=== PATIENT | female | born 1945 | race Caucasian/White ===

== ENCOUNTER → 2016-06-19 | Outpatient (CLI) | payer MEDICARE, OTHER | LOC: WI 10:57 | PROVIDERS: ATTEND Specialist | DX: Z12.31 Encounter for screening mammogram for malignant neoplasm of breast (principal); R92.2 Inconclusive mammogram | CPT/HCPCS: 77067; G0202 ==

== ENCOUNTER → 2016-07-10 | Outpatient (CLI) | payer MEDICARE, OTHER ==
--- NOTE | 2016-07-10 15:57 | WOMENS IMAGING REPORT ---
EXAM DESCRIPTION: RIGHT DIAGNOSTIC MAMMO W/CAD; U/S BREAST UNILAT LIMITED COMPLETED DATE/TIME: 07/10/2016 10:50 am; 07/10/2016 11:29 am REASON FOR STUDY: N63, BREAST LUMP; RT BREAST DENSITY N63 UNSPECIFIED LUMP IN BREAST COMPARISON: 06/19/2016, 06/16/2015 TECHNIQUE: Cone compression craniocaudal and mediolateral oblique images of the breast recorded with digital acquisition. Right breast 90 mediolateral view. Right breast ultrasound was also performed. LIMITATIONS: None. FINDINGS: BREAST: right MASSES: Patient has a history of benign right breast biopsy upper outer quadrant with subsequent infe ction and wet-to-dry dressings. There is a biopsy clip in the far upper outer quadrant with adjacent low-density ill-defined density. There are also oil cysts adjacent to the clip.Cone compression whitley ges are very similar compared to 06/16/2015 suggesting against malignancy. CALCIFICATIONS: No new or suspicious calcifications. ARCHITECTURAL DISTORTION: None. DEVELOPING DENSITY: None. ASYMMETRY: None noted. OTHER: No other significant findings. Read with the assistance of CAD. .[facility] - R2 Cenova Version 1.3 .[facility] - R2 Cenova Version 1.3 .[facility] - R2 Cenova Version 2.4 .[facility] - R2 Cenova Version 2.4 .[facility] - R2 Peripheral Equipment Operator Version 9.2 Right breast ultrasound: Ultrasound of the far upper outer quadrant right breast was performed. A blue dye 5 to 6 mm oil cyst is present. Adjacent to the oil cysts, a hypoechoic 1.1 x 0.6 cm density is present with some acous tic absorption, likely breast parenchymal scar tissue. IMPRESSION: Oil cyst and scar tissue adjacent to a biopsy clip, similar compared to prior mammograms . BREAST DENSITY: b. There are scattered areas of fibroglandular density. BIRAD: 2 Benign findings. RECOMMENDATION: RECOMMENDED FOLLOW UP: Please continue yearly bilateral screening mammography SPECIFIC INTERVENTION/IMAGING/CONSULTATION RECOMMENDED:No additional intervention/ imaging/consultati on needed at this time. COMMUNICATION:Patient notified by letter COMMENT: The patient has been notified of the results by letter per MQSA requirements. Additional no tification policies are in place for contacting patient with suspicious or incomplete findings. Quality ID #[id number]: The [employer] recommends an annual screening mammogram for women aged 40 years or over. This facility utilizes a reminder system to ensure that all patients receive reminder letters, and/or direct phone calls for appointments. This includes reminders for routine scr eening mammograms, diagnostic mammograms, or other Breast Imaging Interventions when appropriate. Th is patient will be placed in the appropriate reminder system. The [employer] (ACR) has developed recommendations for screening MRI of the breast s in certain patient populations, to be used in conjunction with mammography. Breast MRI surveillanc e may be appropriate for women with more than 20% lifetime risk of developing breast cancer as deter mined by genetic testing, significant family history of the disease, or history of mantle radiation f or Hodgkins Disease. ACR Practice Guidelines 2008. TECHNICAL DOCUMENTATION: FINDING NUMBER: (1) ASSESSMENT: (1) JOB ID: [id number] [employer]- All Rights Reserved
--- NOTE | 2016-07-10 15:57 | WOMENS IMAGING REPORT ---
EXAM DESCRIPTION: RIGHT DIAGNOSTIC MAMMO W/CAD; U/S BREAST UNILAT LIMITED COMPLETED DATE/TIME: 07/10/2016 10:50 am; 07/10/2016 11:29 am REASON FOR STUDY: N63, BREAST LUMP; RT BREAST DENSITY N63 UNSPECIFIED LUMP IN BREAST COMPARISON: 06/19/2016, 06/16/2015 TECHNIQUE: Cone compression craniocaudal and mediolateral oblique images of the breast recorded with digital acquisition. Right breast 90 mediolateral view. Right breast ultrasound was also performed. LIMITATIONS: None. FINDINGS: BREAST: right MASSES: Patient has a history of benign right breast biopsy upper outer quadrant with subsequent infe ction and wet-to-dry dressings. There is a biopsy clip in the far upper outer quadrant with adjacent low-density ill-defined density. There are also oil cysts adjacent to the clip.Cone compression whitley ges are very similar compared to 06/16/2015 suggesting against malignancy. CALCIFICATIONS: No new or suspicious calcifications. ARCHITECTURAL DISTORTION: None. DEVELOPING DENSITY: None. ASYMMETRY: None noted. OTHER: No other significant findings. Read with the assistance of CAD. .[facility] - R2 Cenova Version 1.3 .[facility] - R2 Cenova Version 1.3 .[facility] - R2 Cenova Version 2.4 .[facility] [place] - R2 Cenova Version 2.4 .[facility] - R2 Rotary Helper Version 9.2 Right breast ultrasound: Ultrasound of the far upper outer quadrant right breast was performed. A blue dye 5 to 6 mm oil cyst is present. Adjacent to the oil cysts, a hypoechoic 1.1 x 0.6 cm density is present with some acous tic absorption, likely breast parenchymal scar tissue. IMPRESSION: Oil cyst and scar tissue adjacent to a biopsy clip, similar compared to prior mammograms . BREAST DENSITY: b. There are scattered areas of fibroglandular density. BIRAD: 2 Benign findings. RECOMMENDATION: RECOMMENDED FOLLOW UP: Please continue yearly bilateral screening mammography SPECIFIC INTERVENTION/IMAGING/CONSULTATION RECOMMENDED:No additional intervention/ imaging/consultati on needed at this time. COMMUNICATION:Patient notified by letter COMMENT: The patient has been notified of the results by letter per MQSA requirements. Additional no tification policies are in place for contacting patient with suspicious or incomplete findings. Quality ID #225: The [employer] recommends an annual screening mammogram for women aged 40 years or over. This facility utilizes a reminder system to ensure that all patients receive reminder letters, and/or direct phone calls for appointments. This includes reminders for routine scr eening mammograms, diagnostic mammograms, or other Breast Imaging Interventions when appropriate. Th is patient will be placed in the appropriate reminder system. The [employer] (ACR) has developed recommendations for screening MRI of the breast s in certain patient populations, to be used in conjunction with mammography. Breast MRI surveillanc e may be appropriate for women with more than 20% lifetime risk of developing breast cancer as deter mined by genetic testing, significant family history of the disease, or history of mantle radiation f or Hodgkins Disease. ACR Practice Guidelines 2008. TECHNICAL DOCUMENTATION: FINDING NUMBER: (1) ASSESSMENT: (1) JOB ID: [id number] [employer]- All Rights Reserved
== END ==
LOC: WI 10:16
PROVIDERS: ATTEND Specialist
DX: N63 Unspecified lump in breast (principal)
CPT/HCPCS: 76642; G0206

== ENCOUNTER → 2016-07-17 | Outpatient (CLI) | payer MEDICARE, OTHER ==
--- NOTE | 2016-07-17 14:39 | RADIOLOGY REPORT (SQ) ---
EXAM DESCRIPTION: CT LUNG CANCER SCREENING COMPLETED DATE/TIME: 07/17/2016 9:53 am REASON FOR STUDY: PERSONAL HX OF NICOTINE DEPENDENCE Z87.891 PERSONAL HISTORY OF NICOTINE DEPENDENC E Has the patient had a Chest CT scan within the past year? No. Was the patient offered tobacco cessation counseling? No. Was the patient engaged in shared decision making for this test? Yes. Does the patient have signs or symptoms of Lung Cancer? No. Is the patient a current smoker? No. How many packs per year? 182. How many years since quitting smoking? 10 years. Patients age: 71. COMPARISON: None. TECHNIQUE: Low Dose CT scan performed of the chest without intravenous contrast for purposes of scre ening for lung cancer. Images reviewed with lung, soft tissue and bone windows. Reconstructed coron al and sagittal MPR images reviewed. All images stored on PACS. All CT scanners at this facility use dose modulation, iterative reconstruction, and/or weight based d osing when appropriate to reduce radiation dose to as low as reasonably achievable (ALARA). [facility]: Dose Right [facility]: CareDose [facility]: Dose Right [facility]: Teradose 4D [facility]: [employer] RADIATION DOSE: mGy. . LIMITATIONS: No technical limitations. FINDINGS: LUNG NODULES: Description: Solid nodule in the right upper lobe (image 202) measuring 4. 1 mm. Solid nodule in the right middle lobe (image 279) measuring 3.6 mm. A few smaller punctate ca lcified granulomas. REMAINING LUNGS AND PLEURA: No pleural effusions or calcifications. No pneumothorax. Mild scarr ing in the lung bases. HILAR AND MEDIASTINAL STRUCTURES: No identified masses. No abnormal nodes. HEART AND VASCULAR STRUCTURES: No aortic aneurysm. No pericardial effusion. No cardiac devices. CORONARY ARTERY CALCIFICATIONS: No significant calcifications. UPPER ABDOMEN: No significant findings. THYROID AND OTHER SOFT TISSUES: No masses. No adenopathy. BONES: No significant finding. OTHER: No other significant findings. IMPRESSION: BENIGN FINDINGS IN THE LUNGS. NO OTHER CLINICALLY SIGNIFICANT/POTENTIALLY CLINICALLY SIGNIFICANT FINDINGS LUNGRADS: LUNGRADS: 2 BENIGN APPEARANCE OR BEHAVIOR. NODULES WITH A VERY LOW LIKELIHOOD OF BECOMIN G A CLINICALLY ACTIVE CANCER DUE TO SIZE OR LACK OF GROWTH. MODIFIER: NONE. RECOMMENDATION: Continue annual screening with LDCT in 12 months. COMMENT: CRITERIA: Solid nodule(s): < 6 mm; new < 4 mm. Part solid nodule(s): < 6 mm total diameter on baseline screening. Non solid nodule(s) (GGN): < 20 mm OR ? 20 and unchanged or slowly growing. Category 3 or 4 modules unchanged for ? 3 months. TECHNICAL DOCUMENTATION: JOB ID: [id number] Quality ID # [id number]: Final reports with documentation of one or more dose reduction techniques (e.g., Au tomated exposure control, adjustment of the mA and/or kV according to patient size, use of iterative reconstruction technique) 2010 [facility]
== END ==
LOC: RAD 09:36
PROVIDERS: ATTEND Specialist
DX: Z12.2 Encounter for screening for malignant neoplasm of respiratory organs (principal); Z87.891 Personal history of nicotine dependence
CPT/HCPCS: G0297

== ENCOUNTER → 2016-10-17 | Outpatient (CLI) | payer MEDICARE, OTHER ==
--- NOTE | 2016-10-17 11:48 | WOMENS IMAGING REPORT ---
EXAM DESCRIPTION: BONE DENSITY HIP/SPINE COMPLETED DATE/TIME: 10/17/2016 9:52 am REASON FOR STUDY: OSTEOPOROSIS M81.0 AGE-RELATED OSTEOPOROSIS W/O CURRENT PATHOLOGICAL FRAC COMPARISON: 2014 TECHNIQUE: Dual-Energy X-ray Absorptiometry (DEXA) of the AP Spine and Hip. LIMITATIONS: None. FINDINGS: LUMBAR SPINE: The bone mineral density (BMD) measured from L1-L4 in the AP projection correlates with a T-score of +1.6, which is normal as defined by the World Health Organization. This is similar compared to 2015 HIP: The bone mineral density (BMD) measured in the left femoral neck at the hip correlates with a T-score of -0.7, which is normal as defined by the World Health Organization. This is similar compared to 2 015 IMPRESSION: 1. LUMBAR SPINE: Normal 2. HIP: Normal COMMENT: The World Health Organization defines low BMD as follows: T-score: Normal: Greater than -1.0 Osteopenia: Between -1.0 and -2.5 Osteoporosis: Less than -2.5 without fractures Established osteoporosis: Less than -2.5 with fractures In general, you may wish to consider: Diagnosis Treatment Follow-up DEXA Normal BMD Prevention 2-3 years Osteopenia Prevention/Therapy 1-2 years Osteoporosis Therapy Yearly TECHNICAL DOCUMENTATION: JOB ID: [id number] [employer]- All Rights Reserved
== END ==
LOC: WI 09:24
PROVIDERS: ATTEND Physician Assistant
DX: M81.0 Age-related osteoporosis without current pathological fracture (principal)
CPT/HCPCS: 77080

== ENCOUNTER → 2017-04-16 | Outpatient (CLI) | payer MEDICARE, OTHER ==
--- NOTE | 2017-04-16 19:55 | XCELERA REPORT ---
[address] [address] Transthoracic Echocardiogram Report Name: SHANTHI BRIGGS Age: 71 yrs Gender: Female : 1945 Patient Status: Outpatient Patient Location: Study Date: 04/16/2017 10:29 AM Height: 63 in Weight: 268 lb BSA: 2.2 m2 Reason For Study: AMYLOIDOSIS Ordering Physician: CHRISTOS HILL Performed By: Haley Mario Interpretation Summary Difficult study pt 268# and 63" only. Poor A4 chamber, and no Ap 2 chamber view.Limited findings Minimal post peric effusion, Calcified aortic root not enlarged. AV not visualized, peak velocity not increased to suggest .. Mild mitral annular calcification, no MS no MVP, no MR, LA is not enlarged. LVEF is very normal and no LV diastolic dysfunction, average E/E' is 12. IVS and PW and Lateral wall normal and hyperdynamic , other rueda not evaluated. no LV enlargement. Right heart novisualized and no TR jet seen or measured to derive RVSP. IVC is slightly dilated and collapse is <50%. Echo is not the imaging modality to diagnose Amyloidosis, and cardiac amyloidosis is rare. MMode/2D Measurements & Calculations RVDd: 3.7 cm LVIDd: 4.4 cm FS: 37.1 % Ao root diam: 3.1 cm IVSd: 1.3 cm LVIDs: 2.8 cm EDV(Teich): 89.6 ml LVPWd: 1.3 cm ESV(Teich): 29.4 ml Ao root area: 7.4 cm2 EF(Teich): 67.2 % LA dimension: 3.6 cm Doppler Measurements & Calculations MV E max chris: MV P1/2t max chris: Ao V2 max: LV V1 max P.7 cm/sec 98.7 cm/sec 145.1 cm/sec 5.1 mmHg MV A max chris: MV P1/2t: 60.7 msec Ao max PG: LV V1 max: 97.7 cm/sec 8.4 mmHg 112.5 cm/sec MV E/A: 1.0 MVA(P1/2t): 3.6 cm2 MV dec slope: 476.1 cm/sec2 PA V2 max: 112.5 cm/sec PA max P.1 mmHg Left Ventricle The left ventricle is grossly normal size. There is mild concentric left ventricular hypertrophy. The left ventricular ejection fraction is normal. Doppler measurements suggest normal left ventricular diastolic function. Regional wall motion abnormalities cannot be excluded due to limited visualization. The left ventricular apex is not well visualized. Right Ventricle The right ventricle is not well visualized secondary to technical limitations. Atria Right atrium not well visualized secondary to technical limitations. The left atrial size is normal. There is no Doppler evidence for an interatrial shunt. Mitral Valve The mitral valve is normal in structure and function. There is no evidence of mitral valve prolapse. There is no mitral valve stenosis. There is no mitral regurgitation noted. Aortic Valve The aortic valve is not well visualized secondary to technical limitations. Cannot exclude aortic valvular vegetation. There is no aortic valve stenosis. No aortic regurgitation is present. Tricuspid Valve The tricuspid valve is not well visualized secondary to technical limitations. Pulmonic Valve The pulmonic valve is not well visualized. Great Vessels The aortic root is normal size. The inferior vena cava appeared dilated and decreased < 50% with respiration (RAP 15-20 mmHg). Effusions Minimal pericardial effusion. I WMSI = 1.00 % Normal = 100 Segments Size X - Cannot 1 - Normal 2 - 3 - Akinetic4 - 1-2 small Interpret Hypokinetic Dyskinetic 3-5 moderate 5 - 6-14 large Aneurysmal 15-16 diffuse : CHRISTOS HILL > Pérez Brown
== END ==
LOC: SP 09:56
PROVIDERS: ATTEND Internal Medicine Hematology & Oncology
DX: E85.9 Amyloidosis, unspecified (principal)
CPT/HCPCS: 93306

== ENCOUNTER 2017-05-04 08:44 | Inpatient (IN) | payer MEDICARE, OTHER ==
[2017-05-04] MEDS ORDERED: NORMAL SALINE 1000 ML 1,000 ML IV ONE ×2 (10:00→12:43)
--- NOTE | 2017-05-04 10:01 | ER Document Report ---
ED Fall - General Chief Complaint: Fall Stated Complaint: FALL,,CONFUSION Time Seen by Provider: 05/04/17 09:20 Mode of Arrival: Ambulatory Information source: Patient Notes: Patient is a 72-year-old female who presents to the ER today for diarrhea 4 weeks, confusion off and on per her and fall this morning. Patient states that she only fell because she tripped over her CPAP machine in the dark. She denies hitting her head or loss of consciousness. Denies any pain anywhere. Patient states that she has been evaluated for the diarrhea by mobile health vehicle operator about 10 days ago and it was "negative for anything." She does have a colonoscopy scheduled coming up soon but has been states that he did not think she could tolerate the pre-colonoscopy cleanout. Patient is on lithium for bipolar disorder, takes 300 mg 3 times a day. is very concerned about her lithium level because she has had so much diarrhea and it has been difficult to keep fluids in her. TRAVEL OUTSIDE OF THE [place] IN LAST 30 DAYS: No - Related data Allergies/Adverse Reactions: cyclobenzaprine HCl [From Flexeril] Allergy (Unknown, Verified 05/04/17 09:16) diphenhydramine HCl [From Benadryl] Allergy (Unknown, Verified 05/04/17 09:16) Past Medical History - General Information source: Patient, Relative - Social History Smoking Status: Never Smoker Chew tobacco use (# tins/day): No Frequency of alcohol use: None Drug Abuse: None Family History: None Patient has suicidal ideation: No Patient has homicidal ideation: No - Past Medical History Cardiac Medical History: Reports: Hx Hypercholesterolemia, Hx Hypertension Denies: Hx Coronary Artery Disease, Hx Heart Attack Pulmonary Medical History: Reports: Hx Asthma, Hx COPD Denies: Hx Bronchitis, Hx Pneumonia Neurological Medical History: Denies: Hx Cerebrovascular Accident, Hx Seizures Endocrine Medical History: Reports: Hx Hypothyroidism Renal/ Medical History: Denies: Hx Peritoneal Dialysis Malignancy Medical History: Reports: Hx Breast Cancer GI Medical History: Reports: Hx Gastroesophageal Reflux Disease Musculoskeltal Medical History: Reports Hx Arthritis Psychiatric Medical History: Reports: Hx Bipolar Disorder Past Surgical History: Reports: Hx Breast Surgery, Hx Cholecystectomy, Hx Hysterectomy, Hx Tonsillectomy - Immunizations Hx Diphtheria, Pertussis, Tetanus Vaccination: Yes Review of Systems - Review of Systems Constitutional: No symptoms reported EENT: No symptoms reported Cardiovascular: No symptoms reported Respiratory: No symptoms reported Gastrointestinal: See HPI Genitourinary: No symptoms reported Female Genitourinary: No symptoms reported Musculoskeletal: No symptoms reported Skin: No symptoms reported Hematologic/Lymphatic: No symptoms reported Neurological/Psychological: See HPI Physical Exam - Vital signs Vitals: Temp Pulse Resp BP Pulse Ox 98.0 F 76 24 H 152/62 H 90 L 05/04/17 08:50 05/04/17 08:50 05/04/17 08:50 05/04/17 08:50 05/04/17 08:50 - Notes Notes: PHYSICAL EXAMINATION: GENERAL: Chronically ill-appearing, obese, but in no acute distress. HEAD: Atraumatic, normocephalic. EYES: Pupils equal round and reactive to light, extraocular movements intact, sclera anicteric, conjunctiva are normal. ENT: Airway patent, tongue appears dry NECK: Normal range of motion, supple without lymphadenopathy LUNGS: CTAB and equal. No wheezes rales or rhonchi. HEART: Regular rate and rhythm without murmurs ABDOMEN: Soft, mild periumbilical tenderness. No guarding, no rebound BACK: no vertebral tenderness, normal ROM GI/: no CVA tenderness EXTREMITIES: Normal range of motion, no pitting edema. No cyanosis. NEUROLOGICAL: Answers questions appropriately, alert and oriented 3, cranial nerves grossly intact. Normal sensory/motor exams. PSYCH: Normal mood, normal affect. SKIN: Warm, Dry, normal turgor, no rashes or lesions noted Course - Re-evaluation Re-evalutation: 05/04/17 12:52 White count is 16.9, urinalysis reveals infection with positive nitrites, greater than 182 white blood cells and leukocytes, acute abdominal series negative for any acute pathology, normal bowel gas pattern, lithium level was high at 2.7. Poison control was called and advises fluid resuscitation with IV fluids and trending her lithium until it peaks and then starts to go back down again. They want her urine output at 2 cc/kg/h. I have initiated call with hospitalist to admit her at this time, awaiting callback. 05/04/17 13:19 Ghazal Alvarado NP hospitalist agrees to admit at this time to trend lithium and fluid resuscitate, antibiotics for UTI. - Vital Signs Vital signs: Temp Pulse Resp BP Pulse Ox 98.0 F 76 18 184/67 H 93 05/04/17 08:50 05/04/17 08:50 05/04/17 14:14 05/04/17 14:13 05/04/17 14:14 - Laboratory Result Diagrams: 05/04/17 11:40 05/04/17 11:40 Laboratory results interpreted by me: 05/04/17 05/04/17 05/04/17 11:10 11:40 11:40 WBC 16.9 H Seg Neutrophils % 86.4 H Lymphocytes % 5.6 L Absolute Neutrophils 14.5 H Sodium 134.6 L Potassium 3.5 L BUN 28 H Est GFR (Non-Af Amer) 53 L Glucose 112 H Calcium 10.8 H Alkaline Phosphatase 127 H Urine Protein 100 H Urine Blood SMALL H Urine Nitrite POSITIVE H Ur Leukocyte Esterase LARGE H [place] 2.7 H* Critical Care Note - Critical Care Note Total time excluding time spent on procedures (mins): 35 - 35___ minutes spent in critical care time with patient, consulted with attending, speaking with family, placing orders and evaluating tests and labs. Discharge - Discharge Clinical Impression: Elevated lithium level UTI (urinary tract infection) Qualifiers: Urinary tract infection type: site unspecified Hematuria presence: with hematuria Qualified Code(s): N39.0 - Urinary tract infection, site not specified Condition: Stable Disposition: ADMITTED INPATIENT Admitting Provider: Hospitalist - [facility] Unit Admitted: Telemetry
--- NOTE | 2017-05-04 11:27 | RADIOLOGY REPORT (SQ) ---
EXAM DESCRIPTION: ACUTE ABDOMEN SERIES COMPLETED DATE/TIME: 05/04/2017 10:57 am REASON FOR STUDY: abd pain, diarrhea 4 weeks COMPARISON: CT lung cancer screening 07/17/2016 Skeletal survey 09/03/2014 NUMBER OF VIEWS: Three views. TECHNIQUE: Frontal chest, supine abdomen and upright abdomen radiographic images acquired. LIMITATIONS: None. FINDINGS: CHEST: Moderate to marked cardiomegaly, progressive since 2014. No acute infiltrates. No pleural effusion. No pneumothorax. Old healed right humeral head fracture . FREE AIR: None. No abnormal gas collections. BOWEL GAS PATTERN: Nonobstructive pattern. No dilated loops or air fluid levels. CALCIFICATIONS: No suspicious calcifications. HARDWARE: None in the abdomen. SOFT TISSUES: No gross mass or suggestion of organomegaly. BONES: No acute fracture. No worrisome bone lesions. OTHER: No other significant finding. IMPRESSION: Moderate to marked cardiomegaly. Nonspecific nonobstructive bowel gas pattern TECHNICAL DOCUMENTATION: JOB ID: [id number] [employer]- All Rights Reserved Reading location - IP/workstation name: [email or web address]
[2017-05-04 11:51] LABS: ABSOLUTE LYMPHOCYTES (AUTO) 0.9 10^3/uL (0.5-4.7); ABSOLUTE MONOCYTES (AUTO) 1.3 10^3/uL (0.1-1.4); ABSOLUTE NEUT (AUTO) 14.5 10^3/uL (1.7-8.2); BASOPHILS % (AUTO) 0.1 % (0-2); HEMOGLOBIN 13.4 g/dL (12.0-15.5); LYMPHOCYTES % (AUTO) 5.6 % (13-45); MEAN CORPUSCULAR HEMOGLOBIN 30.4 pg (27.0-33.4); MEAN CORPUSCULAR HGB CONC 33.4 g/dL (32.0-36.0); MEAN CORPUSCULAR VOLUME 91 fl (80-97); MONOCYTES % (AUTO) 7.9 % (3-13); PLATELET COUNT 315 10^3/uL (150-450); RED CELL DISTRIBUTION WIDTH 12.8 % (11.5-14.0); SEGMENTED NEUTROPHILS % (AUTO) 86.4 % (42-78); TOTAL CELLS COUNTED % (AUTO) 100 %; WHITE BLOOD COUNT 16.9 10^3/uL (4.0-10.5)
[2017-05-04 11:55] LABS: APPEARANCE,URINE CLOUDY; BILIRUBIN,URINE NEGATIVE (NEGATIVE); COLOR,URINE STRAW; GLUCOSE, URINE NEGATIVE (NEGATIVE); KETONES,URINE NEGATIVE (NEGATIVE); URINE SPECIFIC GRAVITY 1.005
[2017-05-04 11:56] LABS: LEUKOCYTE ESTERASE,URINE LARGE (NEGATIVE); NITRITE,URINE POSITIVE (NEGATIVE); PROTEIN,URINE 100 mg/dL (NEGATIVE); UROBILINOGEN,URINE NEGATIVE mg/dL (<2.0)
[2017-05-04 12:10] LABS: ALANINE AMINOTRANSFERASE 26 U/L (9-52); ALBUMIN 3.7 g/dL (3.5-5.0); ALKALINE PHOSPHATASE 127 U/L (38-126); ANION GAP 8 (5-19); ASPARTATE AMINO TRANSFERASE 25 U/L (14-36); BILIRUBIN,DIRECT 0.1 mg/dL (0.0-0.4); BILIRUBIN,TOTAL 0.4 mg/dL (0.2-1.3); BLOOD UREA NITROGEN 28 mg/dL (7-20); CALCIUM 10.8 mg/dL (8.4-10.2); CARBON DIOXIDE 24 mmol/L (22-30); CHLORIDE 103 mmol/L (98-107); GLUCOSE 112 mg/dL (75-110); POTASSIUM 3.5 mmol/L (3.6-5.0); SODIUM 134.6 mmol/L (137-145); TOTAL PROTEIN 6.3 g/dL (6.3-8.2)
[2017-05-04 12:13] LABS: LITHIUM 2.7 mEq/L (0.6-1.2)
[2017-05-04] MEDS ORDERED: CEFTRIAXONE INJ 1000 MG VIAL IV ONE (12:43)
--- NOTE | 2017-05-04 13:48 | EKG REPORT ---
SEVERITY:- BORDERLINE ECG - SINUS RHYTHM BORDERLINE T WAVE ABNORMALITIES : Confirmed by: Pérez Brown MD 04-May-2017 13:48:17
[2017-05-04] MEDS ORDERED: ACETAMINOPHEN 325 MG TABLET PO PRN (14:30)
[2017-05-04] MEDS ORDERED: MAGNESIUM HYDROXIDE SUSP 30 ML UDCUP PO PRN (14:40)
[2017-05-04] MEDS ORDERED: MAG HYDROX/AL HYDROX/SIMETH SUSP 30 ML UDCUP PO PRN (14:40)
[2017-05-04] MEDS ORDERED: ONDANSETRON HCL INJ/PF 4 MG/2 ML SDV IV PRN (14:40)
[2017-05-04] MEDS ORDERED: HYDRALAZINE HCL INJ/PF 20 MG/1 ML SDV IV PRN (15:09)
--- NOTE | 2017-05-04 15:16 | PDOC H&P ---
History of Present Illness Admission Date/PCP: 05/04/17 13:30 JOEL PINEDA MD Patient complains of: Increased confusion, urinary incontinence and retention History of Present Illness: SHANTHI BRIGGS is a 72 year old female with a past medical history of hypertension, hyperlipidemia, COPD, hypothyroidism, breast cancer status post mastectomy, arthritis, and bipolar on lithium who presented to the emergency department with a complaint of increased confusion and fall when she became holding her CPAP machine overnight. Evaluation in the emergency department reveals urinalysis positive for infection , WBCs of 16.9, lithium level of 2.7, and acute abdominal series was negative for acute pathology. [place] poison control was called by the emergency department provider; they advised fluid resuscitation with IV fluids and trending lithium until it begins trending downwards. They recommend a urinary output of 2 ml/kg/hr (for this patient, 235 mL's per hour). The patient had a Fishman catheter placed by emergency department with immediate urine output of 1250 mL's. She is noted to be afebrile, heart rate 76, respiratory rate 24, blood pressure 152/62 (patient admits that she has not taken her home medications yet today), and pulse oximetry of 90% on room air. She is referred to the hospitalist service for admission. Past Medical History Cardiac Medical History: Reports: Hyperlipidema, Hypertension Denies: Coronary Artery Disease, Myocardial Infarction Pulmonary Medical History: Reports: Asthma, Chronic Obstructive Pulmonary Disease (COPD) Denies: Bronchitis, Pneumonia Neurological Medical History: Denies: Seizures Endocrine Medical History: Reports: Hypothyroidism Malignancy Medical History: Reports: Breast Cancer GI Medical History: Reports: Gastroesophageal Reflux Disease Musculoskeltal Medical History: Reports: Arthritis Psychiatric Medical History: Reports: Bipolar Disorder Hematology: Denies: Anemia Past Surgical History Past Surgical History: Reports: Cholecystectomy, Hysterectomy, Tonsillectomy Social History Information Source: Patient, Emergency Med Personnel, [facility] Records Lives with: Spouse/Significant other Smoking Status: Never Smoker Frequency of Alcohol Use: None Hx Recreational Drug Use: No Hx Prescription Drug Abuse: No - Advance Directive Resuscitation Status: Do Not Resuscitate Family History Family History: Reviewed & Not Pertinent Parental Family History Reviewed: Yes Children Family History Reviewed: Yes Sibling(s) Family History Reviewed.: Yes Medication/Allergy Home Medications: Amlodipine Besylate [Norvasc 10 mg Tablet] 10 mg PO DAILY 05/04/17 Aspirin [Aspirin EC] 81 mg PO DAILY 05/04/17 Fluticasone/Salmeterol [Advair 500-50 Diskus 28 Dose] 1 puff IH Q12 05/04/17 Hydralazine HCl [Apresoline 10 mg Tablet] 10 mg PO Q8 05/04/17 Hydrochlorothiazide [Hydrodiuril 12.5 mg Capsule] 12.5 mg PO DAILY 05/04/17 Levothyroxine Sodium [Synthroid] 125 mcg PO Q6AM 05/04/17 Rayle Carbonate [Rayle Carbonate ER] 300 mg PO Q8 05/04/17 Metoprolol Tartrate [Lopressor 100 mg Tablet] 100 mg PO Q12 05/04/17 Montelukast Sodium [Singulair 10 mg Tablet] 10 mg PO QHS 05/04/17 Multivitamin [Multiple Vitamins] 1 tab PO DAILY 05/04/17 Solifenacin Succinate [Vesicare] 10 mg PO DAILY 05/04/17 Tiotropium [place] [Spiriva Respimat] 2 puff IH DAILY 05/04/17 Vitamin E 100 unit PO DAILY 05/04/17 Allergies/Adverse Reactions: cyclobenzaprine HCl [From Flexeril] Allergy (Unknown, Verified 05/04/17 09:16) diphenhydramine HCl [From Benadryl] Allergy (Unknown, Verified 05/04/17 09:16) Review of Systems Constitutional: PRESENT: fatigue. ABSENT: chills, fever(s), headache(s), weight gain, weight loss Eyes: ABSENT: visual disturbances Ears: ABSENT: hearing changes Cardiovascular: ABSENT: chest pain, dyspnea on exertion, edema, orthropnea, palpitations Respiratory: PRESENT: cough, dyspnea, other - Rhinorrhea. ABSENT: hemoptysis Gastrointestinal: PRESENT: as per HPI. ABSENT: abdominal pain, constipation, diarrhea, hematemesis, hematochezia, nausea, vomiting Genitourinary: PRESENT: as per HPI. ABSENT: dysuria, hematuria Musculoskeletal: ABSENT: joint swelling Integumentary: ABSENT: rash, wounds Neurological: ABSENT: abnormal gait, abnormal speech, confusion, dizziness, focal weakness, syncope Psychiatric: ABSENT: anxiety, depression, homidical ideation, suicidal ideation Endocrine: ABSENT: cold intolerance, heat intolerance, polydipsia, polyuria Hematologic/Lymphatic: ABSENT: easy bleeding, easy bruising Physical Exam Vital Signs: Temp Pulse Resp BP Pulse Ox 98.0 F 76 24 H 152/62 H 90 L 05/04/17 08:50 05/04/17 08:50 05/04/17 08:50 05/04/17 08:50 05/04/17 08:50 General appearance: PRESENT: no acute distress, disheveled, morbidly obese, well -developed, well-nourished, other - Poor hygiene with foul odor Head exam: PRESENT: atraumatic, normocephalic Eye exam: PRESENT: conjunctiva pink, EOMI, PERRLA. ABSENT: scleral icterus Ear exam: PRESENT: normal external ear exam Mouth exam: PRESENT: dry mucosa, tongue midline, other - Dry, cracked lips Neck exam: ABSENT: carotid bruit, JVD, lymphadenopathy, thyromegaly Respiratory exam: PRESENT: prolonged expiratory phas, rhonchi, symmetrical, unlabored. ABSENT: rales, wheezes Cardiovascular exam: PRESENT: RRR, +S1, +S2. ABSENT: diastolic murmur, rubs, systolic murmur, tachycardia Pulses: PRESENT: normal dorsalis pedis pul Vascular exam: PRESENT: normal capillary refill GI/Abdominal exam: PRESENT: normal bowel sounds, soft. ABSENT: distended, guarding, mass, organolmegaly, rebound, tenderness Rectal exam: PRESENT: deferred Extremities exam: PRESENT: full ROM. ABSENT: calf tenderness, clubbing, pedal edema Neurological exam: PRESENT: alert, awake, oriented to person, oriented to place , CN II-XII grossly intact, other - Patient has difficulty reporting HPI/ medical history. She is forgetful and repetitive of statements during our conversation.. ABSENT: oriented to time, oriented to situation, motor sensory deficit Psychiatric exam: PRESENT: appropriate affect, normal mood. ABSENT: homicidal ideation, suicidal ideation Skin exam: PRESENT: dry, erythema - Irritation to skinfolds, warm. ABSENT: cyanosis, intact, rash Results Impressions: Acute Abdomen Series 05/04/17 10:00 IMPRESSION: Moderate to marked cardiomegaly. Nonspecific nonobstructive bowel gas pattern Assessment & Plan - Diagnosis (1) [place] toxicity Qualifiers: Encounter type: initial encounter Injury intent: accidental or unintentional Qualified Code(s): T56.891A - Toxic effect of other metals, accidental (unintentional), initial encounter Is this a current diagnosis for this admission?: Yes Plan: Patient presented to the emergency department with a report of increased confusion. The patient's lithium level was evaluated to be 2.7. Was trying to poison control contacted by emergency department physician; recommendations for IV fluid resuscitation and trending lithium level. Advised urine output of 235 mL/h for this patient. The patient will be admitted to the medical floor on continuous cardiac telemetry. She is provided maintenance IV fluids at 150 mL/h. She is already received approximately 2 L normal saline bolus by personnel. A Fishman has been placed. Strict I's and O's. We will trend lithium. Seizure, fall, aspiration precautions. (2) UTI (urinary tract infection) Qualifiers: Urinary tract infection type: site unspecified Hematuria presence: with hematuria Qualified Code(s): N39.0 - Urinary tract infection, site not specified; R31.9 - Hematuria, unspecified; R31.9 - Hematuria, unspecified Is this a current diagnosis for this admission?: Yes Plan: The patient was admitted with a complaint of increased confusion and abdominal fullness. Evaluation revealed urinalysis positive for urinary tract infection and leukocytosis with a white count of 16. She is afebrile, normal heart rate, elevated blood pressures. We will obtain blood and urine cultures. We will evaluate urinary tract infection and urinary retention with a CT of the abdomen and pelvis. Continue IV Rocephin. (3) Acute encephalopathy Is this a current diagnosis for this admission?: Yes Plan: Multifactorial secondary to lithium toxicity and acute infection. (4) Leukocytosis Qualifiers: Leukocytosis type: bandemia Qualified Code(s): D72.825 - Bandemia Is this a current diagnosis for this admission?: Yes Plan: Secondary to UTI. Blood and urine cultures are pending. We will obtain CT of the abdomen and pelvis. We will monitor with daily CBC. Remaining plan as above (5) Dehydration Is this a current diagnosis for this admission?: Yes Plan: IV maintenance fluids. Encourage p.o. fluid intake. (6) Urinary retention Is this a current diagnosis for this admission?: Yes Plan: Possibly related to urinary tract infection. We will obtain CT of the abdomen and pelvis to evaluate for renal stones/ hydronephrosis. Fishman catheter with strict I's and O's. We will start daily Flomax. (7) Hypertension Qualifiers: Hypertension type: essential hypertension Qualified Code(s): I10 - Essential (primary) hypertension Is this a current diagnosis for this admission?: Yes Plan: Blood pressure 184/67 in the emergency department; patient reports that she has not taken her home medications. We have resumed amlodipine, hydralazine, metoprolol at home dosing. IV hydralazine available as needed for blood pressure control. - Time Time Spent: 50 to 70 Minutes Medications reviewed and adjusted accordingly: Yes - Inpatient Certification Based on my medical assessment, after consideration of the patient's comorbidities, presenting symptoms, or acuity I expect that the services needed warrant INPATIENT care.: Yes I certify that my determination is in accordance with my understanding of Medicare's requirements for reasonable and necessary INPATIENT services [42 CFR 412.3e].: Yes Medical Necessity: Need Close Monitoring Due to Risk of Patient Decompensation, Need For IV Fluids, Need For Continuous Telemetry Monitoring, Need for IV Antibiotics
[2017-05-04 15:48] LABS: URINE AMPHETAMINES SCREEN NEGATIVE; URINE BARBITURATES SCREEN NEGATIVE; URINE BENZODIAZEPINES SCREEN NEGATIVE; URINE COCAINE SCREEN NEGATIVE; URINE MARIJUANA (THC) SCREEN NEGATIVE; URINE METHADONE SCREEN NEGATIVE; URINE PHENCYCLIDINE SCREEN NEGATIVE
[2017-05-04] MEDS: NORMAL SALINE 1000 ML 1,000 ML IV PRN (17:07)
[2017-05-04] MEDS: TAMSULOSIN HCL 0.4 MG CAP.SR.24H PO SCH (17:10)
--- NOTE | 2017-05-04 17:27 | RADIOLOGY REPORT (SQ) ---
EXAM DESCRIPTION: CT ABD/PELVIS NO ORAL OR IV COMPLETED DATE/TIME: 05/04/2017 5:02 pm REASON FOR STUDY: AMS, UTI/leukocytosis, urinary retention COMPARISON: None. TECHNIQUE: CT scan of the abdomen and pelvis performed without intravenous or oral contrast. Images reviewed with lung, soft tissue, and bone windows. Reconstructed coronal and sagittal MPR images revi ewed. All images stored on PACS. All CT scanners at this facility use dose modulation, iterative reconstruction, and/or weight based d osing when appropriate to reduce radiation dose to as low as reasonably achievable (ALARA). [facility]: Dose Right [facility]: CareDose [facility]: Dose Right [facility]: Teradose 4D [facility]: Smart CipherApps RADIATION DOSE: CT Rad equipment meets quality standard of care and radiation dose reduction techniq ues were employed. CTDIvol: 20.3 mGy. DLP: 1101 mGy-cm.mGy. LIMITATIONS: None. FINDINGS: LOWER CHEST: Cardiomegaly. NON-CONTRASTED LIVER, SPLEEN, ADRENALS: Liver and spleen are unremarkable. There is a 16 mm low-dens ity left adrenal nodule. PANCREAS: No masses. No peripancreatic inflammatory changes. GALLBLADDER: No identified stones by CT criteria. No inflammatory changes to suggest cholecystitis. RIGHT KIDNEY AND URETER: No solid masses. There are cysts. There are 2 lower pole cysts that measur e about 6 cm. There is what appears to be a small hyperdense cortical cyst on image 30 series 3. N o significant calcifications. No hydronephrosis or hydroureter. LEFT KIDNEY AND URETER: No solid masses. There is a 3 cm upper pole cyst. A couple small 6 hyperden se cysts are suggested on image 26. No significant calcifications. No hydronephrosis or hydrouret er. AORTA AND RETROPERITONEUM: No aneurysm. No retroperitoneal masses or adenopathy. BOWEL AND PERITONEAL CAVITY: No obvious masses or inflammatory changes. No free fluid. APPENDIX: Not identified. PELVIS, BLADDER, AND ABDOMINAL WALL:A Fishman catheter is present in the urinary bladder. The uterus i s absent. BONES: Thoracolumbar spondylosis. No acute abnormality is appreciated. OTHER: No other significant finding. IMPRESSION: 1. 16 mm left adrenal adenoma. 2. Renal cysts including some small apparently hyperdense cysts. 3. Thoracolumbar spondylosis. COMMENT: Quality ID # [id number]: Final reports with documentation of one or more dose reduction techniques (e.g., Automated exposure control, adjustment of the mA and/or kV according to patient size, use of iterative reconstruction technique) TECHNICAL DOCUMENTATION: JOB ID: [id number] [employer]- All Rights Reserved Reading location - IP/workstation name: [email or web address]
[2017-05-04] MEDS: HYDRALAZINE HCL 10 MG TABLET PO SCH (22:11)
[2017-05-04] MEDS: FLUTICASONE/SALMETEROL DISKUS 500-50 MCG/DOSE IH SCH (22:11)
[2017-05-04] MEDS: FAMOTIDINE 20 MG TABLET PO SCH (22:11)
[2017-05-04] MEDS: MONTELUKAST SODIUM 10 MG TABLET PO SCH (22:12)
[2017-05-04] MEDS: METOPROLOL TARTRATE 100 MG TABLET PO SCH (22:12)
[2017-05-04] MEDS: HEPARIN SOD (PORCINE) 5,000 UNIT/ML 1 ML SYRINGE SUBCUT SCH (22:12)
[2017-05-05] MEDS: NORMAL SALINE 1000 ML 1,000 ML IV PRN (03:51)
[2017-05-05] MEDS ORDERED: NORMAL SALINE 1000 ML 1,000 ML IV ONE (04:00)
[2017-05-05 05:18] LABS: ABSOLUTE LYMPHOCYTES (AUTO) 0.6 10^3/uL (0.5-4.7); ABSOLUTE MONOCYTES (AUTO) 0.9 10^3/uL (0.1-1.4); ABSOLUTE NEUT (AUTO) 9.9 10^3/uL (1.7-8.2); BASOPHILS % (AUTO) 0.2 % (0-2); EOSINOPHILS % (AUTO) 0.1 % (0-6); HEMATOCRIT 37.3 % (36.0-47.0); HEMOGLOBIN 12.3 g/dL (12.0-15.5); LYMPHOCYTES % (AUTO) 5.3 % (13-45); MEAN CORPUSCULAR HEMOGLOBIN 30.5 pg (27.0-33.4); MEAN CORPUSCULAR VOLUME 92 fl (80-97); MONOCYTES % (AUTO) 8.1 % (3-13); PLATELET COUNT 268 10^3/uL (150-450); RED BLOOD COUNT 4.03 10^6/uL (3.72-5.28); SEGMENTED NEUTROPHILS % (AUTO) 86.3 % (42-78); TOTAL CELLS COUNTED % (AUTO) 100 %; WHITE BLOOD COUNT 11.5 10^3/uL (4.0-10.5)
[2017-05-05] MEDS: LEVOTHYROXINE SODIUM 0.025 MG TABLET PO SCH (05:28)
[2017-05-05] MEDS: LEVOTHYROXINE SODIUM 0.1 MG TABLET PO SCH (05:28)
[2017-05-05] MEDS: HEPARIN SOD (PORCINE) 5,000 UNIT/ML 1 ML SYRINGE SUBCUT SCH ×3 (05:29→21:15)
[2017-05-05] MEDS: HYDRALAZINE HCL 10 MG TABLET PO SCH ×3 (05:29→21:18)
[2017-05-05] MEDS ORDERED: (PENDING PHARMACY ID) (Levothyroxine Sodium [Synthroid] 125 MCG) PO SCH (06:00)
[2017-05-05 06:01] LABS: ANION GAP 7 (5-19); BLOOD UREA NITROGEN 18 mg/dL (7-20); CALCIUM 9.8 mg/dL (8.4-10.2); CARBON DIOXIDE 22 mmol/L (22-30); CHLORIDE 114 mmol/L (98-107); GLUCOSE 113 mg/dL (75-110); POTASSIUM 3.2 mmol/L (3.6-5.0); SODIUM 142.7 mmol/L (137-145)
[2017-05-05 06:18] LABS: LITHIUM 2.1 mEq/L (0.6-1.2)
[2017-05-05] MEDS ORDERED: (PENDING PHARMACY ID) (Tiotropium Bromide [Spiriva Respimat] 2 PUFF) IH SCH (10:00)
[2017-05-05] MEDS ORDERED: CEFTRIAXONE 1 GM/D5W RTU 1 GM/50 ML RTUPB IV SCH (10:00)
[2017-05-05] MEDS: AMLODIPINE BESYLATE 10 MG TABLET PO SCH (10:10)
[2017-05-05] MEDS: DOCUSATE SODIUM 100 MG CAPSULE PO SCH (10:10)
[2017-05-05] MEDS: ASPIRIN 81 MG TABLET, ENT COATED PO SCH (10:10)
[2017-05-05] MEDS: METOPROLOL TARTRATE 100 MG TABLET PO SCH ×2 (10:11→21:18)
[2017-05-05] MEDS: FLUTICASONE/SALMETEROL DISKUS 500-50 MCG/DOSE IH SCH ×2 (10:11→21:16)
[2017-05-05] MEDS: MULTIVITAMIN TABLET PO SCH (10:11)
[2017-05-05] MEDS: TIOTROPIUM BROMIDE DPI 5 CAP/KIT (18 MCG/CAP) IH SCH (10:11)
[2017-05-05] MEDS: FAMOTIDINE 20 MG TABLET PO SCH ×2 (10:11→21:17)
[2017-05-05] MEDS: POTASSIUM CHLORIDE 10 MEQ TABLET.SA PO SCH ×2 (14:51→21:18)
--- NOTE | 2017-05-05 16:10 | PDOC PROGRESS REPORT ---
Subjective Progress Note for:: 05/05/17 Reason For Visit: URINARY TRACT INFECTION, LITHIUM TOXICITY Physical Exam Vital Signs: Temp Pulse Resp BP Pulse Ox 98.7 F 60 16 153/53 H 93 05/05/17 12:00 05/05/17 14:00 05/05/17 12:01 05/05/17 12:00 05/05/17 12:01 Intake & Output 05/04/17 05/05/17 05/06/17 06:59 06:59 06:59 Intake Total 1900 Output Total 1275 Balance 625 Weight 112.9 kg General appearance: PRESENT: no acute distress, disheveled, morbidly obese, well -developed, well-nourished Head exam: PRESENT: atraumatic, normocephalic Eye exam: PRESENT: conjunctiva pink, EOMI, PERRLA. ABSENT: scleral icterus Ear exam: PRESENT: normal external ear exam Mouth exam: PRESENT: moist, tongue midline Neck exam: ABSENT: carotid bruit, JVD, lymphadenopathy, thyromegaly Respiratory exam: PRESENT: prolonged expiratory phas, rhonchi, symmetrical, unlabored, other - 2 L via nasal cannula. ABSENT: rales, wheezes Cardiovascular exam: PRESENT: bradycardia, RRR, +S1, +S2. ABSENT: diastolic murmur, rubs, systolic murmur Pulses: PRESENT: normal dorsalis pedis pul Vascular exam: PRESENT: normal capillary refill GI/Abdominal exam: PRESENT: normal bowel sounds, soft. ABSENT: distended, guarding, mass, organolmegaly, rebound, tenderness Rectal exam: PRESENT: deferred Extremities exam: PRESENT: full ROM. ABSENT: calf tenderness, clubbing, pedal edema Neurological exam: PRESENT: alert, awake, oriented to person, oriented to place , CN II-XII grossly intact, other - Intermittent confusion and incomprehensible speech. She is more oriented than yesterday.. ABSENT: oriented to time, oriented to situation, motor sensory deficit Psychiatric exam: PRESENT: flat affect, normal mood. ABSENT: homicidal ideation , suicidal ideation Skin exam: PRESENT: dry, erythema - skin folds, intact, warm. ABSENT: cyanosis , rash Results Laboratory Results: 05/05/17 04:15 05/05/17 04:15 05/05/17 05/05/17 05/05/17 04:15 04:15 04:15 WBC 11.5 H RBC 4.03 Hgb 12.3 Hct 37.3 MCV 92 MCH 30.5 MCHC 33.0 RDW 13.0 Plt Count 268 Seg Neutrophils % 86.3 H Lymphocytes % 5.3 L Monocytes % 8.1 Eosinophils % 0.1 Basophils % 0.2 Absolute Neutrophils 9.9 H Absolute Lymphocytes 0.6 Absolute Monocytes 0.9 Absolute Eosinophils 0.0 Absolute Basophils 0.0 Sodium 142.7 Potassium 3.2 L Chloride 114 H Carbon Dioxide 22 Anion Gap 7 BUN 18 Creatinine 0.79 Est GFR ( Amer) > 60 Est GFR (Non-Af Amer) > 60 Glucose 113 H Calcium 9.8 TSH 1.83 Impressions: Abdomen/Pelvis CT 05/04/17 00:00 IMPRESSION: 1. 16 mm left adrenal adenoma. 2. Renal cysts including some small apparently hyperdense cysts. 3. Thoracolumbar spondylosis. Acute Abdomen Series 05/04/17 10:00 IMPRESSION: Moderate to marked cardiomegaly. Nonspecific nonobstructive bowel gas pattern Assessment & Plan - Diagnosis (1) [place] toxicity Qualifiers: Encounter type: initial encounter Injury intent: accidental or unintentional Qualified Code(s): T56.891A - Toxic effect of other metals, accidental (unintentional), initial encounter Is this a current diagnosis for this admission?: Yes Plan: Patient presented to the emergency department with a report of increased confusion. The patient's lithium level was evaluated to be 2.7; now trending down. Was trying to poison control contacted by emergency department physician; recommendations for IV fluid resuscitation and trending lithium level. The patient will be admitted to the medical floor on continuous cardiac telemetry. She is provided maintenance IV fluids at 100 mL/h. A Fishman has been placed. Strict I's and O's. We will trend lithium. Seizure, fall, aspiration precautions. (2) UTI (urinary tract infection) Qualifiers: Urinary tract infection type: site unspecified Hematuria presence: with hematuria Qualified Code(s): N39.0 - Urinary tract infection, site not specified; R31.9 - Hematuria, unspecified; R31.9 - Hematuria, unspecified Is this a current diagnosis for this admission?: Yes Plan: The patient was admitted with a complaint of increased confusion and abdominal fullness. Evaluation revealed urinalysis positive for urinary tract infection and leukocytosis with a white count of 16. CT of the abdomen and pelvis showed a 16 mm left adrenal adenoma, renal cysts including some small apparently hyper dense cyst, but no acute findings. Blood cultures have no growth to date. Urine culture showing gram-negative rods Continue IV Rocephin, day #2 (3) Acute encephalopathy Is this a current diagnosis for this admission?: Yes Plan: Slight improvement today; Multifactorial secondary to lithium toxicity and acute infection. (4) Leukocytosis Qualifiers: Leukocytosis type: bandemia Qualified Code(s): D72.825 - Bandemia Is this a current diagnosis for this admission?: Yes Plan: Trending down. Secondary to UTI. Plan as above (5) Dehydration Is this a current diagnosis for this admission?: Yes Plan: Improved; creatinine and BUN are normal. IV maintenance fluids. Encourage p.o. fluid intake. (6) Urinary retention Is this a current diagnosis for this admission?: Yes Plan: Possibly related to urinary tract infection. CT of the abdomen and pelvis revealed an adrenal adenoma and renal cysts but otherwise benign. Fishman catheter with strict I's and O's. Continue daily Flomax. (7) Hypertension Qualifiers: Hypertension type: essential hypertension Qualified Code(s): I10 - Essential (primary) hypertension Is this a current diagnosis for this admission?: Yes Plan: Improved blood pressures today. We have resumed amlodipine, hydralazine, metoprolol at home dosing. IV hydralazine available as needed for blood pressure control. (8) Loose stools Is this a current diagnosis for this admission?: Yes Plan: Likely secondary to lithium toxicity. C. difficile negative. (9) Rhonchi Is this a current diagnosis for this admission?: Yes Plan: Without respiratory difficulty; patient is maintaining oxygen saturations on 2 L /min. I am uncertain if the patient is home O2 dependent. She does use CPAP at night. No wheezing. Encourage turn cough deep breathe. Encourage mobility. Mucinex twice daily. - Time Time Spent with patient: 25-34 minutes Medications reviewed and adjusted accordingly: Yes Anticipated discharge: Home - Inpatient Certification Based on my medical assessment, after consideration of the patient's comorbidities, presenting symptoms, or acuity I expect that the services needed warrant INPATIENT care.: Yes I certify that my determination is in accordance with my understanding of Medicare's requirements for reasonable and necessary INPATIENT services [42 CFR 412.3e].: Yes Medical Necessity: Need For IV Fluids, Need For Continuous Telemetry Monitoring
[2017-05-05] MEDS: TAMSULOSIN HCL 0.4 MG CAP.SR.24H PO SCH (17:24)
[2017-05-05] MEDS: CEFTRIAXONE SODIUM 1,000 MG in NORMAL SALINE 100 ML IV SCH (17:24)
[2017-05-05] MEDS: GUAIFENESIN 600 MG TABLET.SA PO SCH (21:17)
[2017-05-05] MEDS: MONTELUKAST SODIUM 10 MG TABLET PO SCH (21:18)
[2017-05-06 05:18] LABS: ABSOLUTE BASOPHILS # (AUTO) 0.1 10^3/uL (0.0-0.2); ABSOLUTE LYMPHOCYTES (AUTO) 0.8 10^3/uL (0.5-4.7); ABSOLUTE MONOCYTES (AUTO) 0.5 10^3/uL (0.1-1.4); ABSOLUTE NEUT (AUTO) 8.9 10^3/uL (1.7-8.2); BASOPHILS % (AUTO) 1.1 % (0-2); EOSINOPHILS % (AUTO) 0.1 % (0-6); HEMOGLOBIN 12.1 g/dL (12.0-15.5); LYMPHOCYTES % (AUTO) 7.8 % (13-45); MEAN CORPUSCULAR HEMOGLOBIN 30.9 pg (27.0-33.4); MEAN CORPUSCULAR HGB CONC 33.6 g/dL (32.0-36.0); MEAN CORPUSCULAR VOLUME 92 fl (80-97); MONOCYTES % (AUTO) 5.2 % (3-13); PLATELET COUNT 267 10^3/uL (150-450); RED BLOOD COUNT 3.92 10^6/uL (3.72-5.28); SEGMENTED NEUTROPHILS % (AUTO) 85.8 % (42-78); TOTAL CELLS COUNTED % (AUTO) 100 %; WHITE BLOOD COUNT 10.4 10^3/uL (4.0-10.5)
[2017-05-06 05:34] LABS: ANION GAP 6 (5-19); BLOOD UREA NITROGEN 14 mg/dL (7-20); CALCIUM 9.9 mg/dL (8.4-10.2); CARBON DIOXIDE 21 mmol/L (22-30); CHLORIDE 116 mmol/L (98-107); GLUCOSE 127 mg/dL (75-110); POTASSIUM 3.6 mmol/L (3.6-5.0); SODIUM 142.8 mmol/L (137-145)
[2017-05-06 05:42] LABS: LITHIUM 1.7 mEq/L (0.6-1.2)
[2017-05-06] MEDS: LEVOTHYROXINE SODIUM 0.025 MG TABLET PO SCH (06:28)
[2017-05-06] MEDS: HEPARIN SOD (PORCINE) 5,000 UNIT/ML 1 ML SYRINGE SUBCUT SCH ×3 (06:28→21:53)
[2017-05-06] MEDS: HYDRALAZINE HCL 10 MG TABLET PO SCH ×3 (06:28→21:53)
[2017-05-06] MEDS: LEVOTHYROXINE SODIUM 0.1 MG TABLET PO SCH (06:28)
[2017-05-06] MEDS: POTASSIUM CHLORIDE 10 MEQ TABLET.SA PO SCH (06:28)
[2017-05-06] MEDS: GUAIFENESIN 600 MG TABLET.SA PO SCH ×2 (09:53→21:53)
[2017-05-06] MEDS: AMLODIPINE BESYLATE 10 MG TABLET PO SCH (09:53)
[2017-05-06] MEDS: FLUTICASONE/SALMETEROL DISKUS 500-50 MCG/DOSE IH SCH ×2 (09:53→21:53)
[2017-05-06] MEDS: ASPIRIN 81 MG TABLET, ENT COATED PO SCH (09:53)
[2017-05-06] MEDS: MULTIVITAMIN TABLET PO SCH (09:53)
[2017-05-06] MEDS: DOCUSATE SODIUM 100 MG CAPSULE PO SCH (09:53)
[2017-05-06] MEDS: METOPROLOL TARTRATE 100 MG TABLET PO SCH ×2 (09:53→21:53)
[2017-05-06] MEDS: FAMOTIDINE 20 MG TABLET PO SCH ×2 (09:53→21:53)
[2017-05-06] MEDS: TIOTROPIUM BROMIDE DPI 5 CAP/KIT (18 MCG/CAP) IH SCH (09:53)
[2017-05-06] MEDS: IPRATROPIUM/ALBUTEROL 0.5-2.5 MG/3 ML AMPUL NEB PRN (14:37)
[2017-05-06] MEDS ORDERED: LOPERAMIDE HCL 2 MG CAPSULE PO PRN (14:46)
--- NOTE | 2017-05-06 15:22 | PDOC PROGRESS REPORT ---
Subjective Progress Note for:: 05/06/17 Subjective:: Patient is a 72-year-old female with a past medical history of hypertension, hyperlipidemia, COPD, hypothyroidism, breast cancer, arthritis, and bipolar on lithium who was admitted on 05/04/17 for UTI and lithium toxicity. The patient is seen on morning rounds. She is found resting in the recliner on room air. The patient initially thinks that I am her sister and then self corrects to "Oh, you're someone else." She does not seem to remember me from yesterday. She states that she is feeling good today and is hopeful to go home. She does complain of loose stools. However, she states that she ate all of her breakfast this morning and denies abdominal pain, nausea and vomiting. Per nursing, the patient is very weak and uncoordinated; two person assist to recliner this morning. She remains very confused and occasionally speaks in incoherent sentences. Reason For Visit: URINARY TRACT INFECTION, LITHIUM TOXICITY Physical Exam Vital Signs: Temp Pulse Resp BP Pulse Ox 98.5 F 77 16 160/53 H 98 05/06/17 12:00 05/06/17 14:37 05/06/17 14:37 05/06/17 12:00 05/06/17 14:37 Intake & Output 05/05/17 05/06/17 05/07/17 06:59 06:59 06:59 Intake Total 1900 6208 Output Total 1275 1475 Balance 625 4733 Weight 112.9 kg 116.8 kg General appearance: PRESENT: no acute distress, disheveled, obese, well- developed, well-nourished Head exam: PRESENT: atraumatic, normocephalic Eye exam: PRESENT: conjunctiva pink, EOMI, PERRLA. ABSENT: scleral icterus Ear exam: PRESENT: normal external ear exam Mouth exam: PRESENT: moist, tongue midline Neck exam: ABSENT: carotid bruit, JVD, lymphadenopathy, thyromegaly Respiratory exam: PRESENT: clear to auscultation carmen, decreased breath sounds - bibasilar, symmetrical, unlabored. ABSENT: rales, rhonchi, tachypnea, wheezes Cardiovascular exam: PRESENT: RRR, +S1, +S2. ABSENT: diastolic murmur, rubs, systolic murmur Pulses: PRESENT: normal dorsalis pedis pul Vascular exam: PRESENT: normal capillary refill GI/Abdominal exam: PRESENT: normal bowel sounds, soft. ABSENT: distended, guarding, mass, organolmegaly, rebound, tenderness Rectal exam: PRESENT: deferred Extremities exam: PRESENT: full ROM. ABSENT: calf tenderness, clubbing, pedal edema Neurological exam: PRESENT: alert, awake, oriented to person, CN II-XII grossly intact. ABSENT: oriented to place, oriented to time, oriented to situation, motor sensory deficit Psychiatric exam: PRESENT: appropriate affect, normal mood. ABSENT: homicidal ideation, suicidal ideation Skin exam: PRESENT: dry, intact, warm. ABSENT: cyanosis, rash Results Laboratory Results: 05/06/17 04:17 05/06/17 04:17 05/06/17 05/06/17 04:17 04:17 WBC 10.4 RBC 3.92 Hgb 12.1 Hct 36.0 MCV 92 MCH 30.9 MCHC 33.6 RDW 13.0 Plt Count 267 Seg Neutrophils % 85.8 H Lymphocytes % 7.8 L Monocytes % 5.2 Eosinophils % 0.1 Basophils % 1.1 Absolute Neutrophils 8.9 H Absolute Lymphocytes 0.8 Absolute Monocytes 0.5 Absolute Eosinophils 0.0 Absolute Basophils 0.1 Sodium 142.8 Potassium 3.6 Chloride 116 H Carbon Dioxide 21 L Anion Gap 6 BUN 14 Creatinine 0.80 Est GFR ( Amer) > 60 Est GFR (Non-Af Amer) > 60 Glucose 127 H Calcium 9.9 Impressions: Abdomen/Pelvis CT 05/04/17 00:00 IMPRESSION: 1. 16 mm left adrenal adenoma. 2. Renal cysts including some small apparently hyperdense cysts. 3. Thoracolumbar spondylosis. Acute Abdomen Series 05/04/17 10:00 IMPRESSION: Moderate to marked cardiomegaly. Nonspecific nonobstructive bowel gas pattern Assessment & Plan - Diagnosis (1) [place] toxicity Qualifiers: Encounter type: initial encounter Injury intent: accidental or unintentional Qualified Code(s): T56.891A - Toxic effect of other metals, accidental (unintentional), initial encounter Is this a current diagnosis for this admission?: Yes Plan: Patient presented to the emergency department with a report of increased confusion. The patient's lithium level was initially 2.7; now trending down. Poison control contacted by emergency department physician; recommendations for IV fluid resuscitation and trending lithium level. The patient will be admitted to the medical floor on continuous cardiac telemetry. She is provided maintenance IV fluids at 100 mL/h. Monitoring closely for evidence of fluid overload as patient has elevated proBNP and unknown hx of CHF. A Fishman has been placed. Strict I's and O's. We will trend lithium. Seizure, fall, aspiration precautions. (2) UTI (urinary tract infection) Qualifiers: Urinary tract infection type: site unspecified Hematuria presence: with hematuria Qualified Code(s): N39.0 - Urinary tract infection, site not specified; R31.9 - Hematuria, unspecified; R31.9 - Hematuria, unspecified Is this a current diagnosis for this admission?: Yes Plan: The patient was admitted with a complaint of increased confusion and abdominal fullness. Evaluation revealed urinalysis positive for urinary tract infection and leukocytosis with a white count of 16. CT of the abdomen and pelvis showed a 16 mm left adrenal adenoma, renal cysts including some small apparently hyper dense cyst, but no acute findings. Blood cultures have no growth to date. Urine culture: E. coli sensitive to Rocephin Continue IV Rocephin, day #3 (3) Acute encephalopathy Is this a current diagnosis for this admission?: Yes Plan: Continued improvement today; Multifactorial secondary to lithium toxicity and acute infection. (4) Leukocytosis Qualifiers: Leukocytosis type: bandemia Qualified Code(s): D72.825 - Bandemia Is this a current diagnosis for this admission?: Yes Plan: Resolved. Secondary to UTI. Plan as above (5) Dehydration Is this a current diagnosis for this admission?: Yes Plan: Resolved; creatinine and BUN are normal. IVF as above. Encourage p.o. fluid intake. (6) Urinary retention Is this a current diagnosis for this admission?: Yes Plan: Possibly related to urinary tract infection. CT of the abdomen and pelvis revealed an adrenal adenoma and renal cysts but otherwise benign. Fishman catheter with strict I's and O's. Continue daily Flomax. (7) Hypertension Qualifiers: Hypertension type: essential hypertension Qualified Code(s): I10 - Essential (primary) hypertension Is this a current diagnosis for this admission?: Yes Plan: Improved blood pressures today. We have resumed amlodipine, hydralazine, metoprolol, and HCTZ at home dosing. IV hydralazine available as needed for blood pressure control. (8) Loose stools Is this a current diagnosis for this admission?: Yes Plan: Likely secondary to lithium toxicity. C. difficile negative. Will obtain stool for culture. (9) Rhonchi Is this a current diagnosis for this admission?: Yes Plan: Without respiratory difficulty; patient is maintaining oxygen saturations on 2 L /min. I am uncertain if the patient is home O2 dependent. She does use CPAP at night. No wheezing. Encourage turn cough deep breathe. Encourage mobility. Mucinex twice daily. - Time Time Spent with patient: 15-24 minutes Medications reviewed and adjusted accordingly: Yes - Inpatient Certification Medical Necessity: Need For IV Fluids, Need For Continuous Telemetry Monitoring , Need for IV Antibiotics
[2017-05-06] MEDS: TAMSULOSIN HCL 0.4 MG CAP.SR.24H PO SCH (17:16)
[2017-05-06] MEDS: CEFTRIAXONE SODIUM 1,000 MG in NORMAL SALINE 100 ML IV SCH (17:16)
[2017-05-06] MEDS: NORMAL SALINE 1000 ML 1,000 ML IV PRN (17:17)
[2017-05-06] MEDS: MONTELUKAST SODIUM 10 MG TABLET PO SCH (21:53)
[2017-05-07 05:26] LABS: ABSOLUTE BASOPHILS # (AUTO) 0.1 10^3/uL (0.0-0.2); ABSOLUTE LYMPHOCYTES (AUTO) 1.1 10^3/uL (0.5-4.7); ABSOLUTE NEUT (AUTO) 11.2 10^3/uL (1.7-8.2); BASOPHILS % (AUTO) 0.4 % (0-2); EOSINOPHILS % (AUTO) 0.1 % (0-6); HEMATOCRIT 37.3 % (36.0-47.0); HEMOGLOBIN 12.4 g/dL (12.0-15.5); LYMPHOCYTES % (AUTO) 8.3 % (13-45); MEAN CORPUSCULAR HEMOGLOBIN 30.6 pg (27.0-33.4); MEAN CORPUSCULAR HGB CONC 33.3 g/dL (32.0-36.0); MEAN CORPUSCULAR VOLUME 92 fl (80-97); MONOCYTES % (AUTO) 7.2 % (3-13); PLATELET COUNT 277 10^3/uL (150-450); RED BLOOD COUNT 4.06 10^6/uL (3.72-5.28); RED CELL DISTRIBUTION WIDTH 13.4 % (11.5-14.0); TOTAL CELLS COUNTED % (AUTO) 100 %; WHITE BLOOD COUNT 13.3 10^3/uL (4.0-10.5)
[2017-05-07] MEDS: HEPARIN SOD (PORCINE) 5,000 UNIT/ML 1 ML SYRINGE SUBCUT SCH ×3 (05:40→21:51)
[2017-05-07] MEDS: LEVOTHYROXINE SODIUM 0.025 MG TABLET PO SCH (05:50)
[2017-05-07] MEDS: HYDRALAZINE HCL 10 MG TABLET PO SCH ×3 (05:50→22:03)
[2017-05-07] MEDS: LEVOTHYROXINE SODIUM 0.1 MG TABLET PO SCH (05:50)
[2017-05-07] MEDS: NORMAL SALINE 1000 ML 1,000 ML IV PRN (05:50)
[2017-05-07 06:00] LABS: ANION GAP 8 (5-19); BLOOD UREA NITROGEN 10 mg/dL (7-20); CALCIUM 10.4 mg/dL (8.4-10.2); CARBON DIOXIDE 19 mmol/L (22-30); CHLORIDE 117 mmol/L (98-107); GLUCOSE 122 mg/dL (75-110); LITHIUM 1.2 mEq/L (0.6-1.2); POTASSIUM 3.7 mmol/L (3.6-5.0); SODIUM 144.3 mmol/L (137-145)
[2017-05-07] MEDS: AMLODIPINE BESYLATE 10 MG TABLET PO SCH (09:56)
[2017-05-07] MEDS: DOCUSATE SODIUM 100 MG CAPSULE PO SCH (09:58)
[2017-05-07] MEDS: ASPIRIN 81 MG TABLET, ENT COATED PO SCH (09:58)
[2017-05-07] MEDS: GUAIFENESIN 600 MG TABLET.SA PO SCH ×2 (09:59→22:03)
[2017-05-07] MEDS: HYDROCHLOROTHIAZIDE 12.5 MG CAPSULE PO SCH (09:59)
[2017-05-07] MEDS: FAMOTIDINE 20 MG TABLET PO SCH ×2 (09:59→22:03)
[2017-05-07] MEDS: MULTIVITAMIN TABLET PO SCH (10:00)
[2017-05-07] MEDS: TIOTROPIUM BROMIDE DPI 5 CAP/KIT (18 MCG/CAP) IH SCH (10:00)
[2017-05-07] MEDS: FLUTICASONE/SALMETEROL DISKUS 500-50 MCG/DOSE IH SCH ×2 (10:00→22:03)
[2017-05-07] MEDS: METOPROLOL TARTRATE 100 MG TABLET PO SCH ×2 (10:00→22:03)
[2017-05-07] MEDS ORDERED: NORMAL SALINE 1000 ML 1,000 ML IV PRN (12:21)
--- NOTE | 2017-05-07 12:33 | PDOC PROGRESS REPORT ---
Subjective Progress Note for:: 05/07/17 Subjective:: Patient is a 72-year-old female with a past medical history of hypertension, hyperlipidemia, COPD, hypothyroidism, breast cancer, arthritis, and bipolar on lithium who was admitted on 05/04/17 for UTI and lithium toxicity. The patient is seen on morning rounds. She is found resting in the recliner on room air. The patient is more orientated this morning. She is conversational and remains on topic, however, is very slow to form sentences, difficult to understand, and repetitive. She did work with PT-OT yesterday; two person assist to recliner this morning. She denies fever, chills, body aches, chest pain, palpitations, dyspnea, orthopnea, abdominal pain, nausea vomiting diarrhea. She states that she ate her breakfast this morning without difficulty. She has no new questions or concerns at this time. Reason For Visit: URINARY TRACT INFECTION, LITHIUM TOXICITY Physical Exam Vital Signs: Temp Pulse Resp BP Pulse Ox 98.5 F 77 18 176/66 H 96 05/07/17 08:00 05/07/17 08:00 05/07/17 08:00 05/07/17 08:00 05/07/17 08:00 Intake & Output 05/06/17 05/07/17 05/08/17 06:59 06:59 06:59 Intake Total 6208 3334 Output Total 1475 1850 Balance 4733 1484 Weight 116.8 kg 118.2 kg General appearance: PRESENT: no acute distress, disheveled, obese, well- developed, well-nourished Head exam: PRESENT: atraumatic, normocephalic Eye exam: PRESENT: conjunctiva pink, EOMI, PERRLA. ABSENT: scleral icterus Ear exam: PRESENT: normal external ear exam Mouth exam: PRESENT: moist, tongue midline Neck exam: ABSENT: carotid bruit, JVD, lymphadenopathy, thyromegaly Respiratory exam: PRESENT: decreased breath sounds - Bibasilar, rhonchi, symmetrical, unlabored, wheezes. ABSENT: rales Cardiovascular exam: PRESENT: RRR, +S1, +S2. ABSENT: diastolic murmur, rubs, systolic murmur Pulses: PRESENT: normal dorsalis pedis pul Vascular exam: PRESENT: normal capillary refill GI/Abdominal exam: PRESENT: normal bowel sounds, soft. ABSENT: distended, guarding, mass, organolmegaly, rebound, tenderness Rectal exam: PRESENT: deferred Extremities exam: PRESENT: full ROM. ABSENT: calf tenderness, clubbing, pedal edema Neurological exam: PRESENT: alert, awake, oriented to person, oriented to place , oriented to situation, CN II-XII grossly intact, other - Slow, difficult to understand speech. Repetitive. Improved from yesterday.. ABSENT: oriented to time - year 2019, motor sensory deficit Psychiatric exam: PRESENT: appropriate affect, normal mood. ABSENT: homicidal ideation, suicidal ideation Skin exam: PRESENT: dry, intact, warm. ABSENT: cyanosis, rash Results Laboratory Results: 05/07/17 04:31 05/07/17 04:31 05/07/17 05/07/17 04:31 04:31 WBC 13.3 H RBC 4.06 Hgb 12.4 Hct 37.3 MCV 92 MCH 30.6 MCHC 33.3 RDW 13.4 Plt Count 277 Seg Neutrophils % 84.0 H Lymphocytes % 8.3 L Monocytes % 7.2 Eosinophils % 0.1 Basophils % 0.4 Absolute Neutrophils 11.2 H Absolute Lymphocytes 1.1 Absolute Monocytes 1.0 Absolute Eosinophils 0.0 Absolute Basophils 0.1 Sodium 144.3 Potassium 3.7 Chloride 117 H Carbon Dioxide 19 L Anion Gap 8 BUN 10 Creatinine 0.73 Est GFR ( Amer) > 60 Est GFR (Non-Af Amer) > 60 Glucose 122 H Calcium 10.4 H 05/04/17 16:33 Stool - Stool - Final 05/04/17 16:33 Stool - Stool Stool Culture - Final NO SALMONELLA, SHIGELLA, CAMPYLOBACTER, OR E.COLI 0157 RECOVERED. NEGATIVE FOR SHIGA TOXINS 1&2. Impressions: Abdomen/Pelvis CT 05/04/17 00:00 IMPRESSION: 1. 16 mm left adrenal adenoma. 2. Renal cysts including some small apparently hyperdense cysts. 3. Thoracolumbar spondylosis. Acute Abdomen Series 05/04/17 10:00 IMPRESSION: Moderate to marked cardiomegaly. Nonspecific nonobstructive bowel gas pattern Assessment & Plan - Diagnosis (1) [place] toxicity Qualifiers: Encounter type: initial encounter Injury intent: accidental or unintentional Qualified Code(s): T56.891A - Toxic effect of other metals, accidental (unintentional), initial encounter Is this a current diagnosis for this admission?: Yes Plan: Patient presented to the emergency department with a report of increased confusion. The patient's lithium level was initially 2.7; now 1.2. Poison control contacted by emergency department physician; recommendations for IV fluid resuscitation and trending lithium level. The patient will be admitted to the medical floor on continuous cardiac telemetry. Will discontinue IVF as I am concerned pt may be slightly fluid overloaded. A Fishman has been placed. Strict I's and O's. Continue to hold lithium until mentation improves. Seizure, fall, aspiration precautions. (2) UTI (urinary tract infection) Qualifiers: Urinary tract infection type: site unspecified Hematuria presence: with hematuria Qualified Code(s): N39.0 - Urinary tract infection, site not specified; R31.9 - Hematuria, unspecified; R31.9 - Hematuria, unspecified Is this a current diagnosis for this admission?: Yes Plan: The patient was admitted with a complaint of increased confusion and abdominal fullness. Evaluation revealed urinalysis positive for urinary tract infection and leukocytosis with a white count of 16. CT of the abdomen and pelvis showed a 16 mm left adrenal adenoma, renal cysts including some small apparently hyper dense cyst, but no acute findings. Blood cultures have no growth to date. Urine culture: E. coli sensitive to Rocephin Continue IV Rocephin, day #4 (3) Acute encephalopathy Is this a current diagnosis for this admission?: Yes Plan: Continued improvement today. Multifactorial secondary to lithium toxicity and acute infection. I did speak with the patient's today. He reports that at baseline, the patient is very sharp; he states "just as clear as you or I." The patient has not yet returned to baseline. Will continue to monitor and provide for patient safety. (4) Leukocytosis Qualifiers: Leukocytosis type: bandemia Qualified Code(s): D72.825 - Bandemia Is this a current diagnosis for this admission?: Yes Plan: Secondary to UTI. Cultures and antibiotics as above. Will trend with daily CBC. Plan as above (5) Dehydration Is this a current diagnosis for this admission?: Yes Plan: Resolved; creatinine and BUN are normal. IVF as above. Encourage p.o. fluid intake. (6) Urinary retention Is this a current diagnosis for this admission?: Yes Plan: Possibly related to urinary tract infection. CT of the abdomen and pelvis revealed an adrenal adenoma and renal cysts but otherwise benign. Fishman catheter with strict I's and O's. Adequate urine output at present. Continue daily Flomax. (7) Hypertension Qualifiers: Hypertension type: essential hypertension Qualified Code(s): I10 - Essential (primary) hypertension Is this a current diagnosis for this admission?: Yes Plan: Improved blood pressures today. We have resumed amlodipine, hydralazine, metoprolol, and HCTZ at home dosing. IV hydralazine available as needed for blood pressure control. (8) Loose stools Is this a current diagnosis for this admission?: Yes Plan: Likely secondary to lithium toxicity. C. difficile negative. Stool for culture are negative. (9) COPD (chronic obstructive pulmonary disease) Is this a current diagnosis for this admission?: Yes Plan: Without respiratory difficulty; patient is maintaining oxygen saturations on room air. She does use CPAP at night. Increased rhonchi and wheezing noted today. As needed duo nebs are available. Continue the patient's Spiriva and Advair. We will monitor closely for need for steroids. Encourage turn cough deep breathe. Encourage mobility. Mucinex twice daily. (10) CHF (congestive heart failure) Is this a current diagnosis for this admission?: Yes Plan: ProBNP is elevated to 2400 following aggressive IV fluids. Will obtain echocardiogram. Her weight is up approximately 5 kg; she did present with dehydration so some of this may be appropriate increase in fluids. However, the patient has wet lung sounds today and an elevated proBNP. Therefore will provide Lasix 10 mg IV 1. Cardiac diet. Fishman catheter with strict I's and O's. Daily weights. (11) Generalized weakness Is this a current diagnosis for this admission?: Yes Plan: Secondary to morbid obesity, immobility, lithium toxicity, and acute illness. I did speak with the patient's ; he would like to arrange for the patient to go to short term-rehab at discharge. - Time Time Spent with patient: 25-34 minutes - Inpatient Certification Based on my medical assessment, after consideration of the patient's comorbidities, presenting symptoms, or acuity I expect that the services needed warrant INPATIENT care.: Yes I certify that my determination is in accordance with my understanding of Medicare's requirements for reasonable and necessary INPATIENT services [42 CFR 412.3e].: Yes Medical Necessity: Need Close Monitoring Due to Risk of Patient Decompensation, Need For Continuous Telemetry Monitoring
[2017-05-07] MEDS ORDERED: IPRATROPIUM/ALBUTEROL 0.5-2.5 MG/3 ML AMPUL NEB ONE (13:15)
[2017-05-07] MEDS ORDERED: FUROSEMIDE INJ/PF 20 MG/2 ML SDV IV ONE (13:15)
--- NOTE | 2017-05-07 17:38 | PDOC CONSULTATION ---
Consultation Consult Date: 05/07/17 Attending physician:: FANY CASTELLANOS Consult reason:: diarrhea and change in bowel habits History of Present Illness Admission Date/PCP: 05/04/17 13:30 JOEL PINEDA MD History of Present Illness: patient was on the schedule today for an outpatient colonoscopy she was admitted last Sunday she was noted to have lithium toxicity patient now with SOB, and has CHF spoke with her , she is very out of breath patient denies any bleeding diarrhea could be due to an elevated [place] however she wants to reschedule her colonoscopy as an outpatient patient clinical condition appears to be improving Past Medical History Cardiac Medical History: Reports: Hyperlipidema, Hypertension Denies: Coronary Artery Disease, Myocardial Infarction Pulmonary Medical History: Reports: Asthma, Chronic Obstructive Pulmonary Disease (COPD) Denies: Bronchitis, Pneumonia Neurological Medical History: Denies: Seizures Endocrine Medical History: Reports: Hypothyroidism Malignancy Medical History: Reports: Breast Cancer GI Medical History: Reports: Gastroesophageal Reflux Disease Musculoskeltal Medical History: Reports: Arthritis Psychiatric Medical History: Reports: Bipolar Disorder Hematology: Denies: Anemia Past Surgical History Past Surgical History: Reports: Cholecystectomy, Hysterectomy, Tonsillectomy Social History Lives with: Spouse/Significant other Smoking Status: Never Smoker Frequency of Alcohol Use: None Hx Recreational Drug Use: No Drugs: None Hx Prescription Drug Abuse: No - Advance Directive Resuscitation Status: Do Not Resuscitate Family History Family History: Reviewed & Not Pertinent Parental Family History Reviewed: Yes Children Family History Reviewed: Unknown Sibling(s) Family History Reviewed.: Unknown Medication/Allergy Home Medications: Amlodipine Besylate [Norvasc 10 mg Tablet] 10 mg PO DAILY 05/04/17 Aspirin [Aspirin EC] 81 mg PO DAILY 05/04/17 Fluticasone/Salmeterol [Advair 500-50 Diskus 28 Dose] 1 puff IH Q12 05/04/17 Hydralazine HCl [Apresoline 10 mg Tablet] 10 mg PO Q8 05/04/17 Hydrochlorothiazide [Hydrodiuril 12.5 mg Capsule] 12.5 mg PO DAILY 05/04/17 Levothyroxine Sodium [Synthroid] 125 mcg PO Q6AM 05/04/17 [place] Carbonate [[place] Carbonate ER] 300 mg PO Q8 05/04/17 Metoprolol Tartrate [Lopressor 100 mg Tablet] 100 mg PO Q12 05/04/17 Montelukast Sodium [Singulair 10 mg Tablet] 10 mg PO QHS 05/04/17 Multivitamin [Multiple Vitamins] 1 tab PO DAILY 05/04/17 Solifenacin Succinate [Vesicare] 10 mg PO DAILY 05/04/17 Tiotropium [place] [Spiriva Respimat] 2 puff IH DAILY 05/04/17 Vitamin E 100 unit PO DAILY 05/04/17 Allergies/Adverse Reactions: cyclobenzaprine HCl [From Flexeril] Allergy (Unknown, Verified 05/04/17 09:16) diphenhydramine HCl [From Benadryl] Allergy (Unknown, Verified 05/04/17 09:16) Review of Systems Constitutional: ABSENT: fever(s), headache(s), night sweats, weakness Eyes: ABSENT: visual disturbances Ears: ABSENT: hearing changes Nose, Mouth, and Throat: ABSENT: sore throat Cardiovascular: PRESENT: orthropnea. ABSENT: chest pain, edema Respiratory: PRESENT: dyspnea. ABSENT: hemoptysis Gastrointestinal: PRESENT: diarrhea. ABSENT: dysphagia, hematochezia, melena Genitourinary: ABSENT: dysuria, hematuria Musculoskeletal: ABSENT: deformity, joint swelling Integumentary: ABSENT: lesions, pruritus Neurological: ABSENT: syncope, tingling, tremor(s), vertigo Endocrine: ABSENT: polydipsia, polyphagia, polyuria Physical Exam Vital Signs: Temp Pulse Resp BP Pulse Ox 98.5 F 78 20 175/64 H 95 05/07/17 16:00 05/07/17 16:00 05/07/17 16:00 05/07/17 16:00 05/07/17 16:00 Intake & Output 05/06/17 05/07/17 05/08/17 06:59 06:59 06:59 Intake Total 6208 3334 900 Output Total 5765 1400 Balance 4733 1484 900 Weight 116.8 kg 118.2 kg General appearance: PRESENT: mild distress, well-developed, well-nourished Head exam: PRESENT: atraumatic, normocephalic Eye exam: PRESENT: EOMI, PERRLA. ABSENT: nystagmus, periorbital swelling, scleral icterus Mouth exam: PRESENT: moist Throat exam: ABSENT: tonsillar exudate, tonsillogmegaly Neck exam: ABSENT: meningismus, tenderness, thyromegaly Respiratory exam: PRESENT: symmetrical, tachypnea. ABSENT: unlabored, wheezes Cardiovascular exam: PRESENT: RRR, +S1, +S2 GI/Abdominal exam: PRESENT: soft. ABSENT: rebound, rigid, tenderness Neurological exam: PRESENT: awake, oriented to time, oriented to situation, CN II-XII grossly intact Psychiatric exam: PRESENT: appropriate affect Focused psych exam: ABSENT: restlessness Skin exam: PRESENT: normal color. ABSENT: mottled, pallor, petechiae, urticaria Results Laboratory Results: 05/07/17 04:31 05/07/17 04:31 05/07/17 05/07/17 04:31 04:31 WBC 13.3 H RBC 4.06 Hgb 12.4 Hct 37.3 MCV 92 MCH 30.6 MCHC 33.3 RDW 13.4 Plt Count 277 Seg Neutrophils % 84.0 H Lymphocytes % 8.3 L Monocytes % 7.2 Eosinophils % 0.1 Basophils % 0.4 Absolute Neutrophils 11.2 H Absolute Lymphocytes 1.1 Absolute Monocytes 1.0 Absolute Eosinophils 0.0 Absolute Basophils 0.1 Sodium 144.3 Potassium 3.7 Chloride 117 H Carbon Dioxide 19 L Anion Gap 8 BUN 10 Creatinine 0.73 Est GFR ( Amer) > 60 Est GFR (Non-Af Amer) > 60 Glucose 122 H Calcium 10.4 H 05/04/17 16:33 Stool - Stool - Final 05/04/17 16:33 Stool - Stool Stool Culture - Final NO SALMONELLA, SHIGELLA, CAMPYLOBACTER, OR E.COLI 0157 RECOVERED. NEGATIVE FOR SHIGA TOXINS 1&2. Impressions: Abdomen/Pelvis CT 05/04/17 00:00 IMPRESSION: 1. 16 mm left adrenal adenoma. 2. Renal cysts including some small apparently hyperdense cysts. 3. Thoracolumbar spondylosis. Acute Abdomen Series 05/04/17 10:00 IMPRESSION: Moderate to marked cardiomegaly. Nonspecific nonobstructive bowel gas pattern Assessment & Plan - Diagnosis (1) CHF (congestive heart failure) Is this a current diagnosis for this admission?: Yes Plan: elevated BNP, will need diuresis not able to have any colonoscopy done now since sedation will be risky as the plans of the Hospitalist (2) [place] toxicity Qualifiers: Encounter type: initial encounter Injury intent: accidental or unintentional Qualified Code(s): T56.891A - Toxic effect of other metals, accidental (unintentional), initial encounter Is this a current diagnosis for this admission?: Yes Plan: elevated lithium level that by itself could make her diarrhea worse, but that complaint was noted from her prior to her outpatient increase of her [place] (3) Loose stools Is this a current diagnosis for this admission?: Yes Plan: was scheduled for colonoscopy today, but with present admission not able to get done she can be rescheduled as an outpatient I will not be available starting tomorrow at noon until May 14 I have instructions at my office to contact her to reschedule once she has been discharged and is stable she will need to be closely monitored and will need to be done in the OR with close anesthetic back up. - Time Time Spent: 50 to 70 Minutes
[2017-05-07] MEDS: TAMSULOSIN HCL 0.4 MG CAP.SR.24H PO SCH (18:02)
[2017-05-07] MEDS: CEFTRIAXONE SODIUM 1,000 MG in NORMAL SALINE 100 ML IV SCH (18:02)
[2017-05-07] MEDS: MONTELUKAST SODIUM 10 MG TABLET PO SCH (22:03)
[2017-05-08] MEDS: HEPARIN SOD (PORCINE) 5,000 UNIT/ML 1 ML SYRINGE SUBCUT SCH ×3 (05:11→21:54)
[2017-05-08] MEDS: HYDRALAZINE HCL 10 MG TABLET PO SCH ×2 (05:16→12:32)
[2017-05-08] MEDS: LEVOTHYROXINE SODIUM 0.1 MG TABLET PO SCH (05:16)
[2017-05-08] MEDS: LEVOTHYROXINE SODIUM 0.025 MG TABLET PO SCH (05:16)
[2017-05-08 06:36] LABS: ABSOLUTE MONOCYTES (AUTO) 0.8 10^3/uL (0.1-1.4); ABSOLUTE NEUT (AUTO) 8.4 10^3/uL (1.7-8.2); BASOPHILS % (AUTO) 0.2 % (0-2); HEMATOCRIT 36.2 % (36.0-47.0); HEMOGLOBIN 12.3 g/dL (12.0-15.5); LYMPHOCYTES % (AUTO) 9.7 % (13-45); MEAN CORPUSCULAR HEMOGLOBIN 30.9 pg (27.0-33.4); MEAN CORPUSCULAR HGB CONC 34.1 g/dL (32.0-36.0); MEAN CORPUSCULAR VOLUME 91 fl (80-97); MONOCYTES % (AUTO) 7.7 % (3-13); PLATELET COUNT 263 10^3/uL (150-450); RED CELL DISTRIBUTION WIDTH 13.2 % (11.5-14.0); SEGMENTED NEUTROPHILS % (AUTO) 82.4 % (42-78); TOTAL CELLS COUNTED % (AUTO) 100 %; WHITE BLOOD COUNT 10.2 10^3/uL (4.0-10.5)
[2017-05-08 07:00] LABS: ALANINE AMINOTRANSFERASE 25 U/L (9-52); ALBUMIN 3.2 g/dL (3.5-5.0); ALKALINE PHOSPHATASE 116 U/L (38-126); ANION GAP 6 (5-19); ASPARTATE AMINO TRANSFERASE 21 U/L (14-36); BILIRUBIN,DIRECT 0.4 mg/dL (0.0-0.4); BILIRUBIN,TOTAL 0.4 mg/dL (0.2-1.3); BLOOD UREA NITROGEN 9 mg/dL (7-20); CALCIUM 10.2 mg/dL (8.4-10.2); CARBON DIOXIDE 21 mmol/L (22-30); CHLORIDE 115 mmol/L (98-107); GLUCOSE 120 mg/dL (75-110); LITHIUM 0.9 mEq/L (0.6-1.2); SODIUM 142.2 mmol/L (137-145); TOTAL PROTEIN 5.8 g/dL (6.3-8.2)
[2017-05-08] MEDS: AMLODIPINE BESYLATE 10 MG TABLET PO SCH (08:56)
[2017-05-08] MEDS: METOPROLOL TARTRATE 100 MG TABLET PO SCH ×2 (08:57→21:54)
[2017-05-08] MEDS: ASPIRIN 81 MG TABLET, ENT COATED PO SCH (08:57)
[2017-05-08] MEDS: DOCUSATE SODIUM 100 MG CAPSULE PO SCH (08:58)
[2017-05-08] MEDS: GUAIFENESIN 600 MG TABLET.SA PO SCH ×2 (08:58→21:54)
[2017-05-08] MEDS: FAMOTIDINE 20 MG TABLET PO SCH ×2 (08:58→21:54)
[2017-05-08] MEDS: FLUTICASONE/SALMETEROL DISKUS 500-50 MCG/DOSE IH SCH ×2 (08:58→21:54)
[2017-05-08] MEDS ORDERED: POTASSIUM CHLORIDE 10 MEQ TABLET.SA PO ONE (10:00)
[2017-05-08] MEDS ORDERED: POTASSI CL 20 MEQ/50 ML RIDER 20 MEQ/50 ML RTUPB IV ONE (10:00)
[2017-05-08] MEDS: MULTIVITAMIN TABLET PO SCH (10:43)
[2017-05-08] MEDS: TIOTROPIUM BROMIDE DPI 5 CAP/KIT (18 MCG/CAP) IH SCH (10:43)
[2017-05-08] MEDS: HYDROCHLOROTHIAZIDE 12.5 MG CAPSULE PO SCH (10:43)
[2017-05-08] MEDS ORDERED: FUROSEMIDE INJ/PF 20 MG/2 ML SDV IV ONE (11:30)
[2017-05-08] MEDS: TAMSULOSIN HCL 0.4 MG CAP.SR.24H PO SCH (18:41)
[2017-05-08] MEDS: CEFTRIAXONE SODIUM 1,000 MG in NORMAL SALINE 100 ML IV SCH (18:41)
--- NOTE | 2017-05-08 19:05 | PDOC PROGRESS REPORT ---
Subjective Progress Note for:: 05/08/17 Subjective:: SHANTHI BRIGGS is a 72 year old female with a PMH of HTN, HLD, COPD, hypothyroidism, breast cancer, arthritis, bipolar on lithium who was admitted on 05/04/2017 for UTI, dehydration, and lithium toxicity. The patient is seen on morning rounds. She is found resting in bed on room air. The patient is awake but slow to answer questions. She is conversational and remains on topic. The patient is concerned because her blood pressure was elevated this morning, however she has no complaints. She denies chest pain, shortness of breath, abdominal pain, dysuria, nausea or vomiting. Reason For Visit: URINARY TRACT INFECTION, LITHIUM TOXICITY Physical Exam Vital Signs: Temp Pulse Resp BP Pulse Ox 98.7 F 72 18 148/65 H 100 05/08/17 16:00 05/08/17 16:00 05/08/17 16:00 05/08/17 16:00 05/08/17 16:00 Intake & Output 05/07/17 05/08/17 05/09/17 06:59 06:59 06:59 Intake Total 3334 1620 655 Output Total 1850 1150 2800 Balance 1484 470 -2145 Weight 118.2 kg 118.2 kg General appearance: PRESENT: no acute distress Eye exam: PRESENT: conjunctiva pink, PERRLA Mouth exam: PRESENT: moist Neck exam: PRESENT: full ROM Respiratory exam: PRESENT: rhonchi - R>L, symmetrical, unlabored Cardiovascular exam: PRESENT: +S1, +S2 Pulses: PRESENT: normal radial pulses, normal dorsalis pedis pul Vascular exam: PRESENT: normal capillary refill GI/Abdominal exam: PRESENT: normal bowel sounds, soft. ABSENT: tenderness Rectal exam: PRESENT: deferred Extremities exam: PRESENT: full ROM. ABSENT: joint swelling Musculoskeletal exam: PRESENT: full ROM Neurological exam: PRESENT: alert, awake, oriented to person, oriented to place , oriented to time, oriented to situation Psychiatric exam: PRESENT: flat affect Skin exam: PRESENT: normal color Results Laboratory Results: 05/08/17 05:48 05/08/17 05:48 05/08/17 05/08/17 05:48 05:48 WBC 10.2 RBC 4.00 Hgb 12.3 Hct 36.2 MCV 91 MCH 30.9 MCHC 34.1 RDW 13.2 Plt Count 263 Seg Neutrophils % 82.4 H Lymphocytes % 9.7 L Monocytes % 7.7 Eosinophils % 0.0 Basophils % 0.2 Absolute Neutrophils 8.4 H Absolute Lymphocytes 1.0 Absolute Monocytes 0.8 Absolute Eosinophils 0.0 Absolute Basophils 0.0 Sodium 142.2 Potassium 3.0 L* Chloride 115 H Carbon Dioxide 21 L Anion Gap 6 BUN 9 Creatinine 0.82 Est GFR ( Amer) > 60 Est GFR (Non-Af Amer) > 60 Glucose 120 H Calcium 10.2 Total Bilirubin 0.4 AST 21 ALT 25 Alkaline Phosphatase 116 Total Protein 5.8 L Albumin 3.2 L Impressions: Abdomen/Pelvis CT 05/04/17 00:00 IMPRESSION: 1. 16 mm left adrenal adenoma. 2. Renal cysts including some small apparently hyperdense cysts. 3. Thoracolumbar spondylosis. Acute Abdomen Series 05/04/17 10:00 IMPRESSION: Moderate to marked cardiomegaly. Nonspecific nonobstructive bowel gas pattern Status: Imported from PACS Assessment & Plan - Diagnosis (1) [place] toxicity Qualifiers: Encounter type: initial encounter Injury intent: accidental or unintentional Qualified Code(s): T56.891A - Toxic effect of other metals, accidental (unintentional), initial encounter Is this a current diagnosis for this admission?: Yes Plan: Patient presented to the emergency department was reported AMS. [place] level was initially 2.7 now 0.9 Please a controlled contacted by emergency department physician, recommended IV fluid resuscitation and trending lithium level. Admit to medical floor with continuous cardiac telemetry Discontinue IVF as patient appears slightly fluid overloaded (pitting edema, bilateral rales) Continue Fishman. Strict I's and O's. Discontinue lithium. Consult psych for alternative medication regimen -poison control reports that the patient will experience recurrence of lithium toxicity given her current medication profile and her antihypertensive rx interaction with lithium. Seizure, fall, aspiration precautions. (2) UTI (urinary tract infection) Qualifiers: Urinary tract infection type: site unspecified Hematuria presence: with hematuria Qualified Code(s): N39.0 - Urinary tract infection, site not specified; R31.9 - Hematuria, unspecified; R31.9 - Hematuria, unspecified Is this a current diagnosis for this admission?: Yes Plan: Chief complaint of confusion and abdominal fullness. UA positive for UTI Leukocytosis with white count of 16 CT abdomen and pelvis shows a 16 mm left adrenal adenoma, renal cysts including some small apparently hyperdense cyst, but no acute findings. Blood cultures no growth to date Urine culture: E. Coli sensitive to Rocephin Continue IV Rocephin day #5 (3) Acute encephalopathy Is this a current diagnosis for this admission?: Yes Plan: Improving. Multifactorial secondary to lithium toxicity and acute infection Baseline mental status is WNL, A&Ox3, GCS 15 Patient has not yet returned to baseline Continue monitor and provide for patient safety (4) CHF (congestive heart failure) Is this a current diagnosis for this admission?: Yes Plan: ProBNP elevated to 2400 following aggressive IV fluids Her weight is up approximately 6 EKGs, the patient did present with dehydration though some of this may be appropriate increasing fluids. Patient has bilateral wet lung sounds today Plan to diurese again today. Lasix 20 mg IV 1 Cardiac diet Fishman catheter with strict I's and O's Daily weights (5) COPD (chronic obstructive pulmonary disease) Is this a current diagnosis for this admission?: Yes Plan: Without respiratory difficulty. Patient is maintaining an SPO2 greater than 93 % on room air. CPAP at night Bilateral rhonchi noted today, believe that this is related to volume overload and not infectious pulmonary pathology. Plan to diurese. As needed duo nebs Spiriva and Advair Monitor closely for need for steroids Encourage turn cough and deep breathe Encourage mobility Mucinex twice daily (6) Dehydration Is this a current diagnosis for this admission?: Yes Plan: Resolved. Creatinine and BUN are WNL. IVF has been discontinued. Encourage p.o. fluid intake (7) Generalized weakness Is this a current diagnosis for this admission?: Yes Plan: Secondary to morbid obesity, immobility, lithium toxicity, and acute illness. Plan for patient to transfer to acute rehab with the ultimate goal of her returning home (8) Hypertension Qualifiers: Hypertension type: essential hypertension Qualified Code(s): I10 - Essential (primary) hypertension Is this a current diagnosis for this admission?: Yes Plan: Continue amlodipine, hydralazine, metoprolol, HCTZ at home dosing IV hydralazine available as needed (9) Leukocytosis Qualifiers: Leukocytosis type: bandemia Qualified Code(s): D72.825 - Bandemia Is this a current diagnosis for this admission?: Yes Plan: Secondary to UTI Cultures and antibiotics as above We will trend daily CBC Plan as above (10) Loose stools Is this a current diagnosis for this admission?: Yes Plan: Improving. Likely secondary to lithium toxicity. C. difficile negative Stool culture negative (11) Urinary retention Is this a current diagnosis for this admission?: Yes Plan: Unclear etiology. Possibly related to UTI CT abdomen pelvis revealed adrenal adenoma and renal cysts but otherwise benign Continue Fishman catheter with strict I's and O's Adequate urine output at present time Continue daily Flomax - Time Time Spent with patient: 15-24 minutes Medications reviewed and adjusted accordingly: Yes Anticipated discharge: Home - Inpatient Certification Based on my medical assessment, after consideration of the patient's comorbidities, presenting symptoms, or acuity I expect that the services needed warrant INPATIENT care.: Yes I certify that my determination is in accordance with my understanding of Medicare's requirements for reasonable and necessary INPATIENT services [42 CFR 412.3e].: Yes Medical Necessity: Risk of Complication if Not Cared For in Hospital - Plan Summary Plan Summary: Ultimately, the plan is to discharge the patient home
[2017-05-08] MEDS: MONTELUKAST SODIUM 10 MG TABLET PO SCH (21:54)
[2017-05-08] MEDS: HYDRALAZINE HCL 25 MG TABLET PO SCH (23:25)
[2017-05-09] MEDS: HEPARIN SOD (PORCINE) 5,000 UNIT/ML 1 ML SYRINGE SUBCUT SCH ×3 (04:59→21:30)
[2017-05-09] MEDS: LEVOTHYROXINE SODIUM 0.1 MG TABLET PO SCH (05:43)
[2017-05-09] MEDS: HYDRALAZINE HCL 25 MG TABLET PO SCH ×3 (05:44→18:11)
[2017-05-09] MEDS: LEVOTHYROXINE SODIUM 0.025 MG TABLET PO SCH (05:44)
[2017-05-09] MEDS: IPRATROPIUM/ALBUTEROL 0.5-2.5 MG/3 ML AMPUL NEB PRN (07:57)
[2017-05-09] MEDS: METOPROLOL TARTRATE 100 MG TABLET PO SCH ×2 (08:27→21:29)
[2017-05-09] MEDS: AMLODIPINE BESYLATE 10 MG TABLET PO SCH (08:27)
[2017-05-09 09:02] LABS: LITHIUM 0.7 mEq/L (0.6-1.2)
[2017-05-09 09:04] LABS: ANION GAP 6 (5-19); BLOOD UREA NITROGEN 11 mg/dL (7-20); CALCIUM 10.1 mg/dL (8.4-10.2); CARBON DIOXIDE 28 mmol/L (22-30); CHLORIDE 111 mmol/L (98-107); GLUCOSE 105 mg/dL (75-110); PHOSPHORUS 3.3 mg/dL (2.5-4.5); POTASSIUM 3.8 mmol/L (3.6-5.0); SODIUM 145.2 mmol/L (137-145)
[2017-05-09] MEDS: TIOTROPIUM BROMIDE DPI 5 CAP/KIT (18 MCG/CAP) IH SCH (10:27)
[2017-05-09] MEDS: FAMOTIDINE 20 MG TABLET PO SCH ×2 (10:27→21:30)
[2017-05-09] MEDS: ASPIRIN 81 MG TABLET, ENT COATED PO SCH (10:27)
[2017-05-09] MEDS: MULTIVITAMIN TABLET PO SCH (10:28)
[2017-05-09] MEDS: DOCUSATE SODIUM 100 MG CAPSULE PO SCH (10:28)
[2017-05-09] MEDS: FLUTICASONE/SALMETEROL DISKUS 500-50 MCG/DOSE IH SCH ×2 (10:28→21:30)
[2017-05-09] MEDS: HYDROCHLOROTHIAZIDE 12.5 MG CAPSULE PO SCH (10:28)
[2017-05-09] MEDS: GUAIFENESIN 600 MG TABLET.SA PO SCH ×2 (10:28→21:30)
[2017-05-09 11:29] LABS: HEMATOCRIT 36.9 % (36.0-47.0); HEMOGLOBIN 12.2 g/dL (12.0-15.5); MEAN CORPUSCULAR HEMOGLOBIN 30.3 pg (27.0-33.4); MEAN CORPUSCULAR HGB CONC 33.2 g/dL (32.0-36.0); MEAN CORPUSCULAR VOLUME 91 fl (80-97); PLATELET COUNT 254 10^3/uL (150-450); RED BLOOD COUNT 4.04 10^6/uL (3.72-5.28); RED CELL DISTRIBUTION WIDTH 13.7 % (11.5-14.0); WHITE BLOOD COUNT 8.8 10^3/uL (4.0-10.5)
--- NOTE | 2017-05-09 13:09 | PSYCHOLOGICAL NOTE ---
Psych Note - Psych Note Psych Note: Reason for consult: Medication recommendations Patient is a 72-year-old female. Patient reports she is feeling better. Patient reports her is her support system and has been visiting her regularly. Patient reports she has been for 38 years. Patient reports 15 years ago she was diagnosed with bipolar disorder. Patient reports she did not think she was bipolar because she had never seen any symptoms prior to that. Patient reports sometimes she felt depressed but now she feels that it was related to not being as independent as she was. Patient reports she was an independent person and now has to be dependent on people for things that she could do years ago. Patient stated I lost my "finesse". Patient reports she can sleep through the night and she has support with her children who visit her and live nearby in [facility]. Patient reports she thinks the lithium was "keeping her calm she guesses". Patient reports that if she had to scale her life on a 1 through 10 with 10 being things are better she is a 10 because she "got her life back". Patient reports she looks forward to leaving the hospital soon so she can continue to "as this is her hobby. Patient reports she also likes to read people magazines and sit in her garage talking with her . Medication recommendations made by [facility] contracted psychiatric provider Dr. Jennifer MD. includes: 1. Begin Tegretol 200 mg twice a day 2. Begin Seroquel 25 mg at night 3. Discontinue lithium Diagnosis: Per Hx 296.41 ( F31.11) Bipolar Disorder I mild. Impression/Plan: Patient is psychiatrically cleared. A consult was put in for medication recommendations in place of lithium due to lithium toxicity. Medication recommendations were made. Consulted with Dr. Mark regarding the management and care of patient.
[2017-05-09] MEDS ORDERED: CARBAMAZEPINE 200 MG TABLET PO ONE (14:30)
[2017-05-09] MEDS: TAMSULOSIN HCL 0.4 MG CAP.SR.24H PO SCH (18:11)
[2017-05-09] MEDS: CEFUROXIME 250 MG TABLET PO SCH (18:12)
[2017-05-09] MEDS ORDERED: HYDRALAZINE HCL 25 MG TABLET PO SCH (21:10)
[2017-05-09] MEDS: CARBAMAZEPINE 200 MG TABLET PO SCH (21:30)
[2017-05-09] MEDS: HYDRALAZINE HCL 50 MG TABLET PO SCH (21:30)
[2017-05-09] MEDS: QUETIAPINE FUMARATE 25 MG TABLET PO SCH (21:30)
[2017-05-09] MEDS: MONTELUKAST SODIUM 10 MG TABLET PO SCH (21:30)
--- NOTE | 2017-05-09 21:33 | PDOC PROGRESS REPORT ---
Subjective Progress Note for:: 05/09/17 Subjective:: SHANTHI BRIGGS is a 72 year old female with a PMH of HTN, HLD, COPD, hypothyroidism, breast cancer, arthritis, bipolar on lithium who was admitted on 05/04/2017 for UTI, dehydration, and lithium toxicity. The patient is seen on morning rounds. She is found sitting up in the bedside recliner on room air. The patient is awake, oriented, and able to clearly answer all questions. She is conversational and remains on topic. The patient states that she feels much more "awake" today than she did previous days. Of note, psych made recommendations regarding lithium replacements. See comments below. Reason For Visit: URINARY TRACT INFECTION, LITHIUM TOXICITY Physical Exam Vital Signs: Temp Pulse Resp BP Pulse Ox 97.3 F 86 18 171/80 H 96 05/09/17 16:00 05/09/17 16:00 05/09/17 16:00 05/09/17 16:00 05/09/17 16:00 Intake & Output 05/08/17 05/09/17 05/10/17 06:59 06:59 06:59 Intake Total 1620 1605 570 Output Total 1150 3650 Balance 470 -7877 570 Weight 118.2 kg 148 kg General appearance: PRESENT: no acute distress Eye exam: PRESENT: conjunctiva pink, PERRLA Mouth exam: PRESENT: moist Neck exam: PRESENT: full ROM Respiratory exam: PRESENT: symmetrical, wheezes - LLL. ABSENT: rhonchi Cardiovascular exam: PRESENT: +S1, +S2 Pulses: PRESENT: normal radial pulses, +1 pedal pulses bilateral GI/Abdominal exam: PRESENT: normal bowel sounds, soft. ABSENT: tenderness Rectal exam: PRESENT: deferred Extremities exam: PRESENT: full ROM Musculoskeletal exam: PRESENT: ambulatory - with assistance. uses walker, has not ambulated in hallway, full ROM Neurological exam: PRESENT: alert, awake, oriented to person, oriented to place , oriented to time, oriented to situation Skin exam: PRESENT: normal color Results Laboratory Results: 05/09/17 10:39 05/09/17 08:19 05/09/17 05/09/17 05/09/17 08:19 08:19 10:39 WBC Cancelled 8.8 RBC Cancelled 4.04 Hgb Cancelled 12.2 Hct Cancelled 36.9 MCV Cancelled 91 MCH Cancelled 30.3 MCHC Cancelled 33.2 RDW Cancelled 13.7 Plt Count Cancelled 254 Sodium 145.2 H Potassium 3.8 Chloride 111 H Carbon Dioxide 28 Anion Gap 6 BUN 11 Creatinine 0.90 Est GFR ( Amer) > 60 Est GFR (Non-Af Amer) > 60 Glucose 105 Calcium 10.1 Phosphorus 3.3 Magnesium 2.0 05/04/17 16:08 Blood Blood Culture - Final NO GROWTH IN 5 DAYS Impressions: Abdomen/Pelvis CT 05/04/17 00:00 IMPRESSION: 1. 16 mm left adrenal adenoma. 2. Renal cysts including some small apparently hyperdense cysts. 3. Thoracolumbar spondylosis. Acute Abdomen Series 05/04/17 10:00 IMPRESSION: Moderate to marked cardiomegaly. Nonspecific nonobstructive bowel gas pattern Status: Imported from PACS Assessment & Plan - Diagnosis (1) Hypernatremia Is this a current diagnosis for this admission?: Yes Plan: Na trending up to 145 today. Likely related to diuresis over the last 48 hrs. Free water deficit 2L. No plans to diurese at this time. The patient has very slight extracellular edema in her lower extemities, but I believe she is intravascularly depleted. Elevated Serum osm 307. Will Check urine Osm. (2) [place] toxicity Qualifiers: Encounter type: initial encounter Injury intent: accidental or unintentional Qualified Code(s): T56.891A - Toxic effect of other metals, accidental (unintentional), initial encounter Is this a current diagnosis for this admission?: Yes Plan: Patient presented to the emergency department was reported AMS. [place] level was initially 2.7 now 0.7 Please a controlled contacted by emergency department physician, recommended IV fluid resuscitation and trending lithium level. Admit to medical floor with continuous cardiac telemetry No need for IVF at this time, encourage PO intake Continue Fishman. Strict I's and O's. Discontinue lithium. Consult psych for alternative medication regimen -they recommend tegretol 200mg PO BID and seroquel 25 mg QHS Seizure, fall, aspiration precautions. (3) UTI (urinary tract infection) Qualifiers: Urinary tract infection type: site unspecified Hematuria presence: with hematuria Qualified Code(s): N39.0 - Urinary tract infection, site not specified; R31.9 - Hematuria, unspecified; R31.9 - Hematuria, unspecified Is this a current diagnosis for this admission?: Yes Plan: Chief complaint of confusion and abdominal fullness. UA positive for UTI Leukocytosis with white count of 16 CT abdomen and pelvis shows a 16 mm left adrenal adenoma, renal cysts including some small apparently hyperdense cyst, but no acute findings. Blood cultures no growth to date Urine culture: E. Coli sensitive to Rocephin Sensitivities show susceptibility to mutiple cephalosporins. Downgrade Rocephin to Ceftin. (4) Acute encephalopathy Is this a current diagnosis for this admission?: Yes Plan: Improving. Multifactorial secondary to lithium toxicity and acute infection Baseline mental status is WNL, A&Ox3, GCS 15 Patient's mental clarity has greatly improved today. She is very interactive, and able to hold coherent conversations with staff members. Unfortunatley, family is not at the bedside to provide insight regarding her current mental state and how close she is to baseline Continue monitor and provide for patient safety (5) CHF (congestive heart failure) Is this a current diagnosis for this admission?: Yes Plan: ProBNP elevated to 2400 following aggressive IV fluids Her weight is up approximately 6 KGs, the patient did present with dehydration though some of this may be appropriate increasing fluids. Cardiac diet Fishman catheter with strict I's and O's Daily weights (6) COPD (chronic obstructive pulmonary disease) Is this a current diagnosis for this admission?: Yes Plan: Without respiratory difficulty. Patient is maintaining an SPO2 greater than 93 % on room air. CPAP at night Very mild wheezing heard in LLL, otherwise no adventitious breath sounds. As needed duo nebs Spiriva and Advair Monitor closely for need for steroids Encourage turn cough and deep breathe Encourage mobility Mucinex twice daily (7) Generalized weakness Is this a current diagnosis for this admission?: Yes Plan: Secondary to morbid obesity, immobility, lithium toxicity, and acute illness. Patient able to transfer from bed to chair, but has not ambulated outside of her room Plan for patient to transfer to acute rehab with the ultimate goal of her returning home (8) Hypertension Qualifiers: Hypertension type: essential hypertension Qualified Code(s): I10 - Essential (primary) hypertension Is this a current diagnosis for this admission?: Yes Plan: Poorly controlled. Increased hydralazine from 25 mg to 50 mg q 6 hrs. Initiated lisinopril 10 mg daily Continue amlodipine, metoprolol, HCTZ at home dosing IV hydralazine available as needed (9) Leukocytosis Qualifiers: Leukocytosis type: bandemia Qualified Code(s): D72.825 - Bandemia Is this a current diagnosis for this admission?: Yes Plan: Improved. Down to 8 today Secondary to UTI Cultures and antibiotics as above We will trend daily CBC Plan as above (10) Loose stools Is this a current diagnosis for this admission?: Yes Plan: Improving. Likely secondary to lithium toxicity. C. difficile negative Stool culture negative (11) Urinary retention Is this a current diagnosis for this admission?: Yes Plan: Unclear etiology. Possibly related to UTI CT abdomen pelvis revealed adrenal adenoma and renal cysts but otherwise benign Continue Fishman catheter with strict I's and O's Adequate urine output at present time Continue daily Flomax - Time Time Spent with patient: 15-24 minutes Medications reviewed and adjusted accordingly: Yes Anticipated discharge: Acute Rehab - Inpatient Certification Based on my medical assessment, after consideration of the patient's comorbidities, presenting symptoms, or acuity I expect that the services needed warrant INPATIENT care.: Yes I certify that my determination is in accordance with my understanding of Medicare's requirements for reasonable and necessary INPATIENT services [42 CFR 412.3e].: Yes Medical Necessity: Need For Continuous Telemetry Monitoring, Risk of Complication if Not Cared For in Hospital - Plan Summary Plan Summary: Discharge from [facility] to acute rehab
[2017-05-09] MEDS ORDERED: LISINOPRIL 10 MG TABLET PO ONE ×2 (22:00)
[2017-05-10] MEDS: HYDRALAZINE HCL 50 MG TABLET PO SCH ×4 (04:09→21:09)
[2017-05-10] MEDS: HEPARIN SOD (PORCINE) 5,000 UNIT/ML 1 ML SYRINGE SUBCUT SCH ×3 (04:55→21:06)
[2017-05-10] MEDS: LEVOTHYROXINE SODIUM 0.1 MG TABLET PO SCH (05:43)
[2017-05-10] MEDS: LEVOTHYROXINE SODIUM 0.025 MG TABLET PO SCH (05:43)
[2017-05-10 07:13] LABS: HEMATOCRIT 36.6 % (36.0-47.0); HEMOGLOBIN 12.4 g/dL (12.0-15.5); MEAN CORPUSCULAR HEMOGLOBIN 30.8 pg (27.0-33.4); MEAN CORPUSCULAR HGB CONC 33.9 g/dL (32.0-36.0); MEAN CORPUSCULAR VOLUME 91 fl (80-97); PLATELET COUNT 254 10^3/uL (150-450); RED BLOOD COUNT 4.03 10^6/uL (3.72-5.28); RED CELL DISTRIBUTION WIDTH 13.7 % (11.5-14.0); WHITE BLOOD COUNT 7.6 10^3/uL (4.0-10.5)
[2017-05-10 07:46] LABS: ANION GAP 6 (5-19); BLOOD UREA NITROGEN 12 mg/dL (7-20); CALCIUM 10.3 mg/dL (8.4-10.2); CARBON DIOXIDE 27 mmol/L (22-30); CHLORIDE 108 mmol/L (98-107); GLUCOSE 93 mg/dL (75-110); PHOSPHORUS 3.6 mg/dL (2.5-4.5); SODIUM 140.6 mmol/L (137-145)
[2017-05-10] MEDS ORDERED: POTASSI CL 20 MEQ/50 ML RIDER 20 MEQ/50 ML RTUPB IV ONE (08:30)
[2017-05-10] MEDS ORDERED: POTASSIUM CHLORIDE 10 MEQ TABLET.SA PO ONE ×2 (08:30→12:00)
[2017-05-10] MEDS: CARBAMAZEPINE 200 MG TABLET PO SCH ×2 (09:21→21:11)
[2017-05-10] MEDS: DOCUSATE SODIUM 100 MG CAPSULE PO SCH (09:22)
[2017-05-10] MEDS: AMLODIPINE BESYLATE 10 MG TABLET PO SCH (09:22)
[2017-05-10] MEDS: ASPIRIN 81 MG TABLET, ENT COATED PO SCH (09:22)
[2017-05-10] MEDS: CEFUROXIME 250 MG TABLET PO SCH ×2 (09:22→16:50)
[2017-05-10] MEDS: METOPROLOL TARTRATE 100 MG TABLET PO SCH ×2 (09:23→21:09)
[2017-05-10] MEDS: HYDROCHLOROTHIAZIDE 12.5 MG CAPSULE PO SCH (09:23)
[2017-05-10] MEDS: FLUTICASONE/SALMETEROL DISKUS 500-50 MCG/DOSE IH SCH ×2 (09:23→21:11)
[2017-05-10] MEDS: GUAIFENESIN 600 MG TABLET.SA PO SCH ×2 (09:23→21:10)
[2017-05-10] MEDS: MULTIVITAMIN TABLET PO SCH (09:23)
[2017-05-10] MEDS: FAMOTIDINE 20 MG TABLET PO SCH ×2 (09:23→21:10)
[2017-05-10] MEDS ORDERED: LISINOPRIL 10 MG TABLET PO SCH (10:00)
[2017-05-10] MEDS: TIOTROPIUM BROMIDE DPI 5 CAP/KIT (18 MCG/CAP) IH SCH (12:30)
[2017-05-10] MEDS ORDERED: ONDANSETRON HCL INJ/PF 4 MG/2 ML SDV IV PRN (13:00)
[2017-05-10] MEDS ORDERED: LISINOPRIL 10 MG TABLET PO ONE (14:15)
[2017-05-10] MEDS: TAMSULOSIN HCL 0.4 MG CAP.SR.24H PO SCH (16:50)
--- NOTE | 2017-05-10 18:11 | PDOC PROGRESS REPORT ---
Subjective Progress Note for:: 05/10/17 Subjective:: SHANTHI BRIGGS is a 72 year old female with a PMH of HTN, HLD, COPD, hypothyroidism, breast cancer, arthritis, bipolar on lithium who was admitted on 05/04/2017 for UTI, dehydration, and lithium toxicity. The patient is seen on morning rounds. She is found resting comfortably in bed on room air. The patient is awake, oriented, and able to clearly answer all questions. She is conversational and remains on topic. Reason For Visit: URINARY TRACT INFECTION, LITHIUM TOXICITY Physical Exam Vital Signs: Temp Pulse Resp BP Pulse Ox 98.1 F 82 18 157/50 H 95 05/10/17 16:12 05/10/17 16:12 05/10/17 16:12 05/10/17 16:12 05/10/17 16:12 Intake & Output 05/09/17 05/10/17 05/11/17 06:59 06:59 06:59 Intake Total 1605 1120 Output Total 3650 1875 Balance -2044 Weight 148 kg 115.5 kg Results Laboratory Results: 05/10/17 06:42 05/10/17 07:16 05/09/17 05/10/17 05/10/17 22:05 06:42 07:16 WBC 7.6 RBC 4.03 Hgb 12.4 Hct 36.6 MCV 91 MCH 30.8 MCHC 33.9 RDW 13.7 Plt Count 254 Sodium 140.6 Potassium 3.0 L* Chloride 108 H Carbon Dioxide 27 Anion Gap 6 BUN 12 Creatinine 0.87 Est GFR ( Amer) > 60 Est GFR (Non-Af Amer) > 60 Glucose 93 Calcium 10.3 H Phosphorus 3.6 Magnesium 1.9 Urine Osmolality 206 L 05/04/17 16:08 Blood Blood Culture - Final NO GROWTH IN 5 DAYS Impressions: Abdomen/Pelvis CT 05/04/17 00:00 IMPRESSION: 1. 16 mm left adrenal adenoma. 2. Renal cysts including some small apparently hyperdense cysts. 3. Thoracolumbar spondylosis. Acute Abdomen Series 05/04/17 10:00 IMPRESSION: Moderate to marked cardiomegaly. Nonspecific nonobstructive bowel gas pattern Assessment & Plan - Diagnosis (1) Hypernatremia Is this a current diagnosis for this admission?: Yes Plan: Resolved. Na 140 today. Likely related to diuresis over the last 48 hrs. Free water deficit 2L. No plans to diurese at this time. The patient has very slight extracellular edema in her lower extemities, but I believe she is intravascularly depleted. Given her history of CHF, her volume status is always a balancing act No plans to restart IVF to avoid volume overload and respiratory complications, encourage PO intake. (2) [place] toxicity Qualifiers: Encounter type: initial encounter Injury intent: accidental or unintentional Qualified Code(s): T56.891A - Toxic effect of other metals, accidental (unintentional), initial encounter Is this a current diagnosis for this admission?: Yes Plan: Patient presented to the emergency department was reported AMS. [place] level was initially 2.7 now 0.7. No longer trending Please a controlled contacted by emergency department physician, recommended IV fluid resuscitation and trending lithium level. Admit to medical floor with continuous cardiac telemetry No need for IVF at this time, encourage PO intake Discontinue lithium Consult psych for alternative medication regimen -they recommend tegretol 200mg PO BID and seroquel 25 mg QHS. Initiated yesterday, patient seems to be tolerating well Seizure, fall, aspiration precautions. (3) UTI (urinary tract infection) Qualifiers: Urinary tract infection type: site unspecified Hematuria presence: with hematuria Qualified Code(s): N39.0 - Urinary tract infection, site not specified; R31.9 - Hematuria, unspecified; R31.9 - Hematuria, unspecified Is this a current diagnosis for this admission?: Yes Plan: Chief complaint of confusion and abdominal fullness. UA positive for UTI Leukocytosis with white count of 16 CT abdomen and pelvis shows a 16 mm left adrenal adenoma, renal cysts including some small apparently hyperdense cyst, but no acute findings. Blood cultures no growth to date Urine culture: E. Coli sensitive to Rocephin Sensitivities show susceptibility to multiple cephalosporins. Downgrade Rocephin to Ceftin. (4) Acute encephalopathy Is this a current diagnosis for this admission?: Yes Plan: Improving. Multifactorial secondary to lithium toxicity and acute infection Baseline mental status is WNL, A&Ox3, GCS 15 Patient's mental clarity has greatly improved today. She is very interactive, and able to hold coherent conversations with staff members. Unfortunately, family is not at the bedside to provide insight regarding her current mental state and how close she is to baseline Continue monitor and provide for patient safety (5) CHF (congestive heart failure) Is this a current diagnosis for this admission?: Yes Plan: ProBNP elevated to 2400 following aggressive IV fluids Her weight is up approximately 3 KGs, the patient did present with dehydration though some of this may be appropriate increasing fluids. Cardiac diet Daily weights (6) COPD (chronic obstructive pulmonary disease) Is this a current diagnosis for this admission?: Yes Plan: Without respiratory difficulty. Patient is maintaining an SPO2 greater than 93 % on room air. CPAP at night No adventitious breath sounds, clear to auscultation As needed duo nebs Spiriva and Advair Monitor closely for need for steroids Encourage turn cough and deep breathe Encourage mobility Mucinex twice daily (7) Generalized weakness Is this a current diagnosis for this admission?: Yes Plan: Secondary to morbid obesity, immobility, lithium toxicity, and acute illness. Patient able to transfer from bed to chair, but has not ambulated outside of her room Plan for patient to transfer to acute rehab with the ultimate goal of her returning home (8) Hypertension Qualifiers: Hypertension type: essential hypertension Qualified Code(s): I10 - Essential (primary) hypertension Is this a current diagnosis for this admission?: Yes Plan: Poorly controlled. Continue hydralazine 50 mg q 6 hrs. Continue lisinopril 10 mg daily Increased Norvasc to 10 mg daily Continue metoprolol, HCTZ at home dosing IV hydralazine available as needed (9) Leukocytosis Qualifiers: Leukocytosis type: bandemia Qualified Code(s): D72.825 - Bandemia Is this a current diagnosis for this admission?: Yes Plan: Resolved. WBC is WNL Secondary to UTI Cultures and antibiotics as above We will trend daily CBC Plan as above (10) Loose stools Is this a current diagnosis for this admission?: Yes Plan: Improved. No longer experiencing loose stools Likely secondary to lithium toxicity. C. difficile negative Stool culture negative (11) Urinary retention Is this a current diagnosis for this admission?: Yes Plan: Unclear etiology. Possibly related to UTI CT abdomen pelvis revealed adrenal adenoma and renal cysts but otherwise benign Continue daily Flomax Discharge [place] today - Time Time Spent with patient: 15-24 minutes Anticipated discharge: Acute Rehab - Inpatient Certification Based on my medical assessment, after consideration of the patient's comorbidities, presenting symptoms, or acuity I expect that the services needed warrant INPATIENT care.: Yes I certify that my determination is in accordance with my understanding of Medicare's requirements for reasonable and necessary INPATIENT services [42 CFR 412.3e].: Yes Medical Necessity: Risk of Complication if Not Cared For in Hospital - Plan Summary Plan Summary: Given the patient's degree of weakness, she will require acute rehab following discharge from [facility], [facility]
[2017-05-10] MEDS: MONTELUKAST SODIUM 10 MG TABLET PO SCH (21:09)
[2017-05-10] MEDS: QUETIAPINE FUMARATE 25 MG TABLET PO SCH (21:10)
[2017-05-11] MEDS: HYDRALAZINE HCL 50 MG TABLET PO SCH ×4 (03:54→21:53)
[2017-05-11] MEDS: HEPARIN SOD (PORCINE) 5,000 UNIT/ML 1 ML SYRINGE SUBCUT SCH ×3 (04:01→21:53)
[2017-05-11] MEDS: LEVOTHYROXINE SODIUM 0.1 MG TABLET PO SCH (05:48)
[2017-05-11] MEDS: LEVOTHYROXINE SODIUM 0.025 MG TABLET PO SCH (05:48)
[2017-05-11 09:02] LABS: ANION GAP 9 (5-19); BLOOD UREA NITROGEN 12 mg/dL (7-20); CARBON DIOXIDE 22 mmol/L (22-30); CHLORIDE 110 mmol/L (98-107); GLUCOSE 97 mg/dL (75-110); POTASSIUM 3.6 mmol/L (3.6-5.0); SODIUM 141.1 mmol/L (137-145)
[2017-05-11] MEDS: LISINOPRIL 10 MG TABLET PO SCH (10:26)
[2017-05-11] MEDS: GUAIFENESIN 600 MG TABLET.SA PO SCH ×2 (10:27→21:53)
[2017-05-11] MEDS: FAMOTIDINE 20 MG TABLET PO SCH ×2 (10:27→21:53)
[2017-05-11] MEDS: MULTIVITAMIN TABLET PO SCH (10:28)
[2017-05-11] MEDS: ASPIRIN 81 MG TABLET, ENT COATED PO SCH (10:28)
[2017-05-11] MEDS: AMLODIPINE BESYLATE 10 MG TABLET PO SCH (10:28)
[2017-05-11] MEDS: HYDROCHLOROTHIAZIDE 12.5 MG CAPSULE PO SCH (10:28)
[2017-05-11] MEDS: METOPROLOL TARTRATE 100 MG TABLET PO SCH ×2 (10:28→21:53)
[2017-05-11] MEDS: TIOTROPIUM BROMIDE DPI 5 CAP/KIT (18 MCG/CAP) IH SCH (10:29)
[2017-05-11] MEDS: FLUTICASONE/SALMETEROL DISKUS 500-50 MCG/DOSE IH SCH ×2 (10:30→21:53)
[2017-05-11] MEDS: CARBAMAZEPINE 200 MG TABLET PO SCH ×2 (10:30→21:53)
[2017-05-11] MEDS: DOCUSATE SODIUM 100 MG CAPSULE PO SCH (10:30)
[2017-05-11] MEDS: TAMSULOSIN HCL 0.4 MG CAP.SR.24H PO SCH (17:24)
--- NOTE | 2017-05-11 18:07 | PDOC PROGRESS REPORT ---
Subjective Progress Note for:: 05/11/17 Subjective:: SHANTHI BRIGGS is a 72 year old female with a PMH of HTN, HLD, COPD, hypothyroidism, breast cancer, arthritis, bipolar on lithium who was admitted on 05/04/2017 for UTI, dehydration, and lithium toxicity. The patient is seen on morning rounds. She is found resting comfortably in bedside recliner on room air. The patient is awake, oriented, and able to clearly answer all questions. She is conversational and remains on topic. Reason For Visit: URINARY TRACT INFECTION, LITHIUM TOXICITY Physical Exam Vital Signs: Temp Pulse Resp BP Pulse Ox 98.2 F 79 18 135/92 H 94 05/11/17 12:20 05/11/17 14:30 05/11/17 14:30 05/11/17 12:20 05/11/17 14:30 Intake & Output 05/10/17 05/11/17 05/12/17 06:59 06:59 06:59 Intake Total 1120 1241 Output Total 1875 4000 Balance -140 -0596 Weight 115.5 kg 112.2 kg General appearance: PRESENT: no acute distress Eye exam: PRESENT: conjunctiva pink, EOMI, PERRLA Mouth exam: PRESENT: moist Teeth exam: PRESENT: poor dentation Neck exam: PRESENT: full ROM Respiratory exam: PRESENT: clear to auscultation carmen, symmetrical, unlabored Cardiovascular exam: PRESENT: irregular rhythm, +S1, +S2 Pulses: PRESENT: normal radial pulses, normal dorsalis pedis pul GI/Abdominal exam: PRESENT: normal bowel sounds, soft. ABSENT: tenderness Rectal exam: PRESENT: deferred Extremities exam: PRESENT: full ROM, pedal edema - trace pedal edema Musculoskeletal exam: PRESENT: ambulatory - independent with walker Neurological exam: PRESENT: alert, awake, oriented to person, oriented to place , oriented to time, oriented to situation Psychiatric exam: PRESENT: appropriate affect Results Laboratory Results: 05/10/17 06:42 05/11/17 07:59 05/11/17 07:59 Sodium 141.1 Potassium 3.6 Chloride 110 H Carbon Dioxide 22 Anion Gap 9 BUN 12 Creatinine 0.78 Est GFR ( Amer) > 60 Est GFR (Non-Af Amer) > 60 Glucose 97 Calcium 10.0 Impressions: Abdomen/Pelvis CT 05/04/17 00:00 IMPRESSION: 1. 16 mm left adrenal adenoma. 2. Renal cysts including some small apparently hyperdense cysts. 3. Thoracolumbar spondylosis. Acute Abdomen Series 05/04/17 10:00 IMPRESSION: Moderate to marked cardiomegaly. Nonspecific nonobstructive bowel gas pattern Status: Imported from PACS Assessment & Plan - Diagnosis (1) [place] toxicity Qualifiers: Encounter type: initial encounter Injury intent: accidental or unintentional Qualified Code(s): T56.891A - Toxic effect of other metals, accidental (unintentional), initial encounter Is this a current diagnosis for this admission?: Yes Plan: Patient presented to the emergency department was reported AMS. [place] level was initially 2.7, last checked it was 0.7. No longer trending Poison control contacted by emergency department physician. Initially treated with IV fluid resuscitation. Admit to medical floor with continuous cardiac telemetry No need for IVF at this time, encourage PO intake Discontinue lithium Consulted psych for alternative medication regimen to lithium-they recommend tegretol 200mg PO BID and seroquel 25 mg QHS. Initiated yesterday, patient seems to be tolerating well Seizure, fall, aspiration precautions. (2) UTI (urinary tract infection) Qualifiers: Urinary tract infection type: site unspecified Hematuria presence: with hematuria Qualified Code(s): N39.0 - Urinary tract infection, site not specified; R31.9 - Hematuria, unspecified; R31.9 - Hematuria, unspecified Is this a current diagnosis for this admission?: Yes Plan: Chief complaint of confusion and abdominal fullness. UA positive for UTI Leukocytosis with white count of 16 CT abdomen and pelvis shows a 16 mm left adrenal adenoma, renal cysts including some small apparently hyperdense cyst, but no acute findings. Blood cultures no growth to date Urine culture: E. Coli sensitive to Rocephin Completed course of antibiotics. Initially treated with Rocephin, downgraded to Ceftin. Antibiotic regimen complete. (3) Acute encephalopathy Is this a current diagnosis for this admission?: Yes Plan: Improving. Multifactorial secondary to lithium toxicity and acute infection Baseline mental status is WNL, A&Ox3, GCS 15 Patient's mental clarity has greatly improved today. She is very interactive, and able to hold coherent conversations with staff members. Unfortunately, family is not at the bedside to provide insight regarding her current mental state and how close she is to baseline Continue monitor and provide for patient safety (4) CHF (congestive heart failure) Is this a current diagnosis for this admission?: Yes Plan: ProBNP elevated to 2400 following aggressive IV fluids Her weight has returned to baseline Cardiac diet Daily weights (5) COPD (chronic obstructive pulmonary disease) Is this a current diagnosis for this admission?: Yes Plan: Without respiratory difficulty. Patient is maintaining an SPO2 greater than 93 % on room air. CPAP at night No adventitious breath sounds, clear to auscultation As needed duo nebs Spiriva and Advair Monitor closely for need for steroids Encourage turn cough and deep breathe Encourage mobility Mucinex twice daily (6) Generalized weakness Is this a current diagnosis for this admission?: Yes Plan: Secondary to morbid obesity, immobility, lithium toxicity, and acute illness. Patient able to transfer from bed to chair, and is able to ambulate to the hallway with the assistance of a walker Plan for patient to transfer to acute rehab with the ultimate goal of her returning home (7) Hypertension Qualifiers: Hypertension type: essential hypertension Qualified Code(s): I10 - Essential (primary) hypertension Is this a current diagnosis for this admission?: Yes Plan: Improving. Continue hydralazine 50 mg q 6 hrs. Continue lisinopril 10 mg daily Maximized Norvasc to 10 mg daily Continue metoprolol, HCTZ at home dosing IV hydralazine available as needed (8) Leukocytosis Qualifiers: Leukocytosis type: bandemia Qualified Code(s): D72.825 - Bandemia Is this a current diagnosis for this admission?: Yes Plan: Resolved. WBC is WNL Secondary to UTI Cultures and antibiotics as above Plan as above (9) Loose stools Is this a current diagnosis for this admission?: Yes Plan: Improved. Patient endorsed experiencing 1 loose stool today -denies watery diarrhea Likely secondary to lithium toxicity. C. difficile negative Stool culture negative (10) Urinary retention Is this a current diagnosis for this admission?: Yes Plan: Resolved. Unclear etiology. Possibly related to UTI CT abdomen pelvis revealed adrenal adenoma and renal cysts but otherwise benign Continue daily Flomax - Time Time Spent with patient: 15-24 minutes Anticipated discharge: Acute Rehab Within: within 48 hours - Inpatient Certification Based on my medical assessment, after consideration of the patient's comorbidities, presenting symptoms, or acuity I expect that the services needed warrant INPATIENT care.: Yes I certify that my determination is in accordance with my understanding of Medicare's requirements for reasonable and necessary INPATIENT services [42 CFR 412.3e].: Yes Medical Necessity: Risk of Complication if Not Cared For in Hospital - Plan Summary Plan Summary: discharge to acute rehab
[2017-05-11] MEDS: MONTELUKAST SODIUM 10 MG TABLET PO SCH (21:53)
[2017-05-11] MEDS: QUETIAPINE FUMARATE 25 MG TABLET PO SCH (21:53)
[2017-05-12] MEDS: HYDRALAZINE HCL 50 MG TABLET PO SCH ×4 (05:55→22:39)
[2017-05-12] MEDS: LEVOTHYROXINE SODIUM 0.025 MG TABLET PO SCH (05:55)
[2017-05-12] MEDS: LEVOTHYROXINE SODIUM 0.1 MG TABLET PO SCH (05:55)
[2017-05-12] MEDS: HEPARIN SOD (PORCINE) 5,000 UNIT/ML 1 ML SYRINGE SUBCUT SCH ×3 (05:55→22:39)
[2017-05-12] MEDS: LISINOPRIL 10 MG TABLET PO SCH (09:20)
[2017-05-12] MEDS: HYDROCHLOROTHIAZIDE 12.5 MG CAPSULE PO SCH (09:21)
[2017-05-12] MEDS: GUAIFENESIN 600 MG TABLET.SA PO SCH ×2 (09:21→22:39)
[2017-05-12] MEDS: METOPROLOL TARTRATE 100 MG TABLET PO SCH ×2 (09:21→22:39)
[2017-05-12] MEDS: MULTIVITAMIN TABLET PO SCH (09:21)
[2017-05-12] MEDS: DOCUSATE SODIUM 100 MG CAPSULE PO SCH (09:22)
[2017-05-12] MEDS: CARBAMAZEPINE 200 MG TABLET PO SCH ×2 (09:22→22:40)
[2017-05-12] MEDS: TIOTROPIUM BROMIDE DPI 5 CAP/KIT (18 MCG/CAP) IH SCH (09:22)
[2017-05-12] MEDS: FAMOTIDINE 20 MG TABLET PO SCH ×2 (09:22→22:39)
[2017-05-12] MEDS: AMLODIPINE BESYLATE 10 MG TABLET PO SCH (09:22)
[2017-05-12] MEDS: ASPIRIN 81 MG TABLET, ENT COATED PO SCH (09:22)
[2017-05-12] MEDS: FLUTICASONE/SALMETEROL DISKUS 500-50 MCG/DOSE IH SCH ×2 (09:23→22:40)
[2017-05-12] MEDS: TAMSULOSIN HCL 0.4 MG CAP.SR.24H PO SCH (17:47)
[2017-05-12] MEDS: MONTELUKAST SODIUM 10 MG TABLET PO SCH (22:39)
[2017-05-12] MEDS: QUETIAPINE FUMARATE 25 MG TABLET PO SCH (22:40)
[2017-05-12] MEDS ORDERED: OXYCODONE-ACETAMINOPHEN 5-325 MG TABLET PO PRN (23:15)
[2017-05-13] MEDS: HEPARIN SOD (PORCINE) 5,000 UNIT/ML 1 ML SYRINGE SUBCUT SCH ×2 (05:43→16:50)
[2017-05-13] MEDS: LEVOTHYROXINE SODIUM 0.025 MG TABLET PO SCH (05:43)
[2017-05-13] MEDS: HYDRALAZINE HCL 50 MG TABLET PO SCH ×3 (05:43→16:52)
[2017-05-13] MEDS: LEVOTHYROXINE SODIUM 0.1 MG TABLET PO SCH (05:43)
[2017-05-13] MEDS: DOCUSATE SODIUM 100 MG CAPSULE PO SCH (10:15)
[2017-05-13] MEDS: FAMOTIDINE 20 MG TABLET PO SCH (10:15)
[2017-05-13] MEDS: LISINOPRIL 10 MG TABLET PO SCH (10:15)
[2017-05-13] MEDS: METOPROLOL TARTRATE 100 MG TABLET PO SCH (10:16)
[2017-05-13] MEDS: GUAIFENESIN 600 MG TABLET.SA PO SCH (10:17)
[2017-05-13] MEDS: MULTIVITAMIN TABLET PO SCH (10:17)
[2017-05-13] MEDS: AMLODIPINE BESYLATE 10 MG TABLET PO SCH (10:17)
[2017-05-13] MEDS: ASPIRIN 81 MG TABLET, ENT COATED PO SCH (10:17)
[2017-05-13] MEDS: HYDROCHLOROTHIAZIDE 12.5 MG CAPSULE PO SCH (10:18)
[2017-05-13] MEDS: CARBAMAZEPINE 200 MG TABLET PO SCH (10:22)
[2017-05-13] MEDS: TIOTROPIUM BROMIDE DPI 5 CAP/KIT (18 MCG/CAP) IH SCH (10:24)
[2017-05-13] MEDS: FLUTICASONE/SALMETEROL DISKUS 500-50 MCG/DOSE IH SCH (11:35)
[2017-05-13 18:49] VITALS: BP 160/47
[2017-05-13] MEDS: TAMSULOSIN HCL 0.4 MG CAP.SR.24H PO SCH (19:27)
--- NOTE | 2017-06-04 20:10 | PDOC DISCHARGE SUMMARY ---
General - Admit/Disc Date/PCP Admission Date/Primary Care Provider: 05/04/17 13:30 JOEL PINEDA MD Discharge Date: 05/12/17 - Discharge Diagnosis (1) [place] toxicity Is this a current diagnosis for this admission?: Yes Summary: Patient presented to the emergency department was reported AMS. [place] level was initially 2.7, last checked it was 0.7. No longer trending Poison control contacted by emergency department physician. Initially treated with IV fluid resuscitation. Admited to medical floor with continuous cardiac telemetry Discontinue lithium Consulted psych for alternative medication regimen to lithium-they recommend tegretol 200mg PO BID and seroquel 25 mg QHS. Patient tolerated well, will continue post-discharge (2) UTI (urinary tract infection) Is this a current diagnosis for this admission?: Yes Summary: Chief complaint of confusion and abdominal fullness. UA positive for UTI Leukocytosis with initial WBC of 16 CT abdomen and pelvis shows a 16 mm left adrenal adenoma, renal cysts including some small apparently hyperdense cyst, but no acute findings. Blood cultures no growth to date Urine culture: E. Coli sensitive to Rocephin Completed course of antibiotics. Initially treated with Rocephin, downgraded to Ceftin. Antibiotic regimen complete. (3) Acute encephalopathy Is this a current diagnosis for this admission?: Yes Summary: Improved. Multifactorial secondary to lithium toxicity and acute infection Baseline mental status is WNL, A&Ox3, GCS 15 Patient's mental clarity has greatly improved. She is very interactive, and able to hold coherent conversations with staff members. Family is at the bedside and able to provide insight regarding her current mental state state that she is close to baseline (4) CHF (congestive heart failure) Is this a current diagnosis for this admission?: Yes Summary: ProBNP elevated to 2400 following aggressive IV fluids Her weight has returned to baseline Patient encouraged to weigh herself daily (5) COPD (chronic obstructive pulmonary disease) Is this a current diagnosis for this admission?: Yes Summary: Without respiratory difficulty. Patient is maintaining an SPO2 greater than 93 % on room air. CPAP at night, will need to continue post-discharge No adventitious breath sounds, clear to auscultation As needed duo nebs Spiriva and Advair, will continue post-discharge Encourage turn cough and deep breathe Encourage mobility Mucinex twice daily, no need to continue post discharge (6) Generalized weakness Is this a current diagnosis for this admission?: Yes Summary: Secondary to morbid obesity, immobility, lithium toxicity, and acute illness. Patient able to transfer from bed to chair, and is able to ambulate to the hallway with the assistance of a walker Plan discharge the patient home with home health and PT (7) Hypertension Is this a current diagnosis for this admission?: Yes Summary: Improving. Continue hydralazine 50 mg q 6 hrs, will need to continue post discharge Continue lisinopril 10 mg daily, will need to continue post discharge Maximized Norvasc to 10 mg daily, will need to continue post discharge Continue metoprolol, HCTZ at home dosing (8) Leukocytosis Is this a current diagnosis for this admission?: Yes Summary: Resolved. WBC is WNL Secondary to UTI Cultures and antibiotics as above (9) Loose stools Is this a current diagnosis for this admission?: Yes Summary: Improved. Patient endorsed experiencing 1 loose stool today -denies watery diarrhea Likely secondary to lithium toxicity. C. difficile negative Stool culture negative (10) Urinary retention Is this a current diagnosis for this admission?: Yes Summary: Resolved. Unclear etiology. Possibly related to UTI CT abdomen pelvis revealed adrenal adenoma and renal cysts but otherwise benign Continue daily Flomax - Additional Information Resuscitation Status: Do Not Resuscitate Discharge Diet: As Tolerated Discharge Activity: Activity As Tolerated Prescriptions: Carbamazepine [Tegretol 200 mg Tablet] 200 mg PO Q12 #60 tablet Hydralazine HCl [Apresoline 50 mg Tablet] 50 mg PO Q6A #30 tablet Lisinopril [Prinivil 10 mg Tablet] 20 mg PO DAILY #30 tablet Quetiapine Fumarate [Seroquel 25 mg Tablet] 25 mg PO QHS #30 tablet Home Medications: Amlodipine Besylate [Norvasc 10 mg Tablet] 10 mg PO DAILY 05/04/17 Aspirin [Aspirin EC] 81 mg PO DAILY 05/04/17 Fluticasone/Salmeterol [Advair 500-50 Diskus 28 Dose] 1 puff IH Q12 05/04/17 Hydralazine HCl [Apresoline 10 mg Tablet] 10 mg PO Q8 05/04/17 Hydrochlorothiazide [Hydrodiuril 12.5 mg Capsule] 12.5 mg PO DAILY 05/04/17 Levothyroxine Sodium [Synthroid] 125 mcg PO Q6AM 05/04/17 Metoprolol Tartrate [Lopressor 100 mg Tablet] 100 mg PO Q12 05/04/17 Montelukast Sodium [Singulair 10 mg Tablet] 10 mg PO QHS 05/04/17 Multivitamin [Multiple Vitamins] 1 tab PO DAILY 05/04/17 Solifenacin Succinate [Vesicare] 10 mg PO DAILY 05/04/17 Tiotropium [place] [Spiriva Respimat] 2 puff IH DAILY 05/04/17 Vitamin E 100 unit PO DAILY 05/04/17 Carbamazepine [Tegretol 200 mg Tablet] 200 mg PO Q12 #60 tablet 05/13/17 Hydralazine HCl [Apresoline 50 mg Tablet] 50 mg PO Q6A #30 tablet 05/13/17 Lisinopril [Prinivil 10 mg Tablet] 20 mg PO DAILY #30 tablet 05/13/17 Quetiapine Fumarate [Seroquel 25 mg Tablet] 25 mg PO QHS #30 tablet 05/13/17 History of Present Illness History of Present Illness: SHANTHI BRIGGS is a 72 year old female with a past medical history of hypertension, hyperlipidemia, COPD, hypothyroidism, breast cancer status post mastectomy, arthritis, and bipolar on lithium who presented to the emergency department with a complaint of increased confusion and fall when she became holding her CPAP machine overnight. Evaluation in the emergency department reveals urinalysis positive for infection , WBCs of 16.9, lithium level of 2.7, and acute abdominal series was negative for acute pathology. [place] poison control was called by the emergency department provider; they advised fluid resuscitation with IV fluids and trending lithium until it begins trending downwards. They recommend a urinary output of 2 ml/kg/hr (for this patient, 235 mL's per hour). The patient had a [place] catheter placed by emergency department with immediate urine output of 1250 mL's. She is noted to be afebrile, heart rate 76, respiratory rate 24, blood pressure 152/62 (patient admits that she has not taken her home medications yet today), and pulse oximetry of 90% on room air. She is referred to the hospitalist service for admission. Hospital Course Hospital Course: as above Physical Exam Vital Signs: Temp Pulse Resp BP Pulse Ox 97.4 F 66 20 160/47 H 98 05/13/17 18:48 05/13/17 18:48 05/13/17 18:48 05/13/17 18:48 05/13/17 18:48 Results Laboratory Results: 05/10/17 06:42 05/11/17 07:59 Impressions: Abdomen/Pelvis CT 05/04/17 00:00 IMPRESSION: 1. 16 mm left adrenal adenoma. 2. Renal cysts including some small apparently hyperdense cysts. 3. Thoracolumbar spondylosis. Acute Abdomen Series 05/04/17 10:00 IMPRESSION: Moderate to marked cardiomegaly. Nonspecific nonobstructive bowel gas pattern Qualifiers - * PATIENT BEING DISCHARGED WITH ANY OF THE FOLLOWING DIAGNOSIS: No Plan Discharge Plan: Discharge home with home health and PT. The patient was HYPERtensive while inpatient, she was sent home with new antihypertensives. Her lithium toxicity resolved with IVF resuscitation. Replaced [place] with tegretol and seroquel. Time Spent: Less than 30 Minutes
== END 2017-05-13 19:10 | disposition home health service (06) | DRG 917 ==
LOC: ER 08:44 → EH 13:30 → 5 20:30
PROVIDERS: ADMIT Internal Medicine; ATTEND Internal Medicine
PROC: 5A09557 Assistance with Respiratory Ventilation, Greater than 96 Consecutive Hours, Continuous Positive Airway Pressure (ICD-10-PCS; principal; 2017-05-04)
PROC: 3E0F73Z Introduction of Anti-inflammatory into Respiratory Tract, Via Natural or Artificial Opening (ICD-10-PCS; 2017-05-04)
DX: T56.891A Toxic effect of other metals, accidental (unintentional), initial encounter (principal); G92 Toxic encephalopathy; Q61.02 Congenital multiple renal cysts; N39.0 Urinary tract infection, site not specified; E87.0 Hyperosmolality and hypernatremia; Z68.41 Body mass index [BMI] 40.0-44.9, adult; F31.11 Bipolar disorder, current episode manic without psychotic features, mild; Z66 Do not resuscitate; I11.0 Hypertensive heart disease with heart failure; I50.9 Heart failure, unspecified; E78.00 Pure hypercholesterolemia, unspecified; J44.9 Chronic obstructive pulmonary disease, unspecified; E03.9 Hypothyroidism, unspecified; K21.9 Gastro-esophageal reflux disease without esophagitis; M19.90 Unspecified osteoarthritis, unspecified site; D35.02 Benign neoplasm of left adrenal gland; M47.815 Spondylosis without myelopathy or radiculopathy, thoracolumbar region; R19.7 Diarrhea, unspecified; R32 Unspecified urinary incontinence; R33.9 Retention of urine, unspecified; R31.9 Hematuria, unspecified; E86.0 Dehydration; R00.1 Bradycardia, unspecified; E66.01 Morbid (severe) obesity due to excess calories; B96.20 Unspecified Escherichia coli [E. coli] as the cause of diseases classified elsewhere; W01.0XXA Fall on same level from slipping, tripping and stumbling without subsequent striking against object, initial encounter; Z85.3 Personal history of malignant neoplasm of breast; Z90.49 Acquired absence of other specified parts of digestive tract; Z90.710 Acquired absence of both cervix and uterus; Z79.899 Other long term (current) drug therapy; Z88.8 Allergy status to other drugs, medicaments and biological substances; Z88.4 Allergy status to anesthetic agent; Z90.10 Acquired absence of unspecified breast and nipple
CPT/HCPCS: 36415; 74022; 74176; 80048; 80053; 80178; 80307; 81001; 83735; 83880; 83935; 84100; 84443; 85025; 85027; 87040; 87045; 87086; 87088; 87186; 87205; 87493; 93005; 93010; 94640; 94660; 96360; 99291; G8978-GP; G8979-GP; G8987-GO; G8988-GO; J0696; J1644; J1940; J3480; J3490; J7030; J7620

== ENCOUNTER 2017-11-05 22:16 | Emergency (ER) | payer MEDICARE, OTHER ==
[2017-11-05] MEDS ORDERED: DEXTROSE 50%-WATER 25 GM/50 ML DISP.SYRIN IV ONE ×4 (22:47→23:08)
[2017-11-05 22:50] LABS: ABSOLUTE MONOCYTES (AUTO) 1.7 10^3/uL (0.1-1.4); ABSOLUTE NEUT (AUTO) 14.1 10^3/uL (1.7-8.2); BASOPHILS % (AUTO) 0.2 % (0-2); HEMATOCRIT 37.1 % (36.0-47.0); HEMOGLOBIN 12.4 g/dL (12.0-15.5); LYMPHOCYTES % (AUTO) 5.7 % (13-45); MEAN CORPUSCULAR HEMOGLOBIN 31.4 pg (27.0-33.4); MEAN CORPUSCULAR HGB CONC 33.4 g/dL (32.0-36.0); MEAN CORPUSCULAR VOLUME 94 fl (80-97); PLATELET COUNT 376 10^3/uL (150-450); RED BLOOD COUNT 3.96 10^6/uL (3.72-5.28); SEGMENTED NEUTROPHILS % (AUTO) 84.1 % (42-78); TOTAL CELLS COUNTED % (AUTO) 100 %; WHITE BLOOD COUNT 16.7 10^3/uL (4.0-10.5)
--- NOTE | 2017-11-05 23:01 | EKG REPORT ---
SEVERITY:- ABNORMAL ECG - ATRIAL FIBRILLATION PROLONGED QT INTERVAL LVH WITH SEC ST-T CHANGES : Confirmed by: Dwayne Anderson 05-Nov-2017 23:00:29
[2017-11-05] MEDS ORDERED: DEXTROSE 5%-1/2 NORMAL SALINE 1,000 ML IV PRN (23:03)
[2017-11-05 23:05] LABS: ALANINE AMINOTRANSFERASE 13 U/L (9-52); ALBUMIN 3.9 g/dL (3.5-5.0); ALKALINE PHOSPHATASE 82 U/L (38-126); ANION GAP 9 (5-19); ASPARTATE AMINO TRANSFERASE 25 U/L (14-36); BILIRUBIN,DIRECT 0.3 mg/dL (0.0-0.4); BILIRUBIN,TOTAL 0.4 mg/dL (0.2-1.3); BLOOD UREA NITROGEN 17 mg/dL (7-20); CALCIUM 11.2 mg/dL (8.4-10.2); CARBON DIOXIDE 27 mmol/L (22-30); CHLORIDE 108 mmol/L (98-107); SODIUM 143.9 mmol/L (137-145)
--- NOTE | 2017-11-05 23:05 | ER Document Report ---
ED General - General Chief Complaint: Possible Overdose Stated Complaint: POSSIBLE OVERDOSE Time Seen by Provider: 11/05/17 22:25 Notes: Patient is a 72-year-old female presents with complaint of suicide attempt by injecting herself with what was reported to be 25 units of Lantus. The paramedics said that the is pretty sure it was 25 units as there is only 1 vial used and based on the amount left on a vial that there was approximate 25 units that she took. Patient's sugars were 12 when the paramedics arrived. They gave her dextrose. She is now awake. She is alert answering questions. Patient does admit she is trying hurt herself. She was recently released [facility] after being seen there for lithium toxicity. She is taken off the lithium and placed on Latuda. She was also started on Eliquis because of a history of atrial fibrillation. TRAVEL OUTSIDE OF THE [place] IN LAST 30 DAYS: No - Related Data Allergies/Adverse Reactions: cyclobenzaprine HCl [From Flexeril] Allergy (Unknown, Verified 05/04/17 09:16) diphenhydramine HCl [From Benadryl] Allergy (Unknown, Verified 05/04/17 09:16) Past Medical History - Social History Smoking Status: Unknown if Ever Smoked Frequency of alcohol use: None Drug Abuse: None Family History: Reviewed & Not Pertinent - Past Medical History Cardiac Medical History: Reports: Hx Hypercholesterolemia, Hx Hypertension Denies: Hx Coronary Artery Disease, Hx Heart Attack Pulmonary Medical History: Reports: Hx Asthma, Hx COPD Denies: Hx Bronchitis, Hx Pneumonia Neurological Medical History: Denies: Hx Cerebrovascular Accident, Hx Seizures Endocrine Medical History: Reports: Hx Hypothyroidism Renal/ Medical History: Denies: Hx Peritoneal Dialysis Malignancy Medical History: Reports: Hx Breast Cancer GI Medical History: Reports: Hx Gastroesophageal Reflux Disease Musculoskeletal Medical History: Reports Hx Arthritis Psychiatric Medical History: Reports: Hx Bipolar Disorder Past Surgical History: Reports: Hx Breast Surgery, Hx Cholecystectomy, Hx Hysterectomy, Hx Tonsillectomy - Immunizations Hx Diphtheria, Pertussis, Tetanus Vaccination: Yes Review of Systems - Review of Systems Notes: My Normal Review Basic REVIEW OF SYSTEMS: CONSTITUTIONAL : Denies fever, chills, or sweats. Denies recent illness. RESPIRATORY: Denies cough, cold, or chest congestion. Denies shortness of breath, difficulty breathing, or wheezing. GASTROINTESTINAL: Denies abdominal pain. Denies nausea, vomiting, or diarrhea. MUSCULOSKELETAL: Denies neck or back pain or joint pain or swelling. SKIN: Denies rash or skin lesions. NEUROLOGICAL: Became poorly responsive after blood sugar dropped. PSYCHIATRIC: Suicidal ideation ALL OTHER SYSTEMS REVIEWED AND NEGATIVE. Physical Exam - Vital signs Vitals: Resp BP Pulse Ox 18 127/77 H 96 11/05/17 22:24 11/05/17 22:24 11/05/17 22:24 - Notes Notes: General Appearance: Well nourished, alert, cooperative, no acute distress, no obvious discomfort. Well-appearing. Vitals: reviewed, See vital signs table. Head: no swelling or tenderness to the head Eyes: PERRL, EOMI, Conjuctiva clear Mouth: No decreasd moisture Lungs: No wheezing, No rales, No rhonci, No accessory muscle use, good air exchange bilaterally. Heart: Normal rate, Regular rythm, No murmur, no rub Abdomen: Normal BS, soft, No rigidity, No abdominal tenderness, No guarding, no rebound, no abdominal masses, no organomegaly Extremities: strength 5/5 in all extremities, good pulses in all extremities, no swelling or tenderness in the extremities, no edema. Skin: warm, dry, appropriate color, no rash Neuro: speech clear, oriented x 3, normal affect, responds appropriately to questions. Cranial nerves II through XII are intact. Distal sensation intact. Patient moves all extremities without difficulty. Course - Re-evaluation Re-evalutation: 11/05/17 23:05 Patient's initial history from the paramedics was that she took 25 units of Lantus. This did not make a lot of sense to me as her sugar dropped so low and usually 25 units of Lantus will not make it dropped so quickly. Patient's sugars dropped again down to 12 here. We have given her D50. This drop in sugar was after she already had orange juice as well as wilberto crackers. Sugar is restored to normal and she is awake alert now. I have ordered D5 half- normal saline to run at 150 mL's an hour. We have ordered a burger for her from the cafeteria. We continue to feed her wilberto crackers until the burger comes. Patient will continue be closely monitored. has since arrived and said that the patient actually took 25 units of NovoLog. This makes much more sense being that her sugar is recurrently dropped. also mentions that the patient's has been highly anxious and more depressed since being taken off the lithium and switched to Latuda. 11/07/17 00:26 Patient's blood sugar stabilized. Her potassium improved with the supplement potassium given to her. I feel that she is medically stable for psychiatric evaluation and treatment. Dictation of this chart was performed using voice recognition software; therefore, there may be some unintended grammatical errors. 11/07/17 00:26 - Vital Signs Vital signs: Temp Pulse Resp BP Pulse Ox 98.4 F 80 16 151/77 H 99 11/06/17 20:44 11/06/17 20:44 11/06/17 20:44 11/06/17 20:44 11/06/17 20:44 - Laboratory Result Diagrams: 11/05/17 22:40 11/06/17 06:00 Laboratory results interpreted by me: 11/05/17 11/05/17 11/05/17 22:40 22:40 22:46 WBC 16.7 H Seg Neutrophils % 84.1 H Lymphocytes % 5.7 L Absolute Neutrophils 14.1 H Absolute Monocytes 1.7 H Potassium 2.8 L* Chloride 108 H Glucose < 20 L* POC Glucose < 30 L* Calcium 11.2 H Urine Protein Urine Glucose (UA) Urine Ketones Urine Ascorbic Acid Salicylates < 1.0 L Acetaminophen < 10 L 11/05/17 11/06/17 11/06/17 23:34 00:30 01:08 WBC Seg Neutrophils % Lymphocytes % Absolute Neutrophils Absolute Monocytes Potassium Chloride Glucose POC Glucose 221 H 228 H 231 H Calcium Urine Protein Urine Glucose (UA) Urine Ketones Urine Ascorbic Acid Salicylates Acetaminophen 11/06/17 11/06/17 11/06/17 02:08 03:30 04:28 WBC Seg Neutrophils % Lymphocytes % Absolute Neutrophils Absolute Monocytes Potassium Chloride Glucose POC Glucose 206 H 137 H 137 H Calcium Urine Protein Urine Glucose (UA) Urine Ketones Urine Ascorbic Acid Salicylates Acetaminophen 11/06/17 11/06/17 11/06/17 05:26 06:00 06:25 WBC Seg Neutrophils % Lymphocytes % Absolute Neutrophils Absolute Monocytes Potassium Chloride Glucose 199 H POC Glucose 254 H 214 H Calcium Urine Protein Urine Glucose (UA) Urine Ketones Urine Ascorbic Acid Salicylates Acetaminophen 11/06/17 11/06/1711/06/18 07:34 08:45 10:16 WBC Seg Neutrophils % Lymphocytes % Absolute Neutrophils Absolute Monocytes Potassium Chloride Glucose POC Glucose 218 H 229 H Calcium Urine Protein 100 H Urine Glucose (UA) 50 H Urine Ketones TRACE H Urine Ascorbic Acid 20 H Salicylates Acetaminophen - EKG Interpretation by Me Additional EKG results interpreted by me: 11/05/17 23:05 EKG is reviewed and interpreted by me. EKG shows A. fib with a rate of [address] segment elevation or depression. QRS duration is borderline. QT interval is prolonged. Old EKG for comparison is from May 04, 2017. Atrial fibrillation is chronic per the 's report. Discharge - Discharge Referrals: CHRISTOS HILL MD [ACTIVE STAFF] - Follow up as needed
[2017-11-05] MEDS ORDERED: DEXTROSE 5%-1/2 NORMAL SALINE 500 ML IV ONE (23:08)
[2017-11-05] MEDS ORDERED: GLUCAGON,HUMAN RECOMB 1 MG INJ SUBCUT ONE (23:09)
[2017-11-05] MEDS ORDERED: OCTREOTIDE ACETATE INJ/PF 100 MCG/1 ML SDV SUBCUT ONE (23:09)
[2017-11-05 23:14] LABS: ACETAMINOPHEN < 10 ug/mL (10-30); ALCOHOL < 10 mg/dL (NONE DETECTED); SALICYLATE < 1.0 mg/dL (2.0-20.0)
[2017-11-05 23:23] LABS: GLUCOSE < 20 mg/dL (75-110); POTASSIUM 2.8 mmol/L (3.6-5.0)
[2017-11-06] MEDS ORDERED: POTASSIUM CHLORIDE 10 MEQ CAPSULE.ER PO ONE (03:28)
[2017-11-06] MEDS ORDERED: POTASSI CL 20 MEQ/50 ML RIDER 20 MEQ/50 ML RTUPB IV ONE (03:28)
[2017-11-06 06:29] LABS: ANION GAP 6 (5-19); BLOOD UREA NITROGEN 18 mg/dL (7-20); CALCIUM 10.2 mg/dL (8.4-10.2); CARBON DIOXIDE 28 mmol/L (22-30); CHLORIDE 105 mmol/L (98-107); GLUCOSE 199 mg/dL (75-110)
[2017-11-06 06:41] LABS: POTASSIUM 4.2 mmol/L (3.6-5.0)
--- NOTE | 2017-11-06 10:08 | ER Document Report ---
Doctor's Note Notes: 11/06/17 10:06 Rounds: Patient's chart reviewed and patient interviewed. She says all she wants is to go home. Patient being evaluated for suicidal ideation and a likely overdose injection of Lantus insulin. Vital signs are all normal. Lab studies have been normal except for WBC 16,700 and no urine obtained. Accu- Cheks have been done multiple times and all of them are coming back with readings in the 200s. Patient appears to be medically stable for transfer or discharge. Ila Tomlinson MD
--- NOTE | 2017-11-06 10:46 | PSYCHOLOGICAL NOTE ---
Psych Note - Psych Note Psych Note: Chart review at 0720. Evaluation from 2026-0109. Reason for Consult: OD 25 units Lantus or Novolog Contact Permissions: Maximiliano Woo JR Patient is a 72 year old female who presented to the ED late last evening via EMS after called due to patient injecting self with 25 units of at first thought Lantus but later discovered it was likely Novolog. EMS noted glucose was 12 when they arrived (per initial ED Physician consult Novolog versus the Lantus would make sugar drop). She admitted "I tried to commit suicide." When asked what pushed her to that she said "I felt like a burden to my , he's done everything for me." She denied previous SI attempts. She asked "What will we do, what can we do?" She denied current SI. She acknowledged "I want to feel better, I don't know what to do, I want to get better, if I don't have a good support system at home I'll end up at [facility]." She identified she had been to [facility] "once a long time ago." She stated the [facility] she had been to was [facility] for both medical and mental health hospitalization due to [place] toxicity. She denied having current outpatient therapy and admitted to doing it "a long time ago." She stated she does keep up with her thyroid issues. She stated in May 2017 when admitted to [facility] for medical the Tegretol and Seroquel did not work and said she had been on it maybe a month. She stated [place] and Depakote had negative side effects for her and nothing seems to work. She acknowledged she uses a CPAP nightly and at home utilized a walker or cane. Patient was alert and oriented to person, place, time and situation. Mood was depressed with congruent affect. She denied current SI/HI, admitted to this being a suicide attempt, endorsed feelings/thoughts of worthlessness/ hopelessness/helplessness, asked what to do and said she wants to feel better and denied previous SI attempts. She did not appear to be responding to internal stimuli as evidenced by fair eye contact, staying on topic, answering questions appropriately when addressed, asking questions and being engaged in evaluation. Thought processes were linear and organized. Conversational speech was within normal limits for rate, tone and prosody. Intellectual abilities are estimated to be average. Insight, judgment and impulse control were poor as evidenced by depressed state with thoughts/feelings of worthlessness/ hopelessness/helplessness. Patient's physical chart had a copy of discharge paperwork from recent [facility] hospitalization. Dates of admission were 10/20/17 to 11/01/17. She had PT, OT and Speech therapy while there. [place] was discontinued due to [place] Toxicity. She was started on Eliquis, Vitamin D2, Ditropan and Latuda. Follow up appointments were scheduled with Dr. Danielito Hastings at [facility] on 11/15/17, with Dr. Daniel Oliver at [facility] on 11/08/17 at 1300 and [facility] would call her with appointment date and time. Chart review revealed patient was seen by the [facility] Behavioral Health team on 05/23 during a medical admission for medication recommendations. At that time she had lithium toxicity. [place] was discontinued. Added Tegretol 200MG BID and Seroquel 25MG QHS. Per discharge documentation patient had been started on these medications, tolerated them well and was discharged with scripts to continue. During that visit she informed clinician she had been diagnosed with Bipolar 15 years ago and sometimes felt depressed which she related to not being as independent and having to rely on others. The only other time she had been seen for psychiatric reasons was 07/10/12 for manic symptoms, delusions and lack of sleep. At that visit home psychiatric medications were listed as Risperdal 6MG QHS, Cogentin 2MG QHS and Klonopin 0.25MG QHS PRN. had noted diagnoses of Bipolar and OCD. He had stated that [place] seemed to manage her prabhakar however she became toxic on it. Her outpatient provider at that [address] Caba at [facility]. Head CT dated 03/08/15 completed secondary to unspecified head injury had impression of Normal Brain CT without Contrast. Diagnosis: 296.53 (F31.4) Bipolar I Disorder, Current or most recent episode depressed, Severe Impression/Plan: Recommendation to IVC patient given OD attempt via 25 units of Novolog in an attempt to kill self. She has a documented history of Bipolar Disorder where [place] has been utilized numerous times throughout her care and each time ends up with [place] toxicity. She was recently hospitalized at [facility] for this ([place] discontinued and Latuda added). Consulted with Dr. Gilbert regarding the management and care of patient. ED Physician in agreement with recommendations.
[2017-11-06 10:49] LABS: APPEARANCE,URINE SLIGHTLY-CLOUDY; BILIRUBIN,URINE NEGATIVE (NEGATIVE); COLOR,URINE YELLOW; GLUCOSE, URINE 50 mg/dL (NEGATIVE); KETONES,URINE TRACE mg/dL (NEGATIVE); LEUKOCYTE ESTERASE,URINE NEGATIVE (NEGATIVE); NITRITE,URINE NEGATIVE (NEGATIVE); PROTEIN,URINE 100 mg/dL (NEGATIVE); URINE SPECIFIC GRAVITY 1.013; UROBILINOGEN,URINE NEGATIVE mg/dL (<2.0)
[2017-11-06 11:02] LABS: URINE AMPHETAMINES SCREEN NEGATIVE; URINE BARBITURATES SCREEN NEGATIVE; URINE BENZODIAZEPINES SCREEN NEGATIVE; URINE COCAINE SCREEN NEGATIVE; URINE MARIJUANA (THC) SCREEN NEGATIVE; URINE METHADONE SCREEN NEGATIVE; URINE PHENCYCLIDINE SCREEN NEGATIVE
[2017-11-06] MEDS: OXYBUTYNIN CHLORIDE 5 MG TABLET PO SCH (17:07)
[2017-11-06] MEDS: APIXABAN 5 MG TABLET PO SCH (20:02)
[2017-11-06] MEDS: MONTELUKAST SODIUM 10 MG TABLET PO SCH (21:43)
[2017-11-06] MEDS: FLUTICASONE/SALMETEROL DISKUS 250-50 MCG/DOSE IH SCH (21:43)
[2017-11-06] MEDS: METOPROLOL TARTRATE 100 MG TABLET PO SCH (21:43)
[2017-11-07] MEDS ORDERED: (PENDING PHARMACY ID) (Levothyroxine Sodium [Synthroid] 125 MCG) PO SCH (06:00)
[2017-11-07] MEDS: LEVOTHYROXINE SODIUM 0.1 MG TABLET PO SCH (06:21)
[2017-11-07] MEDS: LEVOTHYROXINE SODIUM 0.025 MG TABLET PO SCH (06:21)
--- NOTE | 2017-11-07 09:14 | ER Document Report ---
Doctor's Note Notes: 11/07/17 09:14 As the rounding physician for our psychiatric patients, I have reviewed the chart, vitals, lab work. Patient has been examined and noted to be. I am awaiting facility placement. 11/07/17 09:15
[2017-11-07] MEDS: OXYBUTYNIN CHLORIDE 5 MG TABLET PO SCH ×3 (09:16→17:45)
[2017-11-07] MEDS: APIXABAN 5 MG TABLET PO SCH (09:16)
[2017-11-07] MEDS: METOPROLOL TARTRATE 100 MG TABLET PO SCH ×2 (09:19→21:03)
[2017-11-07] MEDS: FLUTICASONE/SALMETEROL DISKUS 250-50 MCG/DOSE IH SCH ×2 (09:23→21:02)
[2017-11-07] MEDS ORDERED: BENZTROPINE MESYLATE 1 MG TABLET PO SCH (10:00)
[2017-11-07] MEDS ORDERED: VITAMIN E (DL, ACETATE) 400 UNIT CAPSULE PO SCH (10:00)
[2017-11-07] MEDS ORDERED: AMLODIPINE BESYLATE 10 MG TABLET PO SCH (10:00)
[2017-11-07] MEDS ORDERED: ASPIRIN 81 MG TABLET, ENT COATED PO SCH (10:00)
[2017-11-07] MEDS ORDERED: (PENDING PHARMACY ID) (Vitamin E [Vitamin E] 400 UNIT) PO SCH (10:00)
[2017-11-07] MEDS ORDERED: (PENDING PHARMACY ID) (Solifenacin Succinate [Vesicare] 10 MG) PO SCH (10:00)
[2017-11-07] MEDS ORDERED: MULTIVITAMIN TABLET PO SCH (10:00)
[2017-11-07] MEDS ORDERED: LOSARTAN POTASSIUM 50 MG TABLET PO SCH (10:00)
[2017-11-07] MEDS ORDERED: (PENDING PHARMACY ID) (Lurasidone Hcl [Latuda] 20 MG) PO SCH (12:00)
[2017-11-07] MEDS ORDERED: LURASIDONE HCL 40 MG TABLET PO SCH (12:00)
--- NOTE | 2017-11-07 16:56 | PSYCHOLOGICAL NOTE ---
Psych Note - Psych Note Psych Note: Reason for Consult: suicidal ideation; intentional overdose Patient is a 72 year old female who presented to the ED late last evening via EMS after called due to patient injecting self with 25 units of at first thought Lantus but later discovered it was likely Novolog. Check-in conducted with patient Patient was anxiously awaiting clinician. Upon entering the room she stated that she would like to go home. When asked if she remembered what brought her to [facility] she stated "I want to at that time I do not feel like way anymore."Patient was unable to verbalize what was different from today versus yesterday however stated; "I am scared of where you are sending me and never being home again." Clinician assured patient that permanent placement was not look being sought for the patient. Clinician explained that currently acute psychiatric inpatient treatment was being sought. Once patient understood she was not being put into a retirement she calmed. Diagnosis: 296.53 (F31.4) Bipolar I Disorder, Current or most recent episode depressed, Severe Impression/Plan: Recommendation to continue under IVC. Patient attempt overdose via 25 units of Novolog in an attempt to kill self. She has a documented history of Bipolar Disorder where [place] has been utilized numerous times throughout her care and each time ends up with [place] toxicity. She was recently hospitalized at [facility] for this ([place] discontinued and Latuda added). The behavioral health team is currently looking for placement for inpatient psychiatric treatment for this patient. Dr. Mark was consulted on the care and management of this patient. ED Physician in agreement with recommendations.
[2017-11-07] MEDS: MONTELUKAST SODIUM 10 MG TABLET PO SCH (21:04)
[2017-11-08] MEDS: LEVOTHYROXINE SODIUM 0.025 MG TABLET PO SCH (06:19)
[2017-11-08] MEDS: LEVOTHYROXINE SODIUM 0.1 MG TABLET PO SCH (06:20)
--- NOTE | 2017-11-08 07:12 | PSYCHOLOGICAL NOTE ---
Psych Note - Psych Note Psych Note: Reason for Consult: suicidal ideation; intentional overdose Patient is a 72 year old female who presented to the ED late last evening via EMS after called due to patient injecting self with 25 units of at first thought Lantus but later discovered it was likely Novolog. Attempted contact with patient's spouse, Maximiliano; left message Diagnosis: 296.53 (F31.4) Bipolar I Disorder, Current or most recent episode depressed, Severe Impression/Plan: Recommendation to continue under IVC. Patient attempt overdose via 25 units of Novolog in an attempt to kill self. She has a documented history of Bipolar Disorder where [place] has been utilized numerous times throughout her care and each time ends up with [place] toxicity. She was recently hospitalized at [facility] for this ([place] discontinued and Latuda added). Patient was accepted to [facility] in [place]; transportation has been requested. Dr. Mark was consulted on the care and management of this patient. ED Physician in agreement with recommendations.
[2017-11-08 08:09] VITALS: BP 144/60
[2017-11-08] MEDS: OXYBUTYNIN CHLORIDE 5 MG TABLET PO SCH (08:11)
[2017-11-09] MEDS ORDERED: ERGOCALCIFEROL (VITAMIN D2) 50000 UNIT (1.25 MG) CAPSULE PO SCH (10:00)
== END 2017-11-08 09:03 ==
LOC: ER 22:16
DX: T38.3X2A Poisoning by insulin and oral hypoglycemic [antidiabetic] drugs, intentional self-harm, initial encounter (principal); F31.9 Bipolar disorder, unspecified; Z79.899 Other long term (current) drug therapy; I48.2 Chronic atrial fibrillation; I10 Essential (primary) hypertension; J44.9 Chronic obstructive pulmonary disease, unspecified; Z85.3 Personal history of malignant neoplasm of breast; Z88.8 Allergy status to other drugs, medicaments and biological substances
CPT/HCPCS: 93005; 99285; 96360; 51701; 36415; 82962; 80307 ×4; 83735; 85025; 80048; 80053; 81001; 93010; A9270 ×20; J3490 ×3; J1610; J2354; J3480

== ENCOUNTER 2017-12-07 10:26 | Emergency (ER) | payer MEDICARE ==
[2017-12-07] MEDS ORDERED: METOPROLOL TARTRATE PF/INJ 5 MG/5 ML SDV IV ONE (11:07)
[2017-12-07] MEDS: NORMAL SALINE 1000 ML 1,000 ML IV PRN ×2 (11:15→11:46)
[2017-12-07 11:20] LABS: HEMATOCRIT 37.2 % (36.0-47.0); HEMOGLOBIN 12.3 g/dL (12.0-15.5); MEAN CORPUSCULAR HEMOGLOBIN 30.6 pg (27.0-33.4); MEAN CORPUSCULAR VOLUME 93 fl (80-97); PLATELET COUNT 373 10^3/uL (150-450); RED BLOOD COUNT 4.01 10^6/uL (3.72-5.28); RED CELL DISTRIBUTION WIDTH 13.9 % (11.5-14.0); WHITE BLOOD COUNT 17.3 10^3/uL (4.0-10.5)
[2017-12-07 11:26] LABS: ALANINE AMINOTRANSFERASE 9 U/L (9-52); ALBUMIN 3.7 g/dL (3.5-5.0); ALKALINE PHOSPHATASE 67 U/L (38-126); ANION GAP 16 (5-19); ASPARTATE AMINO TRANSFERASE 23 U/L (14-36); BILIRUBIN,DIRECT 0.3 mg/dL (0.0-0.4); BILIRUBIN,TOTAL 0.3 mg/dL (0.2-1.3); CALCIUM 10.8 mg/dL (8.4-10.2); CARBON DIOXIDE 19 mmol/L (22-30); CHLORIDE 102 mmol/L (98-107); GLUCOSE 138 mg/dL (75-110); LIPASE 173.8 U/L (23-300); POTASSIUM 5.1 mmol/L (3.6-5.0); SODIUM 137.4 mmol/L (137-145); TOTAL PROTEIN 6.8 g/dL (6.3-8.2)
[2017-12-07] MEDS ORDERED: MIDAZOLAM 2 MG/2 ML INJ ONE (11:26)
--- NOTE | 2017-12-07 11:26 | RADIOLOGY REPORT (SQ) ---
EXAM DESCRIPTION: CHEST SINGLE VIEW COMPLETED DATE/TIME: 12/07/2017 11:17 am REASON FOR STUDY: a fib rvr COMPARISON: 05/04/2017. EXAM PARAMETERS: NUMBER OF VIEWS: One view. TECHNIQUE: Single frontal radiographic view of the chest acquired. RADIATION DOSE: NA LIMITATIONS: None. FINDINGS: LUNGS AND PLEURA: No opacities, masses or pneumothorax. No pleural effusion. MEDIASTINUM AND HILAR STRUCTURES: No masses. Contour normal. HEART AND VASCULAR STRUCTURES: Heart upper limits of normal in size. Normal vasculature. BONES: No acute findings. Chronic changes in the right shoulder. HARDWARE: None in the chest. OTHER: No other significant finding. IMPRESSION: NO ACUTE RADIOGRAPHIC FINDING IN THE CHEST. TECHNICAL DOCUMENTATION: JOB ID: [id number] [employer]- All Rights Reserved Reading location - IP/workstation name: [email or web address]
[2017-12-07 11:34] LABS: ABSOLUTE LYMPHOCYTES# (MANUAL) 0.3 10^3/uL (0.5-4.7); ABSOLUTE NEUTROPHILS# (MANUAL) 15.9 10^3/uL (1.7-8.2); BASOPHILS % (MANUAL) 0 % (0-2); EOSINOPHILS % (MANUAL) 0 % (0-6); LYMPHOCYTES % (MANUAL) 2 % (13-45); MONOCYTES % (MANUAL) 6 % (3-13); PLATELET COMMENT ADEQUATE; RBC MORPHOLOGY COMMENT NORMO-CYTIC/CHROMIC; SEGMENTED NEUTROPHILS % (MAN) 92 % (42-78); TOTAL CELLS COUNTED 100
[2017-12-07 11:35] LABS: BLOOD UREA NITROGEN 157 mg/dL (7-20)
[2017-12-07 11:42] LABS: FREE T4 (FREE THYROXINE) 2.06 ng/dL (0.78-2.19)
[2017-12-07 11:47] LABS: TROPONIN I 0.059 ng/mL
[2017-12-07 11:56] LABS: THYROID STIMULATING HORMONE 3.35 uIU/mL (0.47-4.68)
--- NOTE | 2017-12-07 12:26 | ER Document Report ---
ED Cardiac - General Chief Complaint: Palpitations Stated Complaint: PALPITATIONS Time Seen by Provider: 12/07/17 11:05 TRAVEL OUTSIDE OF THE [place] IN LAST 30 DAYS: No - HPI Patient complains to provider of: Other - This 72-year-old female presents for evaluation of palpitations after having gone to an outpatient exam today for her mental health. She has had episodes of atrial fibrillation in the past paroxysmally and was on Eliquis previously as well as on metoprolol for rate control that presents for evaluation of a rapid heart rate. She notes that she is been feeling unwell for a few days with nausea as well as some dysuria. Her notes that she had been taken off of her Eliquis previously but has now restarted it for the last 4 days with the suggestion of her because he thought that it had helped her feel better before. - Related Data Allergies/Adverse Reactions: cyclobenzaprine HCl [From Flexeril] Allergy (Unknown, Verified 12/07/17 10:30) diphenhydramine HCl [From Benadryl] Allergy (Unknown, Verified 12/07/17 10:30) Past Medical History - General Information source: Patient, Relative - Social History Smoking Status: Former Smoker Family History: Reviewed & Not Pertinent - Past Medical History Cardiac Medical History: Reports: Hx Hypercholesterolemia, Hx Hypertension Denies: Hx Coronary Artery Disease, Hx Heart Attack Pulmonary Medical History: Reports: Hx Asthma, Hx COPD Denies: Hx Bronchitis, Hx Pneumonia Neurological Medical History: Denies: Hx Cerebrovascular Accident, Hx Seizures Endocrine Medical History: Reports: Hx Hypothyroidism Renal/ Medical History: Denies: Hx Peritoneal Dialysis Malignancy Medical History: Reports: Hx Breast Cancer GI Medical History: Reports: Hx Gastroesophageal Reflux Disease Musculoskeletal Medical History: Reports Hx Arthritis Psychiatric Medical History: Reports: Hx Bipolar Disorder Past Surgical History: Reports: Hx Breast Surgery, Hx Cholecystectomy, Hx Hysterectomy, Hx Tonsillectomy - Immunizations Hx Diphtheria, Pertussis, Tetanus Vaccination: Yes Review of Systems - Review of Systems -: Yes All other systems reviewed and negative Physical Exam - Vital signs Vitals: Resp 13 12/07/17 10:43 - General General appearance: Alert, Anxious In distress: Mild - HEENT Head: Normocephalic Eyes: Normal Conjunctiva: Normal Cornea: Normal Extraocular movements intact: No Eyelashes: Normal Pupils: PERRL - Respiratory Respiratory status: Tachypnea Chest status: Nontender Breath sounds: Rhonchi Chest palpation: Normal - Cardiovascular Rhythm: Tachycardia Heart sounds: Normal auscultation Murmur: No - Abdominal Inspection: Striae Distension: No distension Tenderness: Nontender - Back Back: Normal - Extremities General upper extremity: Normal inspection, Nontender, Normal ROM, Normal strength General lower extremity: Normal inspection, Nontender, Normal ROM, Normal strength - Neurological Neuro grossly intact: Yes Cognition: Normal Orientation: AAOx4 [place] Coma Scale Eye Opening: Spontaneous [place] Coma Scale Verbal: Oriented Carlos Enrique Coma Scale Motor: Obeys Commands Carlos Enrique Coma Scale Total: 15 Speech: Normal Cranial nerves: Normal Motor strength normal: LUE, RUE, LLE, RLE - Psychological Associated symptoms: Normal affect Course - Re-evaluation Re-evalutation: This 76-year-old female presented in moderate distress with a heart rate in the 140 range and his systolic blood pressure in the 80 range. During that time she was entered to person place and time though she does have slightly diminished insight at baseline with her . Because of the concern for atrial flutter in this patient's evidence of hemo- dynamic instability placed pads on patient and began administration of IV fluids. Obtained access in the AC. And obtain broad screening labs including CMP EKG troponin etc., EKG did suggest possible atrial flutter however given her diminished blood pressure defer at this time the administration of a rate agent. Following administration of 1 L of normal saline the patient's mental status remained intact her lowest blood pressure was measured in the 65 systolic range with a map in the 30s, though because she was able to speak in full sentences she asked specifically to defer electricity, made determination to administer a second liter of normal saline IV. Administered rapidly through a pressure bag second liter of normal saline IV. Patient's blood pressure steadily improved, obtained a chest x-ray as well as broad labs, she did have obvious leukocytosis, her chemistry demonstrates a profound uremia and new kidney injury as compared to 1 month prior. This may recommend what her issue is in the under lying cause for her atrial fibrillation with rapid ventricular response. Her heart rate as well as her blood pressure did improve after administration of fluid. Administrative 1 L of lactated Ringer's after 2 L of normal saline patient's heart rate can continue to improve. During this time state at the patient's bedside for approximately 15 minutes assessing fluid responsiveness to administer boluses as well as monitoring mental status. Her venous blood gas is modestly acidotic without any profound lactic elevation likely as a result of her market uremia. Her urinalysis is frankly contaminated. She is likely suffering from pyelonephritis and sepsis with a resultant tachycardia as a result. We will defer radiation at this time as this is likely compensatory mechanism for her infection. We will continue administer fluids judiciously. Have spoken to the on-call hospitalist here about renal coverage and potential admission to our intensive care unit, he defers because of the level of these labs to admit the patient here due to lack of nephrology coverage. Has spoken to the on-call hospitalist at [facility] Dr. Box who states that this patient with blood pressures oscillating below the level of 90 and her heart rate is a candidate for higher level of care such as intensive care unit. Spoke to the on-call shift manager Dr. Virginia MAYO who is in agreement at this time to admit this patient to the intensive care unit for further monitoring and maintenance. She suggests a repeated urinalysis with Fishman catheter in place. We will obtain repeat catheter specimen. We will also plan for this patient to be placed on a basal rate lactated Ringer' s IV 150 mL/h. Clinically she is dehydrated at this time this may be the cause of her kidney injury in this setting. She also may have elevated kidney function markers as a result of high output heart failure secondary to her possible sepsis. We will plan to continue monitoring in emergency department reassess as necessary while awaiting transport. Patient will be sent to the intensive care unit at [facility]. They note that there was a previous and they should be able to transport this patient in a proximal fashion. - Vital Signs Vital signs: Temp Pulse Resp BP Pulse Ox 97.7 F 22 H 92/54 L 96 12/07/17 13:05 12/07/17 16:30 12/07/17 16:30 12/07/17 16:09 - Laboratory Result Diagrams: 12/07/17 10:48 12/07/17 10:48 Laboratory results interpreted by me: 12/07/17 12/07/17 12/07/17 10:48 10:48 10:48 WBC 17.3 H Seg Neuts % (Manual) 92 H Lymphocytes % (Manual) 2 L Abs Neuts (Manual) 15.9 H Abs Lymphs (Manual) 0.3 L VBG pH VBG HCO3 Potassium 5.1 H Carbon Dioxide 19 L BUN 157 H Creatinine 3.63 H Est GFR ( Amer) 15 L Est GFR (Non-Af Amer) 12 L Glucose 138 H Calcium 10.8 H NT-Pro-B Natriuret Pep 8860 H Urine Protein Ur Leukocyte Esterase 12/07/17 12/07/17 12:00 12:19 WBC Seg Neuts % (Manual) Lymphocytes % (Manual) Abs Neuts (Manual) Abs Lymphs (Manual) VBG pH 7.27 L VBG HCO3 18.1 L Potassium Carbon Dioxide BUN Creatinine Est GFR ( Amer) Est GFR (Non-Af Amer) Glucose Calcium NT-Pro-B Natriuret Pep Urine Protein 30 H Ur Leukocyte Esterase LARGE H Critical Care Note - Critical Care Note Total time excluding time spent on procedures (mins): 65 Discharge - Discharge Clinical Impression: Pyelonephritis, Tachycardia, Hypoxia, CHF (congestive heart failure), Generalized weakness Hypotension Qualifiers: Hypotension type: unspecified hypotension type Qualified Code(s): I95.9 - Hypotension, unspecified Atrial flutter Qualifiers: Atrial flutter type: typical Qualified Code(s): I48.3 - Typical atrial flutter Condition: Serious Disposition: [facility] Referrals: JOEL PINEDA MD [Primary Care Provider] - Follow up as needed
[2017-12-07 12:32] LABS: APPEARANCE,URINE TURBID; BILIRUBIN,URINE NEGATIVE (NEGATIVE); GLUCOSE, URINE NEGATIVE (NEGATIVE); KETONES,URINE NEGATIVE (NEGATIVE); LEUKOCYTE ESTERASE,URINE LARGE (NEGATIVE); NITRITE,URINE NEGATIVE (NEGATIVE); PROTEIN,URINE 30 mg/dL (NEGATIVE); URINE SPECIFIC GRAVITY 1.013; UROBILINOGEN,URINE NEGATIVE mg/dL (<2.0)
[2017-12-07 12:37] LABS: COLOR,URINE YELLOW
--- NOTE | 2017-12-07 12:40 | EKG REPORT ---
SEVERITY:- ABNORMAL ECG - SINUS OR ECTOPIC ATRIAL TACHYCARDIA NONSPECIFIC INTRAVENTRICULAR CONDUCTION DELAY PROBABLE LVH WITH SECONDARY REPOL ABNRM ST DEPRESSION, CONSIDER ISCHEMIA, ANT-LAT LDS : Confirmed by: Jess Grover MD 07-Dec-2017 12:40:10
[2017-12-07] MEDS ORDERED: RINGERS SOLUTION,LACTATED 1,000 ML IV ONE ×2 (13:11→16:29)
[2017-12-07] MEDS ORDERED: PIPERACILLIN/TAZOBACTAM 3.375 GM VIAL IV ONE (13:11)
[2017-12-07 13:17] LABS: VENOUS BLOOD BASE EXCESS -8.3 mmol/L; VENOUS BLOOD HCO3 18.1 mmol/L (20-32); VENOUS BLOOD PCO2 40.4 mmHg (35-63); VENOUS BLOOD PH 7.27 (7.30-7.42)
[2017-12-07 19:20] VITALS: BP 111/75
--- NOTE | 2017-12-07 19:29 | ER Document Report ---
Doctor's Note Notes: 12/07/17 19:29 Patient evaluated upon transfer team arrival. She is alert awake and without complaints. She is stable for transfer.
== END 2017-12-07 19:27 | disposition short-term general hospital (02) ==
LOC: ER 10:26
DX: N12 Tubulo-interstitial nephritis, not specified as acute or chronic (principal); I48.3 Typical atrial flutter; R00.0 Tachycardia, unspecified; R09.02 Hypoxemia; I50.9 Heart failure, unspecified; I95.9 Hypotension, unspecified; R53.1 Weakness; I48.91 Unspecified atrial fibrillation; R11.0 Nausea; R30.0 Dysuria; Z79.01 Long term (current) use of anticoagulants; Z87.891 Personal history of nicotine dependence; I10 Essential (primary) hypertension; J44.9 Chronic obstructive pulmonary disease, unspecified
CPT/HCPCS: 93005; 99291; 96361; 96365; 36415; 87040; 84439; 83690; 84443; 85025; 87077; 80053; 81001; 84484; 87186; 82803; 83605; 83880; 71045; 93010; J7030; J7120; J2543

== ENCOUNTER 2018-02-28 12:27 | Inpatient (IN) | payer MEDICARE, OTHER ==
[2018-02-28] MEDS ORDERED: NORMAL SALINE 1000 ML 1,000 ML IV ONE ×2 (14:16→17:58)
[2018-02-28 14:24] LABS: VENOUS BLOOD BASE EXCESS -2.6 mmol/L; VENOUS BLOOD HCO3 22.5 mmol/L (20-32); VENOUS BLOOD PCO2 39.9 mmHg (35-63); VENOUS BLOOD PH 7.37 (7.30-7.42)
[2018-02-28] MEDS: DIGOXIN INJ 0.5 MG/2 ML AMPULE IV ONE ×2 (14:24→14:44)
[2018-02-28 14:32] LABS: ABSOLUTE LYMPHOCYTES (AUTO) 1.2 10^3/uL (0.5-4.7); ABSOLUTE MONOCYTES (AUTO) 0.9 10^3/uL (0.1-1.4); ABSOLUTE NEUT (AUTO) 9.8 10^3/uL (1.7-8.2); BASOPHILS % (AUTO) 0.4 % (0-2); HEMATOCRIT 33.3 % (36.0-47.0); HEMOGLOBIN 10.9 g/dL (12.0-15.5); MEAN CORPUSCULAR HEMOGLOBIN 28.8 pg (27.0-33.4); MEAN CORPUSCULAR HGB CONC 32.8 g/dL (32.0-36.0); MEAN CORPUSCULAR VOLUME 88 fl (80-97); MONOCYTES % (AUTO) 7.4 % (3-13); PLATELET COUNT 311 10^3/uL (150-450); RED BLOOD COUNT 3.78 10^6/uL (3.72-5.28); RED CELL DISTRIBUTION WIDTH 14.5 % (11.5-14.0); SEGMENTED NEUTROPHILS % (AUTO) 82.2 % (42-78); TOTAL CELLS COUNTED % (AUTO) 100 %; WHITE BLOOD COUNT 11.9 10^3/uL (4.0-10.5)
--- NOTE | 2018-02-28 14:40 | RADIOLOGY REPORT (SQ) ---
EXAM DESCRIPTION: CHEST SINGLE VIEW COMPLETED DATE/TIME: 02/28/2018 2:31 pm REASON FOR STUDY: Rapid A. fib with S OB COMPARISON: 12/07/2017 EXAM PARAMETERS: NUMBER OF VIEWS: One view. TECHNIQUE: Single frontal radiographic view of the chest acquired. RADIATION DOSE: NA LIMITATIONS: None. FINDINGS: LUNGS AND PLEURA: No opacities, masses or pneumothorax. No pleural effusion. MEDIASTINUM AND HILAR STRUCTURES: No masses. Contour normal. HEART AND VASCULAR STRUCTURES: Normal heart size. Atherosclerotic aorta. BONES: Extensive degenerative changes at the right shoulder, stable. HARDWARE: None in the chest. OTHER: No other significant finding. IMPRESSION: No evidence of acute cardiopulmonary process. TECHNICAL DOCUMENTATION: JOB ID: [id number] [employer]- All Rights Reserved Reading location - IP/workstation name: [email or web address]
[2018-02-28 15:45] LABS: ALANINE AMINOTRANSFERASE 22 U/L (9-52); ALBUMIN 2.7 g/dL (3.5-5.0); ALKALINE PHOSPHATASE 62 U/L (38-126); ANION GAP 6 (5-19); ASPARTATE AMINO TRANSFERASE 16 U/L (14-36); BILIRUBIN,DIRECT 0.1 mg/dL (0.0-0.4); BILIRUBIN,TOTAL 0.1 mg/dL (0.2-1.3); BLOOD UREA NITROGEN 82 mg/dL (7-20); CALCIUM 8.8 mg/dL (8.4-10.2); CARBON DIOXIDE 22 mmol/L (22-30); CHLORIDE 106 mmol/L (98-107); GLUCOSE 88 mg/dL (75-110); LIPASE 41.5 U/L (23-300); POTASSIUM 4.4 mmol/L (3.6-5.0); SODIUM 134.1 mmol/L (137-145); TOTAL PROTEIN 4.8 g/dL (6.3-8.2)
[2018-02-28 15:58] LABS: CREATINE KINASE MB 0.87 ng/mL (<4.55)
[2018-02-28 16:00] LABS: TROPONIN I < 0.012 ng/mL
--- NOTE | 2018-02-28 16:33 | ER Document Report ---
ED General - General Chief Complaint: Blood Pressure Problem Stated Complaint: BLOOD PRESSURE ISSUES Time Seen by Provider: 02/28/18 14:02 Primary Care Provider: DANIEL PINEDA MD [Primary Care Provider] - Follow up as needed Notes: Patient had a routine scheduled nurse wellness appointment at her local doctor's (Daniel Pineda) office today. Patient went to that appointment without any complaints. When there, her heart rate was found to be fast and blood pressure was low and EMS was called to transport the patient here. Patient denies any nausea or vomiting. She does have chronic diarrhea, currently having diarrhea f or the past month. Has not passed blood in her stools. Is not having any abdominal pains. Does feel some shortness of breath. Has a history of COPD. Denies any UTI symptoms. No chills. Denies fever. Patient has a history of atrial fibrillation and is on Eliquis. TRAVEL OUTSIDE OF THE [place] IN LAST 30 DAYS: No - Related Data Allergies/Adverse Reactions: cyclobenzaprine HCl [From Flexeril] Allergy (Unknown, Verified 12/07/17 10:30) diphenhydramine HCl [From Benadryl] Allergy (Unknown, Verified 12/07/17 10:30) Past Medical History - Social History Smoking Status: Former Smoker - Stopped 10 years ago. Cigarette use (# per day): No Chew tobacco use (# tins/day): No Frequency of alcohol use: None Drug Abuse: None Family History: Reviewed & Not Pertinent Patient has suicidal ideation: No Patient has homicidal ideation: No - Past Medical History Cardiac Medical History: Reports: Hx Hypercholesterolemia, Hx Hypertension Pulmonary Medical History: Reports: Hx Asthma, Hx COPD Endocrine Medical History: Reports: Hx Hypothyroidism Malignancy Medical History: Reports: Hx Breast Cancer GI Medical History: Reports: Hx Gastroesophageal Reflux Disease Musculoskeletal Medical History: Reports Hx Arthritis Psychiatric Medical History: Reports: Hx Bipolar Disorder Past Surgical History: Reports: Hx Breast Surgery, Hx Cholecystectomy, Hx Hysterectomy, Hx Tonsillectomy - Immunizations Hx Diphtheria, Pertussis, Tetanus Vaccination: Yes Review of Systems - Review of Systems Notes: REVIEW OF SYSTEMS: CONSTITUTIONAL : Denies fever. EENT: Denies eye, ear, nose or mouth or throat pain or other symptoms. CARDIOVASCULAR: Denies chest pain. RESPIRATORY: Denies cough, chest congestion, or shortness of breath. GASTROINTESTINAL: Denies abdominal pain or nausea, vomiting, but has a recurrent problem with chronic diarrhea. Genitourinary: Denies difficulty or painful urinating, urinary frequency, blood in urine. MUSCULOSKELETAL: Denies back or neck pain. Denies joint pain or swelling. SKIN: Denies rash or skin lesions. NEUROLOGICAL: Denies LOC or altered mental status. Denies headache. Denies sensory loss or motor deficits. ALL OTHER SYSTEMS REVIEWED AND NEGATIVE. Physical Exam - Vital signs Vitals: Resp Pulse Ox 30 H 97 02/28/18 12:32 02/28/18 12:32 Interpretation: Hypotensive, Tachycardic. No: Hypoxic Notes: PHYSICAL EXAMINATION: GENERAL: Well-appearing, in no acute distress. Blood pressure low and heart rate fast at 137 when her first EKG was done. HEAD: Atraumatic, normocephalic. EYES: Pupils equal round and reactive to light, extraocular movements intact. ENT: oropharynx clear without exudates. Moist mucous membranes. NECK: Normal range of motion, supple. No carotid bruits heard. LUNGS: Breath sounds clear and equal bilaterally. HEART: Regular rate and rhythm without murmurs at 130. ABDOMEN: Soft, nontender. No guarding or rebound. No masses. BACK: No tenderness throughout entire back. EXTREMITIES: Normal range of motion without pain. NEUROLOGICAL: Normal speech. Normal sensory, motor, and reflex exams. Awake, alert, and oriented x3. PSYCH: Normal mood, normal affect. SKIN: Warm, dry, no rashes. Course - Re-evaluation Re-evalutation: 02/28/18 16:55 Patient is on her third liter of saline, but maintaining a blood pressure in the upper 90s systolic. I think her hypotension is probably volume depleted. Her BUN is 82 with a creatinine of 2.62. She has had prior renal insufficiency, in her chart in December this past year, her BUN was 157 with a creatinine 3.62. Patient is on 5 different medications treating her high blood pressure: Amlodipine 10 mg daily, hydralazine 50 mg 3 times daily, HCTZ 25 mg daily, lisinopril 40 mg daily, and metoprolol 50 mg extended release twice a day. Patient's heart rate gradually trended downward from the admission 130-140 rate. As I was about to give her some digoxin, her heart slowed down to 60-70 systolic and then seemed to settle in around the 90s. Still, her blood pressure remains in the mid 90s systolic. I do not think she is septic because her lactic acid level is 0.9. - Vital Signs Vital signs: Temp Pulse Resp BP Pulse Ox 98.0 F 19 92/48 L 98 02/28/18 12:33 02/28/18 12:33 02/28/18 12:33 02/28/18 12:33 - Laboratory Result Diagrams: 02/28/18 13:00 02/28/18 15:09 Laboratory results interpreted by me: 02/28/18 02/28/18 02/28/18 13:00 15:09 16:30 WBC 11.9 H Hgb 10.9 L Hct 33.3 L RDW 14.5 H Seg Neutrophils % 82.2 H Lymphocytes % 10.0 L Absolute Neutrophils 9.8 H Sodium 134.1 L BUN 82 H Creatinine 2.62 H Est GFR ( Amer) 22 L Est GFR (Non-Af Amer) 18 L Total Bilirubin 0.1 L Total Protein 4.8 L Albumin 2.7 L Ur Leukocyte Esterase LARGE H Critical Care Note - Critical Care Note Total time excluding time spent on procedures (mins): 60 Discharge - Discharge Clinical Impression: Atrial fibrillation, Hypotension, Renal insufficiency, Dehydration, Hypotension due to hypovolemia, Loose stools UTI (urinary tract infection) Qualifiers: Urinary tract infection type: site unspecified Hematuria presence: with hematuria Qualified Code(s): N39.0 - Urinary tract infection, site not specified Condition: Stable Disposition: ADMITTED INPATIENT Admitting Provider: Hospitalist Unit Admitted: IMCU Referrals: DANIEL PINEDA MD [Primary Care Provider] - Follow up as needed
[2018-02-28 17:00] LABS: AMORPHOUS SEDIMENT,URINE 1+ /HPF; APPEARANCE,URINE CLOUDY; BILIRUBIN,URINE NEGATIVE (NEGATIVE); COLOR,URINE YELLOW; GLUCOSE, URINE NEGATIVE (NEGATIVE); KETONES,URINE NEGATIVE (NEGATIVE); LEUKOCYTE ESTERASE,URINE LARGE (NEGATIVE); NITRITE,URINE NEGATIVE (NEGATIVE); PROTEIN,URINE NEGATIVE (NEGATIVE); URINE SPECIFIC GRAVITY 1.011; UROBILINOGEN,URINE NEGATIVE mg/dL (<2.0)
[2018-02-28] MEDS ORDERED: CEFTRIAXONE INJ 1000 MG VIAL IV ONE (17:12)
[2018-02-28] MEDS ORDERED: RINGERS SOLUTION,LACTATED 1,000 ML IV PRN (17:58)
--- NOTE | 2018-02-28 18:15 | PDOC H&P ---
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 She says she has not been feeling good for several days. She has a history of this diarrhea that she says comes and goes, and is been going on for a few years. She is never seen a floating operator for it. She is not been on any antibiotics lately. She has not been running a fever. She takes Imodium as needed at home. The last several days she has had several bouts of diarrhea a day, and admits that her oral intake of fluids is not been very good. She is continued to take her blood pressure medication. In the ER she got a couple of bags of IV fluids and this helped bring her blood pressure up and bring her heart rate down. She was also noted to have a substantially elevated BUN and creatinine. She is being admitted for further management. Past Medical History Cardiac Medical History: Reports: Hyperlipidema, Hypertension Denies: Coronary Artery Disease, Myocardial Infarction Pulmonary Medical History: Reports: Asthma, Chronic Obstructive Pulmonary Dis ease (COPD) Denies: Bronchitis, Pneumonia Neurological Medical History: Denies: Seizures Endocrine Medical History: Reports: Hypothyroidism Malignancy Medical History: Reports: Breast Cancer GI Medical History: Reports: Gastroesophageal Reflux Disease Musculoskeltal Medical History: Reports: Arthritis Psychiatric Medical History: Reports: Bipolar Disorder Hematology: Denies: Anemia Past Surgical History Past Surgical History: Reports: Cholecystectomy, Hysterectomy, Tonsillectomy Social History Smoking Status: Former Smoker - Stopped 10 years ago. Frequency of Alcohol Use: None Hx Recreational Drug Use: No Drugs: None Hx Prescription Drug Abuse: No Family History Family History: Reviewed & Not Pertinent Parental Family History Reviewed: Yes - Noncontributory Children Family History Reviewed: Yes - noncontributory Sibling(s) Family History Reviewed.: Yes - Noncontributory Medication/Allergy Home Medications: Amlodipine Besylate [Norvasc 10 mg Tablet] 10 mg PO DAILY 05/04/17 Aspirin [Aspirin EC] 81 mg PO DAILY 05/04/17 Levothyroxine Sodium [Synthroid] 125 mcg PO Q6AM 05/04/17 Metoprolol Tartrate [Lopressor 100 mg Tablet] 100 mg PO Q12 05/04/17 Montelukast Sodium [Singulair 10 mg Tablet] 10 mg PO QHS 05/04/17 Solifenacin Succinate [Vesicare] 10 mg PO DAILY 05/04/17 Vitamin E 400 unit PO DAILY 05/04/17 Apixaban [Eliquis 5 mg Tablet] 5 mg PO Q12@08,20 11/06/17 Benztropine Mesylate 1 mg PO DAILY 11/06/17 Ergocalciferol (Vitamin D2) [Drisdol 50,000 Unit (1.25MG) Capsule] 50,000 unit PO FR@1000 11/06/17 Fluticasone/Salmeterol [Advair 250-50 Diskus 28 dose] 1 inh IH Q12 11/06/17 Losartan Potassium [Cozaar 100 mg Tablet] 100 mg PO DAILY 11/06/17 Lurasidone HCl [Latuda] 20 mg PO WLUNCH 11/06/17 Multivitamin [Tab-A-Jesse (Multiple Vitamin) Tablet] 1 tab PO DAILY 11/06/17 Oxybutynin Chloride [Ditropan 5 mg Tablet] 2.5 mg PO MEALS 11/06/17 Allergies/Adverse Reactions: cyclobenzaprine HCl [From Flexeril] Allergy (Unknown, Verified 12/07/17 10:30) diphenhydramine HCl [From Benadryl] Allergy (Unknown, Verified 12/07/17 10:30) Review of Systems All systems: reviewed and no additional remarkable complaints except as stated - 10 point review of systems was conducted with the patient was negative except as noted above Physical Exam Vital Signs: Temp Pulse Resp BP Pulse Ox 98.0 F 19 92/48 L 98 02/28/18 12:33 02/28/18 12:33 02/28/18 12:33 02/28/18 12:33 Intake & Output 02/27/18 02/28/18 03/01/18 06:59 06:59 06:59 Weight 86.9 kg General appearance: PRESENT: no acute distress, cooperative, disheveled, obese Head exam: PRESENT: atraumatic, normocephalic Eye exam: PRESENT: EOMI, PERRLA. ABSENT: conjunctival injection, nystagmus, scleral icterus Ear exam: PRESENT: normal external ear exam Mouth exam: PRESENT: dry mucosa, neck supple Teeth exam: PRESENT: poor dentation - Has dentures Throat exam: ABSENT: post pharyngeal erythema Neck exam: PRESENT: full ROM. ABSENT: carotid bruit, JVD, lymphadenopathy, meningismus, tenderness, thyromegaly Respiratory exam: PRESENT: clear to auscultation carmen, symmetrical, unlabored. ABSENT: accessory muscle use, crackles, prolonged expiratory phas, rhonchi, tachypnea, wheezes Cardiovascular exam: PRESENT: irregular rhythm Pulses: PRESENT: normal carotid pulses Vascular exam: PRESENT: normal capillary refill GI/Abdominal exam: PRESENT: normal bowel sounds, soft. ABSENT: distended, guarding, rebound, tenderness Extremities exam: ABSENT: clubbing, pedal edema Musculoskeletal exam: PRESENT: normal inspection. ABSENT: deformity Neurological exam: PRESENT: alert, awake, oriented to person, oriented to place, oriented to time, oriented to situation, CN II-XII grossly intact. ABSENT: motor sensory deficit Psychiatric exam: PRESENT: appropriate affect, normal mood Skin exam: PRESENT: dry, warm Results Laboratory Results: 02/28/18 13:00 02/28/18 15:09 02/28/18 02/28/18 02/28/18 13:00 13:00 13:00 WBC 11.9 H RBC 3.78 Hgb 10.9 L Hct 33.3 L MCV 88 MCH 28.8 MCHC 32.8 RDW 14.5 H Plt Count 311 Seg Neutrophils % 82.2 H Lymphocytes % 10.0 L Monocytes % 7.4 Eosinophils % 0.0 Basophils % 0.4 Absolute Neutrophils 9.8 H Absolute Lymphocytes 1.2 Absolute Monocytes 0.9 Absolute Eosinophils 0.0 Absolute Basophils 0.0 VBG pH VBG pCO2 VBG HCO3 VBG Base Excess Sodium Cancelled Potassium Cancelled Chloride Cancelled Carbon Dioxide Cancelled Anion Gap Cancelled BUN Cancelled Creatinine Cancelled Est GFR ( Amer) Cancelled Est GFR (Non-Af Amer) Cancelled Glucose Cancelled Lactic Acid 0.9 Calcium Cancelled Total Bilirubin Cancelled AST Cancelled ALT Cancelled Alkaline Phosphatase Cancelled Total Protein Cancelled Albumin Cancelled Lipase Cancelled Urine Color Urine Appearance Urine pH Ur Specific [place] Urine Protein Urine Glucose (UA) Urine Ketones Urine Blood Urine Nitrite Ur Leukocyte Esterase Urine WBC (Auto) Urine RBC (Auto) 02/28/18 02/28/18 02/28/18 13:00 15:09 16:30 WBC RBC Hgb Hct MCV MCH MCHC RDW Plt Count Seg Neutrophils % Lymphocytes % Monocytes % Eosinophils % Basophils % Absolute Neutrophils Absolute Lymphocytes Absolute Monocytes Absolute Eosinophils Absolute Basophils VBG pH 7.37 VBG pCO2 39.9 VBG HCO3 22.5 VBG Base Excess -2.6 Sodium 134.1 L Potassium 4.4 Chloride 106 Carbon Dioxide 22 Anion Gap 6 BUN 82 H Creatinine 2.62 H Est GFR ( Amer) 22 L Est GFR (Non-Af Amer) 18 L Glucose 88 Lactic Acid Calcium 8.8 Total Bilirubin 0.1 L AST 16 ALT 22 Alkaline Phosphatase 62 Total Protein 4.8 L Albumin 2.7 L Lipase 41.5 Urine Color YELLOW Urine Appearance CLOUDY Urine pH 5.0 Ur Specific [place] 1.011 Urine Protein NEGATIVE Urine Glucose (UA) NEGATIVE Urine Ketones NEGATIVE Urine Blood NEGATIVE Urine Nitrite NEGATIVE Ur Leukocyte Esterase LARGE H Urine WBC (Auto) 31 Urine RBC (Auto) 1 02/28/18 02/28/18 13:00 15:09 CK-MB (CK-2) Cancelled 0.87 Troponin I Cancelled < 0.012 Impressions: Chest X-Ray 02/28/18 14:03 IMPRESSION: No evidence of acute cardiopulmonary process. Assessment & Plan - Diagnosis (1) Atrial fibrillation with RVR Is this a current diagnosis for this admission?: Yes Plan: Going to continue her metoprolol but at a reduced dose. Continue her anticoagulation. Her heart rate slowed down with IV fluids so there is no need for any further efforts to control her rate at this time. (2) Dehydration Is this a current diagnosis for this admission?: Yes Plan: She is very volume depleted, BUN to creatinine ratio is well above 30-1. She got 2 bags of IV fluids and is just now started to put out a little bit a urine. We will give her another 1 L bolus and then start her on some maintenance fluids. (3) Hypotension due to hypovolemia Is this a current diagnosis for this admission?: Yes Plan: Blood pressure responded to IV fluids. Holding most of her blood pressure medications with the exception of the metoprolol at the reduced dose as noted above. (4) Acute kidney injury Is this a current diagnosis for this admission?: Yes Plan: Due to volume depletion. IV fluids as above. We will monitor her BMP. (5) Loose stools Is this a current diagnosis for this admission?: Yes Plan: We will order her some Lomotil. When she is discharged, we will have her follow-up with gastroenterology as an outpatient. - Time Time Spent: 50 to 70 Minutes - Inpatient Certification Medical Necessity: Need Close Monitoring Due to Risk of Patient Decompensation, Need For IV Fluids, Need For Continuous Telemetry Monitoring
--- NOTE | 2018-02-28 21:10 | EKG REPORT ---
SEVERITY:- ABNORMAL ECG - ATRIAL FLUTTER, A-RATE 263 NONSPECIFIC T ABNORMALITIES, DIFFUSE LEADS : Confirmed by: Jess Grover MD 28-Feb-2018 21:09:49
--- NOTE | 2018-02-28 21:11 | EKG REPORT ---
SEVERITY:- ABNORMAL ECG - PROLONGED QT INTERVAL ATRIAL FLUTTER WITH 2:1 AV BLOCK : Confirmed by: Jess Grover MD 28-Feb-2018 21:10:48
[2018-02-28] MEDS: FLUTICASONE/SALMETEROL DISKUS 250-50 MCG/DOSE IH SCH (22:28)
[2018-02-28] MEDS: MONTELUKAST SODIUM 10 MG TABLET PO SCH (22:29)
[2018-02-28] MEDS: APIXABAN 5 MG TABLET PO SCH (22:29)
[2018-02-28] MEDS: METOPROLOL TARTRATE 100 MG TABLET PO SCH (22:44)
[2018-03-01] MEDS: LEVOTHYROXINE SODIUM 0.1 MG TABLET PO SCH (05:55)
[2018-03-01] MEDS: LEVOTHYROXINE SODIUM 0.025 MG TABLET PO SCH (05:55)
[2018-03-01] MEDS ORDERED: (PENDING PHARMACY ID) (Levothyroxine Sodium [Synthroid] 125 MCG) PO SCH (06:00)
[2018-03-01 06:33] LABS: CALCIUM 8.7 mg/dL (8.4-10.2); GLUCOSE 87 mg/dL (75-110)
[2018-03-01 06:39] LABS: CARBON DIOXIDE 21 mmol/L (22-30); CHLORIDE 116 mmol/L (98-107); SODIUM 139.2 mmol/L (137-145)
[2018-03-01] MEDS: DIPHENOXYLATE HCL/ATROP SULF 2.5-0.025 MG TABLET PO PRN ×2 (06:51→10:40)
[2018-03-01 07:11] LABS: ANION GAP 2 (5-19)
[2018-03-01 07:12] LABS: BLOOD UREA NITROGEN 61 mg/dL (7-20)
[2018-03-01] MEDS ORDERED: OXYBUTYNIN CHLORIDE 5 MG TABLET PO SCH (08:00)
[2018-03-01] MEDS: APIXABAN 5 MG TABLET PO SCH ×2 (08:44→19:16)
[2018-03-01] MEDS ORDERED: ERGOCALCIFEROL (VITAMIN D2) 50000 UNIT (1.25 MG) CAPSULE PO SCH (10:00)
[2018-03-01] MEDS ORDERED: (PENDING PHARMACY ID) (Vitamin E [Vitamin E] 400 UNIT) PO SCH (10:00)
[2018-03-01] MEDS ORDERED: (PENDING PHARMACY ID) (Solifenacin Succinate [Vesicare] 10 MG) PO SCH (10:00)
[2018-03-01] MEDS: ASPIRIN 81 MG TABLET, ENT COATED PO SCH (10:40)
[2018-03-01] MEDS: BENZTROPINE MESYLATE 1 MG TABLET PO SCH (10:40)
[2018-03-01] MEDS: VITAMIN E (DL, ACETATE) 400 UNIT CAPSULE PO SCH (10:40)
[2018-03-01] MEDS: FLUTICASONE/SALMETEROL DISKUS 250-50 MCG/DOSE IH SCH (10:40)
[2018-03-01] MEDS: MULTIVITAMIN TABLET PO SCH (10:40)
[2018-03-01] MEDS: METOPROLOL TARTRATE 100 MG TABLET PO SCH (10:41)
[2018-03-01] MEDS ORDERED: NORMAL SALINE 1000 ML 1,000 ML IV PRN (10:53)
[2018-03-01] MEDS: CEFTRIAXONE 1 GM/D5W RTU 1 GM/50 ML RTUPB IV SCH (11:30)
[2018-03-01] MEDS ORDERED: (PENDING PHARMACY ID) (Lurasidone Hcl [Latuda] 20 MG) PO SCH (12:00)
--- NOTE | 2018-03-01 17:49 | PDOC PROGRESS REPORT ---
Subjective Progress Note for:: 03/01/18 Subjective:: No adverse events overnight. No new complaints. She is feeling a lot better today. Her heart rate is come down some, but it still can shoot up into the 130s and 140s when she starts moving around in the bed. Her blood pressures were low this morning we gave her another fluid bolus and this afternoon her pressures are normalizing. Urine output is been good. Reason For Visit: HYPOTENSION, DEHYDRATION, AFIB/RVR Physical Exam Vital Signs: Temp Pulse Resp BP Pulse Ox 98.2 F 15 102/53 L 99 02/28/18 22:00 03/01/18 17:30 03/01/18 17:30 03/01/18 17:30 Intake & Output 02/28/18 03/01/18 03/02/18 06:59 06:59 06:59 Intake Total 2000 Output Total 1600 Balance 1999 -1599 Weight 86.9 kg General appearance: PRESENT: no acute distress, cooperative, disheveled, obese Mouth exam: PRESENT: moist Teeth exam: PRESENT: other - Has dentures Respiratory exam: PRESENT: clear to auscultation carmen, symmetrical, unlabored. ABSENT: accessory muscle use, crackles, prolonged expiratory phas, rhonchi, tachypnea, wheezes Cardiovascular exam: PRESENT: irregular rhythm Pulses: PRESENT: normal carotid pulses Vascular exam: PRESENT: normal capillary refill GI/Abdominal exam: PRESENT: normal bowel sounds, soft. ABSENT: distended, guard ing, rebound, tenderness Extremities exam: ABSENT: clubbing, pedal edema Musculoskeletal exam: PRESENT: normal inspection. ABSENT: deformity Neurological exam: PRESENT: alert, awake, oriented to person, oriented to place, oriented to time, oriented to situation Psychiatric exam: PRESENT: appropriate affect, normal mood Skin exam: PRESENT: dry, warm Results Laboratory Results: 02/28/18 13:00 03/01/18 06:00 03/01/18 06:00 Sodium 139.2 Potassium 4.0 Chloride 116 H Carbon Dioxide 21 L Anion Gap 2 L BUN 61 H D Creatinine 1.69 H Est GFR ( Amer) 36 L Est GFR (Non-Af Amer) 30 L Glucose 87 Calcium 8.7 02/28/18 02/28/18 13:00 15:09 CK-MB (CK-2) Cancelled 0.87 Troponin I Cancelled < 0.012 Impressions: Chest X-Ray 02/28/18 14:03 IMPRESSION: No evidence of acute cardiopulmonary process. Assessment & Plan - Diagnosis (1) Atrial fibrillation with RVR Is this a current diagnosis for this admission?: Yes Plan: When we brought her in, we are regular heart rate under control by giving her some IV fluids. Because of her blood pressure I did not want her on full dose of metoprolol to wander on something to help keep her heart rate under control, so I cut her usual dose of metoprolol in half. Her heart rate has been trending up some this afternoon, so I am going to put her back on her usual dose of m etoprolol. She is also taking Eliquis. (2) Dehydration Is this a current diagnosis for this admission?: Yes Plan: Improving with IV fluids (3) Hypotension due to hypovolemia Is this a current diagnosis for this admission?: Yes Plan: Her blood pressures responded very well to IV fluids and she is no longer hypotensive (4) Acute kidney injury Is this a current diagnosis for this admission?: Yes Plan: Excellent urine output. Creatinine is trended down to 1.69 today. (5) Loose stools Is this a current diagnosis for this admission?: Yes Plan: We will order her some Lomotil. When she is discharged, we will have her foll ow-up with gastroenterology as an outpatient. - Time Time Spent with patient: 25-34 minutes
[2018-03-01] MEDS ORDERED: METOPROLOL TARTRATE 50 MG TABLET PO ONE (18:30)
[2018-03-01] MEDS ORDERED: DIGOXIN INJ 0.5 MG/2 ML AMPULE IV ONE (18:39)
[2018-03-01] MEDS ORDERED: METOPROLOL TARTRATE 100 MG TABLET PO SCH (22:00)
[2018-03-02] MEDS: MONTELUKAST SODIUM 10 MG TABLET PO SCH ×2 (00:01→21:32)
[2018-03-02] MEDS: METOPROLOL TARTRATE 100 MG TABLET PO SCH ×3 (00:01→21:31)
[2018-03-02] MEDS: FLUTICASONE/SALMETEROL DISKUS 250-50 MCG/DOSE IH SCH ×3 (00:01→21:28)
[2018-03-02] MEDS: NORMAL SALINE 1000 ML 1,000 ML IV PRN ×3 (00:06→20:32)
[2018-03-02 05:49] LABS: CALCIUM 9.3 mg/dL (8.4-10.2); GLUCOSE 96 mg/dL (75-110); POTASSIUM 3.8 mmol/L (3.6-5.0)
[2018-03-02 05:55] LABS: CARBON DIOXIDE 22 mmol/L (22-30); CHLORIDE 118 mmol/L (98-107)
[2018-03-02] MEDS: LEVOTHYROXINE SODIUM 0.025 MG TABLET PO SCH (06:11)
[2018-03-02] MEDS: LEVOTHYROXINE SODIUM 0.1 MG TABLET PO SCH (06:11)
[2018-03-02 06:13] LABS: SODIUM 144.2 mmol/L (137-145)
[2018-03-02 06:14] LABS: ANION GAP 4 (5-19); BLOOD UREA NITROGEN 41 mg/dL (7-20)
[2018-03-02] MEDS: MULTIVITAMIN TABLET PO SCH (09:05)
[2018-03-02] MEDS: APIXABAN 5 MG TABLET PO SCH ×2 (09:06→20:30)
[2018-03-02] MEDS: ASPIRIN 81 MG TABLET, ENT COATED PO SCH ×2 (09:07→21:27)
[2018-03-02] MEDS: CEFTRIAXONE 1 GM/D5W RTU 1 GM/50 ML RTUPB IV SCH (09:08)
[2018-03-02] MEDS: DIPHENOXYLATE HCL/ATROP SULF 2.5-0.025 MG TABLET PO PRN (09:08)
[2018-03-02] MEDS: BENZTROPINE MESYLATE 1 MG TABLET PO SCH (09:19)
[2018-03-02] MEDS ORDERED: DIGOXIN INJ 0.5 MG/2 ML AMPULE IV SCH (10:00)
--- NOTE | 2018-03-02 16:12 | PDOC PROGRESS REPORT ---
Subjective Progress Note for:: 03/02/18 Subjective:: No adverse events overnight. She has converted to a sinus rhythm. She says she feels a lot better. Urine output is excellent. No fevers. Reason For Visit: HYPOTENSION, DEHYDRATION, AFIB/RVR Physical Exam Vital Signs: Temp Pulse Resp BP Pulse Ox 98.1 F 97 16 119/43 L 98 03/02/18 12:00 03/02/18 14:00 03/02/18 12:00 03/02/18 12:00 03/02/18 12:00 Intake & Output 03/01/18 03/02/18 03/03/18 06:59 06:59 06:59 Intake Total 1999 2049 2057 Output Total 5 1220 Balance 1999 83 Weight 86.9 kg General appearance: PRESENT: no acute distress, cooperative, disheveled, obese Mouth exam: PRESENT: moist Teeth exam: PRESENT: other - Has dentures Respiratory exam: PRESENT: clear to auscultation carmen, symmetrical, unlabored. ABSENT: accessory muscle use, crackles, prolonged expiratory phas, rhonchi, tachypnea, wheezes Cardiovascular exam: PRESENT: Regular rate and rhythm, S1, S2, 2 out of 6 systolic murmur Pulses: PRESENT: normal carotid pulses Vascular exam: PRESENT: normal capillary refill GI/Abdominal exam: PRESENT: normal bowel sounds, soft. ABSENT: distended, guarding, rebound, tenderness Extremities exam: ABSENT: clubbing, pedal edema Musculoskeletal exam: PRESENT: normal inspection. ABSENT: deformity Neurological exam: PRESENT: alert, awake, oriented to person, oriented to place, oriented to time, oriented to situation Psychiatric exam: PRESENT: appropriate affect, normal mood Skin exam: PRESENT: dry, warm Results Laboratory Results: 02/28/18 13:00 03/02/18 04:44 03/02/18 04:44 Sodium 144.2 Potassium 3.8 Chloride 118 H Carbon Dioxide 22 Anion Gap 4 L BUN 41 H D Creatinine 1.21 Est GFR ( Amer) 53 L Est GFR (Non-Af Amer) 44 L Glucose 96 Calcium 9.3 02/28/18 16:30 Catheterized Urine Urine Culture - Final Escherichia Coli 02/28/18 02/28/18 13:00 15:09 CK-MB (CK-2) Cancelled 0.87 Troponin I Cancelled < 0.012 Impressions: Chest X-Ray 02/28/18 14:03 IMPRESSION: No evidence of acute cardiopulmonary process. Assessment & Plan - Diagnosis (1) Atrial fibrillation with RVR Is this a current diagnosis for this admission?: Yes Plan: She is currently in a sinus rhythm. We got her back on her home dose of metoprolol. She is also taking Eliquis. (2) Dehydration Is this a current diagnosis for this admission?: Yes Plan: Improving with IV fluids. I will probably keep her on fluids for another day because her BUN to creatinine ratio is still substantially elevated. (3) Hypotension due to hypovolemia Is this a current diagnosis for this admission?: Yes Plan: Her blood pressures responded very well to IV fluids and she is no longer hypotensive (4) Acute kidney injury Is this a current diagnosis for this admission?: Yes Plan: Resolved (5) Loose stools Is this a current diagnosis for this admission?: Yes Plan: As needed Lomotil. She is never had this worked up and is a chronic problem, so we will need to have her follow-up with gastroenterology as an outpatient. (6) UTI (urinary tract infection) Qualifiers: Urinary tract infection type: acute cystitis Hematuria presence: with hematuria Qualified Code(s): N30.01 - Acute cystitis with hematuria Is this a current diagnosis for this admission?: Yes Plan: She has an E. coli in the urine. She is currently on Rocephin. She also has a positive blood culture with gram-negative organism. That result is pending. (7) Gram-negative bacteremia Is this a current diagnosis for this admission?: Yes Plan: As above. - Time Time Spent with patient: 25-34 minutes
[2018-03-02] MEDS: VITAMIN E (DL, ACETATE) 400 UNIT CAPSULE PO SCH (18:53)
[2018-03-02] MEDS: LAMOTRIGINE 100 MG TABLET PO SCH (21:31)
[2018-03-03] MEDS: NORMAL SALINE 1000 ML 1,000 ML IV PRN (04:38)
[2018-03-03] MEDS: LEVOTHYROXINE SODIUM 0.025 MG TABLET PO SCH (05:05)
[2018-03-03] MEDS: LEVOTHYROXINE SODIUM 0.1 MG TABLET PO SCH (05:05)
[2018-03-03 06:16] LABS: BLOOD UREA NITROGEN 25 mg/dL (7-20); CALCIUM 8.9 mg/dL (8.4-10.2); GLUCOSE 88 mg/dL (75-110); POTASSIUM 3.9 mmol/L (3.6-5.0)
[2018-03-03 06:22] LABS: CARBON DIOXIDE 21 mmol/L (22-30); CHLORIDE 120 mmol/L (98-107); SODIUM 143.7 mmol/L (137-145)
[2018-03-03 06:36] LABS: ANION GAP 3 (5-19)
[2018-03-03] MEDS: METOPROLOL TARTRATE 100 MG TABLET PO SCH ×2 (08:59→22:08)
[2018-03-03] MEDS: MULTIVITAMIN TABLET PO SCH (09:00)
[2018-03-03] MEDS: DIPHENOXYLATE HCL/ATROP SULF 2.5-0.025 MG TABLET PO PRN ×2 (09:00→11:54)
[2018-03-03] MEDS: VITAMIN E (DL, ACETATE) 400 UNIT CAPSULE PO SCH (09:01)
[2018-03-03] MEDS: APIXABAN 5 MG TABLET PO SCH ×2 (09:01→20:03)
[2018-03-03] MEDS: BENZTROPINE MESYLATE 1 MG TABLET PO SCH (09:01)
[2018-03-03] MEDS: Vilazodone Hcl [Viibryd] 40 MG PO SCH (09:02)
[2018-03-03] MEDS: FLUTICASONE/SALMETEROL DISKUS 250-50 MCG/DOSE IH SCH ×2 (09:03→22:06)
[2018-03-03] MEDS: CEFTRIAXONE 1 GM/D5W RTU 1 GM/50 ML RTUPB IV SCH (09:04)
[2018-03-03] MEDS: DIGOXIN 0.125 MG TABLET PO SCH (09:08)
[2018-03-03] MEDS ORDERED: METOPROLOL TARTRATE 50 MG TABLET PO ONE (09:34)
[2018-03-03] MEDS ORDERED: (PENDING PHARMACY ID) (Vilazodone Hcl [Viibryd] 40 MG) PO SCH (10:00)
[2018-03-03] MEDS: ACETAMINOPHEN 325 MG TABLET PO PRN ×2 (10:20→20:03)
--- NOTE | 2018-03-03 14:49 | PDOC PROGRESS REPORT ---
Subjective Progress Note for:: 03/03/18 Subjective:: No adverse events overnight. She was ambulating in the hallway and while she did so she was asymptomatic but her heart rate shot up into the 150s. She was ambulating with use of a walker and with PT supervision. Her blood pressures have remained excellent overnight. Reason For Visit: HYPOTENSION, DEHYDRATION, AFIB/RVR Physical Exam Vital Signs: Temp Pulse Resp BP Pulse Ox 98.2 F 82 16 144/73 H 96 03/03/18 08:21 03/03/18 14:00 03/03/18 08:21 03/03/18 08:21 03/03/18 08:21 Intake & Output 03/02/18 03/03/18 03/04/18 06:59 06:59 06:59 Intake Total 2050 4058 1361 Output Total 2475 2220 300 Balance -425 1838 1061 Weight 94.1 kg General appearance: PRESENT: no acute distress, cooperative, disheveled, obese Mouth exam: PRESENT: moist Teeth exam: PRESENT: other - Has dentures Respiratory exam: PRESENT: clear to auscultation carmen, symmetrical, unlabored. ABSENT: accessory muscle use, crackles, prolonged expiratory phas, rhonchi, tachypnea, wheezes Cardiovascular exam: PRESENT: Irregularly irregular, 2 out of 6 systolic murmur Pulses: PRESENT: normal carotid pulses Vascular exam: PRESENT: normal capillary refill GI/Abdominal exam: PRESENT: normal bowel sounds, soft. ABSENT: distended, guarding, rebound, tenderness Extremities exam: ABSENT: clubbing, pedal edema Musculoskeletal exam: PRESENT: normal inspection. ABSENT: deformity Neurological exam: PRESENT: alert, awake, oriented to person, oriented to place, oriented to time, oriented to situation Psychiatric exam: PRESENT: appropriate affect, normal mood Skin exam: PRESENT: dry, warm Results Laboratory Results: 02/28/18 13:00 03/03/18 05:18 03/03/18 05:18 Sodium 143.7 Potassium 3.9 Chloride 120 H Carbon Dioxide 21 L Anion Gap 3 L BUN 25 H Creatinine 0.92 Est GFR ( Amer) > 60 Est GFR (Non-Af Amer) > 60 Glucose 88 Calcium 8.9 02/28/18 02/28/18 13:00 15:09 CK-MB (CK-2) Cancelled 0.87 Troponin I Cancelled < 0.012 Impressions: Chest X-Ray 02/28/18 14:03 IMPRESSION: No evidence of acute cardiopulmonary process. Assessment & Plan - Diagnosis (1) Atrial fibrillation with RVR Is this a current diagnosis for this admission?: Yes Plan: She was actually on half of her home dose yesterday, some and give her an extra 50 mg of metoprolol and increase her back to her home dose of 100 mg twice a day. Her blood pressure is better now, so if she needs further rate control, I will likely use diltiazem as long as the blood pressure holds. She is also taking Eliquis. (2) Dehydration Is this a current diagnosis for this admission?: Yes Plan: Resolved (3) Hypotension due to hypovolemia Is this a current diagnosis for this admission?: Yes Plan: Resolved (4) Acute kidney injury Is this a current diagnosis for this admission?: Yes Plan: Resolved (5) Loose stools Is this a current diagnosis for this admission?: Yes Plan: As needed Lomotil. She is never had this worked up and is a chronic problem, so we will need to have her follow-up with gastroenterology as an outpatient. (6) UTI (urinary tract infection) Qualifiers: Urinary tract infection type: acute cystitis Hematuria presence: with hematuria Qualified Code(s): N30.01 - Acute cystitis with hematuria Is this a current diagnosis for this admission?: Yes Plan: Is an E. coli. Will keep her on Rocephin until her blood culture finalizes. (7) Gram-negative bacteremia Is this a current diagnosis for this admission?: Yes Plan: We will continue Rocephin as it is likely that the gram-negative kesha in her blo od is the E. coli from her urine. We will adjust coverage to the sensitivities. - Time Time Spent with patient: 25-34 minutes
[2018-03-03] MEDS: LAMOTRIGINE 100 MG TABLET PO SCH (22:08)
[2018-03-03] MEDS: ASPIRIN 81 MG TABLET, ENT COATED PO SCH (22:08)
[2018-03-03] MEDS: MONTELUKAST SODIUM 10 MG TABLET PO SCH (22:08)
[2018-03-04] MEDS: ACETAMINOPHEN 325 MG TABLET PO PRN ×2 (00:52→11:15)
[2018-03-04] MEDS: DIPHENOXYLATE HCL/ATROP SULF 2.5-0.025 MG TABLET PO PRN (00:53)
[2018-03-04] MEDS: LEVOTHYROXINE SODIUM 0.1 MG TABLET PO SCH (05:49)
[2018-03-04] MEDS: LEVOTHYROXINE SODIUM 0.025 MG TABLET PO SCH (05:49)
--- NOTE | 2018-03-04 09:39 | PDOC PROGRESS REPORT ---
Subjective Progress Note for:: 03/04/18 Subjective:: No adverse events overnight. Heart rates have done well on her home dose of metoprolol. She had an episode around the time of shift change yesterday evening where her heart rate went up in the 150s, likely while she was being active. She denies any palpitations or chest pain or shortness of breath. All of her reported and recorded heart rates since the episode yesterday evening have all been well within the normal range. Reason For Visit: HYPOTENSION, DEHYDRATION, AFIB/RVR Physical Exam Vital Signs: Temp Pulse Resp BP Pulse Ox 98.6 F 69 16 147/52 H 97 03/04/18 08:03 03/04/18 08:03 03/04/18 08:03 03/04/18 08:03 03/04/18 08:03 Intake & Output 03/03/18 03/04/18 03/05/18 06:59 06:59 06:59 Intake Total 4058 2821 Output Total 2220 425 Balance 1838 2396 Weight 94.1 kg 92.9 kg General appearance: PRESENT: no acute distress, cooperative, disheveled, obese Mouth exam: PRESENT: moist Teeth exam: PRESENT: other - Has dentures Respiratory exam: PRESENT: clear to auscultation carmen, symmetrical, unlabored. ABSENT: accessory muscle use, crackles, prolonged expiratory phase, rhonchi, tachypnea, wheezes Cardiovascular exam: PRESENT: Irregularly irregular, 2 out of 6 systolic murmur Pulses: PRESENT: normal carotid pulses Vascular exam: PRESENT: normal capillary refill GI/Abdominal exam: PRESENT: normal bowel sounds, soft. ABSENT: distended, guarding, rebound, tenderness Extremities exam: ABSENT: clubbing, pedal edema Musculoskeletal exam: PRESENT: normal inspection. ABSENT: deformity Neurological exam: PRESENT: alert, awake, oriented to person, oriented to place, oriented to time, oriented to situation Psychiatric exam: PRESENT: appropriate affect, normal mood Skin exam: PRESENT: dry, warm Results Laboratory Results: 02/28/18 13:00 03/03/18 05:18 03/02/18 15:45 Hand - Not Specified Gram Stain - Final 02/28/18 02/28/18 13:00 15:09 CK-MB (CK-2) Cancelled 0.87 Troponin I Cancelled < 0.012 Impressions: Chest X-Ray 02/28/18 14:03 IMPRESSION: No evidence of acute cardiopulmonary process. Assessment & Plan - Diagnosis (1) Atrial fibrillation with RVR Is this a current diagnosis for this admission?: Yes Plan: She is responded well to being put back on her home dose of metoprolol. She is anticoagulated. We will see how she does today when she is active. (2) Dehydration Is this a current diagnosis for this admission?: Yes Plan: Resolved (3) Hypotension due to hypovolemia Is this a current diagnosis for this admission?: Yes Plan: Resolved (4) Acute kidney injury Is this a current diagnosis for this admission?: Yes Plan: Resolved (5) Loose stools Is this a current diagnosis for this admission?: Yes Plan: As needed Lomotil. She is never had this worked up and is a chronic problem, so we will need to have her follow-up with gastroenterology as an outpatient. (6) UTI (urinary tract infection) Qualifiers: Urinary tract infection type: acute cystitis Hematuria presence: with hematuria Qualified Code(s): N30.01 - Acute cystitis with hematuria Is this a current diagnosis for this admission?: Yes Plan: Is an E. coli. Will keep her on Rocephin until her blood culture finalizes. (7) Gram-negative bacteremia Is this a current diagnosis for this admission?: Yes Plan: We will continue Rocephin as it is likely that the gram-negative kesha in her blood is the E. coli from her urine. We will adjust coverage to the sensitivities. - Time Time Spent with patient: 25-34 minutes
[2018-03-04] MEDS: MULTIVITAMIN TABLET PO SCH (09:55)
[2018-03-04] MEDS: Vilazodone Hcl [Viibryd] 40 MG PO SCH (09:55)
[2018-03-04] MEDS: DIGOXIN 0.125 MG TABLET PO SCH (09:55)
[2018-03-04] MEDS: METOPROLOL TARTRATE 100 MG TABLET PO SCH ×2 (09:56→22:34)
[2018-03-04] MEDS: VITAMIN E (DL, ACETATE) 400 UNIT CAPSULE PO SCH (09:56)
[2018-03-04] MEDS: APIXABAN 5 MG TABLET PO SCH (09:56)
[2018-03-04] MEDS: FLUTICASONE/SALMETEROL DISKUS 250-50 MCG/DOSE IH SCH ×2 (09:57→22:35)
[2018-03-04] MEDS: BENZTROPINE MESYLATE 1 MG TABLET PO SCH (09:57)
[2018-03-04] MEDS: CEFTRIAXONE 1 GM/D5W RTU 1 GM/50 ML RTUPB IV SCH (09:59)
[2018-03-04] MEDS: ASPIRIN 81 MG TABLET, ENT COATED PO SCH (22:34)
[2018-03-04] MEDS: LAMOTRIGINE 100 MG TABLET PO SCH (22:34)
[2018-03-04] MEDS: MONTELUKAST SODIUM 10 MG TABLET PO SCH (22:34)
[2018-03-04] MEDS: APIXABAN 2.5 MG TABLET PO SCH (22:34)
[2018-03-05] MEDS: LEVOTHYROXINE SODIUM 0.1 MG TABLET PO SCH (05:25)
[2018-03-05] MEDS: LEVOTHYROXINE SODIUM 0.025 MG TABLET PO SCH (05:25)
[2018-03-05] MEDS: Vilazodone Hcl [Viibryd] 40 MG PO SCH (08:22)
[2018-03-05] MEDS: APIXABAN 2.5 MG TABLET PO SCH ×2 (08:22→21:05)
[2018-03-05] MEDS: METOPROLOL TARTRATE 100 MG TABLET PO SCH ×2 (10:20→21:04)
[2018-03-05] MEDS: CEFTRIAXONE 1 GM/D5W RTU 1 GM/50 ML RTUPB IV SCH (10:20)
[2018-03-05] MEDS: MULTIVITAMIN TABLET PO SCH (10:20)
[2018-03-05] MEDS: DIGOXIN 0.125 MG TABLET PO SCH (10:21)
[2018-03-05] MEDS: VITAMIN E (DL, ACETATE) 400 UNIT CAPSULE PO SCH (10:21)
[2018-03-05] MEDS: BENZTROPINE MESYLATE 1 MG TABLET PO SCH (10:21)
[2018-03-05] MEDS: BACITRACIN ZINC OINTMENT 15 GM TP SCH ×2 (10:22→17:18)
[2018-03-05] MEDS: DIPHENOXYLATE HCL/ATROP SULF 2.5-0.025 MG TABLET PO PRN (11:10)
--- NOTE | 2018-03-05 12:53 | PDOC PROGRESS REPORT ---
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 She was noted to be in Afib in the ER. She also had an GUADALUPE. She was started on IV fluids which improved her pressures. No acute event overnight. Her diarrhea has slightly improved and says she is still having loose stools. Heart rate is in the 80s when on bed. Per RN, patient sometimes go to the 130s when ambulates. Denies chest pain or SOB. Reason For Visit: HYPOTENSION, DEHYDRATION, AFIB/RVR Physical Exam Vital Signs: Temp Pulse Resp BP Pulse Ox 98.5 F 80 16 133/63 H 97 03/05/18 12:00 03/05/18 12:00 03/05/18 12:00 03/05/18 12:00 03/05/18 12:00 Intake & Output 03/04/18 03/05/18 03/06/18 06:59 06:59 06:59 Intake Total 2821 761 50 Output Total 425 Balance 2396 761 50 Weight 204 lb 12.951 oz 213 lb 2.992 oz General appearance: PRESENT: no acute distress, well-developed, well-nourished Head exam: PRESENT: atraumatic, normocephalic Eye exam: PRESENT: conjunctiva pink, EOMI, PERRLA. ABSENT: scleral icterus Ear exam: PRESENT: normal external ear exam Mouth exam: PRESENT: moist, tongue midline Neck exam: ABSENT: carotid bruit, JVD, lymphadenopathy, thyromegaly Respiratory exam: PRESENT: clear to auscultation carmen. ABSENT: rales, rhonchi, wheezes Cardiovascular exam: PRESENT: irregular rhythm. ABSENT: diastolic murmur, rubs, systolic murmur Pulses: PRESENT: normal dorsalis pedis pul GI/Abdominal exam: PRESENT: normal bowel sounds, soft. ABSENT: distended, guarding, mass, organolmegaly, rebound, tenderness Rectal exam: PRESENT: deferred Neurological exam: PRESENT: alert, awake, oriented to person, oriented to place, oriented to time, oriented to situation, CN II-XII grossly intact. ABSENT: motor sensory deficit Results Laboratory Results: 02/28/18 13:00 03/03/18 05:18 03/02/18 15:45 Hand - Not Specified Gram Stain - Final 03/02/18 15:45 Hand - Not Specified Wound Culture - Final Staphylococcus Aureus 02/28/18 13:00 Blood Blood Culture - Final Alcaligenes Species 02/28/18 02/28/18 13:00 15:09 CK-MB (CK-2) Cancelled 0.87 Troponin I Cancelled < 0.012 Impressions: Chest X-Ray 02/28/18 14:03 IMPRESSION: No evidence of acute cardiopulmonary process. Assessment & Plan - Diagnosis (1) Hypotension due to hypovolemia Is this a current diagnosis for this admission?: Yes Plan: Resolved with IV fluid resuscitation. (2) Atrial fibrillation with RVR Is this a current diagnosis for this admission?: Yes Plan: Rate controlled. Continue Eliquis and lopressor. (3) Acute kidney injury Is this a current diagnosis for this admission?: Yes Plan: Almost resolved. Crea from 3.6 to 0.9. - Time Time Spent with patient: 25-34 minutes
[2018-03-05] MEDS: FLUTICASONE/SALMETEROL DISKUS 250-50 MCG/DOSE IH SCH ×2 (16:46→21:05)
[2018-03-05] MEDS: MONTELUKAST SODIUM 10 MG TABLET PO SCH (21:04)
[2018-03-05] MEDS: LAMOTRIGINE 100 MG TABLET PO SCH (21:04)
[2018-03-05] MEDS: ASPIRIN 81 MG TABLET, ENT COATED PO SCH (21:04)
[2018-03-06] MEDS: LEVOTHYROXINE SODIUM 0.1 MG TABLET PO SCH (06:14)
[2018-03-06] MEDS: LEVOTHYROXINE SODIUM 0.025 MG TABLET PO SCH (06:14)
[2018-03-06] MEDS ORDERED: DILTIAZEM HCL 60 MG TABLET ONE (08:28)
[2018-03-06] MEDS: APIXABAN 2.5 MG TABLET PO SCH ×2 (08:36→20:14)
[2018-03-06] MEDS: Vilazodone Hcl [Viibryd] 40 MG PO SCH (08:36)
[2018-03-06] MEDS ORDERED: DILTIAZEM HCL 30 MG TABLET PO ONE (09:30)
[2018-03-06] MEDS: FLUTICASONE/SALMETEROL DISKUS 250-50 MCG/DOSE IH SCH ×2 (10:13→21:08)
[2018-03-06] MEDS: DIGOXIN 0.125 MG TABLET PO SCH (10:13)
[2018-03-06] MEDS: METOPROLOL TARTRATE 100 MG TABLET PO SCH ×2 (10:13→21:08)
[2018-03-06] MEDS: MULTIVITAMIN TABLET PO SCH (10:13)
[2018-03-06] MEDS: BACITRACIN ZINC OINTMENT 15 GM TP SCH ×2 (10:14→18:00)
[2018-03-06] MEDS: BENZTROPINE MESYLATE 1 MG TABLET PO SCH (10:15)
[2018-03-06] MEDS: VITAMIN E (DL, ACETATE) 400 UNIT CAPSULE PO SCH (10:15)
[2018-03-06] MEDS: CEFTRIAXONE 1 GM/D5W RTU 1 GM/50 ML RTUPB IV SCH (10:16)
[2018-03-06 12:24] LABS: ABSOLUTE LYMPHOCYTES (AUTO) 0.8 10^3/uL (0.5-4.7); ABSOLUTE MONOCYTES (AUTO) 0.8 10^3/uL (0.1-1.4); ABSOLUTE NEUT (AUTO) 8.9 10^3/uL (1.7-8.2); BASOPHILS % (AUTO) 0.4 % (0-2); HEMATOCRIT 29.5 % (36.0-47.0); HEMOGLOBIN 9.9 g/dL (12.0-15.5); LYMPHOCYTES % (AUTO) 7.6 % (13-45); MEAN CORPUSCULAR HEMOGLOBIN 29.6 pg (27.0-33.4); MEAN CORPUSCULAR HGB CONC 33.6 g/dL (32.0-36.0); MEAN CORPUSCULAR VOLUME 88 fl (80-97); MONOCYTES % (AUTO) 7.5 % (3-13); PLATELET COUNT 285 10^3/uL (150-450); RED BLOOD COUNT 3.34 10^6/uL (3.72-5.28); RED CELL DISTRIBUTION WIDTH 15.2 % (11.5-14.0); SEGMENTED NEUTROPHILS % (AUTO) 84.5 % (42-78); TOTAL CELLS COUNTED % (AUTO) 100 %; WHITE BLOOD COUNT 10.6 10^3/uL (4.0-10.5)
[2018-03-06 12:42] LABS: ANION GAP 7 (5-19); BLOOD UREA NITROGEN 17 mg/dL (7-20); CALCIUM 9.4 mg/dL (8.4-10.2); CARBON DIOXIDE 22 mmol/L (22-30); CHLORIDE 112 mmol/L (98-107); DIGOXIN 1.02 ng/mL (0.8-2.0); GLUCOSE 107 mg/dL (75-110); POTASSIUM 4.2 mmol/L (3.6-5.0); SODIUM 141.1 mmol/L (137-145)
--- NOTE | 2018-03-06 13:26 | PDOC PROGRESS REPORT ---
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 She was noted to be in Afib in the ER. She also had an GUADALUPE. She was started on IV fluids which improved her pressures. No acute event overnight. Heart rate is in the 80s when on bed but she does go to the 130-150s when ambulating. She says she is still having watery stools and that she had 3 watery, nonbloody BM overnight. She says this has been going for almost a year now and she was told she will need outpatient GI work-up for this. Denies chest pain or SOB. Reason For Visit: HYPOTENSION, DEHYDRATION, AFIB/RVR Physical Exam Vital Signs: Temp Pulse Resp BP Pulse Ox 98.1 F 105 H 16 158/83 H 99 03/06/18 07:49 03/06/18 07:49 03/06/18 07:49 03/06/18 07:49 03/06/18 07:49 Intake & Output 03/05/18 03/06/18 03/07/18 06:59 06:59 06:59 Intake Total 761 1042 50 Balance 761 1042 50 Weight 213 lb 2.992 oz 213 lb 13.574 oz General appearance: PRESENT: no acute distress, well-developed, well-nourished Head exam: PRESENT: atraumatic, normocephalic Eye exam: PRESENT: conjunctiva pink, EOMI, PERRLA. ABSENT: scleral icterus Ear exam: PRESENT: normal external ear exam Mouth exam: PRESENT: moist, tongue midline Neck exam: ABSENT: carotid bruit, JVD, lymphadenopathy, thyromegaly Respiratory exam: PRESENT: clear to auscultation carmen. ABSENT: rales, rhonchi, wheezes Cardiovascular exam: PRESENT: irregular rhythm. ABSENT: diastolic murmur, systolic murmur Pulses: PRESENT: normal dorsalis pedis pul GI/Abdominal exam: PRESENT: normal bowel sounds, soft. ABSENT: distended, guarding, mass, organolmegaly, rebound, tenderness Rectal exam: PRESENT: deferred Neurological exam: PRESENT: alert, awake, oriented to person, oriented to place, oriented to time, oriented to situation, CN II-XII grossly intact. ABSENT: m otor sensory deficit Results Laboratory Results: 03/06/18 11:34 03/06/18 11:34 03/06/18 03/06/18 03/06/18 11:34 11:34 11:34 WBC 10.6 H RBC 3.34 L Hgb 9.9 L Hct 29.5 L MCV 88 MCH 29.6 MCHC 33.6 RDW 15.2 H Plt Count 285 Seg Neutrophils % 84.5 H Lymphocytes % 7.6 L Monocytes % 7.5 Eosinophils % 0.0 Basophils % 0.4 Absolute Neutrophils 8.9 H Absolute Lymphocytes 0.8 Absolute Monocytes 0.8 Absolute Eosinophils 0.0 Absolute Basophils 0.0 Sodium 141.1 Potassium 4.2 Chloride 112 H Carbon Dioxide 22 Anion Gap 7 BUN 17 Creatinine 0.81 Est GFR ( Amer) > 60 Est GFR (Non-Af Amer) > 60 Glucose 107 Calcium 9.4 Magnesium 1.5 L TSH 0.99 02/28/18 12:55 Blood Blood Culture - Final NO GROWTH IN 5 DAYS 03/02/18 15:45 Hand - Not Specified Gram Stain - Final 03/02/18 15:45 Hand - Not Specified Wound Culture - Final Staphylococcus Aureus 02/28/18 13:00 Blood Blood Culture - Final Alcaligenes Species 02/28/18 02/28/18 13:00 15:09 CK-MB (CK-2) Cancelled 0.87 Troponin I Cancelled < 0.012 Impressions: Chest X-Ray 02/28/18 14:03 IMPRESSION: No evidence of acute cardiopulmonary process. Assessment & Plan - Diagnosis (1) Hypotension due to hypovolemia Is this a current diagnosis for this admission?: Yes Plan: Resolved with IV fluid resuscitation. (2) Atrial fibrillation with RVR Is this a current diagnosis for this admission?: Yes Plan: Rate controlled. She does go tachycardic into the 130-150s when she ambulates. This could be related to relative hypovolemia as she is still having diarrhea. Continue Eliquis, digoxin and lopressor. Will increase IV fluids to 125 cc/hr. (3) Acute kidney injury Is this a current diagnosis for this admission?: Yes Plan: Resolved. Crea from 3.6 to 0.8. Now at baseline. - Time Time Spent with patient: 25-34 minutes
[2018-03-06] MEDS: LOPERAMIDE HCL 2 MG CAPSULE PO PRN (18:00)
[2018-03-06] MEDS: MAGNESIUM SULFATE/D5W 1 GM/100 ML RTUPB IV SCH ×2 (20:25→21:22)
[2018-03-06] MEDS: MONTELUKAST SODIUM 10 MG TABLET PO SCH (21:08)
[2018-03-06] MEDS: ASPIRIN 81 MG TABLET, ENT COATED PO SCH (21:08)
[2018-03-06] MEDS: LAMOTRIGINE 100 MG TABLET PO SCH (21:08)
[2018-03-06] MEDS: DILTIAZEM HCL 30 MG TABLET PO SCH (21:10)
[2018-03-07] MEDS: DILTIAZEM HCL 30 MG TABLET PO SCH ×2 (05:10→13:57)
[2018-03-07] MEDS: LOPERAMIDE HCL 2 MG CAPSULE PO PRN (05:10)
[2018-03-07] MEDS: LEVOTHYROXINE SODIUM 0.025 MG TABLET PO SCH (05:10)
[2018-03-07] MEDS: LEVOTHYROXINE SODIUM 0.1 MG TABLET PO SCH (05:10)
[2018-03-07] MEDS: APIXABAN 2.5 MG TABLET PO SCH (08:30)
[2018-03-07] MEDS: Vilazodone Hcl [Viibryd] 40 MG PO SCH (08:30)
[2018-03-07] MEDS: FLUTICASONE/SALMETEROL DISKUS 250-50 MCG/DOSE IH SCH (10:40)
[2018-03-07] MEDS: MULTIVITAMIN TABLET PO SCH (10:41)
[2018-03-07] MEDS: DIGOXIN 0.125 MG TABLET PO SCH (10:41)
[2018-03-07] MEDS: METOPROLOL TARTRATE 100 MG TABLET PO SCH (10:41)
[2018-03-07] MEDS: BACITRACIN ZINC OINTMENT 15 GM TP SCH (10:41)
[2018-03-07] MEDS: VITAMIN E (DL, ACETATE) 400 UNIT CAPSULE PO SCH (10:42)
[2018-03-07] MEDS: CEFTRIAXONE 1 GM/D5W RTU 1 GM/50 ML RTUPB IV SCH (10:42)
[2018-03-07] MEDS: BENZTROPINE MESYLATE 1 MG TABLET PO SCH (10:43)
[2018-03-07 12:05] VITALS: BP 121/64
--- NOTE | 2018-03-07 15:57 | Progress Note ---
Provider Note Provider Note: ID Consult Note Asked to review chart of Ms Jade Woo by Dr Griffith and spoke with him briefly via telephone. Pt not seen or examined. Ms Woo is a 72 year old woman with PMH including obesity, AF, HTN, COPD and chronic intermittent diarrhea who presented on 02/28/18 to the [place] ED after being seen in her local doctor's office where she was found to have hypotension and tachycardia. She complained of diarrhea for at least the past month, if not longer, and admitted that her PO intake of fluids at home has not been very good. She denied chills or fever, blood in stool, or abdominal pain. She was afebrile but tachycardic. On exam she was found to be obese, disheveled appearing, to have 2/6 systolic murmur and irrregular rhythm, wearing dentures; otherwise without remarkable findings including clear lungs bilaterally, soft NT abdomen with NABS, no skin lesions. She was found to have GUADALUPE. CXR showed no evidence of an acute cardiopulmonary process. She was rehydrated. A urinalysis showed a large amount of leukocyte esterase and 31 WBC/hpf. Although she had no UTI symptoms, with a GNR reported from one blood culture bottle out of the four drawn on admission, she was assumed to have a bacteremic UTI and empirically given Rocephin on 03/01-03/07, while awaiting further results. The GNR that grew from one blood culture bottle was identified as Alcaligenes species. Pt improved with continued IV fluids and supportive care with resolution of her GUADALUPE and return to baseline renal function and was advised she will need outpatient GI workup for her chronic diarrhea. As she was doing well and did not appear to be septic and the organism in the urine was different from that from the blood culture, she was discharged. Impression/Recommendations I agree with Dr Griffith, the isolation of Alcaligenes species from a single blood culture bottle in this patient most likely represents pseudobacteremia or blood culture contamination rather than a true bacteremia. She did not appear septic. She was not clinically suspected of having an infection. She had been afebrile during her hospitalization. Alcaligenes species are GNR bacteria that are ubiquitous in the environment that can opportunistically act as pathogens in compromised hosts. Without an appropriate clinical context to suggest this as a true pathogen, I agree, this is most likely a contaminant and does not require dedicated antimicrobial therapy. Fidel De La Rosa MD [facility] Infectious Diseases pager [phone]
--- NOTE | 2018-03-07 18:24 | PDOC DISCHARGE SUMMARY ---
General - Admit/Disc Date/PCP Admission Date/Primary Care Provider: 02/28/18 19:14 JOEL PINEDA MD Discharge Date: 03/07/18 - Discharge Diagnosis (1) Hypotension due to hypovolemia Is this a current diagnosis for this admission?: Yes (2) Atrial fibrillation with RVR Is this a current diagnosis for this admission?: Yes (3) Acute kidney injury Is this a current diagnosis for this admission?: Yes - Additional Information Resuscitation Status: Full Code Discharge Diet: As Tolerated, Cardiac Discharge Activity: Activity As Tolerated, Balance Activity w/Rest Prescriptions: Amoxicillin/Potassium Clav [Augmentin 500-125 Tablet] 1 each PO BID #8 tablet Bacitracin Zinc [Bacitracin Oint 15 gm] 1 applic TP BID #1 tube Digoxin [Lanoxin 0.125 mg Tablet] 0.125 mg PO DAILY #30 tablet Diltiazem HCl [Cardizem 30 mg Tablet] 30 mg PO Q8 #90 tablet Levothyroxine Sodium [Synthroid 50 Mcg Tablet] 50 mcg PO DAILY #30 tablet Loperamide HCl [Imodium 2 mg Capsule] 2 mg PO Q6HP PRN #20 capsule PRN Reason: Metoprolol Tartrate [Lopressor 100 mg Tablet] 100 mg PO Q12 #60 tablet Home Medications: Aspirin [Aspirin EC] 81 mg PO DAILY 05/04/17 Solifenacin Succinate [Vesicare] 10 mg PO DAILY 05/04/17 Vitamin E 400 unit PO DAILY 05/04/17 Apixaban [Eliquis 5 mg Tablet] 5 mg PO Q12 11/06/17 Ergocalciferol (Vitamin D2) [Drisdol 50,000 unit (1.25MG) Capsule] 50,000 unit PO FR@1000 11/06/17 Multivitamin [Tab-A-Jesse (Multiple Vitamin) Tablet] 1 tab PO DAILY 11/06/17 Fluticasone/Salmeterol [Advair 500-50 Diskus 14 Dose/Diskus] 1 puff IN BID 02/28/18 Lamotrigine [Lamictal] 100 mg PO DAILY 02/28/18 Lisinopril [Zestril] 40 mg PO DAILY 02/28/18 Tiotropium Santaquin [Spiriva Handihaler 5 Cap/Kit (18 Mcg/Cap)] 1 cap IN BID 02/28/18 Vilazodone HCl [Viibryd] 40 mg PO DAILY 02/28/18 Acetaminophen [Tylenol 325 mg Tablet] 650 mg PO Q4HP PRN tablet 03/07/18 Amoxicillin/Potassium Clav [Augmentin 500-125 Tablet] 1 each PO BID #8 tablet 03/07/18 Bacitracin Zinc [Bacitracin Oint 15 gm] 1 applic TP BID #1 tube 03/07/18 Benztropine Mesylate [Cogentin 1 mg Tablet] 1 mg PO DAILY tablet 03/07/18 Digoxin [Lanoxin 0.125 mg Tablet] 0.125 mg PO DAILY #30 tablet 03/07/18 Diltiazem HCl [Cardizem 30 mg Tablet] 30 mg PO Q8 #90 tablet 03/07/18 Fluticasone/Salmeterol [Advair 250-50 Diskus 14 Dose/Diskus] 1 inh IH Q12 inhaler 03/07/18 Levothyroxine Sodium [Synthroid 50 Mcg Tablet] 50 mcg PO DAILY #30 tablet 03/07/18 Loperamide HCl [Imodium 2 mg Capsule] 2 mg PO Q6HP PRN #20 capsule 03/07/18 Metoprolol Tartrate [Lopressor 100 mg Tablet] 100 mg PO Q12 #60 tablet 03/07/18 Montelukast Sodium [Singulair 10 mg Tablet] 10 mg PO QHS tablet 03/07/18 History of Present Illness History of Present Illness: Admitting hospitalist's H&P: SHANTHI BRIGGS is a 72 year old female with a history of atrial fibrillation, hypertension on multiple medications, and chronic intermittent diarrhea who presents to the ER after 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 She says she has not been feeling good for several days. She has a history of this diarrhea that she says comes and goes, and is been going on for a few years. She is never seen a brass buffer for it. She is not been on any antibiotics lately. She has not been running a fever. She takes Imodium as needed at home. The last several days she has had several bouts of diarrhea a day, and admits that her oral intake of fluids is not been very good. She is continued to take her blood pressure medication. In the ER she got a couple of bags of IV fluids and this helped bring her blood pressure up and bring her heart rate down. She was also noted to have a substantially elevated BUN and creatinine. 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 She was noted to be in Afib in the ER. She also had an GUADALUPE. She was started on IV fluids which improved her pressures. She was on digoxin and lopressor. PO cardizem was also added. Her heart rate runs in the 80s at rest but she initially went up to the 150s when she ambulates down the hallways. This was eventually corrected with IV fluids and after adding cardizem. She later ambulated well with her heart only going up to the low 100s. She was also started on Rocephin for UTI. Urine culture grew E. coli. She will be sent home on 4 more days of Augmentin. She has chronic diarrhea which she says has been going on for years. She says she was supposed to be referred to a GI specialist for work-up but did not see one. Her C diff was negative. Her stools did became become more formed. She was given an appt with Dr. Meyer. She had superficial abrasions on the hands. She says she sustained this after a fall. When asked about frequency of falls at home as she is on a blood thinner, she says she accidentally tripped and does not have recurrent falls at home. Physical Exam Vital Signs: Temp Pulse Resp BP Pulse Ox 97.7 F 82 16 121/64 98 03/07/18 11:59 03/07/18 11:59 03/07/18 11:59 03/07/18 11:59 03/07/18 11:59 Intake & Output 03/06/18 03/07/18 03/08/18 06:59 06:59 06:59 Intake Total 1042 3138 50 Balance 1042 3138 50 Weight 213 lb 13.574 oz 215 lb 2.738 oz General appearance: PRESENT: no acute distress, well-developed, well-nourished Head exam: PRESENT: atraumatic, normocephalic Eye exam: PRESENT: conjunctiva pink, EOMI, PERRLA. ABSENT: scleral icterus Ear exam: PRESENT: normal external ear exam Mouth exam: PRESENT: moist, tongue midline Neck exam: ABSENT: carotid bruit, JVD, lymphadenopathy, thyromegaly Respiratory exam: PRESENT: clear to auscultation carmen. ABSENT: rales, rhonchi, wheezes Cardiovascular exam: PRESENT: irregular rhythm. ABSENT: systolic murmur Pulses: PRESENT: normal dorsalis pedis pul GI/Abdominal exam: PRESENT: normal bowel sounds, soft. ABSENT: distended, guarding, mass, organolmegaly, rebound, tenderness Rectal exam: PRESENT: deferred Neurological exam: PRESENT: alert, awake, oriented to person, oriented to place, oriented to time, oriented to situation, CN II-XII grossly intact. ABSENT: motor sensory deficit Skin exam: PRESENT: other - superficial skin abrasions Results Laboratory Results: 03/06/18 11:34 03/06/18 11:34 03/07/18 04:14 Magnesium 2.1 02/28/18 02/28/18 13:00 15:09 CK-MB (CK-2) Cancelled 0.87 Troponin I Cancelled < 0.012 Impressions: Chest X-Ray 02/28/18 14:03 IMPRESSION: No evidence of acute cardiopulmonary process. Qualifiers - * PATIENT BEING DISCHARGED WITH ANY OF THE FOLLOWING DIAGNOSIS: No
== END 2018-03-07 14:25 | disposition home health service (06) | DRG 309 ==
LOC: ER 12:27 → EH 19:14 → 3N 03-02 01:50
PROVIDERS: ADMIT Emergency Medicine; ATTEND Emergency Medicine
DX: I48.91 Unspecified atrial fibrillation (principal); N39.0 Urinary tract infection, site not specified; N17.9 Acute kidney failure, unspecified; I95.9 Hypotension, unspecified; K52.9 Noninfective gastroenteritis and colitis, unspecified; B96.20 Unspecified Escherichia coli [E. coli] as the cause of diseases classified elsewhere; E86.0 Dehydration; R00.0 Tachycardia, unspecified; E78.5 Hyperlipidemia, unspecified; I10 Essential (primary) hypertension; J44.9 Chronic obstructive pulmonary disease, unspecified; E03.9 Hypothyroidism, unspecified; K21.9 Gastro-esophageal reflux disease without esophagitis; F31.9 Bipolar disorder, unspecified; Z79.01 Long term (current) use of anticoagulants; Z79.82 Long term (current) use of aspirin; Z79.899 Other long term (current) drug therapy; Z87.891 Personal history of nicotine dependence
CPT/HCPCS: 36415; 71045; 80048; 80053; 80162; 81001; 82553; 82803; 83605; 83690; 83735; 84443; 84484; 85025; 87040; 87070; 87077; 87086; 87088; 87186; 87205; 87493; 93005; 93010; 96361; 96365; 99291; J0696; J1160; J3475; J3490; J7030; J7120

== ENCOUNTER 2018-04-22 12:30 | Inpatient (IN) | payer MEDICARE, OTHER ==
[2018-04-22] MEDS ORDERED: RINGERS SOLUTION,LACTATED 1,000 ML IV ONE (13:16)
--- NOTE | 2018-04-22 13:16 | ER Document Report ---
ED General - General Chief Complaint: Fever Stated Complaint: FEVER Time Seen by Provider: 04/22/18 13:07 Notes: Patient was sent from a local assisted because she had a fever. Reportedly, staff did an axillary temperature on the patient and it was 100.9 so they called EMS. EMS did an oral temp and it was 98.7. History is very limited because patient does not speak. There is no family here. There is no staff from the assisted here. Patient's mouth is very dry and looks like she is dehydrated. She also has a swollen right arm from unknown reasons. Reviewing the patient's chart shows she has a history of COPD, hypertension, chronic atrial fib, and bipolar disorder. 16:45 patient's is now here. Says patient had a stroke or seizures a month or so ago and was transferred to [facility] where she stayed for a couple of weeks was on a ventilator and in the ICU. He says that since that time she is not been able to raise her right arm. He says that she only talks in 1 or 2 word sentences. TRAVEL OUTSIDE OF THE [place] IN LAST 30 DAYS: No - Related Data Allergies/Adverse Reactions: cyclobenzaprine HCl [From Flexeril] Allergy (Unknown, Verified 12/07/17 10:30) Past Medical History - Social History Smoking Status: Unknown if Ever Smoked Family History: Reviewed & Not Pertinent - Past Medical History Cardiac Medical History: Reports: Hx Atrial Fibrillation, Hx Hypercholesterolemia, Hx Hypertension Pulmonary Medical History: Reports: Hx Asthma, Hx COPD Endocrine Medical History: Reports: Hx Hypothyroidism Malignancy Medical History: Reports: Hx Breast Cancer GI Medical History: Reports: Hx Gastroesophageal Reflux Disease Musculoskeletal Medical History: Reports Hx Arthritis Psychiatric Medical History: Reports: Hx Bipolar Disorder, Hx Depression Past Surgical History: Reports: Hx Breast Surgery, Hx Cholecystectomy, Hx Hysterectomy, Hx Tonsillectomy - Immunizations Hx Diphtheria, Pertussis, Tetanus Vaccination: Yes Review of Systems - Review of Systems -: Yes ROS unobtainable due to patient's medical condition - Patient is essentially nonverbal. Does not follow command. Physical Exam - Vital signs Vitals: Resp BP Pulse Ox 18 107/49 L 96 04/22/18 14:17 04/22/18 14:17 04/22/18 14:17 Interpretation: Normal Notes: PHYSICAL EXAMINATION: GENERAL: Aphasic, nonverbal. Vital signs by t EMS were all acceptable. HEAD: Atraumatic, normocephalic. EYES: Pupils equal round and reactive to light, extraocular movements intact. ENT: oropharynx clear without exudates. Oral mucous membranes very dry. NECK: Normal range of motion, supple. LUNGS: Breath sounds clear and equal bilaterally. HEART: Regular rate and rhythm without murmurs. ABDOMEN: Soft, nontender. No guarding or rebound. No masses. BACK: No tenderness throughout entire back. EXTREMITIES: Right arm is diffusely swollen from about mid upper arm all the way down to the hand. Superficial abrasions present on the dorsal forearm. No reported injury. Pads attached to both feet to prevent bedsores. NEUROLOGICAL: Does not speak. Does not stand or walk. Does not follow commands of movement of her extremities. PSYCH: Unable to assess. SKIN: Warm, dry, no rashes. Course - Re-evaluation Re-evalutation: 04/22/18 18:48 Patient's labs returned and shows that she has a UTI and appears to be dehydrated from the looks of her electrolytes. IV fluids were initiated. Patient was given a gram of Rocephin. Hospitalist contacted to admit the patient. 04/23/18 21:30 Late entry. Peripheral IV established in patient's right internal jugular vein, ultrasound guided by Dr. Almanzar. - Vital Signs Vital signs: Temp Pulse Resp BP Pulse Ox 98.4 F 104 H 14 146/52 H 98 04/23/18 21:01 04/23/18 21:01 04/23/18 21:01 04/23/18 21:01 04/23/18 21:01 - Laboratory Result Diagrams: 04/23/18 05:20 04/23/18 05:20 Laboratory results interpreted by me: 04/22/18 04/22/18 04/22/18 13:46 13:57 15:00 RBC 3.24 L Hgb 9.0 L Hct 28.2 L RDW 15.6 H Lymphocytes % 9.2 L Monocytes % 18.5 H PT 16.9 H Sodium Chloride BUN Est GFR (Non-Af Amer) AST Albumin Urine Nitrite POSITIVE H Ur Leukocyte Esterase LARGE H Urine Ascorbic Acid 40 H 04/22/18 15:00 RBC Hgb Hct RDW Lymphocytes % Monocytes % PT Sodium 149.7 H Chloride 116 H BUN 47 H Est GFR (Non-Af Amer) 57 L AST 71 H Albumin 2.9 L Urine Nitrite Ur Leukocyte Esterase Urine Ascorbic Acid - Diagnostic Test Radiology results interpreted by ok: 04/22/18 17:02 Chest x-ray. No acute processes.. X-rays of the patient's right humerus and right forearm read by radiology as showing no acute injurie. There is an appearance of possible fracture to me, but radiology did not see it. Patient's says that she fell 5 or more years ago and fractured that humeral head. - EKG Interpretation by In EKG shows normal: Sinus rhythm Rate: Tachycardia - Mild Additional EKG results interpreted by me: 04/22/18 19:02 EKG shows no acute changes. Nonspecific ST changes present. Discharge - Discharge Clinical Impression: Dehydration, UTI (urinary tract infection) Condition: Stable Disposition: ADMITTED INPATIENT Admitting Provider: Hospitalist Unit Admitted: [facility]
[2018-04-22 14:08] LABS: AMORPHOUS SEDIMENT,URINE TRACE /HPF; APPEARANCE,URINE CLOUDY; BILIRUBIN,URINE NEGATIVE (NEGATIVE); COLOR,URINE YELLOW; GLUCOSE, URINE NEGATIVE (NEGATIVE); KETONES,URINE NEGATIVE (NEGATIVE); LEUKOCYTE ESTERASE,URINE LARGE (NEGATIVE); NITRITE,URINE POSITIVE (NEGATIVE); PROTEIN,URINE NEGATIVE (NEGATIVE); URINE SPECIFIC GRAVITY 1.019; UROBILINOGEN,URINE NEGATIVE mg/dL (<2.0)
[2018-04-22 15:06] LABS: INTERNATIONAL RATION (INR) 1.31; PROTHROMBIN TIME 16.9 SEC (11.4-15.4)
[2018-04-22 15:16] LABS: ABSOLUTE BASOPHILS # (AUTO) 0.1 10^3/uL (0.0-0.2); ABSOLUTE LYMPHOCYTES (AUTO) 0.7 10^3/uL (0.5-4.7); ABSOLUTE MONOCYTES (AUTO) 1.3 10^3/uL (0.1-1.4); ABSOLUTE NEUT (AUTO) 5.1 10^3/uL (1.7-8.2); BASOPHILS % (AUTO) 0.8 % (0-2); HEMATOCRIT 28.2 % (36.0-47.0); LYMPHOCYTES % (AUTO) 9.2 % (13-45); MEAN CORPUSCULAR HEMOGLOBIN 27.9 pg (27.0-33.4); MEAN CORPUSCULAR HGB CONC 32.1 g/dL (32.0-36.0); MEAN CORPUSCULAR VOLUME 87 fl (80-97); MONOCYTES % (AUTO) 18.5 % (3-13); PLATELET COUNT 315 10^3/uL (150-450); RED BLOOD COUNT 3.24 10^6/uL (3.72-5.28); RED CELL DISTRIBUTION WIDTH 15.6 % (11.5-14.0); SEGMENTED NEUTROPHILS % (AUTO) 71.5 % (42-78); TOTAL CELLS COUNTED % (AUTO) 100 %; VENOUS BLOOD BASE EXCESS 1.9 mmol/L; VENOUS BLOOD HCO3 27.5 mmol/L (20-32); VENOUS BLOOD PCO2 48.4 mmHg (35-63); VENOUS BLOOD PH 7.37 (7.30-7.42); WHITE BLOOD COUNT 7.1 10^3/uL (4.0-10.5)
[2018-04-22 15:39] LABS: ALANINE AMINOTRANSFERASE 31 U/L (9-52); ALBUMIN 2.9 g/dL (3.5-5.0); ALKALINE PHOSPHATASE 76 U/L (38-126); ASPARTATE AMINO TRANSFERASE 71 U/L (14-36); BILIRUBIN,DIRECT 0.2 mg/dL (0.0-0.4); BILIRUBIN,TOTAL 0.3 mg/dL (0.2-1.3); BLOOD UREA NITROGEN 47 mg/dL (7-20); CALCIUM 10.2 mg/dL (8.4-10.2); GLUCOSE 109 mg/dL (75-110); POTASSIUM 4.5 mmol/L (3.6-5.0); TOTAL PROTEIN 6.4 g/dL (6.3-8.2)
[2018-04-22 15:46] LABS: ANION GAP 5 (5-19); CARBON DIOXIDE 29 mmol/L (22-30); CHLORIDE 116 mmol/L (98-107); SODIUM 149.7 mmol/L (137-145)
--- NOTE | 2018-04-22 15:49 | RADIOLOGY REPORT (SQ) ---
EXAM DESCRIPTION: FOREARM RIGHT COMPLETED DATE/TIME: 04/22/2018 3:41 pm REASON FOR STUDY: Diffusely swollen right arm, nonverbal patient COMPARISON: None. NUMBER OF VIEWS: Two views. TECHNIQUE: Two radiographic images acquired of the right forearm, including elbow and wrist in at le ast one projection. LIMITATIONS: None. FINDINGS: MINERALIZATION: Normal. BONES: No acute fracture. No worrisome bone lesions. SOFT TISSUES: Diffuse soft tissue swelling. No radiopaque foreign body. OTHER: No other significant finding. IMPRESSION: No fracture or dislocation of the right forearm. Diffuse soft tissue swelling about the right forearm. No radiopaque foreign body. TECHNICAL DOCUMENTATION: JOB ID: [id number] [employer]- All Rights Reserved Reading location - IP/workstation name: [email or web address]
--- NOTE | 2018-04-22 15:49 | RADIOLOGY REPORT (SQ) ---
EXAM DESCRIPTION: CHEST SINGLE VIEW COMPLETED DATE/TIME: 04/22/2018 3:41 pm REASON FOR STUDY: bed 15 sepsis protocol COMPARISON: 02/28/2018 EXAM PARAMETERS: NUMBER OF VIEWS: One view. TECHNIQUE: Single frontal radiographic view of the chest acquired. RADIATION DOSE: NA LIMITATIONS: None. FINDINGS: LUNGS AND PLEURA: No opacities, masses or pneumothorax. No pleural effusion. MEDIASTINUM AND HILAR STRUCTURES: No masses. Contour normal. HEART AND VASCULAR STRUCTURES: Heart normal in size. Normal vasculature. BONES: No acute findings. Dysmorphic appearance of the right humeral head, not significantly changed when compared to prior exam. HARDWARE: None in the chest. OTHER: No other significant finding. IMPRESSION: NO ACUTE RADIOGRAPHIC FINDING IN THE CHEST. TECHNICAL DOCUMENTATION: JOB ID: [id number] [employer]- All Rights Reserved Reading location - IP/workstation name: [email or web address]
--- NOTE | 2018-04-22 15:50 | RADIOLOGY REPORT (SQ) ---
EXAM DESCRIPTION: HUMERUS RIGHT COMPLETED DATE/TIME: 04/22/2018 3:41 pm REASON FOR STUDY: Diffusely swollen right arm. COMPARISON: None. NUMBER OF VIEWS: Two views. TECHNIQUE: Two radiographic images were acquired of the right humerus to include elbow and shoulder in at least one projection. LIMITATIONS: Limited lateral projection secondary to body habitus. FINDINGS: MINERALIZATION: Normal. BONES: No definite acute fracture or dislocation. Extensive degenerative changes the irregular appea dionne of the proximal humerus, similar to prior chest radiograph. SOFT TISSUES: Obesity. OTHER: No other significant finding. IMPRESSION: No definite acute bony abnormality. Extensive degenerative changes about the glenohumeral and acromioclavicular joint, similar to priors. TECHNICAL DOCUMENTATION: JOB ID: [id number] [employer]- All Rights Reserved Reading location - IP/workstation name: [email or web address]
[2018-04-22] MEDS ORDERED: CEFTRIAXONE 1 GM/D5W RTU 1 GM/50 ML RTUPB IV ONE (16:44)
[2018-04-22] MEDS ORDERED: ACETAMINOPHEN 325 MG TABLET PO PRN (17:57)
[2018-04-22] MEDS ORDERED: ONDANSETRON HCL INJ/PF 4 MG/2 ML SDV IV PRN (17:57)
--- NOTE | 2018-04-22 17:57 | PDOC H&P ---
History of Present Illness Admission Date/PCP: JOEL ESPINOZA MD History of Present Illness: SHANTHI BRIGGS is a 72 year old female patient, long-term resident at [facility], with past medical history of atrial fibrillation, hypertension, hyperlipidemia, COPD, history of breast cancer and bipolar disorder brought with chief complaint of fever. Reportedly staff did an axillary temperature the patient and it was 100.9 so they called EMS and EMS did an oral temp was 98.7. Since patient is nonverbal I got brief history from the ER attending note and her who is in the room during my encounter. Per her patient was admitted on March 24 at [facility] and he was told "she has damage to her posterior brain". Since then patient not able to move her rig ht arm and she is aphasic. Her blood work is unremarkable except for mild hyponatremia with sodium of 149 and her urinalysis is compatible with urinary tract infection. Her left arm is a swollen and on the posterior extensor surface there are multiple blisters most probably several pustules. Further detailed history and review of systems unobtainable. Past Medical History Cardiac Medical History: Reports: Atrial Fibrillation, Hyperlipidema, Hypertension Pulmonary Medical History: Reports: Asthma, Chronic Obstructive Pulmonary Disease (COPD) Endocrine Medical History: Reports: Hypothyroidism Malignancy Medical History: Reports: Breast Cancer GI Medical History: Reports: Gastroesophageal Reflux Disease Musculoskeltal Medical History: Reports: Arthritis Psychiatric Medical History: Reports: Bipolar Disorder, Depression Hematology: Denies: Anemia Past Surgical History Past Surgical History: Reports: Cholecystectomy, Hysterectomy, Tonsillectomy Social History Smoking Status: Unknown if Ever Smoked Frequency of Alcohol Use: None Hx Recreational Drug Use: No Drugs: None Hx Prescription Drug Abuse: No - Advance Directive Resuscitation Status: Do Not Resuscitate Family History Family History: Reviewed & Not Pertinent Parental Family History Reviewed: Yes Children Family History Reviewed: Yes Sibling(s) Family History Reviewed.: Yes Medication/Allergy Home Medications: Aspirin [Aspirin EC] 81 mg PO DAILY 05/04/17 Solifenacin Succinate [Vesicare] 10 mg PO DAILY 05/04/17 Vitamin E 400 unit PO DAILY 05/04/17 Apixaban [Eliquis 5 mg Tablet] 5 mg PO Q12 11/06/17 Ergocalciferol (Vitamin D2) [Drisdol 50,000 unit (1.25MG) Capsule] 50,000 unit PO FR@1000 11/06/17 Multivitamin [Tab-A-Jesse (Multiple Vitamin) Tablet] 1 tab PO DAILY 11/06/17 Fluticasone/Salmeterol [Advair 500-50 Diskus 14 Dose/Diskus] 1 puff IN BID 02/28/18 Lamotrigine [Lamictal] 100 mg PO DAILY 02/28/18 Lisinopril [Zestril] 40 mg PO DAILY 02/28/18 Tiotropium [place] [Spiriva Handihaler 5 Cap/Kit (18 Mcg/Cap)] 1 cap IN BID 02/28/18 Vilazodone HCl [Viibryd] 40 mg PO DAILY 02/28/18 Acetaminophen [Tylenol 325 mg Tablet] 650 mg PO Q4HP PRN tablet 03/07/18 Amoxicillin/Potassium Clav [Augmentin 500-125 Tablet] 1 each PO BID #8 tablet 03/07/18 Bacitracin Zinc [Bacitracin Oint 15 gm] 1 applic TP BID #1 tube 03/07/18 Benztropine Mesylate [Cogentin 1 mg Tablet] 1 mg PO DAILY tablet 03/07/18 Digoxin [Lanoxin 0.125 mg Tablet] 0.125 mg PO DAILY #30 tablet 03/07/18 Diltiazem HCl [Cardizem 30 mg Tablet] 30 mg PO Q8 #90 tablet 03/07/18 Fluticasone/Salmeterol [Advair 250-50 Diskus 14 Dose/Diskus] 1 inh IH Q12 inhaler 03/07/18 Levothyroxine Sodium [Synthroid 50 Mcg Tablet] 50 mcg PO DAILY #30 tablet 03/07/18 Loperamide HCl [Imodium 2 mg Capsule] 2 mg PO Q6HP PRN #20 capsule 03/07/18 Metoprolol Tartrate [Lopressor 100 mg Tablet] 100 mg PO Q12 #60 tablet 03/07/18 Montelukast Sodium [Singulair 10 mg Tablet] 10 mg PO QHS tablet 03/07/18 Allergies/Adverse Reactions: cyclobenzaprine HCl [From Flexeril] Allergy (Unknown, Verified 12/07/17 10:30) diphenhydramine HCl [From Benadryl] Allergy (Unknown, Verified 12/07/17 10:30) Review of Systems ROS unobtainable: Other - Aphasic Physical Exam Vital Signs: Temp Pulse Resp BP Pulse Ox 21 H 103/32 L 96 04/22/18 15:42 04/22/18 15:42 04/22/18 15:42 General appearance: PRESENT: no acute distress Eye exam: PRESENT: conjunctiva pink Mouth exam: PRESENT: dry mucosa Neck exam: ABSENT: carotid bruit, JVD, lymphadenopathy, thyromegaly Respiratory exam: PRESENT: clear to auscultation carmen. ABSENT: rales, rhonchi, wheezes Cardiovascular exam: PRESENT: irregular rhythm GI/Abdominal exam: PRESENT: normal bowel sounds, soft. ABSENT: distended, guarding, mass, organolmegaly, rebound, tenderness Neurological exam: PRESENT: alert, awake Results Laboratory Results: 04/22/18 15:00 04/22/18 15:00 04/22/18 04/22/18 04/22/18 13:46 15:00 15:00 WBC 7.1 RBC 3.24 L Hgb 9.0 L Hct 28.2 L MCV 87 MCH 27.9 MCHC 32.1 RDW 15.6 H Plt Count 315 Seg Neutrophils % 71.5 Lymphocytes % 9.2 L Monocytes % 18.5 H Eosinophils % 0.0 Basophils % 0.8 Absolute Neutrophils 5.1 Absolute Lymphocytes 0.7 Absolute Monocytes 1.3 Absolute Eosinophils 0.0 Absolute Basophils 0.1 VBG pH VBG pCO2 VBG HCO3 VBG Base Excess Sodium 149.7 H Potassium 4.5 Chloride 116 H Carbon Dioxide 29 Anion Gap 5 BUN 47 H Creatinine 0.96 Est GFR ( Amer) > 60 Est GFR (Non-Af Amer) 57 L Glucose 109 Lactic Acid Calcium 10.2 Total Bilirubin 0.3 AST 71 H ALT 31 Alkaline Phosphatase 76 Total Protein 6.4 Albumin 2.9 L Urine Color YELLOW Urine Appearance CLOUDY Urine pH 5.0 Ur Specific [place] 1.019 Urine Protein NEGATIVE Urine Glucose (UA) NEGATIVE Urine Ketones NEGATIVE Urine Blood NEGATIVE Urine Nitrite POSITIVE H Ur Leukocyte Esterase LARGE H Urine WBC (Auto) 173 Urine RBC (Auto) 9 04/22/18 04/22/18 15:00 15:00 WBC RBC Hgb Hct MCV MCH MCHC RDW Plt Count Seg Neutrophils % Lymphocytes % Monocytes % Eosinophils % Basophils % Absolute Neutrophils Absolute Lymphocytes Absolute Monocytes Absolute Eosinophils Absolute Basophils VBG pH 7.37 VBG pCO2 48.4 VBG HCO3 27.5 VBG Base Excess 1.9 Sodium Potassium Chloride Carbon Dioxide Anion Gap BUN Creatinine Est GFR ( Amer) Est GFR (Non-Af Amer) Glucose Lactic Acid 0.8 Calcium Total Bilirubin AST ALT Alkaline Phosphatase Total Protein Albumin Urine Color Urine Appearance Urine pH Ur Specific [place] Urine Protein Urine Glucose (UA) Urine Ketones Urine Blood Urine Nitrite Ur Leukocyte Esterase Urine WBC (Auto) Urine RBC (Auto) Impressions: Chest X-Ray 04/22/18 12:46 IMPRESSION: NO ACUTE RADIOGRAPHIC FINDING IN THE CHEST. Forearm X-Ray 04/22/18 13:18 IMPRESSION: No fracture or dislocation of the right forearm. Diffuse soft tissue swelling about the right forearm. No radiopaque foreign body. Humerus X-Ray 04/22/18 13:18 IMPRESSION: No definite acute bony abnormality. Extensive degenerative changes about the glenohumeral and acromioclavicular joint, similar to priors. Assessment & Plan - Diagnosis (1) Complicated UTI (urinary tract infection) Is this a current diagnosis for this admission?: Yes Plan: On testosterone ceftriaxone. (2) Right arm cellulitis Is this a current diagnosis for this admission?: Yes Plan: The ceftriaxone will cover both her UTI and her cellulitis. (3) Atrial fibrillation Is this a current diagnosis for this admission?: Yes Plan: Rate is controlled (4) COPD (chronic obstructive pulmonary disease) Qualifiers: Emphysema type: unspecified Is this a current diagnosis for this admission?: Yes Plan: As needed bronchodilator. (5) Hypertension Qualifiers: Hypertension type: essential hypertension Qualified Code(s): I10 - Essential (primary) hypertension Is this a current diagnosis for this admission?: Yes Plan: Continue home medication (6) Hyperlipidemia Is this a current diagnosis for this admission?: Yes Plan: Continue home medication - Inpatient Certification Medical Necessity: Need Close Monitoring Due to Risk of Patient Decompensation, Need for IV Antibiotics
[2018-04-22] MEDS ORDERED: ENOXAPARIN SODIUM INJ 40 MG/0.4 ML DISP.SYRIN SUBCUT SCH (18:00)
[2018-04-22] MEDS ORDERED: DEXTROSE 10%-WATER 1,000 ML IV PRN (18:03)
[2018-04-22] MEDS: CEFTRIAXONE 2 GM/D5W RTU 2 GM/50 ML RTUPB IV SCH (19:15)
[2018-04-22] MEDS: IPRATROPIUM/ALBUTEROL 0.5-2.5 MG/3 ML AMPUL NEB SCH (20:05)
--- NOTE | 2018-04-23 00:13 | EKG REPORT ---
SEVERITY:- OTHERWISE NORMAL ECG - SINUS TACHYCARDIA : Confirmed by: Dwayne Anderson 23-Apr-2018 00:12:51
[2018-04-23] MEDS: IPRATROPIUM/ALBUTEROL 0.5-2.5 MG/3 ML AMPUL NEB SCH ×4 (01:49→20:02)
[2018-04-23 05:53] LABS: ABSOLUTE LYMPHOCYTES (AUTO) 0.8 10^3/uL (0.5-4.7); ABSOLUTE MONOCYTES (AUTO) 1.3 10^3/uL (0.1-1.4); ABSOLUTE NEUT (AUTO) 4.9 10^3/uL (1.7-8.2); BASOPHILS % (AUTO) 0.4 % (0-2); EOSINOPHILS % (AUTO) 0.1 % (0-6); HEMATOCRIT 27.4 % (36.0-47.0); LYMPHOCYTES % (AUTO) 11.2 % (13-45); MEAN CORPUSCULAR HEMOGLOBIN 28.4 pg (27.0-33.4); MEAN CORPUSCULAR HGB CONC 32.7 g/dL (32.0-36.0); MEAN CORPUSCULAR VOLUME 87 fl (80-97); MONOCYTES % (AUTO) 18.8 % (3-13); PLATELET COUNT 277 10^3/uL (150-450); RED BLOOD COUNT 3.15 10^6/uL (3.72-5.28); RED CELL DISTRIBUTION WIDTH 15.7 % (11.5-14.0); SEGMENTED NEUTROPHILS % (AUTO) 69.5 % (42-78); TOTAL CELLS COUNTED % (AUTO) 100 %
[2018-04-23 06:28] LABS: ANION GAP 6 (5-19); BLOOD UREA NITROGEN 43 mg/dL (7-20); CALCIUM 10.5 mg/dL (8.4-10.2); CARBON DIOXIDE 26 mmol/L (22-30); CHLORIDE 117 mmol/L (98-107); GLUCOSE 145 mg/dL (75-110); POTASSIUM 4.1 mmol/L (3.6-5.0)
[2018-04-23] MEDS ORDERED: MORPHINE SULFATE 10 MG/ML INJ IV PRN (09:08)
[2018-04-23] MEDS ORDERED: [UNRECOGNIZED DRUG - OTHER] TP SCH (10:00)
[2018-04-23] MEDS ORDERED: LEVETIRACETAM 500 MG TABLET PO SCH (10:00)
[2018-04-23] MEDS ORDERED: (PENDING PHARMACY ID) (Fluticasone/Salmeterol 1 PUFF) IH SCH (10:00)
--- NOTE | 2018-04-23 12:13 | PDOC PROGRESS REPORT ---
Subjective Progress Note for:: 04/23/18 Subjective:: 72 year old female patient, [facility] resident at [facility], with past medical history of atrial fibrillation, hypertension, hyperlipidemia, COPD, history of breast cancer and bipolar disorder brought with chief complaint of fever. Reportedly staff did an axillary temperature the patient and it was 100.9 so they called EMS and EMS did an oral temp was 98.7. Since patient is nonverbal I got brief history from the ER attending note and her who is in the room during my encounter. Per her patient was admitted on March 24 at [facility] and he was told "she has damage to her posterior brain". Since then patient not able to move her right arm and she is aphasic. Her blood work is unremarkable except for mild hyponatremia with sodium of 149 and her urinalysis is compatible with urinary tract infection. Her left arm is a swo llen and on the posterior extensor surface there are multiple blisters most probably several pustules. Further detailed history and review of systems unobtainable. 04/23/2018-patient is in bed she is in excruciating pain and found to have a right arm was swollen with pustules looks like happens to me so wound culture was sent, started on acyclovir, started on prednisone and patient was started on IV morphine 1 mg every 2 hours as needed for pain. Patient vital signs today T- max is 98.6. Overall condition is critical prognosis is poor. Patient is DNR/DNI. Reason For Visit: COMPLICATED UTI, RIGHT ARM CELLULITIS Physical Exam Vital Signs: Temp Pulse Resp BP Pulse Ox 98.0 F 99 16 159/54 H 94 04/23/18 03:57 04/23/18 08:13 04/23/18 08:13 04/23/18 03:57 04/23/18 08:13 Intake & Output 04/22/18 04/23/18 04/24/18 06:59 06:59 06:59 Intake Total 1050 Output Total 600 Balance 450 Weight 81 kg General appearance: PRESENT: obese, severe distress Head exam: PRESENT: atraumatic Eye exam: PRESENT: PERRLA Mouth exam: PRESENT: moist, tongue midline Neck exam: ABSENT: carotid bruit, JVD, lymphadenopathy, thyromegaly Respiratory exam: PRESENT: clear to auscultation carmen. ABSENT: rales, rhonchi, wheezes Cardiovascular exam: PRESENT: irregular rhythm, systolic murmur, tachycardia GI/Abdominal exam: PRESENT: normal bowel sounds, soft. ABSENT: distended, guarding, mass, organolmegaly, rebound, tenderness Extremities exam: PRESENT: other - Right arm was swollen with the dermatomal d istribution of the pustules. On touch she is complaining of excruciating pain. The right hand was also swollen. Neurological exam: PRESENT: alert, awake, CN II-XII grossly intact Psychiatric exam: PRESENT: anxious Results Laboratory Results: 04/23/18 05:20 04/23/18 05:20 04/22/18 04/22/18 04/22/18 13:46 15:00 15:00 WBC 7.1 RBC 3.24 L Hgb 9.0 L Hct 28.2 L MCV 87 MCH 27.9 MCHC 32.1 RDW 15.6 H Plt Count 315 Seg Neutrophils % 71.5 Lymphocytes % 9.2 L Monocytes % 18.5 H Eosinophils % 0.0 Basophils % 0.8 Absolute Neutrophils 5.1 Absolute Lymphocytes 0.7 Absolute Monocytes 1.3 Absolute Eosinophils 0.0 Absolute Basophils 0.1 VBG pH VBG pCO2 VBG HCO3 VBG Base Excess Sodium 149.7 H Potassium 4.5 Chloride 116 H Carbon Dioxide 29 Anion Gap 5 BUN 47 H Creatinine 0.96 Est GFR ( Amer) > 60 Est GFR (Non-Af Amer) 57 L Glucose 109 Lactic Acid Calcium 10.2 Total Bilirubin 0.3 AST 71 H ALT 31 Alkaline Phosphatase 76 Total Protein 6.4 Albumin 2.9 L Urine Color YELLOW Urine Appearance CLOUDY Urine pH 5.0 Ur Specific [place] 1.019 Urine Protein NEGATIVE Urine Glucose (UA) NEGATIVE Urine Ketones NEGATIVE Urine Blood NEGATIVE Urine Nitrite POSITIVE H Ur Leukocyte Esterase LARGE H Urine WBC (Auto) 173 Urine RBC (Auto) 9 04/22/18 04/22/18 04/23/18 15:00 15:00 05:20 WBC 7.0 RBC 3.15 L Hgb 9.0 L Hct 27.4 L MCV 87 MCH 28.4 MCHC 32.7 RDW 15.7 H Plt Count 277 Seg Neutrophils % 69.5 Lymphocytes % 11.2 L Monocytes % 18.8 H Eosinophils % 0.1 Basophils % 0.4 Absolute Neutrophils 4.9 Absolute Lymphocytes 0.8 Absolute Monocytes 1.3 Absolute Eosinophils 0.0 Absolute Basophils 0.0 VBG pH 7.37 VBG pCO2 48.4 VBG HCO3 27.5 VBG Base Excess 1.9 Sodium Potassium Chloride Carbon Dioxide Anion Gap BUN Creatinine Est GFR ( Amer) Est GFR (Non-Af Amer) Glucose Lactic Acid 0.8 Calcium Total Bilirubin AST ALT Alkaline Phosphatase Total Protein Albumin Urine Color Urine Appearance Urine pH Ur Specific [place] Urine Protein Urine Glucose (UA) Urine Ketones Urine Blood Urine Nitrite Ur Leukocyte Esterase Urine WBC (Auto) Urine RBC (Auto) 04/23/18 05:20 WBC RBC Hgb Hct MCV MCH MCHC RDW Plt Count Seg Neutrophils % Lymphocytes % Monocytes % Eosinophils % Basophils % Absolute Neutrophils Absolute Lymphocytes Absolute Monocytes Absolute Eosinophils Absolute Basophils VBG pH VBG pCO2 VBG HCO3 VBG Base Excess Sodium 149.0 H Potassium 4.1 Chloride 117 H Carbon Dioxide 26 Anion Gap 6 BUN 43 H Creatinine 0.89 Est GFR ( Amer) > 60 Est GFR (Non-Af Amer) > 60 Glucose 145 H Lactic Acid Calcium 10.5 H Total Bilirubin AST ALT Alkaline Phosphatase Total Protein Albumin Urine Color Urine Appearance Urine pH Ur Specific [place] Urine Protein Urine Glucose (UA) Urine Ketones Urine Blood Urine Nitrite Ur Leukocyte Esterase Urine WBC (Auto) Urine RBC (Auto) Impressions: Chest X-Ray 04/22/18 12:46 IMPRESSION: NO ACUTE RADIOGRAPHIC FINDING IN THE CHEST. Forearm X-Ray 04/22/18 13:18 IMPRESSION: No fracture or dislocation of the right forearm. Diffuse soft tissue swelling about the right forearm. No radiopaque foreign body. Humerus X-Ray 04/22/18 13:18 IMPRESSION: No definite acute bony abnormality. Extensive degenerative changes about the glenohumeral and acromioclavicular joint, similar to priors. Assessment and Plan - Diagnosis (1) Complicated UTI (urinary tract infection) Is this a current diagnosis for this admission?: Yes Plan: 04/23/18 12:08 Patient came in with complicated UTI cultures from the Fishman's catheter shows gram-negative rods on Rocephin and IV levofloxacin 750 mg daily. Blood cultures are pending. Plan is to continue other management. (2) Right arm cellulitis Is this a current diagnosis for this admission?: Yes Plan: 04/23/2018-patient came in with right arm cellulitis she has pustules in a dermatomal distribution suggestive of her previous started on acyclovir and consultation with ID was requested. Also started on prednisone 10 mg p.o. twice daily for swelling. (3) Atrial fibrillation Is this a current diagnosis for this admission?: No Plan: 04/23/18 12:10 04/23/2018 patient has chronic atrial fibrillation on Eliquis at [facility] which was resumed here in the hospital. (4) COPD (chronic obstructive pulmonary disease) Qualifiers: Emphysema type: unspecified Is this a current diagnosis for this admission?: No Plan: 04/23/18 12:11 04/23/2018 patient has history of COPD pulse ox here 94% on room air. Plan is to restart the bronchodilators patient is taking at [facility]. (5) Severe pain Is this a current diagnosis for this admission?: Yes Plan: 04/23/18 12:12 04/23/2018 patient has a severe right arm pain secondary to skin infection/cellulitis started on IV morphine 1 mg every 2 hours as needed. - Time Time Spent with patient: 25-34 minutes Medications reviewed and adjusted accordingly: Yes Anticipated discharge: SNF
[2018-04-23] MEDS: MORPHINE SULFATE 10 MG/ML INJ IV PRN ×4 (12:30→18:55)
[2018-04-23] MEDS ORDERED: MORPHINE SULFATE 10 MG/ML INJ ONE (12:33)
[2018-04-23] MEDS: CEFTRIAXONE 2 GM/D5W RTU 2 GM/50 ML RTUPB IV SCH (12:56)
[2018-04-23] MEDS ORDERED: ACYCLOVIR 800 MG TABLET PO SCH (14:00)
[2018-04-23] MEDS: DIPHENHYDRAMINE HCL 50 MG/ML VIAL IV PRN ×2 (14:56→18:54)
--- NOTE | 2018-04-23 15:51 | Progress Note ---
Provider Note Provider Note: ID Consult Note Asked to review patient's chart by Dr. Berrios. Pt is not seen or examined. Ms. Woo is a 72 year old woman with PMH including COPD, history of breast cancer, SKYLA noncompliant with CPAP, bipolar disorder, AF, urinary frequency, hypothyroidism, HTN, chronic avascular necrosis R shoulder, and recent admission for AMS and seizures and had MRI imaging c/w PRES. Since discharge she has been at [facility], which is where she was reported to have a fever. The [facility] sent her to [place] [facility] and she was admitted on 04/22. Pt was thought to have a UTI based on fever and abnormal U/A with pyuria and leukocyte esterase in the urine. The UCx has gram negative rods preliminarily reported to be growing. Rocephin was empirically started. On admission, she was noted to have RUE swelling from mid upper arm to the hand with multiple blisters on the posterior extensor surface. The patient was noted to have associated pain. Acyclovir was started for suspicion of zoster. Impression/Recommendations Herpes zoster involving the R arm - Lesions are described as involving the extensor surface of the RUE from mid upper arm to around the level of the hand, which may correspond to either a C6 or T1 dermatome (depending on whether this is more radial or ulnar). - Diagnosis * Can be made clinically * But if there is any concern about whether she has vesicular lesions due to another etiology, to confirm the diagnosis, I would try to get DFA (direct fluroescent antibiodies, immunofluoresence - [facility] test [id number]) or PCR from a scraping the base of an unroofed vesicle. * VZV viral culture is slow and insensitive. - Adjunctive steroids * Controversial. Some studies showing reduction in pain and facilitating return to normal activities but others not, and a meta-analysis of placebo controlled trials found no reduction in PHN risk with steroids. * She has HTN and hx of PRES, so steroids would need to be kept low dose if used. She is currently only getting 20 mg prednisone a day. - Antiviral * Can treat with acyclovir 800 mg five times daily, but Valtrex 1 g q8h PO x 7 days would be less demanding on nursing staff and easier for compliance. * Suggest switch to Valtrex - Isolation * Contact isolation is appropriate until all lesions are crusted over. * Unless immunocompromised / disseminated zoster, there should be no need for airborne precautions. Suspected asymptomatic bacteriuria / urinary colonization - U/A is very sensitive but not specific for UTI and cannot be used to make diagnosis of UTI. UTI diagnosis depends on compatible symptoms. - The patient's presenting problem of fever has a clear alternative etiology if she has herpes zoster or shingles. Fever in this setting does not necessarily mean she has UTI. - Pt has urinary frequency at baseline, so it might not be a very good way of assessing whether she has a UTI. - If she has suprapubic pain or tenderness on exam and dysuria, treating the patient for a UTI is reasonable. - If she does not have compatible irritative urinary symptoms, I would stop Rocephin. Asymptomatic bacteriuria does not benefit from antibiotics. Fidel De La Rosa MD [facility] pager [phone]
[2018-04-23] MEDS: APIXABAN 5 MG TABLET PO SCH ×2 (16:02→21:34)
[2018-04-23] MEDS: CARVEDILOL 12.5 MG TABLET PO SCH ×2 (16:02→21:34)
[2018-04-23] MEDS: DIGOXIN 0.125 MG TABLET PO SCH (16:02)
[2018-04-23] MEDS: CLOTRIMAZOLE 1% CREAM 15 GM TP SCH ×2 (16:03→19:19)
[2018-04-23] MEDS: MULTIVITAMIN ORAL LIQUID 60 ML PO SCH (16:04)
--- NOTE | 2018-04-23 17:56 | RADIOLOGY REPORT (SQ) ---
EXAM DESCRIPTION: CT RT UPPER EXTREMITY WITHOUT COMPLETED DATE/TIME: 04/23/2018 5:39 pm REASON FOR STUDY: rt arm swelling COMPARISON: Plain radiographs TECHNIQUE: Axial imaging performed through the right arm with reformatted coronal and sagittal imagi ng windowed for bone and soft tissues. Images saved to PACS. 3D IMAGING: Were 3D images as MIP, SSD, or volume rendering performed at the work station? No All CT scanners at this facility use dose modulation, iterative reconstruction, and/or weight based d osing when appropriate to reduce radiation dose to as low as reasonably achievable (ALARA). [facility]: Dose Right [facility]: CareDose [facility]: Dose Right [facility]: Teradose 4D [facility]: [employer] LIMITATIONS: Limited value of CT for soft tissues. Anatomic positioning resulting in beam hardening artifact. RADIATION DOSE: CT Rad equipment meets quality standard of care and radiation dose reduction techniq ues were employed. CTDIvol: 2.6 mGy. DLP: 171 mGy-cm. mGy. FINDINGS: SOFT TISSUES: Cannot assess. Positioning across the body limiting. No obvious foreign gianni dy. BONES: No acute fracture. No dislocation. MINERALIZATION: Normal. OTHER: No other significant finding. IMPRESSION: Extremely limited study. No occult fracture. TECHNICAL DOCUMENTATION: JOB ID: [id number] Quality ID # [id number]: Final reports with documentation of one or more dose reduction techniques (e.g., Au tomated exposure control, adjustment of the mA and/or kV according to patient size, use of iterative reconstruction technique) 2010 [employer]- All Rights Reserved Reading location - IP/workstation name: [email or web address]
[2018-04-23] MEDS: PREDNISONE 10 MG TABLET PO SCH (18:55)
[2018-04-23] MEDS: FLUTICASONE/VILANTEROL 200-25 MCG/DOSE IH SCH (19:01)
[2018-04-23] MEDS: HYDRALAZINE HCL 25 MG TABLET PO SCH ×2 (19:02→21:33)
[2018-04-23] MEDS: GABAPENTIN 100 MG CAPSULE PO SCH (21:33)
[2018-04-23] MEDS: ATORVASTATIN CALCIUM 40 MG TABLET PO SCH (21:34)
[2018-04-23] MEDS: VALACYCLOVIR HCL 500 MG TABLET PO SCH (21:35)
[2018-04-24] MEDS: IPRATROPIUM/ALBUTEROL 0.5-2.5 MG/3 ML AMPUL NEB SCH ×4 (02:08→19:17)
--- NOTE | 2018-04-24 04:06 | PDOC CONSULTATION ---
Consultation Consult Date: 04/24/18 Consult reason:: swollen right arm History of Present Illness Admission Date/PCP: 04/22/18 17:38 JOEL ESPINOZA MD Patient complains of: pains right arm History of Present Illness: SHANTHI BRIGGS is a 72 year old female noted painful swelling of right arm 2 days ago in the NH. Brought to ED and subsequently admitted for cellulitis right arm with areas of blister formation and erythema. Surgery is being consulted to help with the etiology. Patient denies trauma. Past Medical History Cardiac Medical History: Reports: Atrial Fibrillation, Hyperlipidema, Hypertension Pulmonary Medical History: Reports: Asthma, Chronic Obstructive Pulmonary Disease (COPD) Endocrine Medical History: Reports: Hypothyroidism Malignancy Medical History: Reports: Breast Cancer GI Medical History: Reports: Gastroesophageal Reflux Disease Musculoskeltal Medical History: Reports: Arthritis Psychiatric Medical History: Reports: Bipolar Disorder, Depression Hematology: Denies: Anemia Past Surgical History Past Surgical History: Reports: Cholecystectomy, Hysterectomy, Tonsillectomy Social History Smoking Status: Unknown if Ever Smoked Frequency of Alcohol Use: None Hx Recreational Drug Use: No Drugs: None Hx Prescription Drug Abuse: No - Advance Directive Resuscitation Status: Do Not Resuscitate Family History Family History: Reviewed & Not Pertinent Parental Family History Reviewed: No Children Family History Reviewed: No Sibling(s) Family History Reviewed.: No Medication/Allergy Home Medications: Acetaminophen [Tylenol Susp 160 mg/5 ml Oral Syring] 650 mg PO Q4HP PRN 04/22/18 Apixaban [Eliquis 5 mg Tablet] 5 mg PO Q12 04/22/18 Aspirin [Adult Low Dose Aspirin EC] 81 mg PO QAM 04/22/18 Atorvastatin Calcium [Lipitor 40 mg Tablet] 40 mg PO QHS 04/22/18 Carvedilol [Coreg 12.5 mg Tablet] 12.5 mg PO Q12 04/22/18 Cholecalciferol (Vitamin D3) [Vitamin D3 400 Unit/ml Drops] 400 unit PO QAM 04/22/18 Clonidine HCl [Catapres 0.1 mg Tablet] 0.1 mg PO Q8 04/22/18 Clotrimazole [Lotrimin AF] 1 applic TP BID 04/22/18 Digoxin [Lanoxin] 125 mcg PO DAILY 04/22/18 Famotidine [Pepcid 20 mg Tablet] 20 mg PO BID 04/22/18 Fluticasone/Salmeterol [Advair 500-50 Diskus 14 Dose/Diskus] 1 puff IH Q12 04/22/18 Folic Acid [Folvite 1 mg Tablet] 1 mg PO QAM 04/22/18 Gabapentin [Neurontin 100 mg Capsule] 100 mg PO QHS 04/22/18 Hydralazine HCl [Apresoline 25 mg Tablet] 75 mg PO Q8 04/22/18 Hydrocortisone/Oatmeal/Aloe/E [Hydrocortisone 1% Cream] 1 applic TP BID 04/22/18 Lamotrigine [Lamictal] 100 mg PO QAM 04/22/18 Levetiracetam [Keppra 500 mg Tablet] 500 mg PO Q12 04/22/18 Levothyroxine Sodium [Synthroid 50 Mcg Tablet] 50 mcg PO Q6AM 04/22/18 Montelukast Sodium [Singulair 10 mg Tablet] 10 mg PO QAM 04/22/18 Multivitamin [Multiple Vitamin Liquid 60 ml] 15 mg PO DAILY 04/22/18 Allergies/Adverse Reactions: cyclobenzaprine HCl [From Flexeril] Allergy (Unknown, Verified 12/07/17 10:30) Review of Systems Constitutional: PRESENT: other - no fever Eyes: PRESENT: other - no visual/hearing changes Gastrointestinal: PRESENT: other - no pains Genitourinary: PRESENT: other - no dysuria Integumentary: PRESENT: erythema, rash, other - multiple small blisters with light yellow discoloration and surrounding erythema Physical Exam Vital Signs: Temp Pulse Resp BP Pulse Ox 98.4 F 98 14 127/44 H 92 04/24/18 00:23 04/24/18 02:10 04/24/18 02:10 04/24/18 00:23 04/24/18 02:10 Intake & Output 04/22/18 04/23/18 04/24/18 06:59 06:59 06:59 Intake Total 1050 237 Output Total 600 1275 Balance 450 -1038 Weight 81 kg 81 kg General appearance: PRESENT: mild distress Head exam: PRESENT: atraumatic Eye exam: PRESENT: conjunctiva pink Mouth exam: PRESENT: moist Neck exam: PRESENT: full ROM Respiratory exam: PRESENT: clear to auscultation carmen Cardiovascular exam: PRESENT: irregular rhythm Pulses: PRESENT: normal radial pulses Vascular exam: PRESENT: normal capillary refill, other - good palpable right arm pulses GI/Abdominal exam: PRESENT: soft Rectal exam: PRESENT: deferred Extremities exam: PRESENT: tenderness, other - right arm and fajardo swelling with multiple small blisters and some erythematous rashes tender. Swelling is relatively soft Results Laboratory Results: 04/23/18 05:20 04/23/18 05:20 04/23/18 04/23/18 05:20 05:20 WBC 7.0 RBC 3.15 L Hgb 9.0 L Hct 27.4 L MCV 87 MCH 28.4 MCHC 32.7 RDW 15.7 H Plt Count 277 Seg Neutrophils % 69.5 Lymphocytes % 11.2 L Monocytes % 18.8 H Eosinophils % 0.1 Basophils % 0.4 Absolute Neutrophils 4.9 Absolute Lymphocytes 0.8 Absolute Monocytes 1.3 Absolute Eosinophils 0.0 Absolute Basophils 0.0 Sodium 149.0 H Potassium 4.1 Chloride 117 H Carbon Dioxide 26 Anion Gap 6 BUN 43 H Creatinine 0.89 Est GFR ( Amer) > 60 Est GFR (Non-Af Amer) > 60 Glucose 145 H Calcium 10.5 H Impressions: Chest X-Ray 04/22/18 12:46 IMPRESSION: NO ACUTE RADIOGRAPHIC FINDING IN THE CHEST. Forearm X-Ray 04/22/18 13:18 IMPRESSION: No fracture or dislocation of the right forearm. Diffuse soft tissue swelling about the right forearm. No radiopaque foreign body. Humerus X-Ray 04/22/18 13:18 IMPRESSION: No definite acute bony abnormality. Extensive degenerative changes about the glenohumeral and acromioclavicular joint, similar to priors. Upper Extremity CT 04/23/18 00:00 IMPRESSION: Extremely limited study. No occult fracture. Assessment & Plan - Diagnosis (1) Right arm cellulitis Is this a current diagnosis for this admission?: Yes (2) Leukocytosis Qualifiers: Leukocytosis type: bandemia Qualified Code(s): D72.825 - Bandemia Is this a current diagnosis for this admission?: Yes - Time Time Spent: 30 to 50 Minutes - Plan Summary Plan Summary: Just had venous ultrasound negative for DVT/SVT which should R/O blood clots Also has good circulation with intact pulses. This should R/O arterialobstruction/insufficiency Suspect swelling either due to allergic reaction vs. infectious in origin
[2018-04-24] MEDS: MORPHINE SULFATE 10 MG/ML INJ IV PRN ×2 (06:33→12:04)
[2018-04-24 06:40] LABS: HEMATOCRIT 23.5 % (36.0-47.0); MEAN CORPUSCULAR HEMOGLOBIN 28.2 pg (27.0-33.4); MEAN CORPUSCULAR HGB CONC 32.9 g/dL (32.0-36.0); MEAN CORPUSCULAR VOLUME 86 fl (80-97); PLATELET COUNT 226 10^3/uL (150-450); RED BLOOD COUNT 2.74 10^6/uL (3.72-5.28); RED CELL DISTRIBUTION WIDTH 15.6 % (11.5-14.0); WHITE BLOOD COUNT 6.4 10^3/uL (4.0-10.5)
[2018-04-24] MEDS: LEVOTHYROXINE SODIUM 0.05 MG TABLET PO SCH (06:40)
[2018-04-24] MEDS: VALACYCLOVIR HCL 500 MG TABLET PO SCH ×3 (06:40→21:49)
[2018-04-24] MEDS: HYDRALAZINE HCL 25 MG TABLET PO SCH ×3 (06:40→21:47)
[2018-04-24 07:06] LABS: ALANINE AMINOTRANSFERASE 51 U/L (9-52); ALBUMIN 2.2 g/dL (3.5-5.0); ALKALINE PHOSPHATASE 71 U/L (38-126); ANION GAP 7 (5-19); ASPARTATE AMINO TRANSFERASE 105 U/L (14-36); BILIRUBIN,DIRECT 0.2 mg/dL (0.0-0.4); BILIRUBIN,TOTAL 0.2 mg/dL (0.2-1.3); BLOOD UREA NITROGEN 35 mg/dL (7-20); CALCIUM 9.5 mg/dL (8.4-10.2); CARBON DIOXIDE 24 mmol/L (22-30); CHLORIDE 107 mmol/L (98-107); GLUCOSE 106 mg/dL (75-110); POTASSIUM 4.1 mmol/L (3.6-5.0); SODIUM 137.9 mmol/L (137-145); TOTAL PROTEIN 4.8 g/dL (6.3-8.2)
[2018-04-24 08:05] LABS: HEMOGLOBIN 7.7 g/dL (12.0-15.5)
[2018-04-24 08:10] LABS: ABSOLUTE LYMPHOCYTES# (MANUAL) 1.2 10^3/uL (0.5-4.7); ABSOLUTE MONOCYTES # (MANUAL) 0.6 10^3/uL (0.1-1.4); ABSOLUTE NEUTROPHILS# (MANUAL) 4.7 10^3/uL (1.7-8.2); BASOPHILS % (MANUAL) 0 % (0-2); EOSINOPHILS % (MANUAL) 0 % (0-6); LYMPHOCYTES % (MANUAL) 15 % (13-45); MONOCYTES % (MANUAL) 9 % (3-13); SEGMENTED NEUTROPHILS % (MAN) 73 % (42-78); TOTAL CELLS COUNTED 100
[2018-04-24 08:11] LABS: ANISOCYTOSIS SLIGHT; POIKILOCYTOSIS SLIGHT; SCHISTOCYTES SLIGHT; TEAR DROP CELLS SLIGHT; TOXIC VACUOLATION PRESENT
[2018-04-24 08:12] LABS: PLATELET COMMENT ADEQUATE
--- NOTE | 2018-04-24 08:20 | RADIOLOGY REPORT (SQ) ---
EXAM DESCRIPTION: VENOUS UNILATERAL UPPER COMPLETED DATE/TIME: 04/23/2018 9:36 pm REASON FOR STUDY: right arm swelling COMPARISON: None. TECHNIQUE: Dynamic and static lopez scale and color images acquired of the right arm venous system. S elected spectral images acquired with additional compression and augmentation maneuvers. The contrala teral subclavian vein and internal jugular vein were also imaged. Images stored on PACS. LIMITATIONS: None. FINDINGS: INTERNAL JUGULAR VEIN: Normal phasicity, compression, augmentation. No visualized echogeni c material on lopez scale. No defects on color images. Comparison opposite side normal. SUBCLAVIAN VEIN: Normal compression, augmentation. No visualized echogenic material on lopez scale. No defects on color images. AXILLARY VEIN: Normal compression, augmentation. No visualized echogenic material on lopez scale. No d efects on color images. BRACHIAL VEIN: Normal compression, augmentation. No visualized echogenic material on lopez scale. No d efects on color images. BASILIC VEIN: Normal compression, augmentation. No visualized echogenic material on lopez scale. No de fects on color images. CEPHALIC VEIN: Normal compression, augmentation. No visualized echogenic material on lopez scale. No d efects on color images. OTHER: No other significant finding. CONTRALATERAL SUBCLAVIAN VEIN AND INTERNAL JUGULAR VEIN: Normal phasicity, compression and augmentation. No visualized echogenic material on lopez scale. No de fects on color images. IMPRESSION: NO EVIDENCE DVT OR SVT IN THE RIGHT ARM. COMMENT: This report was called to DR Correa [id number] on 04/23/2018. Preliminary poor was provided b bianca the vascular surgeon. TECHNICAL DOCUMENTATION: JOB ID: [id number] [employer]- All Rights Reserved Reading location - IP/workstation name: [email or web address]
[2018-04-24] MEDS: MONTELUKAST SODIUM 10 MG TABLET PO SCH (08:42)
[2018-04-24] MEDS: FOLIC ACID 1 MG TABLET PO SCH (08:42)
[2018-04-24] MEDS: ASPIRIN 81 MG TABLET, ENT COATED PO SCH (08:42)
[2018-04-24] MEDS: LAMOTRIGINE 100 MG TABLET PO SCH (08:44)
[2018-04-24] MEDS: CHOLECALCIFEROL (D3) 400 UNIT/ML DROPS 50 ML PO SCH (08:45)
[2018-04-24] MEDS: ALBUMIN HUMAN 12.5 GM/50 ML RTUINJ IV SCH ×4 (08:56→13:20)
[2018-04-24] MEDS ORDERED: NORMAL SALINE 250 ML IV PRN ×3 (09:51→09:52)
[2018-04-24] MEDS ORDERED: LEVOFLOXACIN 750 MG/D5W RTU 750 MG/150 ML RTUPB IV SCH (10:00)
[2018-04-24] MEDS ORDERED: DILTIAZEM HCL INJ 25 MG/5 ML VIAL IV PRN (10:03)
--- NOTE | 2018-04-24 10:12 | PDOC PROGRESS REPORT ---
Subjective Progress Note for:: 04/24/18 Subjective:: 72 year old female patient, custodial resident at [facility], with past medical history of atrial fibrillation, hypertension, hyperlipidemia, COPD, history of breast cancer and bipolar disorder brought with chief complaint of fever. Reportedly staff did an axillary temperature the patient and it was 100.9 so they called EMS and EMS did an oral temp was 98.7. Since patient is nonverbal I got brief history from the ER attending note and her who is in the room during my encounter. Per her patient was admitted on March 24 at [facility] and he was told "she has damage to her posterior brain". Since then patient not able to move her right arm and she is aphasic. Her blood work is unremarkable except for mild hyponatremia with sodium of 149 and her urinalysis is compatible with urinary tract infection. Her left arm is a swo llen and on the posterior extensor surface there are multiple blisters most probably several pustules. Further detailed history and review of systems unobtainable. 04/23/2018-patient is in bed she is in excruciating pain and found to have a right arm was swollen with pustules looks like happens to me so wound culture was sent, started on acyclovir, started on prednisone and patient was started on IV morphine 1 mg every 2 hours as needed for pain. Patient vital signs today T- max is 98.6. Overall condition is critical prognosis is poor. Patient is DNR/DNI. 04/24/2018-patient is much alert more awake today on asking she says she is doing fine she thinks she is in [facility]. She knows who she is and she is able to give her 's name today. No acute events in the last 24 hours. Afebrile. Nurse told me just a while ago patient is in A. fib with heart rate close to 130. I reviewed her medications patient is on digoxin and also on Coreg probably she has history of atrial fibrillation but we do not have the medical records available. Started on Cardizem 10 mg IV every 6 as needed for heart rate of more than 120. Reason For Visit: COMPLICATED UTI, RIGHT ARM CELLULITIS Physical Exam Vital Signs: Temp Pulse Resp BP Pulse Ox 98.0 F 112 H 14 110/38 L 92 04/24/18 07:56 04/24/18 08:39 04/24/18 08:39 04/24/18 07:56 04/24/18 08:39 Intake & Output 04/23/18 04/24/18 04/25/18 06:59 06:59 06:59 Intake Total 1050 237 Output Total 600 2175 Balance 450 -1938 Weight 81 kg 87.7 kg General appearance: PRESENT: no acute distress Head exam: PRESENT: atraumatic Eye exam: PRESENT: PERRLA Mouth exam: PRESENT: dry mucosa Neck exam: ABSENT: carotid bruit, JVD, lymphadenopathy, thyromegaly Respiratory exam: PRESENT: decreased breath sounds Cardiovascular exam: PRESENT: irregular rhythm, systolic murmur, tachycardia GI/Abdominal exam: PRESENT: normal bowel sounds, soft. ABSENT: distended, g uarding, mass, organolmegaly, rebound, tenderness Extremities exam: PRESENT: other - Right arm was still swollen and edematous the skin lesions looks much better today compared to yesterday.. ABSENT: pedal edema Neurological exam: PRESENT: alert, awake, other - And has a history of stroke with right-sided weakness.. ABSENT: oriented to person, oriented to place, oriented to time Psychiatric exam: PRESENT: appropriate affect, normal mood. ABSENT: homicidal ideation, suicidal ideation Skin exam: PRESENT: other - Pustular lesions in dermatomal distribution on the right arm in various stages surrounded by erythema. She was on Valtrex thousand milligrams p.o. every 8 hours. Results Laboratory Results: 04/24/18 05:23 04/24/18 05:23 04/24/18 04/24/18 05:23 05:23 WBC 6.4 RBC 2.74 L Hgb 7.7 L Hct 23.5 L MCV 86 MCH 28.2 MCHC 32.9 RDW 15.6 H Plt Count 226 Seg Neutrophils % Not Reportable Lymphocytes % Not Reportable Monocytes % Not Reportable Eosinophils % Not Reportable Basophils % Not Reportable Absolute Neutrophils Not Reportable Absolute Lymphocytes Not Reportable Absolute Monocytes Not Reportable Absolute Eosinophils Not Reportable Absolute Basophils Not Reportable Sodium 137.9 Potassium 4.1 Chloride 107 Carbon Dioxide 24 Anion Gap 7 BUN 35 H Creatinine 0.73 Est GFR ( Amer) > 60 Est GFR (Non-Af Amer) > 60 Glucose 106 Calcium 9.5 Magnesium 2.1 Total Bilirubin 0.2 AST 105 H ALT 51 Alkaline Phosphatase 71 Total Protein 4.8 L Albumin 2.2 L 04/22/18 13:46 Fishman Catheter Urine Culture - Final Enterobacter Cloacae Impressions: Chest X-Ray 04/22/18 12:46 IMPRESSION: NO ACUTE RADIOGRAPHIC FINDING IN THE CHEST. Forearm X-Ray 04/22/18 13:18 IMPRESSION: No fracture or dislocation of the right forearm. Diffuse soft tissue swelling about the right forearm. No radiopaque foreign body. Humerus X-Ray 04/22/18 13:18 IMPRESSION: No definite acute bony abnormality. Extensive degenerative changes about the glenohumeral and acromioclavicular joint, similar to priors. Upper Extremity CT 04/23/18 00:00 IMPRESSION: Extremely limited study. No occult fracture. Venous Doppler Study 04/23/18 00:00 IMPRESSION: NO EVIDENCE DVT OR SVT IN THE RIGHT ARM. Assessment and Plan - Diagnosis (1) Complicated UTI (urinary tract infection) Is this a current diagnosis for this admission?: Yes Plan: 04/23/18 12:08 Patient came in with complicated UTI cultures from the Fishman's catheter shows gram-negative rods on Rocephin and IV levofloxacin 750 mg daily. Blood cultures are pending. Plan is to continue other management. 04/24/2018-urine cultures came back positive for Enterobacter. Presently on IV Rocephin and levofloxacin. Blood cultures are negative. Spoke to Dr. De La Rosa about the results she is not convinced this is an acute infection. In her opinion she may have colonization of the bacteria. Plan is to discontinue antibiotics from today. (2) Right arm cellulitis Is this a current diagnosis for this admission?: Yes Plan: 04/23/2018-patient came in with right arm cellulitis she has pustules in a dermatomal distribution suggestive of her previous started on acyclovir and consultation with ID was requested. Also started on prednisone 10 mg p.o. twice daily for swelling. 04/24/2018-patient was admitted with right arm cellulitis blood cultures are negative so far she is on IV Rocephin and IV levofloxacin also on valacyclovir thousand milligrams p.o. 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 (3) Atrial fibrillation Is this a current diagnosis for this admission?: No Plan: 04/23/18 12:10 04/23/2018 patient has chronic atrial fibrillation on Eliquis at custodial which was resumed here in the hospital. 04/24/2018-patient has history of chronic atrial fibrillation she is on Eliquis at home the medication is resumed during the hospital stay. I am going to discuss with the about the risks and benefits of continuing Eliquis (4) COPD (chronic obstructive pulmonary disease) Qualifiers: Emphysema type: unspecified Is this a current diagnosis for this admission?: No Plan: 04/23/18 12:11 04/23/2018 patient has history of COPD pulse ox here 94% on room air. Plan is to restart the bronchodilators patient is taking at custodial. 04/24/2018 patient has history of COPD presently pulse ox is 92% room air. Patient is not in distress. Chest x-ray is negative for pneumonia. Plan is to continue the present management. (5) Severe pain Is this a current diagnosis for this admission?: Yes Plan: 04/23/18 12:12 04/23/2018 patient has a severe right arm pain secondary to skin infection/cellulitis started on IV morphine 1 mg every 2 hours as needed. 04/24/2018-patient has severe right arm pain probably secondary to herpes inv olving the dermatomes. Patient is on Valtrex thousand milligrams p.o. every 8 hours and also prednisone 10 mg p.o. twice daily she is also receiving IV morphine on as-needed basis plan is to continue the present management. - Time Time Spent with patient: 15-24 minutes Medications reviewed and adjusted accordingly: Yes Anticipated discharge: SNF
[2018-04-24] MEDS: DIGOXIN 0.125 MG TABLET PO SCH (10:18)
[2018-04-24] MEDS: APIXABAN 5 MG TABLET PO SCH (10:18)
[2018-04-24] MEDS: CARVEDILOL 12.5 MG TABLET PO SCH ×2 (10:18→21:47)
[2018-04-24] MEDS: PREDNISONE 10 MG TABLET PO SCH ×2 (10:19→18:10)
[2018-04-24] MEDS: HYDROCORTISONE 1% CREAM 28.35 GM TP SCH ×2 (10:20→18:11)
[2018-04-24] MEDS: CLOTRIMAZOLE 1% CREAM 15 GM TP SCH ×2 (10:33→18:10)
[2018-04-24] MEDS: FLUTICASONE/VILANTEROL 200-25 MCG/DOSE IH SCH (10:34)
[2018-04-24] MEDS: MULTIVITAMIN ORAL LIQUID 60 ML PO SCH (10:35)
[2018-04-24 19:12] LABS: HEMATOCRIT 26.4 % (36.0-47.0); HEMOGLOBIN 8.6 g/dL (12.0-15.5); MEAN CORPUSCULAR HEMOGLOBIN 27.3 pg (27.0-33.4); MEAN CORPUSCULAR HGB CONC 32.7 g/dL (32.0-36.0); MEAN CORPUSCULAR VOLUME 83 fl (80-97); PLATELET COUNT 206 10^3/uL (150-450); RED BLOOD COUNT 3.16 10^6/uL (3.72-5.28); RED CELL DISTRIBUTION WIDTH 17.1 % (11.5-14.0); WHITE BLOOD COUNT 6.9 10^3/uL (4.0-10.5)
--- NOTE | 2018-04-24 20:45 | PDOC PROGRESS REPORT ---
Subjective Progress Note for:: 04/24/18 Subjective:: Called to reevaluate patient regarding a sacral decubitus ulcer. There is a 9-year-old female who is nonverbal. She suffered a stroke recently, and does not ambulate. She has a deep stage III, possibly stage IV with necrotic tissue present. History is obtained from the nursing staff. No useful review of systems was obtained due to her mental status. Reason For Visit: COMPLICATED UTI, RIGHT ARM CELLULITIS Physical Exam Vital Signs: Temp Pulse Resp BP Pulse Ox 97.5 F 84 16 115/38 L 95 04/24/18 14:40 04/24/18 19:17 04/24/18 19:17 04/24/18 14:40 04/24/18 19:17 Intake & Output 04/23/18 04/24/18 04/25/18 06:59 06:59 06:59 Intake Total 1941 454 8369 Output Total 600 2175 1550 Balance 450 -1938 1128 Weight 81 kg 87.7 kg General appearance: PRESENT: no acute distress Head exam: PRESENT: atraumatic, normocephalic Eye exam: PRESENT: EOMI, PERRLA. ABSENT: scleral icterus Mouth exam: PRESENT: moist, neck supple Respiratory exam: PRESENT: unlabored. ABSENT: tachypnea, wheezes Cardiovascular exam: PRESENT: RRR Pulses: PRESENT: normal radial pulses GI/Abdominal exam: PRESENT: soft. ABSENT: distended, guarding, tenderness Musculoskeletal exam: ABSENT: ambulatory Neurological exam: PRESENT: awake, aphasic Psychiatric exam: ABSENT: agitated Skin exam: PRESENT: other - Stage III/IV decubitus ulcer on the sacrum. There i s a 3 cm area of ioana necrosis. Vesicular/papular rash like skin abnormality to the right forearm extending onto the hand. Results Laboratory Results: 04/24/18 18:54 04/24/18 05:23 04/24/18 04/24/18 04/24/18 05:23 05:23 10:54 WBC 6.4 RBC 2.74 L Hgb 7.7 L Hct 23.5 L MCV 86 MCH 28.2 MCHC 32.9 RDW 15.6 H Plt Count 226 Seg Neutrophils % Not Reportable Lymphocytes % Not Reportable Monocytes % Not Reportable Eosinophils % Not Reportable Basophils % Not Reportable Absolute Neutrophils Not Reportable Absolute Lymphocytes Not Reportable Absolute Monocytes Not Reportable Absolute Eosinophils Not Reportable Absolute Basophils Not Reportable Sodium 137.9 Potassium 4.1 Chloride 107 Carbon Dioxide 24 Anion Gap 7 BUN 35 H Creatinine 0.73 Est GFR ( Amer) > 60 Est GFR (Non-Af Amer) > 60 Glucose 106 Calcium 9.5 Magnesium 2.1 Total Bilirubin 0.2 AST 105 H ALT 51 Alkaline Phosphatase 71 Total Protein 4.8 L Albumin 2.2 L Blood Type O POSITIVE Antibody Screen NEGATIVE 04/24/18 18:54 WBC 6.9 RBC 3.16 L Hgb 8.6 L Hct 26.4 L MCV 83 MCH 27.3 MCHC 32.7 RDW 17.1 H Plt Count 206 Seg Neutrophils % Lymphocytes % Monocytes % Eosinophils % Basophils % Absolute Neutrophils Absolute Lymphocytes Absolute Monocytes Absolute Eosinophils Absolute Basophils Sodium Potassium Chloride Carbon Dioxide Anion Gap BUN Creatinine Est GFR ( Amer) Est GFR (Non-Af Amer) Glucose Calcium Magnesium Total Bilirubin AST ALT Alkaline Phosphatase Total Protein Albumin Blood Type Antibody Screen 04/22/18 13:46 Fishman Catheter Urine Culture - Final Enterobacter Cloacae Impressions: Chest X-Ray 04/22/18 12:46 IMPRESSION: NO ACUTE RADIOGRAPHIC FINDING IN THE CHEST. Forearm X-Ray 04/22/18 13:18 IMPRESSION: No fracture or dislocation of the right forearm. Diffuse soft tissue swelling about the right forearm. No radiopaque foreign body. Humerus X-Ray 04/22/18 13:18 IMPRESSION: No definite acute bony abnormality. Extensive degenerative changes about the glenohumeral and acromioclavicular joint, similar to priors. Upper Extremity CT 04/23/18 00:00 IMPRESSION: Extremely limited study. No occult fracture. Venous Doppler Study 04/23/18 00:00 IMPRESSION: NO EVIDENCE DVT OR SVT IN THE RIGHT ARM. Assessment & Plan - Diagnosis (1) Sacral decubitus ulcer, stage III Is this a current diagnosis for this admission?: Yes - Plan Summary Plan Summary: This is a 72-year-old female with a sacral decubitus ulcer. It is at least stage III. There is necrotic tissue present. I do believe the patient would benefit from debridement of this necrotic tissue. The patient should be rotated every 2 hours. She should be on nutritional supplements (like Ensure) twice daily. She should be changed frequently enough that stool does not soil the wound. Continue with Allevyn dressings. N.p.o. after midnight for possible debridement tomorrow.
[2018-04-24] MEDS ORDERED: DEXTROSE 40% GEL 15 GM TUBE PO PRN ×2 (20:53)
[2018-04-24] MEDS ORDERED: DEXTROSE 50%-WATER 25 GM/50 ML DISP.SYRIN IV PRN ×2 (20:53)
[2018-04-24] MEDS ORDERED: GLUCAGON,HUMAN RECOMB 1 MG INJ SUBCUT PRN (20:53)
[2018-04-24] MEDS: NYSTATIN CREAM 15 GM TP SCH (21:47)
[2018-04-24] MEDS: GABAPENTIN 100 MG CAPSULE PO SCH (21:47)
[2018-04-24] MEDS: ATORVASTATIN CALCIUM 40 MG TABLET PO SCH (21:47)
[2018-04-25] MEDS: IPRATROPIUM/ALBUTEROL 0.5-2.5 MG/3 ML AMPUL NEB SCH ×4 (02:12→19:56)
[2018-04-25] MEDS: VALACYCLOVIR HCL 500 MG TABLET PO SCH ×3 (05:42→22:07)
[2018-04-25] MEDS: LEVOTHYROXINE SODIUM 0.05 MG TABLET PO SCH (05:43)
[2018-04-25] MEDS: HYDRALAZINE HCL 25 MG TABLET PO SCH ×3 (05:44→22:04)
[2018-04-25 05:56] LABS: ABSOLUTE LYMPHOCYTES (AUTO) 1.1 10^3/uL (0.5-4.7); ABSOLUTE MONOCYTES (AUTO) 0.9 10^3/uL (0.1-1.4); ABSOLUTE NEUT (AUTO) 4.6 10^3/uL (1.7-8.2); BASOPHILS % (AUTO) 0.3 % (0-2); EOSINOPHILS % (AUTO) 0.1 % (0-6); HEMATOCRIT 27.1 % (36.0-47.0); HEMOGLOBIN 9.1 g/dL (12.0-15.5); LYMPHOCYTES % (AUTO) 17.2 % (13-45); MEAN CORPUSCULAR HEMOGLOBIN 27.9 pg (27.0-33.4); MEAN CORPUSCULAR HGB CONC 33.7 g/dL (32.0-36.0); MEAN CORPUSCULAR VOLUME 83 fl (80-97); MONOCYTES % (AUTO) 14.2 % (3-13); PLATELET COUNT 230 10^3/uL (150-450); RED BLOOD COUNT 3.27 10^6/uL (3.72-5.28); RED CELL DISTRIBUTION WIDTH 17.7 % (11.5-14.0); SEGMENTED NEUTROPHILS % (AUTO) 68.2 % (42-78); TOTAL CELLS COUNTED % (AUTO) 100 %; WHITE BLOOD COUNT 6.7 10^3/uL (4.0-10.5)
[2018-04-25 06:09] LABS: ALANINE AMINOTRANSFERASE 50 U/L (9-52); ALBUMIN 2.6 g/dL (3.5-5.0); ALKALINE PHOSPHATASE 80 U/L (38-126); ANION GAP 8 (5-19); ASPARTATE AMINO TRANSFERASE 74 U/L (14-36); BILIRUBIN,DIRECT 0.2 mg/dL (0.0-0.4); BILIRUBIN,TOTAL 0.2 mg/dL (0.2-1.3); BLOOD UREA NITROGEN 37 mg/dL (7-20); CALCIUM 10.1 mg/dL (8.4-10.2); CARBON DIOXIDE 26 mmol/L (22-30); CHLORIDE 108 mmol/L (98-107); GLUCOSE 126 mg/dL (75-110); POTASSIUM 4.3 mmol/L (3.6-5.0); SODIUM 141.9 mmol/L (137-145); TOTAL PROTEIN 5.3 g/dL (6.3-8.2)
[2018-04-25] MEDS: CARVEDILOL 12.5 MG TABLET PO SCH ×2 (10:01→22:04)
[2018-04-25] MEDS: FOLIC ACID 1 MG TABLET PO SCH (10:01)
[2018-04-25] MEDS: DIGOXIN 0.125 MG TABLET PO SCH (10:01)
[2018-04-25] MEDS: ASPIRIN 81 MG TABLET, ENT COATED PO SCH (10:01)
[2018-04-25] MEDS: PREDNISONE 10 MG TABLET PO SCH ×2 (10:01→17:42)
[2018-04-25] MEDS: HYDROCORTISONE 1% CREAM 28.35 GM TP SCH ×2 (10:03→17:54)
[2018-04-25] MEDS: CLOTRIMAZOLE 1% CREAM 15 GM TP SCH ×2 (10:03→17:54)
[2018-04-25] MEDS: CHOLECALCIFEROL (D3) 400 UNIT/ML DROPS 50 ML PO SCH (10:04)
[2018-04-25] MEDS: LAMOTRIGINE 100 MG TABLET PO SCH (10:05)
[2018-04-25] MEDS: MULTIVITAMIN ORAL LIQUID 60 ML PO SCH (10:06)
[2018-04-25] MEDS: FLUTICASONE/VILANTEROL 200-25 MCG/DOSE IH SCH (10:06)
[2018-04-25] MEDS: NYSTATIN CREAM 15 GM TP SCH ×2 (10:06→17:53)
[2018-04-25] MEDS: MONTELUKAST SODIUM 10 MG TABLET PO SCH (10:07)
[2018-04-25] MEDS: MORPHINE SULFATE 10 MG/ML INJ IV PRN ×5 (10:08→19:59)
--- NOTE | 2018-04-25 11:29 | PDOC PROGRESS REPORT ---
Subjective Progress Note for:: 04/25/18 Subjective:: 72 year old female patient, shelter resident at [facility], with past medical history of atrial fibrillation, hypertension, hyperlipidemia, COPD, history of breast cancer and bipolar disorder brought with chief complaint of fever. Reportedly staff did an axillary temperature the patient and it was 100.9 so they called EMS and EMS did an oral temp was 98.7. Since patient is nonverbal I got brief history from the ER attending note and her who is in the room during my encounter. Per her patient was admitted on March [facility] at [facility] and he was told "she has damage to her posterior brain". Since then patient not able to move her right arm and she is aphasic. Her blood work is unremarkable except for mild hyponatremia with sodium of 149 and her urinalysis is compatible with urinary tract infection. Her left arm is a swo llen and on the posterior extensor surface there are multiple blisters most probably several pustules. Further detailed history and review of systems unobtainable. 04/23/2018-patient is in bed she is in excruciating pain and found to have a right arm was swollen with pustules looks like happens to me so wound culture was sent, started on acyclovir, started on prednisone and patient was started on IV morphine 1 mg every 2 hours as needed for pain. Patient vital signs today T- max is 98.6. Overall condition is critical prognosis is poor. Patient is DNR/DNI. 04/24/2018-patient is much alert more awake today on asking she says she is doing fine she thinks she is in [facility]. She knows who she is and she is able to give her 's name today. No acute events in the last 24 hours. Afebrile. Nurse told me just a while ago patient is in A. fib with heart rate close to 130. I reviewed her medications patient is on digoxin and also on Coreg probably she has history of atrial fibrillation but we do not have the medical records available. Started on Cardizem 10 mg IV every 6 as needed for heart rate of more than 120. 04/25/2018-patient is receiving IV morphine 1 mg every 2 hours as needed complaining of pain scale of 10 x 10 in the legs. Maybe she has a chronic pain medication dependency. Patient has a stage III sacral decubitus ulcer. Dr. Newman saw the patient this morning his impression is patient does not need any debridement. No acute events in the last 24 hours. Patient is afebrile. Reason For Visit: COMPLICATED UTI, RIGHT ARM CELLULITIS Physical Exam Vital Signs: Temp Pulse Resp BP Pulse Ox 98.0 F 74 20 133/50 H 99 04/25/18 08:27 04/25/18 08:27 04/25/18 08:27 04/25/18 08:27 04/25/18 08:27 Intake & Output 04/24/18 04/25/18 04/26/18 06:59 06:59 06:59 Intake Total 237 2678 Output Total 2175 3000 Balance -1938 -322 Weight 87.7 kg 90.9 kg General appearance: PRESENT: other - Moderate distress Head exam: PRESENT: atraumatic Eye exam: PRESENT: PERRLA Mouth exam: PRESENT: moist, tongue midline Neck exam: ABSENT: carotid bruit, JVD, lymphadenopathy, thyromegaly Respiratory exam: PRESENT: clear to auscultation carmen. ABSENT: rales, rhonchi, wheezes Cardiovascular exam: PRESENT: irregular rhythm, systolic murmur, tachycardia GI/Abdominal exam: PRESENT: normal bowel sounds, soft. ABSENT: distended, guarding, mass, organolmegaly, rebound, tenderness Extremities exam: PRESENT: full ROM. ABSENT: calf tenderness, clubbing, pedal edema Neurological exam: PRESENT: alert, other - Patient has right-sided weakness secondary to previous stroke. Psychiatric exam: PRESENT: agitated, anxious Results Laboratory Results: 04/25/18 05:29 04/25/18 05:29 04/24/18 04/24/18 04/25/18 10:54 18:54 05:29 WBC 6.9 6.7 RBC 3.16 L 3.27 L Hgb 8.6 L 9.1 L Hct 26.4 L 27.1 L MCV 83 83 MCH 27.3 27.9 MCHC 32.7 33.7 RDW 17.1 H 17.7 H Plt Count 206 230 Seg Neutrophils % 68.2 Lymphocytes % 17.2 Monocytes % 14.2 H Eosinophils % 0.1 Basophils % 0.3 Absolute Neutrophils 4.6 Absolute Lymphocytes 1.1 Absolute Monocytes 0.9 Absolute Eosinophils 0.0 Absolute Basophils 0.0 Sodium Potassium Chloride Carbon Dioxide Anion Gap BUN Creatinine Est GFR ( Amer) Est GFR (Non-Af Amer) Glucose Calcium Magnesium Total Bilirubin AST ALT Alkaline Phosphatase Total Protein Albumin Blood Type O POSITIVE Antibody Screen NEGATIVE 04/25/18 05:29 WBC RBC Hgb Hct MCV MCH MCHC RDW Plt Count Seg Neutrophils % Lymphocytes % Monocytes % Eosinophils % Basophils % Absolute Neutrophils Absolute Lymphocytes Absolute Monocytes Absolute Eosinophils Absolute Basophils Sodium 141.9 Potassium 4.3 Chloride 108 H Carbon Dioxide 26 Anion Gap 8 BUN 37 H Creatinine 0.59 Est GFR ( Amer) > 60 Est GFR (Non-Af Amer) > 60 Glucose 126 H Calcium 10.1 Magnesium 2.2 Total Bilirubin 0.2 AST 74 H ALT 50 Alkaline Phosphatase 80 Total Protein 5.3 L Albumin 2.6 L Blood Type Antibody Screen 04/23/18 08:45 Arm Gram Stain - Final 04/23/18 08:45 Arm Wound Culture - Final 2+ SKIN DAVID 04/22/18 13:46 Fishman Catheter Urine Culture - Final Enterobacter Cloacae Impressions: Chest X-Ray 04/22/18 12:46 IMPRESSION: NO ACUTE RADIOGRAPHIC FINDING IN THE CHEST. Forearm X-Ray 04/22/18 13:18 IMPRESSION: No fracture or dislocation of the right forearm. Diffuse soft tissue swelling about the right forearm. No radiopaque foreign body. Humerus X-Ray 04/22/18 13:18 IMPRESSION: No definite acute bony abnormality. Extensive degenerative changes about the glenohumeral and acromioclavicular j oint, similar to priors. Upper Extremity CT 04/23/18 00:00 IMPRESSION: Extremely limited study. No occult fracture. Venous Doppler Study 04/23/18 00:00 IMPRESSION: NO EVIDENCE DVT OR SVT IN THE RIGHT ARM. Assessment and Plan - Diagnosis (1) Complicated UTI (urinary tract infection) Is this a current diagnosis for this admission?: Yes Plan: 04/23/18 12:08 Patient came in with complicated UTI cultures from the Fishman's catheter shows gram-negative rods on Rocephin and IV levofloxacin 750 mg daily. Blood cultures are pending. Plan is to continue other management. 04/24/2018-urine cultures came back positive for Enterobacter. Presently on IV Rocephin and levofloxacin. Blood cultures are negative. Spoke to Dr. De La Rosa about the results she is not convinced this is an acute infection. In her opinion she may have colonization of the bacteria. Plan is to discontinue antibiotics from today. 04/25/2018-urine culture is positive for Enterobacter. As per ID recommendations IV antibiotics are discontinued. Patient is afebrile. T-max is 98. Urine culture showing Enterobacter may be colonization. She does not have any suprapubic tenderness on examination. (2) Right arm cellulitis Is this a current diagnosis for this admission?: Yes Plan: 04/23/2018-patient came in with right arm cellulitis she has pustules in a dermatomal distribution suggestive of her previous started on acyclovir and consultation with ID was requested. Also started on prednisone 10 mg p.o. twice daily for swelling. 04/24/2018-patient was admitted with right arm cellulitis blood cultures are negative so far she is on IV Rocephin and IV levofloxacin also on valacyclovir thousand milligrams p.o. 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 04/25/2018-patient is admitted with right arm swelling and cellulitis looks like patient has a herpes zoster in dermatomal distribution patient is presently on valacyclovir thousand milligrams p.o. every 8 hours looks like the lesions are improving. (3) Atrial fibrillation Is this a current diagnosis for this admission?: No Plan: 04/23/18 12:10 04/23/2018 patient has chronic atrial fibrillation on Eliquis at shelter which was resumed here in the hospital. 04/24/2018-patient has history of chronic atrial fibrillation she is on Eliquis at home the medication is resumed during the hospital stay. I am going to discuss with the about the risks and benefits of continuing Eliquis 04/25/2018-patient history of chronic atrial fibrillation and Eliquis at shelter. Medication was resumed during the hospital stay. (4) COPD (chronic obstructive pulmonary disease) Qualifiers: Emphysema type: unspecified Is this a current diagnosis for this admission?: No Plan: 04/23/18 12:11 04/23/2018 patient has history of COPD pulse ox here 94% on room air. Plan is to restart the bronchodilators patient is taking at shelter. 04/24/2018 patient has history of COPD presently pulse ox is 92% room air. Patient is not in distress. Chest x-ray is negative for pneumonia. Plan is to continue the present management. 04/25/2018-patient has history of COPD pulse oxes are 99% on room air. plan is to continue the present management. (5) Severe pain Is this a current diagnosis for this admission?: Yes Plan: 04/23/18 12:12 04/23/2018 patient has a severe right arm pain secondary to skin infection/cellulitis started on IV morphine 1 mg every 2 hours as needed. 04/24/2018-patient has severe right arm pain probably secondary to herpes involving the dermatomes. Patient is on Valtrex thousand milligrams p.o. every 8 hours and also prednisone 10 mg p.o. twice daily she is also receiving IV morphine on as-needed basis plan is to continue the present management. 04/25/2018-patient is complaining of severe pains in the lower extremities. Presently on IV morphine 1 mg every 2 hours as needed. Plan is to continue the present management. (6) Sacral decubitus ulcer, stage III Is this a current diagnosis for this admission?: No Plan: 04/25/2018-patient has a stage III sacral decubitus [address]. Bergeron evaluated the patient he thinks patient does not need any debridement. Will follow his recommendations. 2 try to change the body position every 2 hours. Started on Ensure 1 can p.o. 3 times daily prior to meals. - Time Time Spent with patient: 15-24 minutes Medications reviewed and adjusted accordingly: Yes Anticipated discharge: SNF
[2018-04-25] MEDS: ATORVASTATIN CALCIUM 40 MG TABLET PO SCH (22:04)
[2018-04-25] MEDS: GABAPENTIN 100 MG CAPSULE PO SCH (22:04)
--- NOTE | 2018-04-25 23:53 | OPERATIVE REPORT E ---
Operative Report NAME: SHANTHI BRIGGS : 1945 AGE: 72Y DATE OF SURGERY: 04/25/2018 ROOM: 320 PREOPERATIVE DIAGNOSIS: PARTIAL SHARP DEBRIDEMENT OF DECUBITUS ULCER. POSTOPERATIVE DIAGNOSIS: PARTIAL SHARP DEBRIDEMENT OF DECUBITUS ULCER. PROCEDURE: Debridement of sacral decubitus. SURGEON: CELESTINA DALLAS M.D. INDICATION: This is a 72-year-old female admitted for cellulitis of the right arm. The patient also has been practically bedridden for a previous history of CVA in the past. The patient developed decubitus ulcer in the sacral area. There is some discoloration along the mid sacral area about 4 cm in diameter with surrounding darkly discolored skin on the right side about another 3 cm in diameter. DESCRIPTION OF PROCEDURE: The patient was placed in left lateral decubitus position while on the bed. The area was subsequently prepped and draped in the usual sterile fashion. With the use of an 11 blade part of the skin on this decubitus site was then partially debrided. Just a small amount of skin can be debrided since it is very adherent to the underlying subcutaneous area. Because of this a thick foam dressing was continued and the nurse was advised to turn the patient to the sides more frequently and avoid prolonged pressure on the sacral area. There is not any evidence of any collection underneath the skin and no abscess was evacuated. Hopefully the lesion will improve in the next few days or it may worsen, then it may be more ideal to debride at the time. DICTATING PHYSICIAN: CELESTINA DALLAS M.D. [id number] Y#: [id number] ID: [id number] JOB#: [id number] ACCT: [id number] cc:CELESTINA DALLAS M.D. >
[2018-04-26] MEDS: IPRATROPIUM/ALBUTEROL 0.5-2.5 MG/3 ML AMPUL NEB SCH ×4 (02:21→20:05)
[2018-04-26] MEDS: MORPHINE SULFATE 10 MG/ML INJ IV PRN ×10 (02:53→23:31)
[2018-04-26] MEDS: HYDRALAZINE HCL 25 MG TABLET PO SCH ×3 (05:30→21:46)
[2018-04-26] MEDS: VALACYCLOVIR HCL 500 MG TABLET PO SCH ×3 (05:31→21:46)
[2018-04-26] MEDS: LEVOTHYROXINE SODIUM 0.05 MG TABLET PO SCH (05:31)
[2018-04-26 06:09] LABS: ABSOLUTE LYMPHOCYTES (AUTO) 1.4 10^3/uL (0.5-4.7); ABSOLUTE NEUT (AUTO) 6.3 10^3/uL (1.7-8.2); BASOPHILS % (AUTO) 0.4 % (0-2); EOSINOPHILS % (AUTO) 0.2 % (0-6); HEMATOCRIT 28.4 % (36.0-47.0); HEMOGLOBIN 9.5 g/dL (12.0-15.5); LYMPHOCYTES % (AUTO) 15.8 % (13-45); MEAN CORPUSCULAR HEMOGLOBIN 27.9 pg (27.0-33.4); MEAN CORPUSCULAR HGB CONC 33.6 g/dL (32.0-36.0); MEAN CORPUSCULAR VOLUME 83 fl (80-97); MONOCYTES % (AUTO) 11.4 % (3-13); PLATELET COUNT 261 10^3/uL (150-450); RED BLOOD COUNT 3.42 10^6/uL (3.72-5.28); SEGMENTED NEUTROPHILS % (AUTO) 72.2 % (42-78); TOTAL CELLS COUNTED % (AUTO) 100 %; WHITE BLOOD COUNT 8.7 10^3/uL (4.0-10.5)
[2018-04-26 06:35] LABS: ALANINE AMINOTRANSFERASE 43 U/L (9-52); ALBUMIN 2.8 g/dL (3.5-5.0); ALKALINE PHOSPHATASE 103 U/L (38-126); ANION GAP 7 (5-19); ASPARTATE AMINO TRANSFERASE 59 U/L (14-36); BILIRUBIN,DIRECT 0.2 mg/dL (0.0-0.4); BILIRUBIN,TOTAL 0.2 mg/dL (0.2-1.3); BLOOD UREA NITROGEN 34 mg/dL (7-20); CALCIUM 10.1 mg/dL (8.4-10.2); CARBON DIOXIDE 26 mmol/L (22-30); CHLORIDE 106 mmol/L (98-107); GLUCOSE 140 mg/dL (75-110); POTASSIUM 4.9 mmol/L (3.6-5.0); SODIUM 138.5 mmol/L (137-145); TOTAL PROTEIN 6.1 g/dL (6.3-8.2)
[2018-04-26] MEDS: DIPHENHYDRAMINE HCL 50 MG/ML VIAL IV PRN ×3 (07:41→18:26)
[2018-04-26] MEDS: FOLIC ACID 1 MG TABLET PO SCH (10:15)
[2018-04-26] MEDS: MONTELUKAST SODIUM 10 MG TABLET PO SCH (10:15)
--- NOTE | 2018-04-26 10:22 | PDOC PROGRESS REPORT ---
Subjective Progress Note for:: 04/26/18 Subjective:: 72 year old female patient, halfway resident at [facility], with past medical history of atrial fibrillation, hypertension, hyperlipidemia, COPD, history of breast cancer and bipolar disorder brought with chief complaint of fever. Reportedly staff did an axillary temperature the patient and it was 100.9 so they called EMS and EMS did an oral temp was 98.7. Since patient is nonverbal I got brief history from the ER attending note and her who is in the room during my encounter. Per her patient was admitted on March 24 at [facility] and he was told "she has damage to her posterior brain". Since then patient not able to move her right arm and she is aphasic. Her blood work is unremarkable except for mild hyponatremia with sodium of 149 and her urinalysis is compatible with urinary tract infection. Her left arm is a swo llen and on the posterior extensor surface there are multiple blisters most probably several pustules. Further detailed history and review of systems unobtainable. 04/23/2018-patient is in bed she is in excruciating pain and found to have a right arm was swollen with pustules looks like happens to me so wound culture was sent, started on acyclovir, started on prednisone and patient was started on IV morphine 1 mg every 2 hours as needed for pain. Patient vital signs today T- max is 98.6. Overall condition is critical prognosis is poor. Patient is DNR/DNI. 04/24/2018-patient is much alert more awake today on asking she says she is doing fine she thinks she is in [facility]. She knows who she is and she is able to give her 's name today. No acute events in the last 24 hours. Afebrile. Nurse told me just a while ago patient is in A. fib with heart rate close to 130. I reviewed her medications patient is on digoxin and also on Coreg probably she has history of atrial fibrillation but we do not have the medical records available. Started on Cardizem 10 mg IV every 6 as needed for heart rate of more than 120. 04/25/2018-patient is receiving IV morphine 1 mg every 2 hours as needed complaining of pain scale of 10 x 10 in the legs. Maybe she has a chronic pain medication dependency. Patient has a stage III sacral decubitus ulcer. Dr. Newman saw the patient this morning his impression is patient does not need any debridement. No acute events in the last 24 hours. Patient is afebrile. 04/26/2018-patient is receiving IV morphine 2 mg every 2 hours as needed complaining of pain today requesting pain medications right now looks like she has chronic pain medication dependency. The right home skin lesions slightly improved compared to yesterday. Patient is afebrile. No acute events in the last 24 hours. Patient has stage III sacral decubitus status post debridement was done by Dr. Newman yesterday. The cultures are negative so far. Urine culture is positive for Enterobacter as per ID recommendations antibiotics are discontinued. Reason For Visit: COMPLICATED UTI, RIGHT ARM CELLULITIS Physical Exam Vital Signs: Temp Pulse Resp BP Pulse Ox 97.2 F 89 20 125/70 96 04/26/18 08:04 04/26/18 09:08 04/26/18 09:08 04/26/18 08:04 04/26/18 09:08 Intake & Output 04/25/18 04/26/18 04/27/18 06:59 06:59 06:59 Intake Total 2678 518 Output Total 3000 1575 Balance -322 -1057 Weight 90.9 kg 96 kg General appearance: PRESENT: mild distress, obese Head exam: PRESENT: atraumatic Eye exam: PRESENT: PERRLA Neck exam: ABSENT: carotid bruit, JVD, lymphadenopathy, thyromegaly Respiratory exam: PRESENT: clear to auscultation carmen. ABSENT: rales, rhonchi, wheezes Cardiovascular exam: PRESENT: irregular rhythm, tachycardia GI/Abdominal exam: PRESENT: normal bowel sounds, soft. ABSENT: distended, guarding, mass, organolmegaly, rebound, tenderness Extremities exam: PRESENT: other - Right arm was swollen but less swollen compared to the yesterday. Still have a dermatomal distribution of the rash. No expansion of the rash. In my opinion rash is slightly improved compared to yesterday. The culture for herpes zoster came back negative. Neurological exam: PRESENT: alert, awake, oriented to person, oriented to place, oriented to time, oriented to situation, other - Patient had a right-sided weakness secondary to previous stroke.. ABSENT: motor sensory deficit Psychiatric exam: PRESENT: appropriate affect, normal mood. ABSENT: homicidal ideation, suicidal ideation Results Laboratory Results: 04/26/18 05:07 04/26/18 05:07 04/26/18 04/26/18 05:07 05:07 WBC 8.7 RBC 3.42 L Hgb 9.5 L Hct 28.4 L MCV 83 MCH 27.9 MCHC 33.6 RDW 17.0 H Plt Count 261 Seg Neutrophils % 72.2 Lymphocytes % 15.8 Monocytes % 11.4 Eosinophils % 0.2 Basophils % 0.4 Absolute Neutrophils 6.3 Absolute Lymphocytes 1.4 Absolute Monocytes 1.0 Absolute Eosinophils 0.0 Absolute Basophils 0.0 Sodium 138.5 Potassium 4.9 Chloride 106 Carbon Dioxide 26 Anion Gap 7 BUN 34 H Creatinine 0.51 L Est GFR ( Amer) > 60 Est GFR (Non-Af Amer) > 60 Glucose 140 H Calcium 10.1 Magnesium 2.1 Total Bilirubin 0.2 AST 59 H ALT 43 Alkaline Phosphatase 103 Total Protein 6.1 L Albumin 2.8 L 04/23/18 08:45 Arm - Blister Herpes Simplex Culture & Type - Final 04/23/18 08:45 Arm Gram Stain - Final 04/23/18 08:45 Arm Wound Culture - Final 2+ SKIN DAVID Impressions: Chest X-Ray 04/22/18 12:46 IMPRESSION: NO ACUTE RADIOGRAPHIC FINDING IN THE CHEST. Forearm X-Ray 04/22/18 13:18 IMPRESSION: No fracture or dislocation of the right forearm. Diffuse soft tissue swelling about the right forearm. No radiopaque foreign body. Humerus X-Ray 04/22/18 13:18 IMPRESSION: No definite acute bony abnormality. Extensive degenerative changes about the glenohumeral and acromioclavicular joint, similar to priors. Upper Extremity CT 04/23/18 00:00 IMPRESSION: Extremely limited study. No occult fracture. Venous Doppler Study 04/23/18 00:00 IMPRESSION: NO EVIDENCE DVT OR SVT IN THE RIGHT ARM. Assessment and Plan - Diagnosis (1) Complicated UTI (urinary tract infection) Is this a current diagnosis for this admission?: Yes Plan: 04/23/18 12:08 Patient came in with complicated UTI cultures from the Fishman's catheter shows gram-negative rods on Rocephin and IV levofloxacin 750 mg daily. Blood cultures are pending. Plan is to continue other management. 04/24/2018-urine cultures came back positive for Enterobacter. Presently on IV Rocephin and levofloxacin. Blood cultures are negative. Spoke to Dr. De La Rosa about the results she is not convinced this is an acute infection. In her opinion she may have colonization of the bacteria. Plan is to discontinue antibiotics from today. 04/25/2018-urine culture is positive for Enterobacter. As per ID recommendations IV antibiotics are discontinued. Patient is afebrile. T-max is 98. Urine culture showing Enterobacter may be colonization. She does not have any suprapubic tenderness on examination. 03/29/2018 urine culture is positive for Enterobacter probably colonization. Patient is presently not on any IV antibiotic therapy. Patient is afebrile. T- max is 97.2 and WBC count is 8700. (2) Right arm cellulitis Is this a current diagnosis for this admission?: Yes Plan: 04/23/2018-patient came in with right arm cellulitis she has pustules in a dermatomal distribution suggestive of her previous started on acyclovir and consultation with ID was requested. Also started on prednisone 10 mg p.o. twice daily for swelling. 04/24/2018-patient was admitted with right arm cellulitis blood cultures are neg ative so far she is on IV Rocephin and IV levofloxacin also on valacyclovir thousand milligrams p.o. 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 04/25/2018-patient is admitted with right arm swelling and cellulitis looks like patient has a herpes zoster in dermatomal distribution patient is presently on valacyclovir thousand milligrams p.o. every 8 hours looks like the lesions are improving. 04/26/2018-patient has right-sided weakness with right arm swelling which was improving and dermatomal distribution of the rash most likely help base but the cultures came back negative patient is presently on Valtrex thousand milligrams p.o. every 8 hours plan is to continue the present management patient is afebrile. Patient is also receiving morphine 1 mg every 2 hours and she is also receiving prednisone 10 mg twice daily. Plan is to continue the present management. (3) Atrial fibrillation Is this a current diagnosis for this admission?: No Plan: 04/23/18 12:10 04/23/2018 patient has chronic atrial fibrillation on Eliquis at halfway which was resumed here in the hospital. 04/24/2018-patient has history of chronic atrial fibrillation she is on Eliquis at home the medication is resumed during the hospital stay. I am going to discuss with the about the risks and benefits of continuing Eliquis 04/25/2018-patient history of chronic atrial fibrillation and Eliquis at halfway. Medication was resumed during the hospital stay. 04/26/2018 patient has history of chronic atrial fibrillation and she is on Eliquis. Presently she is on Eliquis is on hold because of the debridement was done yesterday. And is to restart Eliquis from [facility]. (4) COPD (chronic obstructive pulmonary disease) Qualifiers: Emphysema type: unspecified Is this a current diagnosis for this admission?: No Plan: 04/23/18 12:11 04/23/2018 patient has history of COPD pulse ox here 94% on room air. Plan is to restart the bronchodilators patient is taking at halfway. 04/24/2018 patient has history of COPD presently pulse ox is 92% room air. Patient is not in distress. Chest x-ray is negative for pneumonia. Plan is to continue the present management. 04/25/2018-patient has history of COPD pulse oxes are 99% on room air. plan is to continue the present management. 2018-patient has history of COPD pulse ox is 96% on room air. Stable. (5) Severe pain Is this a current diagnosis for this admission?: Yes Plan: 04/23/18 12:12 04/23/2018 patient has a severe right arm pain secondary to skin infection/cellulitis started on IV morphine 1 mg every 2 hours as needed. 04/24/2018-patient has severe right arm pain probably secondary to herpes in volving the dermatomes. Patient is on Valtrex thousand milligrams p.o. every 8 hours and also prednisone 10 mg p.o. twice daily she is also receiving IV morphine on as-needed basis plan is to continue the present management. 04/25/2018-patient is complaining of severe pains in the lower extremities. Presently on IV morphine 1 mg every 2 hours as needed. Plan is to continue the present management. 04/26/2018-patient is complaining of severe pains all over the body, presently on IV morphine 1 mg q. 2 hours as needed plan is to continue the present management. (6) Sacral decubitus ulcer, stage III Is this a current diagnosis for this admission?: No Plan: 04/25/2018-patient has a stage III sacral dec[address]. Bergeron evaluated the patient he thinks patient does not need any debridement. Will follow his recommendations. 2 try to change the body position every 2 hours. Started on Ensure 1 can p.o. 3 times daily prior to meals. 04/26/2018-patient has a stage III sacral decubitus debridement was done by Dr. Newman. We will continue to follow the recommendations.
[2018-04-26] MEDS: NYSTATIN CREAM 15 GM TP SCH ×2 (10:29→18:29)
[2018-04-26] MEDS: CHOLECALCIFEROL (D3) 400 UNIT/ML DROPS 50 ML PO SCH (10:29)
[2018-04-26] MEDS: CARVEDILOL 12.5 MG TABLET PO SCH ×2 (10:30→21:47)
[2018-04-26] MEDS: DIGOXIN 0.125 MG TABLET PO SCH (10:31)
[2018-04-26] MEDS: PREDNISONE 10 MG TABLET PO SCH ×2 (10:31→18:26)
[2018-04-26] MEDS: LAMOTRIGINE 100 MG TABLET PO SCH (10:31)
[2018-04-26] MEDS: ASPIRIN 81 MG TABLET, ENT COATED PO SCH (10:32)
[2018-04-26] MEDS: MULTIVITAMIN ORAL LIQUID 60 ML PO SCH (10:33)
[2018-04-26] MEDS: FLUTICASONE/VILANTEROL 200-25 MCG/DOSE IH SCH (10:33)
[2018-04-26] MEDS: CLOTRIMAZOLE 1% CREAM 15 GM TP SCH ×2 (10:35→18:29)
[2018-04-26] MEDS: HYDROCORTISONE 1% CREAM 28.35 GM TP SCH ×2 (10:36→18:28)
[2018-04-26] MEDS ORDERED: HYDROMORPHONE HCL INJ/PF 2 MG/ML AMPULE ONE (17:49)
[2018-04-26] MEDS: APIXABAN 5 MG TABLET PO SCH (18:26)
[2018-04-26] MEDS: GABAPENTIN 100 MG CAPSULE PO SCH (21:46)
[2018-04-26] MEDS: ATORVASTATIN CALCIUM 40 MG TABLET PO SCH (21:47)
[2018-04-27] MEDS: IPRATROPIUM/ALBUTEROL 0.5-2.5 MG/3 ML AMPUL NEB SCH ×4 (02:08→20:05)
[2018-04-27] MEDS: MORPHINE SULFATE 10 MG/ML INJ IV PRN ×2 (02:34→05:12)
[2018-04-27] MEDS: LEVOTHYROXINE SODIUM 0.05 MG TABLET PO SCH (05:11)
[2018-04-27] MEDS: APIXABAN 5 MG TABLET PO SCH ×2 (05:11→19:05)
[2018-04-27] MEDS: VALACYCLOVIR HCL 500 MG TABLET PO SCH ×3 (05:11→21:27)
[2018-04-27] MEDS: HYDRALAZINE HCL 25 MG TABLET PO SCH ×3 (05:12→21:28)
[2018-04-27 05:49] LABS: ABSOLUTE BASOPHILS # (AUTO) 0.1 10^3/uL (0.0-0.2); ABSOLUTE NEUT (AUTO) 7.9 10^3/uL (1.7-8.2); BASOPHILS % (AUTO) 0.7 % (0-2); EOSINOPHILS % (AUTO) 0.1 % (0-6); HEMATOCRIT 30.4 % (36.0-47.0); HEMOGLOBIN 9.8 g/dL (12.0-15.5); LYMPHOCYTES % (AUTO) 17.9 % (13-45); MEAN CORPUSCULAR HEMOGLOBIN 26.8 pg (27.0-33.4); MEAN CORPUSCULAR HGB CONC 32.2 g/dL (32.0-36.0); MEAN CORPUSCULAR VOLUME 83 fl (80-97); MONOCYTES % (AUTO) 9.4 % (3-13); PLATELET COUNT 273 10^3/uL (150-450); RED BLOOD COUNT 3.66 10^6/uL (3.72-5.28); RED CELL DISTRIBUTION WIDTH 16.7 % (11.5-14.0); SEGMENTED NEUTROPHILS % (AUTO) 71.9 % (42-78); TOTAL CELLS COUNTED % (AUTO) 100 %; WHITE BLOOD COUNT 11.1 10^3/uL (4.0-10.5)
[2018-04-27 05:58] LABS: ALANINE AMINOTRANSFERASE 41 U/L (9-52); ALBUMIN 2.9 g/dL (3.5-5.0); ALKALINE PHOSPHATASE 98 U/L (38-126); ANION GAP 8 (5-19); ASPARTATE AMINO TRANSFERASE 43 U/L (14-36); BILIRUBIN,DIRECT 0.2 mg/dL (0.0-0.4); BILIRUBIN,TOTAL 0.2 mg/dL (0.2-1.3); BLOOD UREA NITROGEN 32 mg/dL (7-20); CALCIUM 10.1 mg/dL (8.4-10.2); CARBON DIOXIDE 29 mmol/L (22-30); CHLORIDE 103 mmol/L (98-107); GLUCOSE 148 mg/dL (75-110); POTASSIUM 5.1 mmol/L (3.6-5.0); SODIUM 139.8 mmol/L (137-145); TOTAL PROTEIN 6.4 g/dL (6.3-8.2)
[2018-04-27] MEDS: HYDROMORPHONE HCL INJ/PF 2 MG/ML AMPULE IV PRN ×7 (07:09→18:58)
[2018-04-27] MEDS: DIPHENHYDRAMINE HCL 50 MG/ML VIAL IV PRN ×4 (07:13→18:56)
[2018-04-27] MEDS: CARVEDILOL 12.5 MG TABLET PO SCH ×2 (10:08→21:28)
[2018-04-27] MEDS: ASPIRIN 81 MG TABLET, ENT COATED PO SCH (10:08)
[2018-04-27] MEDS: PREDNISONE 10 MG TABLET PO SCH (10:08)
[2018-04-27] MEDS: MONTELUKAST SODIUM 10 MG TABLET PO SCH (10:09)
[2018-04-27] MEDS: FOLIC ACID 1 MG TABLET PO SCH (10:09)
--- NOTE | 2018-04-27 10:11 | PDOC PROGRESS REPORT ---
Subjective Progress Note for:: 04/27/18 Subjective:: 72 year old female patient, assisted resident at [facility], with past medical history of atrial fibrillation, hypertension, hyperlipidemia, COPD, history of breast cancer and bipolar disorder brought with chief complaint of fever. Reportedly staff did an axillary temperature the patient and it was 100.9 so they called EMS and EMS did an oral temp was 98.7. Since patient is nonverbal I got brief history from the ER attending note and her who is in the room during my encounter. Per her patient was admitted on March 24 at [facility] and he was told "she has damage to her posterior brain". Since then patient not able to move her right arm and she is aphasic. Her blood work is unremarkable except for mild hyponatremia with sodium of 149 and her urinalysis is compatible with urinary tract infection. Her left arm is a swo llen and on the posterior extensor surface there are multiple blisters most probably several pustules. Further detailed history and review of systems unobtainable. 04/23/2018-patient is in bed she is in excruciating pain and found to have a right arm was swollen with pustules looks like happens to me so wound culture was sent, started on acyclovir, started on prednisone and patient was started on IV morphine 1 mg every 2 hours as needed for pain. Patient vital signs today T- max is 98.6. Overall condition is critical prognosis is poor. Patient is DNR/DNI. 04/24/2018-patient is much alert more awake today on asking she says she is doing fine she thinks she is in [facility]. She knows who she is and she is able to give her 's name today. No acute events in the last 24 hours. Afebrile. Nurse told me just a while ago patient is in A. fib with heart rate close to 130. I reviewed her medications patient is on digoxin and also on Coreg probably she has history of atrial fibrillation but we do not have the medical records available. Started on Cardizem 10 mg IV every 6 as needed for heart rate of more than 120. 04/25/2018-patient is receiving IV morphine 1 mg every 2 hours as needed complaining of pain scale of 10 x 10 in the legs. Maybe she has a chronic pain medication dependency. Patient has a stage III sacral decubitus ulcer. Dr. Newman saw the patient this morning his impression is patient does not need any debridement. No acute events in the last 24 hours. Patient is afebrile. 04/26/2018-patient is receiving IV morphine 2 mg every 2 hours as needed complaining of pain today requesting pain medications right now looks like she has chronic pain medication dependency. The right home skin lesions slightly improved compared to yesterday. Patient is afebrile. No acute events in the last 24 hours. Patient has stage III sacral decubitus status post debridement was done by Dr. Newman yesterday. The cultures are negative so far. Urine culture is positive for Enterobacter as per ID recommendations antibiotics are discontinued. 2018-this elderly female admitted from the assisted with right arm cellulitis looks like a zoster infection to me she has no Valtrex now she is getting the dressing of the right arm with the junk IV pain medication changed from morphine to Dilaudid yesterday pain is better controlled now. Cultures are negative so far. Cultures showing Enterobacter Dr. De La Rosa thinks he is colonization completely agree with her. Patient is afebrile. With a temperatur e of 98.1. Reason For Visit: COMPLICATED UTI, RIGHT ARM CELLULITIS Physical Exam Vital Signs: Temp Pulse Resp BP Pulse Ox 98.1 F 91 20 144/47 H 99 04/27/18 07:40 04/27/18 07:40 04/27/18 07:40 04/27/18 07:40 04/27/18 07:40 Intake & Output 04/26/18 04/27/18 04/28/18 06:59 06:59 06:59 Intake Total 518 887 Output Total 1576 1865 Balance -1057 -2388 Weight 96 kg 93.9 kg General appearance: PRESENT: no acute distress, mild distress Head exam: PRESENT: atraumatic Eye exam: PRESENT: PERRLA Mouth exam: PRESENT: moist, tongue midline Neck exam: ABSENT: carotid bruit, JVD, lymphadenopathy, thyromegaly Respiratory exam: PRESENT: clear to auscultation carmen. ABSENT: rales, rhonchi, wheezes Cardiovascular exam: PRESENT: irregular rhythm, systolic murmur, tachycardia GI/Abdominal exam: PRESENT: normal bowel sounds, soft. ABSENT: distended, guarding, mass, organolmegaly, rebound, tenderness Extremities exam: PRESENT: other - Right arm still swollen and weak secondary to stroke. Rash is still persisting. Musculoskeletal exam: PRESENT: other - Patient is bedbound and nonambulatory. Neurological exam: PRESENT: alert, awake, oriented to person, oriented to place, oriented to time, other - Patient has a recent history of stroke stroke involving the right side of the body. Psychiatric exam: PRESENT: appropriate affect, normal mood. ABSENT: homicidal ideation, suicidal ideation Results Laboratory Results: 04/27/18 04:34 04/27/18 04:34 04/27/18 04/27/18 04:34 04:34 WBC 11.1 H RBC 3.66 L Hgb 9.8 L Hct 30.4 L MCV 83 MCH 26.8 L MCHC 32.2 RDW 16.7 H Plt Count 273 Seg Neutrophils % 71.9 Lymphocytes % 17.9 Monocytes % 9.4 Eosinophils % 0.1 Basophils % 0.7 Absolute Neutrophils 7.9 Absolute Lymphocytes 2.0 Absolute Monocytes 1.0 Absolute Eosinophils 0.0 Absolute Basophils 0.1 Sodium 139.8 Potassium 5.1 H Chloride 103 Carbon Dioxide 29 Anion Gap 8 BUN 32 H Creatinine 0.50 L Est GFR ( Amer) > 60 Est GFR (Non-Af Amer) > 60 Glucose 148 H Calcium 10.1 Magnesium 2.0 Total Bilirubin 0.2 AST 43 H ALT 41 Alkaline Phosphatase 98 Total Protein 6.4 Albumin 2.9 L 04/23/18 08:45 Arm - Blister Herpes Simplex Culture & Type - Final Impressions: Chest X-Ray 04/22/18 12:46 IMPRESSION: NO ACUTE RADIOGRAPHIC FINDING IN THE CHEST. Forearm X-Ray 04/22/18 13:18 IMPRESSION: No fracture or dislocation of the right forearm. Diffuse soft tissue swelling about the right forearm. No radiopaque foreign body. Humerus X-Ray 04/22/18 13:18 IMPRESSION: No definite acute bony abnormality. Extensive degenerative changes about the glenohumeral and acromioclavicular joint, similar to priors. Upper Extremity CT 04/23/18 00:00 IMPRESSION: Extremely limited study. No occult fracture. Venous Doppler Study 04/23/18 00:00 IMPRESSION: NO EVIDENCE DVT OR SVT IN THE RIGHT ARM. Assessment and Plan - Diagnosis (1) Right arm cellulitis Is this a current diagnosis for this admission?: Yes Plan: 04/23/2018-patient came in with right arm cellulitis she has pustules in a dermatomal distribution suggestive of her previous started on acyclovir and consultation with ID was requested. Also started on prednisone 10 mg p.o. twice daily for swelling. 04/24/2018-patient was admitted with right arm cellulitis blood cultures are negative so far she is on IV Rocephin and IV levofloxacin also on valacyclovir thousand milligrams p.o. 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 04/25/2018-patient is admitted with right arm swelling and cellulitis looks like patient has a herpes zoster in dermatomal distribution patient is presently on valacyclovir thousand milligrams p.o. every 8 hours looks like the lesions are improving. 04/26/2018-patient has right-sided weakness with right arm swelling which was improving and dermatomal distribution of the rash most likely help base but the cultures came back negative patient is presently on Valtrex thousand milligrams p.o. every 8 hours plan is to continue the present management patient is afebrile. Patient is also receiving morphine 1 mg every 2 hours and she is also receiving prednisone 10 mg twice daily. Plan is to continue the present management. 04/27/2018 patient has right-sided weakness associated with edema may be because of the immobility. She is also developed looks like herpes zoster rash involving the dermatome. Patient is on Valtrex thousand milligrams p.o. every 8 hours patient is receiving dressing with zinc ointment. Hopefully it will improve the rashes. Patient is also on prednisone 10 mg p.o. twice daily plan is to discontinue prednisone. (2) Complicated UTI (urinary tract infection) Is this a current diagnosis for this admission?: Yes Plan: 04/23/18 12:08 Patient came in with complicated UTI cultures from the Fish[facility]'s catheter shows gram-negative rods on Rocephin and IV levofloxacin 750 mg daily. Blood cultures are pending. Plan is to continue other management. 04/24/2018-urine cultures came back positive for Enterobacter. Presently on IV Rocephin and levofloxacin. Blood cultures are negative. Spoke to Dr. De La Rosa about the results she is not convinced this is an acute infection. In her opinion she may have colonization of the bacteria. Plan is to discontinue antibiotics from today. 04/25/2018-urine culture is positive for Enterobacter. As per ID recommendations IV antibiotics are discontinued. Patient is afebrile. T-max is 98. Urine culture showing Enterobacter may be colonization. She does not have any suprapubic tenderness on examination. 04/26/2018 urine culture is positive for Enterobacter probably colonization. Patient is presently not on any IV antibiotic therapy. Patient is afebrile. T- max is 97.2 and WBC count is 8700. 04/27/2018-culture shows Enterobacter probably secondary to colonization patient is off the antibiotic therapy T-max is 98.1. WBC count is 11,000 within normal limits. (3) Atrial fibrillation Is this a current diagnosis for this admission?: No Plan: 04/23/18 12:10 04/23/2018 patient has chronic atrial fibrillation on Eliquis at assisted which was resumed here in the hospital. 04/24/2018-patient has history of chronic atrial fibrillation she is on Eliquis at home the medication is resumed during the hospital stay. I am going to discuss with the about the risks and benefits of continuing Eliquis 04/25/2018-patient history of chronic atrial fibrillation and Eliquis at assisted. Medication was resumed during the hospital stay. 04/26/2018 patient has history of chronic atrial fibrillation and she is on Eliquis. Presently she is on Eliquis is on hold because of the debridement was done yesterday. And is to restart Eliquis from tonight. 04/27/2018-patient has history of chronic atrial fibrillation on Eliquis. Plan is to continue Eliquis during the hospital stay. (4) COPD (chronic obstructive pulmonary disease) Qualifiers: Emphysema type: unspecified Is this a current diagnosis for this admission?: No Plan: 04/23/18 12:11 04/23/2018 patient has history of COPD pulse ox here 94% on room air. Plan is to restart the bronchodilators patient is taking at assisted. 04/24/2018 patient has history of COPD presently pulse ox is 92% room air. Patient is not in distress. Chest x-ray is negative for pneumonia. Plan is to continue the present management. 04/25/2018-patient has history of COPD pulse oxes are 99% on room air. plan is to continue the present management. 2018-patient has history of COPD pulse ox is 96% on room air. Stable. 04/27/2018-patient has history of COPD not on oxygen at assisted pulse ox is 99% on 2 L plan is to continue the present management. (5) Severe pain Is this a current diagnosis for this admission?: Yes Plan: 04/23/18 12:12 04/23/2018 patient has a severe right arm pain secondary to skin infection/cellulitis started on IV morphine 1 mg every 2 hours as needed. 04/24/2018-patient has severe right arm pain probably secondary to herpes involving the dermatomes. Patient is on Valtrex thousand milligrams p.o. every 8 hours and also prednisone 10 mg p.o. twice daily she is also receiving IV morphine on as-needed basis plan is to continue the present management. 04/25/2018-patient is complaining of severe pains in the lower extremities. Presently on IV morphine 1 mg every 2 hours as needed. Plan is to continue the present management. 04/26/2018-patient is complaining of severe pains all over the body, presently on IV morphine 1 mg q. 2 hours as needed plan is to continue the present management. 03/30/2018-patient pain is much better on IV Dilaudid she is receiving 1 mg IV Dilaudid every 2 hours as needed. Plan is to continue the present management. (6) Sacral decubitus ulcer, stage III Is this a current diagnosis for this admission?: No Plan: 04/25/2018-patient has a stage III sacral decub[address] Dr. Bergeron evaluated the patient he thinks patient does not need any debridement. Will follow his recommendations. 2 try to change the body position every 2 hours. Started on Ensure 1 can p.o. 3 times daily prior to meals. 04/26/2018-patient has a stage III sacral decubitus debridement was done by Dr. Newman. We will continue to follow the recommendations. 04/27/2018 surgical consult was requested for sacral decubitus status post debridement. We will continue to follow surgical recommendations. (7) Stroke Is this a current diagnosis for this admission?: No Plan: 04/27/2018-and has recent history of stroke 3-4 weeks ago at that time she was seen at [facility]. is requesting repeat MRI of the brain today. Stroke involving the right side of the body patient is bedbound p resently in the assisted it is affecting the daily activities. The right arm was immobile and swollen may be secondary to nonuse. Patient is also a lot of pain involving the right home. Stroke is affecting her quality of life. Echo therapy consult requested again. - Time Time Spent with patient: 15-24 minutes Medications reviewed and adjusted accordingly: Yes Anticipated discharge: Home
[2018-04-27] MEDS: LAMOTRIGINE 100 MG TABLET PO SCH (10:12)
[2018-04-27] MEDS: DIGOXIN 0.125 MG TABLET PO SCH (10:12)
[2018-04-27] MEDS: CLOTRIMAZOLE 1% CREAM 15 GM TP SCH ×2 (10:12→19:06)
[2018-04-27] MEDS: FLUTICASONE/VILANTEROL 200-25 MCG/DOSE IH SCH (10:12)
[2018-04-27] MEDS: HYDROCORTISONE 1% CREAM 28.35 GM TP SCH ×2 (10:13→19:05)
[2018-04-27] MEDS: NYSTATIN CREAM 15 GM TP SCH ×2 (10:14→19:07)
[2018-04-27] MEDS: CHOLECALCIFEROL (D3) 400 UNIT/ML DROPS 50 ML PO SCH (10:15)
[2018-04-27] MEDS: CHOLECALCIFEROL (D3) 1,000 UNIT TABLET PO SCH (11:25)
[2018-04-27] MEDS: MULTIVITAMIN TABLET PO SCH (11:25)
[2018-04-27] MEDS: MULTIVITAMIN ORAL LIQUID 60 ML PO SCH (13:39)
[2018-04-27] MEDS ORDERED: LORAZEPAM INJ 2 MG/1 ML VIAL ONE (15:43)
[2018-04-27] MEDS ORDERED: LORAZEPAM INJ 2 MG/1 ML VIAL IV PRN (15:46)
[2018-04-27] MEDS ORDERED: LORAZEPAM INJ 2 MG/1 ML VIAL IV ONE ×2 (16:00)
--- NOTE | 2018-04-27 18:02 | RADIOLOGY REPORT (SQ) ---
EXAM DESCRIPTION: MRI HEAD WITHOUT COMPLETED DATE/TIME: 04/27/2018 4:58 pm REASON FOR STUDY: Acute Vision Changes COMPARISON: None. TECHNIQUE: Multiplanar imaging includes non-contrasted T1, T2, FLAIR, and diffusion with ADC map seq uences. Images stored on PACS. LIMITATIONS: Significant motion artifact. FINDINGS: ANATOMY: No anomalies. Normal vascular flow voids. Pituitary fossa normal. CSF SPACES: Atrophy induced prominence of ventricles and CSF spaces. CEREBRUM: High T2 signal intensity changes in the posterior white matter on FLAIR imaging in the occi pital parietal lobes. No evidence of hemorrhage, mass, or extraaxial fluid collection. POSTERIOR FOSSA: No signal alteration. No hemorrhage. No edema, masses or mass effect. Internal reza tory canals, cerebello-pontine angles, mastoids normal. DIFFUSION IMAGING: No evidence for acute or sub-acute infarction. ORBITS: No masses. Globes normal. PARANASAL SINUSES: No fluid levels. Mucosa normal. OTHER: No other significant finding. IMPRESSION: No evidence for acute or sub-acute infarction.High T2 signal intensity changes in the po sterior white matter on FLAIR imaging in the occipital parietal lobes. Significant motion artifact. EVIDENCE OF ACUTE STROKE: NO. TECHNICAL DOCUMENTATION: JOB ID: [id number] [employer]- All Rights Reserved Reading location - IP/workstation name: [email or web address]
[2018-04-27] MEDS: ATORVASTATIN CALCIUM 40 MG TABLET PO SCH (21:27)
[2018-04-27] MEDS: GABAPENTIN 100 MG CAPSULE PO SCH (21:27)
[2018-04-28] MEDS: IPRATROPIUM/ALBUTEROL 0.5-2.5 MG/3 ML AMPUL NEB SCH ×4 (02:08→19:31)
[2018-04-28 04:51] LABS: ABSOLUTE LYMPHOCYTES (AUTO) 3.3 10^3/uL (0.5-4.7); ABSOLUTE MONOCYTES (AUTO) 1.1 10^3/uL (0.1-1.4); ABSOLUTE NEUT (AUTO) 7.6 10^3/uL (1.7-8.2); BASOPHILS % (AUTO) 0.4 % (0-2); EOSINOPHILS % (AUTO) 0.3 % (0-6); HEMATOCRIT 28.1 % (36.0-47.0); HEMOGLOBIN 9.2 g/dL (12.0-15.5); LYMPHOCYTES % (AUTO) 27.2 % (13-45); MEAN CORPUSCULAR HEMOGLOBIN 27.3 pg (27.0-33.4); MEAN CORPUSCULAR HGB CONC 32.7 g/dL (32.0-36.0); MEAN CORPUSCULAR VOLUME 83 fl (80-97); MONOCYTES % (AUTO) 9.1 % (3-13); PLATELET COUNT 315 10^3/uL (150-450); RED BLOOD COUNT 3.37 10^6/uL (3.72-5.28); RED CELL DISTRIBUTION WIDTH 16.7 % (11.5-14.0); TOTAL CELLS COUNTED % (AUTO) 100 %; WHITE BLOOD COUNT 12.1 10^3/uL (4.0-10.5)
[2018-04-28 05:11] LABS: ALANINE AMINOTRANSFERASE 31 U/L (9-52); ALBUMIN 2.4 g/dL (3.5-5.0); ALKALINE PHOSPHATASE 77 U/L (38-126); ANION GAP 9 (5-19); ASPARTATE AMINO TRANSFERASE 28 U/L (14-36); BILIRUBIN,DIRECT 0.3 mg/dL (0.0-0.4); BILIRUBIN,TOTAL 0.3 mg/dL (0.2-1.3); BLOOD UREA NITROGEN 30 mg/dL (7-20); CALCIUM 9.9 mg/dL (8.4-10.2); CARBON DIOXIDE 26 mmol/L (22-30); CHLORIDE 102 mmol/L (98-107); GLUCOSE 81 mg/dL (75-110); POTASSIUM 4.9 mmol/L (3.6-5.0); SODIUM 136.9 mmol/L (137-145); TOTAL PROTEIN 5.4 g/dL (6.3-8.2)
[2018-04-28] MEDS: VALACYCLOVIR HCL 500 MG TABLET PO SCH ×3 (05:27→21:06)
[2018-04-28] MEDS: LEVOTHYROXINE SODIUM 0.05 MG TABLET PO SCH (05:27)
[2018-04-28] MEDS: APIXABAN 5 MG TABLET PO SCH ×2 (05:27→17:33)
[2018-04-28] MEDS: HYDRALAZINE HCL 25 MG TABLET PO SCH ×3 (05:27→21:04)
[2018-04-28] MEDS: ASPIRIN 81 MG TABLET, ENT COATED PO SCH (09:37)
[2018-04-28] MEDS: LAMOTRIGINE 100 MG TABLET PO SCH (09:37)
[2018-04-28] MEDS: MONTELUKAST SODIUM 10 MG TABLET PO SCH (09:37)
[2018-04-28] MEDS: MULTIVITAMIN TABLET PO SCH (09:37)
[2018-04-28] MEDS: CARVEDILOL 12.5 MG TABLET PO SCH ×2 (09:37→21:05)
[2018-04-28] MEDS: CHOLECALCIFEROL (D3) 1,000 UNIT TABLET PO SCH (09:38)
[2018-04-28] MEDS: DIGOXIN 0.125 MG TABLET PO SCH (09:38)
[2018-04-28] MEDS: HYDROCORTISONE 1% CREAM 28.35 GM TP SCH ×2 (09:40→17:34)
[2018-04-28] MEDS: FLUTICASONE/VILANTEROL 200-25 MCG/DOSE IH SCH (09:41)
[2018-04-28] MEDS: NYSTATIN CREAM 15 GM TP SCH ×2 (09:41→17:33)
[2018-04-28] MEDS: CLOTRIMAZOLE 1% CREAM 15 GM TP SCH ×2 (09:42→17:33)
[2018-04-28] MEDS: FOLIC ACID 1 MG TABLET PO SCH (09:42)
--- NOTE | 2018-04-28 10:03 | PDOC PROGRESS REPORT ---
Subjective Progress Note for:: 04/28/18 Subjective:: 72 year old female patient, detention resident at [facility], with past medical history of atrial fibrillation, hypertension, hyperlipidemia, COPD, history of breast cancer and bipolar disorder brought with chief complaint of fever. Reportedly staff did an axillary temperature the patient and it was 100.9 so they called EMS and EMS did an oral temp was 98.7. Since patient is nonverbal I got brief history from the ER attending note and her who is in the room during my encounter. Per her patient was admitted on March 24 at [facility] and he was told "she has damage to her posterior brain". Since then patient not able to move her right arm and she is aphasic. Her blood work is unremarkable except for mild hyponatremia with sodium of 149 and her urinalysis is compatible with urinary tract infection. Her left arm is a swo llen and on the posterior extensor surface there are multiple blisters most probably several pustules. Further detailed history and review of systems unobtainable. 04/23/2018-patient is in bed she is in excruciating pain and found to have a right arm was swollen with pustules looks like happens to me so wound culture was sent, started on acyclovir, started on prednisone and patient was started on IV morphine 1 mg every 2 hours as needed for pain. Patient vital signs today T- max is 98.6. Overall condition is critical prognosis is poor. Patient is DNR/DNI. 04/24/2018-patient is much alert more awake today on asking she says she is doing fine she thinks she is in [facility]. She knows who she is and she is able to give her 's name today. No acute events in the last 24 hours. Afebrile. Nurse told me just a while ago patient is in A. fib with heart rate close to 130. I reviewed her medications patient is on digoxin and also on Coreg probably she has history of atrial fibrillation but we do not have the medical records available. Started on Cardizem 10 mg IV every 6 as needed for heart rate of more than 120. 04/25/2018-patient is receiving IV morphine 1 mg every 2 hours as needed complaining of pain scale of 10 x 10 in the legs. Maybe she has a chronic pain medication dependency. Patient has a stage III sacral decubitus ulcer. Dr. Newman saw the patient this morning his impression is patient does not need any debridement. No acute events in the last 24 hours. Patient is afebrile. 04/26/2018-patient is receiving IV morphine 2 mg every 2 hours as needed complaining of pain today requesting pain medications right now looks like she has chronic pain medication dependency. The right home skin lesions slightly improved compared to yesterday. Patient is afebrile. No acute events in the last 24 hours. Patient has stage III sacral decubitus status post debridement was done by Dr. Newman yesterday. The cultures are negative so far. Urine culture is positive for Enterobacter as per ID recommendations antibiotics are discontinued. 04/27/2018-this elderly female admitted from the detention with right arm cellulitis looks like a zoster infection to me she has no Valtrex now she is getting the dressing of the right arm with the junk IV pain medication changed from morphine to Dilaudid yesterday pain is better controlled now. Cultures are negative so far. Cultures showing Enterobacter Dr. De La Rosa thinks he is colonization completely agree with her. Patient is afebrile. With a temperat ure of 98.1. 2018-elderly female admitted from the detention with right arm swelling and cellulitis found to have a rash with pustules and erythema with treating it for her place and she is on Valtrex thousand milligrams p.o. every 8 hours consultation with ID was done patient is not on antibiotics because we thought UTI is causing radiation patient is afebrile throughout the hospital course temperature is 97.6 today. Patient is comfortably sleeping in the bed. Acute events in the last 24 hours patient is DNR/DNI. Reason For Visit: COMPLICATED UTI, RIGHT ARM CELLULITIS Physical Exam Vital Signs: Temp Pulse Resp BP Pulse Ox 97.6 F 54 L 20 130/78 H 98 04/28/18 03:38 04/28/18 07:00 04/28/18 03:38 04/28/18 03:38 04/28/18 03:38 Intake & Output 04/27/18 04/28/18 04/29/18 06:59 06:59 06:59 Intake Total 887 900 Output Total 3275 3100 Balance -2388 -2200 Weight 93.9 kg 90.3 kg General appearance: PRESENT: no acute distress Head exam: PRESENT: atraumatic Eye exam: PRESENT: PERRLA Mouth exam: PRESENT: moist, tongue midline Neck exam: ABSENT: carotid bruit, JVD, lymphadenopathy, thyromegaly Respiratory exam: PRESENT: decreased breath sounds Cardiovascular exam: PRESENT: irregular rhythm, systolic murmur, tachycardia GI/Abdominal exam: PRESENT: normal bowel sounds, soft. ABSENT: distended, guarding, mass, organolmegaly, rebound, tenderness Extremities exam: PRESENT: full ROM. ABSENT: calf tenderness, clubbing, pedal edema Neurological exam: PRESENT: alert, awake, other - Patient has a stroke recently with right-sided weakness. MRI of the brain yesterday does not show any acute changes. Psychiatric exam: PRESENT: anxious Results Laboratory Results: 04/28/18 03:58 04/28/18 03:58 04/28/18 04/28/18 03:58 03:58 WBC 12.1 H RBC 3.37 L Hgb 9.2 L Hct 28.1 L MCV 83 MCH 27.3 MCHC 32.7 RDW 16.7 H Plt Count 315 Seg Neutrophils % 63.0 Lymphocytes % 27.2 Monocytes % 9.1 Eosinophils % 0.3 Basophils % 0.4 Absolute Neutrophils 7.6 Absolute Lymphocytes 3.3 Absolute Monocytes 1.1 Absolute Eosinophils 0.0 Absolute Basophils 0.0 Sodium 136.9 L Potassium 4.9 Chloride 102 Carbon Dioxide 26 Anion Gap 9 BUN 30 H Creatinine 0.49 L Est GFR ( Amer) > 60 Est GFR (Non-Af Amer) > 60 Glucose 81 Calcium 9.9 Magnesium 2.1 Total Bilirubin 0.3 AST 28 ALT 31 Alkaline Phosphatase 77 Total Protein 5.4 L Albumin 2.4 L 04/22/18 15:35 Blood Blood Culture - Final NO GROWTH IN 5 DAYS 04/22/18 15:00 Blood Blood Culture - Final NO GROWTH IN 5 DAYS Impressions: Chest X-Ray 04/22/18 12:46 IMPRESSION: NO ACUTE RADIOGRAPHIC FINDING IN THE CHEST. Forearm X-Ray 04/22/18 13:18 IMPRESSION: No fracture or dislocation of the right forearm. Diffuse soft tissue swelling about the right forearm. No radiopaque foreign body. Humerus X-Ray 04/22/18 13:18 IMPRESSION: No definite acute bony abnormality. Extensive degenerative changes about the glenohumeral and acromioclavicular joint, similar to priors. Upper Extremity CT 04/23/18 00:00 IMPRESSION: Extremely limited study. No occult fracture. Venous Doppler Study 04/23/18 00:00 IMPRESSION: NO EVIDENCE DVT OR SVT IN THE RIGHT ARM. Head MRI 04/27/18 08:00 IMPRESSION: No evidence for acute or sub-acute infarction.High T2 signal intensity changes in the posterior white matter on FLAIR imaging in the occipital parietal lobes. Significant motion artifact. EVIDENCE OF ACUTE STROKE: NO. Assessment and Plan - Diagnosis (1) Right arm cellulitis Is this a current diagnosis for this admission?: Yes Plan: 04/23/2018-patient came in with right arm cellulitis she has pustules in a dermatomal distribution suggestive of her previous started on acyclovir and consultation with ID was requested. Also started on prednisone 10 mg p.o. twice daily for swelling. 04/24/2018-patient was admitted with right arm cellulitis blood cultures are negative so far she is on IV Rocephin and IV levofloxacin also on valacyclovir thousand milligrams p.o. 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 04/25/2018-patient is admitted with right arm swelling and cellulitis looks like patient has a herpes zoster in dermatomal distribution patient is presently on valacyclovir thousand milligrams p.o. every 8 hours looks like the lesions are improving. 04/26/2018-patient has right-sided weakness with right arm swelling which was improving and dermatomal distribution of the rash most likely help base but the cultures came back negative patient is presently on Valtrex thousand milligrams p.o. every 8 hours plan is to continue the present management patient is afebrile. Patient is also receiving morphine 1 mg every 2 hours and she is also receiving prednisone 10 mg twice daily. Plan is to continue the present management. 04/27/2018 patient has right-sided weakness associated with edema may be because of the immobility. She is also developed looks like herpes zoster rash involving the dermatome. Patient is on Valtrex thousand milligrams p.o. every 8 hours patient is receiving dressing with zinc ointment. Hopefully it will improve the rashes. Patient is also on prednisone 10 mg p.o. twice daily plan is to discontinue prednisone. 04/28/2018-right arm is with a dressing covered with itching. The rash is stabilized looks like improving. Plan is to continue Valtrex thousand milligrams p.o. every 8 hours. Patient is afebrile. On gentle movement of the arm patient is complaining of pain. Probably secondary to stroke. (2) Complicated UTI (urinary tract infection) Is this a current diagnosis for this admission?: Yes (3) Atrial fibrillation Is this a current diagnosis for this admission?: No Plan: 04/23/18 12:10 04/23/2018 patient has chronic atrial fibrillation on Eliquis at detention which was resumed here in the hospital. 04/24/2018-patient has history of chronic atrial fibrillation she is on Eliquis at home the medication is resumed during the hospital stay. I am going to discuss with the about the risks and benefits of continuing Eliquis 04/25/2018-patient history of chronic atrial fibrillation and Eliquis at detention. Medication was resumed during the hospital stay. 04/26/2018 patient has history of chronic atrial fibrillation and she is on Eliquis. Presently she is on Eliquis is on hold because of the debridement was done yesterday. And is [facility] 04/27/2018-patient has history of chronic atrial fibrillation on Eliquis. Plan is to continue Eliquis during the hospital stay. 04/28/2018-patient's heart rate is around 70s-80s. She will in atrial fibrillation. On Eliquis. Plan is to continue the present management. (4) COPD (chronic obstructive pulmonary disease) Qualifiers: Emphysema type: unspecified Is this a current diagnosis for this admission?: No Plan: 04/23/18 12:11 04/23/2018 patient has history of COPD pulse ox here 94% on room air. Plan is to restart the bronchodilators patient is taking at detention. 04/24/2018 patient has history of COPD presently pulse ox is 92% room air. Patient is not in distress. Chest x-ray is negative for pneumonia. Plan is to continue the present management. 04/25/2018-patient has history of COPD pulse oxes are 99% on room air. plan is to continue the present management. 2018-patient has history of COPD pulse ox is 96% on room air. Stable. 04/27/2018-patient has history of COPD not on oxygen at detention pulse ox is 99% on 2 L plan is to continue the present management. 04/28/2018-patient has history of COPD not on oxygen at detention pulse oxes 98% on 2 L today. plan is to continue the present management. (5) Severe pain Is this a current diagnosis for this admission?: Yes Plan: 04/23/18 12:12 04/23/2018 patient has a severe right arm pain secondary to skin infection/cellulitis started on IV morphine 1 mg every 2 hours as needed. 04/24/2018-patient has severe right arm pain probably secondary to herpes involving the dermatomes. Patient is on Valtrex thousand milligrams p.o. every 8 hours and also prednisone 10 mg p.o. twice daily she is also receiving IV morphine on as-needed basis plan is to continue the present management. 04/25/2018-patient is complaining of severe pains in the lower extremities. Presently on IV morphine 1 mg every 2 hours as needed. Plan is to continue the present management. 04/26/2018-patient is complaining of severe pains all over the body, presently on IV morphine 1 mg q. 2 hours as needed plan is to continue the present management. 04/27/2018-patient pain is much better on IV Dilaudid she is receiving 1 mg IV Dilaudid every 2 hours as needed. Plan is to continue the present management. 03/31/2018-patient is not any knee pain today except on moving the right arm patient is receiving Dilaudid 1 mg every 2 hours as needed looks like is helping with the pain she is also on gabapentin milligrams p.o. nightly. I am going to increase the gabapentin to 300 mg 3 times daily.. (6) Sacral decubitus ulcer, stage III Is this a current diagnosis for this admission?: No Plan: 04/25/2018-patient has a stage III sacral decubitus Dr. Bergeron evaluated the patient he thinks patient does not need any debridement. Will follow his recommendations. 2 try to change the body position every 2 hours. Started on Ensure 1 can p.o. 3 times daily prior to meals. 04/26/2018-patient has a stage III sacral decubitus debridement was done by Dr. Newman. We will continue to follow the recommendations. 04/27/2018 surgical consult was requested for sacral decubitus status post debridement. We will continue to follow surgical recommendations. 04/28/2018-patient came in with stage IV sacral decubitus status post debridemen t. Dressing changes as per surgical recommendations. Order was placed to turn the patient body position every 2 hours. (7) Stroke Is this a current diagnosis for this admission?: No Plan: 04/27/2018-and has recent history of stroke 3-4 weeks ago at that time she was seen at [facility]. is requesting repeat MRI of the brain today. Stroke involving the right side of the body patient is bedbound presently in the detention it is affecting the daily activities. The right arm was immobile and swollen may be secondary to nonuse. Patient is also a lot of pain involving the right home. Stroke is affecting her quality of life. Echo therapy consult requested again. 04/28/2018-patient has recent history of stroke at outside hospital involving the right side of the body is affecting her daily activities and quality of life patient is bedbound. (8) DNR (do not resuscitate) Is this a current diagnosis for this admission?: Yes Plan: 04/28/2018 patient CODE STATUS is DNR/DNI. - Time Time Spent with patient: 15-24 minutes Medications reviewed and adjusted accordingly: Yes Anticipated discharge: SN[facility]
[2018-04-28] MEDS: GABAPENTIN 300 MG CAPSULE PO SCH ×2 (13:12→21:05)
[2018-04-28] MEDS ORDERED: GABAPENTIN 100 MG CAPSULE PO SCH (14:00)
[2018-04-28] MEDS: HYDROMORPHONE HCL INJ/PF 2 MG/ML AMPULE IV PRN (18:47)
[2018-04-28] MEDS: ATORVASTATIN CALCIUM 40 MG TABLET PO SCH (21:05)
[2018-04-29] MEDS: IPRATROPIUM/ALBUTEROL 0.5-2.5 MG/3 ML AMPUL NEB SCH ×4 (02:03→19:59)
[2018-04-29] MEDS: HYDROMORPHONE HCL INJ/PF 2 MG/ML AMPULE IV PRN ×4 (02:45→18:32)
[2018-04-29] MEDS: DIPHENHYDRAMINE HCL 50 MG/ML VIAL IV PRN (04:33)
[2018-04-29 05:29] LABS: ABSOLUTE BASOPHILS # (AUTO) 0.1 10^3/uL (0.0-0.2); ABSOLUTE LYMPHOCYTES (AUTO) 2.9 10^3/uL (0.5-4.7); ABSOLUTE MONOCYTES (AUTO) 1.4 10^3/uL (0.1-1.4); ABSOLUTE NEUT (AUTO) 8.5 10^3/uL (1.7-8.2); BASOPHILS % (AUTO) 0.8 % (0-2); EOSINOPHILS % (AUTO) 0.2 % (0-6); HEMATOCRIT 27.6 % (36.0-47.0); HEMOGLOBIN 9.1 g/dL (12.0-15.5); LYMPHOCYTES % (AUTO) 22.3 % (13-45); MEAN CORPUSCULAR HEMOGLOBIN 27.3 pg (27.0-33.4); MEAN CORPUSCULAR VOLUME 83 fl (80-97); PLATELET COUNT 330 10^3/uL (150-450); RED BLOOD COUNT 3.34 10^6/uL (3.72-5.28); RED CELL DISTRIBUTION WIDTH 16.8 % (11.5-14.0); SEGMENTED NEUTROPHILS % (AUTO) 65.7 % (42-78); TOTAL CELLS COUNTED % (AUTO) 100 %; WHITE BLOOD COUNT 12.9 10^3/uL (4.0-10.5)
[2018-04-29 05:50] LABS: ALANINE AMINOTRANSFERASE 23 U/L (9-52); ALBUMIN 2.5 g/dL (3.5-5.0); ALKALINE PHOSPHATASE 89 U/L (38-126); ANION GAP 10 (5-19); ASPARTATE AMINO TRANSFERASE 26 U/L (14-36); BILIRUBIN,DIRECT 0.3 mg/dL (0.0-0.4); BILIRUBIN,TOTAL 0.3 mg/dL (0.2-1.3); BLOOD UREA NITROGEN 38 mg/dL (7-20); CALCIUM 9.3 mg/dL (8.4-10.2); CARBON DIOXIDE 25 mmol/L (22-30); CHLORIDE 98 mmol/L (98-107); GLUCOSE 102 mg/dL (75-110); POTASSIUM 5.1 mmol/L (3.6-5.0); SODIUM 132.6 mmol/L (137-145); TOTAL PROTEIN 5.2 g/dL (6.3-8.2)
[2018-04-29] MEDS: GABAPENTIN 300 MG CAPSULE PO SCH ×3 (06:23→21:29)
[2018-04-29] MEDS: VALACYCLOVIR HCL 500 MG TABLET PO SCH ×3 (06:23→21:27)
[2018-04-29] MEDS: LEVOTHYROXINE SODIUM 0.05 MG TABLET PO SCH (06:23)
[2018-04-29] MEDS: APIXABAN 5 MG TABLET PO SCH ×2 (06:23→18:23)
[2018-04-29] MEDS: HYDRALAZINE HCL 25 MG TABLET PO SCH ×3 (06:24→21:29)
[2018-04-29] MEDS: LAMOTRIGINE 100 MG TABLET PO SCH (09:01)
[2018-04-29] MEDS: ASPIRIN 81 MG TABLET, ENT COATED PO SCH (09:01)
[2018-04-29] MEDS: MONTELUKAST SODIUM 10 MG TABLET PO SCH (09:02)
[2018-04-29] MEDS: FOLIC ACID 1 MG TABLET PO SCH (09:02)
[2018-04-29] MEDS: FLUTICASONE/VILANTEROL 200-25 MCG/DOSE IH SCH (09:37)
[2018-04-29] MEDS: MULTIVITAMIN TABLET PO SCH (09:40)
[2018-04-29] MEDS: CHOLECALCIFEROL (D3) 1,000 UNIT TABLET PO SCH (09:40)
[2018-04-29] MEDS: DIGOXIN 0.125 MG TABLET PO SCH (09:40)
[2018-04-29] MEDS: CARVEDILOL 12.5 MG TABLET PO SCH ×2 (09:41→21:29)
[2018-04-29] MEDS: CLOTRIMAZOLE 1% CREAM 15 GM TP SCH ×2 (09:47→21:27)
[2018-04-29] MEDS: HYDROCORTISONE 1% CREAM 28.35 GM TP SCH ×2 (09:48→18:36)
[2018-04-29] MEDS: NYSTATIN CREAM 15 GM TP SCH ×2 (09:48→18:37)
--- NOTE | 2018-04-29 10:52 | PDOC PROGRESS REPORT ---
Subjective Progress Note for:: 04/29/18 Subjective:: 72 year old female patient, [facility] resident at [facility], with past medical history of atrial fibrillation, hypertension, hyperlipidemia, COPD, history of breast cancer and bipolar disorder brought with chief complaint of fever. Reportedly staff did an axillary temperature the patient and it was 100.9 so they called EMS and EMS did an oral temp was 98.7. Since patient is nonverbal I got brief history from the ER attending note and her who is in the room during my encounter. Per her patient was admitted on March [address] [facility] and he was told "she has damage to her posterior brain". Since then patient not able to move her right arm and she is aphasic. Her blood work is unremarkable except for mild hyponatremia with sodium of 149 and her urinalysis is compatible with urinary tract infection. Her left arm is a swo llen and on the posterior extensor surface there are multiple blisters most probably several pustules. Further detailed history and review of systems unobtainable. 04/23/2018-patient is in bed she is in excruciating pain and found to have a right arm was swollen with pustules looks like happens to me so wound culture was sent, started on acyclovir, started on prednisone and patient was started on IV morphine 1 mg every 2 hours as needed for pain. Patient vital signs today T- max is 98.6. Overall condition is critical prognosis is poor. Patient is DNR/DNI. 04/24/2018-patient is much alert more awake today on asking she says she is doing fine she thinks she is in [facility]. She knows who she is and she is able to give her 's name today. No acute events in the last 24 hours. Afebrile. Nurse told me just a while ago patient is in A. fib with heart rate close to 130. I reviewed her medications patient is on digoxin and also on Coreg probably she has history of atrial fibrillation but we do not have the medical records available. Started on Cardizem 10 mg IV every 6 as needed for heart rate of more than 120. 04/25/2018-patient is receiving IV morphine 1 mg every 2 hours as needed complaining of pain scale of 10 x 10 in the legs. Maybe she has a chronic pain medication dependency. Patient has a stage III sacral decubitus ulcer. Dr. Newman saw the patient this morning his impression is patient does not need any debridement. No acute events in the last 24 hours. Patient is afebrile. 04/26/2018-patient is receiving IV morphine 2 mg every 2 hours as needed complaining of pain today requesting pain medications right now looks like she has chronic pain medication dependency. The right home skin lesions slightly improved compared to yesterday. Patient is afebrile. No acute events in the last 24 hours. Patient has stage III sacral decubitus status post debridement was done by Dr. Newman yesterday. The cultures are negative so far. Urine culture is positive for Enterobacter as per ID recommendations antibiotics are discontinued. 04/27/2018-this elderly female admitted from the [facility] with right arm cellulitis looks like a zoster infection to me she has no Valtrex now she is getting the dressing of the right arm with the junk IV pain medication changed from morphine to Dilaudid yesterday pain is better controlled now. Cultures are negative so far. Cultures showing Enterobacter Dr. De La Rosa thinks he is colonization completely agree with her. Patient is afebrile. With a temperat ure of 98.1. 04/28/2018-elderly female admitted from the [facility] with right arm swelling and cellulitis found to have a rash with pustules and erythema with treating it for her place and she is on Valtrex thousand milligrams p.o. every 8 hours consultation with ID was done patient is not on antibiotics because we thought UTI is causing radiation patient is afebrile throughout the hospital course temperature is 97.6 today. Patient is comfortably sleeping in the bed. Acute events in the last 24 hours patient is DNR/DNI. 04/29/2018-no acute events in the last 24 hours. Afebrile. Patient is off the antibiotics. Patient is presently on Valtrex thousand milligrams p.o. every 8 hours. MRI of the brain was done as per family wishes which was negative for acute changes. Patient has sacral decubitus status post debridement was done by surgical team. Reason For Visit: COMPLICATED UTI, RIGHT ARM CELLULITIS Physical Exam Vital Signs: Temp Pulse Resp BP Pulse Ox 98.6 F 98 18 131/40 H 99 04/29/18 08:14 04/29/18 08:14 04/29/18 08:14 04/29/18 08:14 04/29/18 08:14 Intake & Output 04/28/18 04/29/18 04/30/18 06:59 06:59 06:59 Intake Total 900 1394 Output Total 3100 1300 Balance -2200 94 Weight 90.3 kg 57.6 kg General appearance: PRESENT: no acute distress, obese Head exam: PRESENT: atraumatic Eye exam: PRESENT: PERRLA Mouth exam: PRESENT: moist, tongue midline Neck exam: ABSENT: carotid bruit, JVD, lymphadenopathy, thyromegaly Respiratory exam: PRESENT: clear to auscultation carmen. ABSENT: rales, rhonchi, wheezes Cardiovascular exam: PRESENT: irregular rhythm, systolic murmur, tachycardia GI/Abdominal exam: PRESENT: normal bowel sounds, soft. ABSENT: distended, guarding, mass, organolmegaly, rebound, tenderness Extremities exam: PRESENT: full ROM. ABSENT: calf tenderness, clubbing, pedal edema Neurological exam: PRESENT: alert, awake, motor sensory deficit, other - Patient has right-sided weakness secondary to recent stroke. Psychiatric exam: PRESENT: anxious - And is bedbound. Results Laboratory Results: 04/29/18 04:42 04/29/18 04:42 04/29/18 04/29/18 04:42 04:42 WBC 12.9 H RBC 3.34 L Hgb 9.1 L Hct 27.6 L MCV 83 MCH 27.3 MCHC 33.0 RDW 16.8 H Plt Count 330 Seg Neutrophils % 65.7 Lymphocytes % 22.3 Monocytes % 11.0 Eosinophils % 0.2 Basophils % 0.8 Absolute Neutrophils 8.5 H Absolute Lymphocytes 2.9 Absolute Monocytes 1.4 Absolute Eosinophils 0.0 Absolute Basophils 0.1 Sodium 132.6 L Potassium 5.1 H Chloride 98 Carbon Dioxide 25 Anion Gap 10 BUN 38 H Creatinine 0.55 Est GFR ( Amer) > 60 Est GFR (Non-Af Amer) > 60 Glucose 102 Calcium 9.3 Magnesium 2.0 Total Bilirubin 0.3 AST 26 ALT 23 Alkaline Phosphatase 89 Total Protein 5.2 L Albumin 2.5 L Impressions: Chest X-Ray 04/22/18 12:46 IMPRESSION: NO ACUTE RADIOGRAPHIC FINDING IN THE CHEST. Forearm X-Ray 04/22/18 13:18 IMPRESSION: No fracture or dislocation of the right forearm. Diffuse soft tissue swelling about the right forearm. No radiopaque foreign body. Humerus X-Ray 04/22/18 13:18 IMPRESSION: No definite acute bony abnormality. Extensive degenerative changes about the glenohumeral and acromioclavicular joint, similar to priors. Upper Extremity CT 04/23/18 00:00 IMPRESSION: Extremely limited study. No occult fracture. Venous Doppler Study 04/23/18 00:00 IMPRESSION: NO EVIDENCE DVT OR SVT IN THE RIGHT ARM. Head MRI 04/27/18 08:00 IMPRESSION: No evidence for acute or sub-acute infarction.High T2 signal intensity changes in the posterior white matter on FLAIR imaging in the occipital parietal lobes. Significant motion artifact. EVIDENCE OF ACUTE STROKE: NO. Assessment and Plan - Diagnosis (1) Right arm cellulitis Is this a current diagnosis for this admission?: Yes Plan: 04/23/2018-patient came in with right arm cellulitis she has pustules in a dermatomal distribution suggestive of her previous started on acyclovir and co nsultation with ID was requested. Also started on prednisone 10 mg p.o. twice daily for swelling. 04/24/2018-patient was admitted with right arm cellulitis blood cultures are negative so far she is on IV Rocephin and IV levofloxacin also on valacyclovir thousand milligrams p.o. 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 04/25/2018-patient is admitted with right arm swelling and cellulitis looks like patient has a herpes zoster in dermatomal distribution patient is presently on valacyclovir thousand milligrams p.o. every 8 hours looks like the lesions are improving. 04/26/2018-patient has right-sided weakness with right arm swelling which was improving and dermatomal distribution of the rash most likely help base but the cultures came back negative patient is presently on Valtrex thousand milligrams p.o. every 8 hours plan is to continue the present management patient is afebrile. Patient is also receiving morphine 1 mg every 2 hours and she is also receiving prednisone 10 mg twice daily. Plan is to continue the present management. 04/27/2018 patient has right-sided weakness associated with edema may be because of the immobility. She is also developed looks like herpes zoster rash involving the dermatome. Patient is on Valtrex thousand milligrams p.o. every 8 hours patient is receiving dressing with zinc ointment. Hopefully it will improve the rashes. Patient is also on prednisone 10 mg p.o. twice daily plan is to discontinue prednisone. 04/28/2018-right arm is with a dressing covered with dressing. The rash is stabilized and improving. Plan is to continue Valtrex thousand milligrams p.o. every 8 hours. Patient is afebrile. On gentle movement of the arm patient is complaining of pain. Probably secondary to stroke. 04/29/2018-this elderly female admitted from the [facility] for right arm swelling and cellulitis, she has this dermatomal distribution of the rash looks like herpes we are treating her with Valtrex no spreading of the rash localized improving. Patient is afebrile. Plan is to continue the present management. (2) Complicated UTI (urinary tract infection) Is this a current diagnosis for this admission?: Yes (3) Atrial fibrillation Is this a current diagnosis for this admission?: No Plan: 04/23/18 12:10 04/23/2018 patient has chronic atrial fibrillation on Eliquis at [facility] which was resumed here in the hospital. 04/24/2018-patient has history of chronic atrial fibrillation she is on Eliquis at home the medication is resumed during the hospital stay. I am going to discuss with the about the risks and benefits of continuing Eliquis 04/25/2018-patient history of chronic atrial fibrillation and Eliquis at [facility]. Medication was resumed during the hospital stay. 04/26/2018 patient has history of chronic atrial fibrillation and she is on Eliquis. Presently she is on Eliquis is on hold because of the debridement was done yesterday. [facility] 04/27/2018-patient has history of chronic atrial fibrillation on Eliquis. Plan is to continue Eliquis during the hospital stay. 04/28/2018-patient's heart rate is around 70s-80s. She will in atrial fibrillation. On Eliquis. Plan is to continue the present management. 2018-patient heart rate is in the 90s and still in atrial fibrillation. Patient is on Eliquis plan is to continue the present management. (4) COPD (chronic obstructive pulmonary disease) Qualifiers: Emphysema type: unspecified Is this a current diagnosis for this admission?: No Plan: 04/23/18 12:11 04/23/2018 patient has history of COPD pulse ox here 94% on room air. Plan is to restart the bronchodilators patient is taking at [facility]. 04/24/2018 patient has history of COPD presently pulse ox is 92% room air. Patient is not in distress. Chest x-ray is negative for pneumonia. Plan is to continue the present management. 04/25/2018-patient has history of COPD pulse oxes are 99% on room air. plan is to continue the present management. 2018-patient has history of COPD pulse ox is 96% on room air. Stable. 04/27/2018-patient has history of COPD not on oxygen at [facility] pulse ox is 99% on 2 L plan is to continue the present management. 04/28/2018-patient has history of COPD not on oxygen at [facility], pulse oxes 98% on 2 L today. plan is to continue the present management. 2018 patient's pulse ox is 99% on room air. Plan is to continue the present management. (5) Severe pain Is this a current diagnosis for this admission?: Yes Plan: 04/23/18 12:12 04/23/2018 patient has a severe right arm pain secondary to skin infection/cellulitis started on IV morphine 1 mg every 2 hours as needed. 04/24/2018-patient has severe right arm pain probably secondary to herpes involving the dermatomes. Patient is on Valtrex thousand milligrams p.o. every 8 hours and also prednisone 10 mg p.o. twice daily she is also receiving IV morphine on as-needed basis plan is to continue the present management. 04/25/2018-patient is complaining of severe pains in the lower extremities. Presently on IV morphine 1 mg every 2 hours as needed. Plan is to continue the present management. 04/26/2018-patient is complaining of severe pains all over the body, presently on IV morphine 1 mg q. 2 hours as needed plan is to continue the present management. 04/27/2018-patient pain is much better on IV Dilaudid she is receiving 1 mg IV Dilaudid every 2 hours as needed. Plan is to continue the present management. 04/28/2018-patient is not any pain today except on moving the right arm patient is receiving Dilaudid 1 mg every 2 hours as needed looks like is helping with the pain she is also on gabapentin milligrams p.o. nightly. I am going to increase the gabapentin to 300 mg 3 times daily.. 04/29/2018-patient is receiving Dilaudid 1 mg IV every 2 as needed for pain. Looks like is helping. Plan is to continue the present management. (6) Sacral decubitus ulcer, stage III Is this a current diagnosis for this admission?: No Plan: 04/25/2018-patient has a stage III sacral decubitus Dr. Bergeron evaluated the patient he thinks patient does not need any debridement. Will follow his r ecommendations. 2 try to change the body position every 2 hours. Started on Ensure 1 can p.o. 3 times daily prior to meals. 04/26/2018-patient has a stage III sacral decubitus debridement was done by Dr. Newman. We will continue to follow the recommendations. 04/27/2018 surgical consult was requested for sacral decubitus status post debridement. We will continue to follow surgical recommendations. 04/28/2018-patient came in with stage IV sacral decubitus status post debridement. Dressing changes as per surgical recommendations. Order was placed to turn the patient body position every 2 hours. 04/29/2018-patient has stage IV sacral decubitus status post debridement. Needs to continue the present management , to change the body position every 2 hours. (7) Stroke Is this a current diagnosis for this admission?: No Plan: 04/27/2018-and has recent history of stroke 3-4 weeks ago at that time she was seen at [facility]. is requesting repeat MRI of the brain today. Stroke involving the right side of the body patient is bedbound presently in the [facility] it is affecting the daily activities. The right arm was immobile and swollen may be secondary to nonuse. Patient is also a lot of pain involving the right home. Stroke is affecting her quality of life. Echo therapy consult requested again. 04/28/2018-patient has recent history of stroke at outside hospital involving the right side of the body is affecting her daily activities and quality of life patient is bedbound. 04/29/2018-patient has a recent history of stroke involving the right side of the body it is affecting her quality of life patient is bedbound. And severe pain involving the right side of the body due to the stroke. (8) DNR (do not resuscitate) Is this a current diagnosis for this admission?: Yes - Time Time Spent with patient: 15-24 minutes Medications reviewed and adjusted accordingly: Yes Anticipated discharge: SNF
[2018-04-29] MEDS: ATORVASTATIN CALCIUM 40 MG TABLET PO SCH (21:29)
[2018-04-30] MEDS: IPRATROPIUM/ALBUTEROL 0.5-2.5 MG/3 ML AMPUL NEB SCH ×4 (02:25→20:59)
[2018-04-30] MEDS: HYDROMORPHONE HCL INJ/PF 2 MG/ML AMPULE IV PRN ×3 (03:04→21:22)
[2018-04-30] MEDS: GABAPENTIN 300 MG CAPSULE PO SCH ×3 (05:09→21:23)
[2018-04-30] MEDS: HYDRALAZINE HCL 25 MG TABLET PO SCH ×3 (05:09→21:23)
[2018-04-30] MEDS: APIXABAN 5 MG TABLET PO SCH ×2 (05:09→19:00)
[2018-04-30] MEDS: LEVOTHYROXINE SODIUM 0.05 MG TABLET PO SCH (05:09)
[2018-04-30] MEDS: VALACYCLOVIR HCL 500 MG TABLET PO SCH ×3 (05:10→21:23)
[2018-04-30] MEDS: CHOLECALCIFEROL (D3) 1,000 UNIT TABLET PO SCH (10:03)
[2018-04-30] MEDS: MONTELUKAST SODIUM 10 MG TABLET PO SCH (10:03)
[2018-04-30] MEDS: FOLIC ACID 1 MG TABLET PO SCH (10:04)
[2018-04-30] MEDS: ASPIRIN 81 MG TABLET, ENT COATED PO SCH (10:04)
[2018-04-30] MEDS: LAMOTRIGINE 100 MG TABLET PO SCH (10:04)
[2018-04-30] MEDS: MULTIVITAMIN TABLET PO SCH (10:04)
[2018-04-30] MEDS: FLUTICASONE/VILANTEROL 200-25 MCG/DOSE IH SCH (10:05)
[2018-04-30] MEDS: NYSTATIN CREAM 15 GM TP SCH ×2 (10:06→19:00)
[2018-04-30] MEDS: HYDROCORTISONE 1% CREAM 28.35 GM TP SCH ×2 (10:07→19:01)
[2018-04-30] MEDS: CARVEDILOL 12.5 MG TABLET PO SCH ×2 (10:28→21:23)
[2018-04-30] MEDS: DIGOXIN 0.125 MG TABLET PO SCH (10:29)
--- NOTE | 2018-04-30 17:14 | PDOC PROGRESS REPORT ---
Subjective Progress Note for:: 04/30/18 Subjective:: This is a 72 yr old female who sustained a recent CVA with right arm weakness 3 weeks ago who was admitted for right arm cellulitis vs possible Herpes zoster infection and urinary tract infection. She was initially started on IV antibiotics and then switched to valacyclovir per ID recommendation. She also underwent debridement of her sacral ulcer by surgery. No acute event overnight. Her right arm lesions continue to resolve. The vesicular lesions on he right arm have resolved and continue to show healing. The erythema also continue to improve. She is aO x 3 this morning. Patient also has been reported to have blurry vision for several days and had some reported BOV prior to admission. On assessment today, on repeated testing, it appears she is not able to see and was not also not able to determine if the lights in her room were on or off. Her MRI done a few days ago did show some T2 intensity changes on the occipital parietal lobes. 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 Will have ophthalmology evaluate her further. Reason For Visit: COMPLICATED UTI, RIGHT ARM CELLULITIS Physical Exam Vital Signs: Temp Pulse Resp BP Pulse Ox 98.6 F 92 16 103/40 L 95 04/30/18 07:31 04/30/18 14:07 04/30/18 14:07 04/30/18 07:31 04/30/18 14:07 Intake & Output 04/29/18 04/30/18 05/01/18 06:59 06:59 06:59 Intake Total 1394 1085 Output Total 1300 2550 Balance 94 -1465 Weight 126 lb 15.78 oz 183 lb 10.321 oz General appearance: PRESENT: no acute distress, well-developed, well-nourished Head exam: PRESENT: atraumatic, normocephalic Eye exam: PRESENT: conjunctiva pink, EOMI, PERRLA. ABSENT: scleral icterus Ear exam: PRESENT: normal external ear exam Mouth exam: PRESENT: moist, tongue midline Neck exam: ABSENT: carotid bruit, JVD, lymphadenopathy, thyromegaly Respiratory exam: PRESENT: clear to auscultation carmen. ABSENT: rales, rhonchi, wheezes Cardiovascular exam: PRESENT: RRR. ABSENT: diastolic murmur, rubs, systolic m urmur Pulses: PRESENT: normal dorsalis pedis pul GI/Abdominal exam: PRESENT: normal bowel sounds, soft. ABSENT: distended, guarding, mass, organolmegaly, rebound, tenderness Rectal exam: PRESENT: deferred Musculoskeletal exam: PRESENT: other - Her right arm lesions continue to resolve. The vesicular lesions on he right arm have resolved and continue to show healing. The erythema also continue to improve. Neurological exam: PRESENT: alert, awake, oriented to person, oriented to place, oriented to time, CN II-XII grossly intact - +blindness on both eyes Results Laboratory Results: 04/29/18 04:42 04/29/18 04:42 Impressions: Chest X-Ray 04/22/18 12:46 IMPRESSION: NO ACUTE RADIOGRAPHIC FINDING IN THE CHEST. Forearm X-Ray 04/22/18 13:18 IMPRESSION: No fracture or dislocation of the right forearm. Diffuse soft tissue swelling about the right forearm. No radiopaque foreign body. Humerus X-Ray 04/22/18 13:18 IMPRESSION: No definite acute bony abnormality. Extensive degenerative changes about the glenohumeral and acromioclavicular joint, similar to priors. Upper Extremity CT 04/23/18 00:00 IMPRESSION: Extremely limited study. No occult fracture. Venous Doppler Study 04/23/18 00:00 IMPRESSION: NO EVIDENCE DVT OR SVT IN THE RIGHT ARM. Head MRI 04/27/18 08:00 IMPRESSION: No evidence for acute or sub-acute infarction.High T2 signal intensity changes in the posterior white matter on FLAIR imaging in the occipital parietal lobes. Significant motion artifact. EVIDENCE OF ACUTE STROKE: NO. Assessment and Plan - Diagnosis (1) Right arm cellulitis Is this a current diagnosis for this admission?: Yes Plan: Improving. She was tretaed with Rocephin and Levaquin initially, subsequently switched to valacyclovir per ID recommendation. (2) Cortical blindness Is this a current diagnosis for this admission?: Yes Plan: fercho also has been reported to have blurry vision for several days and had some reported BOV prior to admission. On assessment today, on repeated testing, it appears she is not able to see and was not also not able to determine if the lights in her room were on or off. Her MRI done a few days ago did show some T2 intensity changes on the occipital parietal lobes. 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 Will have ophthalmology evaluate her further. (3) Sacral decubitus ulcer, stage III Is this a current diagnosis for this admission?: Yes Plan: S/P debridement by surgery. - Time Time Spent with patient: 25-34 minutes
[2018-04-30] MEDS: ATORVASTATIN CALCIUM 40 MG TABLET PO SCH (21:23)
[2018-04-30] MEDS ORDERED: LORAZEPAM INJ 2 MG/1 ML VIAL IV PRN ×2 (22:31→22:34)
[2018-04-30] MEDS ORDERED: HYDROMORPHONE HCL INJ/PF 2 MG/ML AMPULE IV PRN (22:31)
[2018-05-01] MEDS: IPRATROPIUM/ALBUTEROL 0.5-2.5 MG/3 ML AMPUL NEB SCH ×4 (02:06→20:24)
[2018-05-01] MEDS: HYDRALAZINE HCL 25 MG TABLET PO SCH ×3 (05:43→21:38)
[2018-05-01] MEDS: VALACYCLOVIR HCL 500 MG TABLET PO SCH ×3 (05:45→21:39)
[2018-05-01] MEDS: LEVOTHYROXINE SODIUM 0.05 MG TABLET PO SCH (05:45)
[2018-05-01] MEDS: GABAPENTIN 300 MG CAPSULE PO SCH ×3 (05:45→21:39)
[2018-05-01] MEDS: APIXABAN 5 MG TABLET PO SCH ×2 (05:45→17:31)
[2018-05-01] MEDS: HYDROMORPHONE HCL INJ/PF 2 MG/ML AMPULE IV PRN ×2 (05:48→09:26)
[2018-05-01] MEDS: DIGOXIN 0.125 MG TABLET PO SCH (10:43)
[2018-05-01] MEDS: MULTIVITAMIN TABLET PO SCH (10:43)
[2018-05-01] MEDS: MONTELUKAST SODIUM 10 MG TABLET PO SCH (10:43)
[2018-05-01] MEDS: CARVEDILOL 12.5 MG TABLET PO SCH ×2 (10:44→21:39)
[2018-05-01] MEDS: ASPIRIN 81 MG TABLET, ENT COATED PO SCH (10:44)
[2018-05-01] MEDS: CHOLECALCIFEROL (D3) 1,000 UNIT TABLET PO SCH (10:44)
[2018-05-01] MEDS: LAMOTRIGINE 100 MG TABLET PO SCH (10:44)
[2018-05-01] MEDS: FOLIC ACID 1 MG TABLET PO SCH (10:44)
[2018-05-01] MEDS: FLUTICASONE/VILANTEROL 200-25 MCG/DOSE IH SCH (10:45)
[2018-05-01] MEDS: HYDROCORTISONE 1% CREAM 28.35 GM TP SCH ×2 (10:46→17:32)
[2018-05-01] MEDS: NYSTATIN CREAM 15 GM TP SCH (10:46)
--- NOTE | 2018-05-01 15:30 | PDOC PROGRESS REPORT ---
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 She was initially started on IV antibiotics and then switched to valacyclovir per ID recommendation. She also underwent debridement of her sacral ulcer by surgery. 04/30: Her right arm lesions continue to resolve. The vesicular lesions on he right arm have resolved and continue to show healing. The erythema also continue to improve. She is aO x 3 this morning. Patient also has been reported to have blurry vision for several days and had some reported BOV prior to admission. On assessment today, on repeated testing, it appears she is not able to see and was not also not able to determine if the lights in her room were on or off. Her MRI done a few days ago did show some T2 intensity changes on the occipital parietal lobes. 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 Will have ophthalmology evaluate her further. 05/01: No acute event overnight. 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 Will proceed with MRI with contrast to kathryn dick evaluate changes on the occipital parietal areas. Evaluated sacral wound today which has some lopez tissues with minimal foul smelling discharge. Will have surgery reassess sacral wound. Reviewed records from [facility] where she was recently admitted. Appears she likely had PRES there. Patient's says she started having vision problems at [facility] on her recent admission. There is a possibility that her cortical blindness may be related to her recent PRES. Will try to discuss case with [facility] neurology. Reason For Visit: COMPLICATED UTI, RIGHT ARM CELLULITIS Physical Exam Vital Signs: Temp Pulse Resp BP Pulse Ox 98.1 F 90 16 118/55 L 96 05/01/18 08:00 05/01/18 14:00 05/01/18 13:52 05/01/18 08:00 05/01/18 13:52 Intake & Output 04/30/18 05/01/18 05/02/18 06:59 06:59 06:59 Intake Total 1085 1758 Output Total 3344 2500 Balance -1465 -992 Weight 183 lb 10.321 oz 190 lb 4.143 oz General appearance: PRESENT: no acute distress, well-developed, well-nourished Head exam: PRESENT: atraumatic, normocephalic Eye exam: PRESENT: conjunctiva pink, EOMI, PERRLA. ABSENT: scleral icterus Ear exam: PRESENT: normal external ear exam Mouth exam: PRESENT: moist, tongue midline Neck exam: ABSENT: carotid bruit, JVD, lymphadenopathy, thyromegaly Respiratory exam: PRESENT: clear to auscultation carmen. ABSENT: rales, rhonchi, wheezes Cardiovascular exam: PRESENT: RRR. ABSENT: diastolic murmur, rubs, systolic murmur Pulses: PRESENT: normal dorsalis pedis pul GI/Abdominal exam: PRESENT: normal bowel sounds, soft. ABSENT: distended, guarding, mass, organolmegaly, rebound, tenderness Rectal exam: PRESENT: deferred Neurological exam: PRESENT: alert, awake, oriented to person, oriented to place, oriented to time, oriented to situation, CN II-XII grossly intact, motor sensory deficit - unable to recognize light Results Laboratory Results: 04/29/18 04:42 04/29/18 04:42 Impressions: Chest X-Ray 04/22/18 12:46 IMPRESSION: NO ACUTE RADIOGRAPHIC FINDING IN THE CHEST. Forearm X-Ray 04/22/18 13:18 IMPRESSION: No fracture or dislocation of the right forearm. Diffuse soft tissue swelling about the right forearm. No radiopaque foreign body. Humerus X-Ray 04/22/18 13:18 IMPRESSION: No definite acute bony abnormality. Extensive degenerative changes about the glenohumeral and acromioclavicular joint, similar to priors. Upper Extremity CT 04/23/18 00:00 IMPRESSION: Extremely limited study. No occult fracture. Venous Doppler Study 04/23/18 00:00 IMPRESSION: NO EVIDENCE DVT OR SVT IN THE RIGHT ARM. Head MRI 04/27/18 08:00 IMPRESSION: No evidence for acute or sub-acute infarction.High T2 signal intensity changes in the posterior white matter on FLAIR imaging in the occipital parietal lobes. Significant motion artifact. EVIDENCE OF ACUTE STROKE: NO. Assessment and Plan - Diagnosis (1) Right arm cellulitis Is this a current diagnosis for this admission?: Yes Plan: Improving. She was tretaed with Rocephin and Levaquin initially, subsequently switched to valacyclovir per ID recommendation. (2) Cortical blindness Is this a current diagnosis for this admission?: Yes Plan: 04/30: Patient also has been reported to have blurry vision for several days and had some reported BOV prior to admission. On assessment today, on repeated testing, it appears she is not able to see and was not also not able to determine if the lights in her room were on or off. Her MRI done a few days ago did show some T2 intensity changes on the occipital parietal lobes. 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 Will have ophthalmology evaluate her further. 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 Will proceed with MRI with contrast to further evaluate changes on the occipital parietal areas. Reviewed records from [facility] where she was recently admitted. Appears she likely had PRES there. Patient's says she started having vision problems at [facility] on her recent admission. There is a possibility that her cortical blindness may be related to her recent PRES. Will try to discuss case with [facility] neurology. (3) Sacral decubitus ulcer, stage III Is this a current diagnosis for this admission?: Yes Plan: S/P debridement by surgery. 05/01: Evaluated sacral wound today which has some lopez tissues with minimal foul smelling discharge. Will have surgery reassess sacral wound. - Time Time Spent with patient: 25-34 minutes
[2018-05-01] MEDS ORDERED: DEXTROSE 50%-WATER 25 GM/50 ML DISP.SYRIN IV PRN ×2 (17:24)
[2018-05-01] MEDS ORDERED: DEXTROSE 40% GEL 15 GM TUBE PO PRN ×2 (17:24)
[2018-05-01] MEDS ORDERED: GLUCAGON,HUMAN RECOMB 1 MG INJ SUBCUT PRN (17:24)
--- NOTE | 2018-05-01 17:24 | PDOC PROGRESS REPORT ---
Subjective Progress Note for:: 05/01/18 Subjective:: Called to reevaluate patient regarding her sacral decubitus ulcer. There is a 72-year-old female who is nonverbal. She suffered a stroke recently, and does not ambulate. She has a stage IV decubitus ulcer with necrotic tissue present. History is obtained from the nursing staff. No useful review of systems was obtained due to her mental status. Reason For Visit: COMPLICATED UTI, RIGHT ARM CELLULITIS Physical Exam Vital Signs: Temp Pulse Resp BP Pulse Ox 98.9 F 90 18 123/37 L 94 05/01/18 15:28 05/01/18 15:28 05/01/18 15:28 05/01/18 15:28 05/01/18 15:28 Intake & Output 04/30/18 05/01/18 05/02/18 06:59 06:59 06:59 Intake Total 1085 1758 675 Output Total 2550 2750 800 Balance -1465 -992 -125 Weight 83.3 kg 86.3 kg General appearance: PRESENT: no acute distress Head exam: PRESENT: atraumatic, normocephalic Eye exam: ABSENT: scleral icterus Mouth exam: PRESENT: neck supple Neck exam: ABSENT: thyromegaly, tracheal deviation Respiratory exam: PRESENT: rhonchi, unlabored Cardiovascular exam: PRESENT: RRR Pulses: PRESENT: normal radial pulses GI/Abdominal exam: PRESENT: soft. ABSENT: distended, tenderness Rectal exam: PRESENT: other - Brown stool present in the vault Extremities exam: PRESENT: other - Right arm rash improving. Neurological exam: PRESENT: aphasic. ABSENT: awake Psychiatric exam: PRESENT: other - Nonverbal Skin exam: PRESENT: other - Stage IV sacral decubitus with necrotic tissue present Results Laboratory Results: 04/29/18 04:42 04/29/18 04:42 Impressions: Chest X-Ray 04/22/18 12:46 IMPRESSION: NO ACUTE RADIOGRAPHIC FINDING IN THE CHEST. Forearm X-Ray 04/22/18 13:18 IMPRESSION: No fracture or dislocation of the right forearm. Diffuse soft tissue swelling about the right forearm. No radiopaque foreign body. Humerus X-Ray 04/22/18 13:18 IMPRESSION: No definite acute bony abnormality. Extensive degenerative changes about the glenohumeral and acromioclavicular joint, similar to priors. Upper Extremity CT 04/23/18 00:00 IMPRESSION: Extremely limited study. No occult fracture. Venous Doppler Study 04/23/18 00:00 IMPRESSION: NO EVIDENCE DVT OR SVT IN THE RIGHT ARM. Head MRI 04/27/18 08:00 IMPRESSION: No evidence for acute or sub-acute infarction.High T2 signal intensity changes in the posterior white matter on FLAIR imaging in the occipital parietal lobes. Significant motion artifact. EVIDENCE OF ACUTE STROKE: NO. Assessment & Plan - Diagnosis (1) Stage IV pressure ulcer of sacral region Is this a current diagnosis for this admission?: Yes - Plan Summary Plan Summary: This is a 72-year-old female with a stage IV sacral decubitus ulcer. It has progressed significantly over the last week. I have again encouraged the nurses to provide the patient with q2-hour turning. There is obvious necrotic tissue that will need debridement. I will make the patient n.p.o. after midnight in preparation for debridement of her sacral decubitus tomorrow.
[2018-05-01] MEDS: ATORVASTATIN CALCIUM 40 MG TABLET PO SCH (21:39)
[2018-05-02] MEDS: IPRATROPIUM/ALBUTEROL 0.5-2.5 MG/3 ML AMPUL NEB SCH ×4 (01:42→21:03)
[2018-05-02] MEDS ORDERED: DEXAMETHASONE SOD PHOSPHATE INJ 4 MG/1 ML VIAL ONE (08:36)
[2018-05-02] MEDS ORDERED: LIDOCAINE 2% INJ-PF (20 MG/ML) 2 ML AMPUL ONE (08:36)
[2018-05-02] MEDS ORDERED: PHENYLEPHRINE HCL INJ/PF 10 MG/1 ML SDV ONE (08:36)
[2018-05-02] MEDS ORDERED: KETOROLAC TROMETHAMINE 60 MG/2 ML SDV ONE (08:36)
[2018-05-02] MEDS ORDERED: METOCLOPRAMIDE HCL INJ/PF 10 MG/2 ML SDV ONE (08:36)
[2018-05-02] MEDS ORDERED: ONDANSETRON HCL INJ/PF 4 MG/2 ML SDV ONE (08:36)
[2018-05-02] MEDS: HYDROCORTISONE 1% CREAM 28.35 GM TP SCH ×2 (10:00→17:33)
[2018-05-02] MEDS: HYDROMORPHONE HCL INJ/PF 2 MG/ML AMPULE IV PRN ×3 (10:26→23:20)
--- NOTE | 2018-05-02 11:53 | PDOC PROGRESS REPORT ---
Subjective Progress Note for:: 05/02/18 Subjective:: No apparent distress. Patient is lethargic. Reason For Visit: COMPLICATED UTI, RIGHT ARM CELLULITIS Physical Exam Vital Signs: Temp Pulse Resp BP Pulse Ox 98.0 F 88 14 145/45 H 95 05/02/18 08:09 05/02/18 08:39 05/02/18 08:39 05/02/18 08:09 05/02/18 08:39 Intake & Output 05/01/18 05/02/18 05/03/18 06:59 06:59 06:59 Intake Total 1758 1145 Output Total 2750 2225 Balance -992 -1080 Weight 86.3 kg 81.9 kg General appearance: PRESENT: no acute distress Respiratory exam: PRESENT: rhonchi Cardiovascular exam: PRESENT: RRR Skin exam: PRESENT: other - Approximately 5-6 cm sacral decubitus ulcer with areas of necrotic debris. No fluctuance. Results Laboratory Results: 04/29/18 04:42 04/29/18 04:42 Impressions: Chest X-Ray 04/22/18 12:46 IMPRESSION: NO ACUTE RADIOGRAPHIC FINDING IN THE CHEST. Forearm X-Ray 04/22/18 13:18 IMPRESSION: No fracture or dislocation of the right forearm. Diffuse soft tissue swelling about the right forearm. No radiopaque foreign body. Humerus X-Ray 04/22/18 13:18 IMPRESSION: No definite acute bony abnormality. Extensive degenerative changes about the glenohumeral and acromioclavicular joint, similar to priors. Upper Extremity CT 04/23/18 00:00 IMPRESSION: Extremely limited study. No occult fracture. Venous Doppler Study 04/23/18 00:00 IMPRESSION: NO EVIDENCE DVT OR SVT IN THE RIGHT ARM. Head MRI 04/27/18 08:00 IMPRESSION: No evidence for acute or sub-acute infarction.High T2 signal intensity changes in the posterior white matter on FLAIR imaging in the occipital parietal lobes. Significant motion artifact. EVIDENCE OF ACUTE STROKE: NO. Assessment & Plan - Diagnosis (1) Stage IV pressure ulcer of sacral region Is this a current diagnosis for this admission?: Yes Plan: With necrotic debris. Patient would benefit from a debridement but she is on El iquis. I have discussed her case with her hospitalist who thinks it would be safe to stop it for days so we can do this procedure safely. Will hold Eliquis today we will plan debridement tomorrow.
--- NOTE | 2018-05-02 12:41 | PDOC PROGRESS REPORT ---
Subjective Reason For Visit: COMPLICATED UTI, RIGHT ARM CELLULITIS Physical Exam Vital Signs: Temp Pulse Resp BP Pulse Ox 98.0 F 88 14 145/45 H 95 05/02/18 08:09 05/02/18 08:39 05/02/18 08:39 05/02/18 08:09 05/02/18 08:39 Intake & Output 05/01/18 05/02/18 05/03/18 06:59 06:59 06:59 Intake Total 1758 1145 0 Output Total 2750 2225 500 Balance -992 -1080 -500 Weight 86.3 kg 81.9 kg Results Laboratory Results: 04/29/18 04:42 04/29/18 04:42 Impressions: Chest X-Ray 04/22/18 12:46 IMPRESSION: NO ACUTE RADIOGRAPHIC FINDING IN THE CHEST. Forearm X-Ray 04/22/18 13:18 IMPRESSION: No fracture or dislocation of the right forearm. Diffuse soft t issue swelling about the right forearm. No radiopaque foreign body. Humerus X-Ray 04/22/18 13:18 IMPRESSION: No definite acute bony abnormality. Extensive degenerative changes about the glenohumeral and acromioclavicular joint, similar to priors. Upper Extremity CT 04/23/18 00:00 IMPRESSION: Extremely limited study. No occult fracture. Venous Doppler Study 04/23/18 00:00 IMPRESSION: NO EVIDENCE DVT OR SVT IN THE RIGHT ARM. Head MRI 04/27/18 08:00 IMPRESSION: No evidence for acute or sub-acute infarction.High T2 signal intensity changes in the posterior white matter on FLAIR imaging in the occipital parietal lobes. Significant motion artifact. EVIDENCE OF ACUTE STROKE: NO. Assessment & Plan - Diagnosis (1) Stage IV pressure ulcer of sacral region Is this a current diagnosis for this admission?: Yes Plan: Patient apparently has been off of Eliquis since yesterday morning. Therefore will proceed with the surgery. I have had a long discussion with the patient's about the risk and benefits of the procedure including risk of infection bleeding cardio pulmonary and stroke risk. He understands and agrees to proceed. We would hold Eliquis today and possibly restarted tomorrow if the wound looks good tomorrow.
[2018-05-02] MEDS ORDERED: KETAMINE HCL INJ 500 MG/10 ML VIAL ONE (13:17)
[2018-05-02] MEDS ORDERED: FENTANYL CITRATE INJ/PF 100 MCG/2 ML AMPUL ONE ×2 (13:17→15:11)
[2018-05-02] MEDS ORDERED: MIDAZOLAM 2 MG/2 ML INJ ONE (13:17)
[2018-05-02] MEDS ORDERED: EPHEDRINE SULFATE INJ 50 MG/1 ML AMPULE ONE (13:18)
[2018-05-02] MEDS ORDERED: PROPOFOL INJ 200 MG/20 ML VIAL IV ONE (13:18)
[2018-05-02] MEDS ORDERED: BUPIVACAINE HCL 0.25 % INJ/PF (2.5 MG/1 ML) 30 ML VIAL ONE (13:43)
[2018-05-02] MEDS ORDERED: CEFAZOLIN INJ 1 GM VIAL ONE (13:47)
[2018-05-02] MEDS ORDERED: MORPHINE SULFATE 10 MG/ML INJ IV PRN (14:46)
[2018-05-02] MEDS ORDERED: FENTANYL CITRATE INJ/PF 100 MCG/2 ML AMPUL IV PRN ×3 (14:46)
[2018-05-02] MEDS ORDERED: DIPHENHYDRAMINE HCL 50 MG/ML VIAL IV PRN (14:46)
[2018-05-02] MEDS ORDERED: PROMETHAZINE HCL INJ 25 MG/1 ML VIAL IV PRN ×2 (14:46)
[2018-05-02] MEDS ORDERED: MEPERIDINE HCL/PF INJ 25 MG/1 ML DISP.SYRIN IV PRN (14:46)
[2018-05-02] MEDS ORDERED: BACITRACIN INJ 50,000 UNIT VIAL ONE (14:48)
[2018-05-02] MEDS: HYDRALAZINE HCL 25 MG TABLET PO SCH ×3 (14:49→21:27)
[2018-05-02] MEDS: ASPIRIN 81 MG TABLET, ENT COATED PO SCH (14:49)
[2018-05-02] MEDS: APIXABAN 5 MG TABLET PO SCH ×2 (14:49→17:18)
[2018-05-02] MEDS: GABAPENTIN 300 MG CAPSULE PO SCH ×3 (14:49→21:27)
[2018-05-02] MEDS: VALACYCLOVIR HCL 500 MG TABLET PO SCH ×3 (14:49→21:27)
[2018-05-02] MEDS: LEVOTHYROXINE SODIUM 0.05 MG TABLET PO SCH (14:49)
[2018-05-02] MEDS: FLUTICASONE/VILANTEROL 200-25 MCG/DOSE IH SCH (14:50)
[2018-05-02] MEDS: DIGOXIN 0.125 MG TABLET PO SCH (14:50)
[2018-05-02] MEDS: MONTELUKAST SODIUM 10 MG TABLET PO SCH (14:50)
[2018-05-02] MEDS: MULTIVITAMIN TABLET PO SCH (14:50)
[2018-05-02] MEDS: LAMOTRIGINE 100 MG TABLET PO SCH (14:50)
[2018-05-02] MEDS: FOLIC ACID 1 MG TABLET PO SCH (14:50)
[2018-05-02] MEDS: CARVEDILOL 12.5 MG TABLET PO SCH ×2 (14:50→21:27)
[2018-05-02] MEDS: CHOLECALCIFEROL (D3) 1,000 UNIT TABLET PO SCH (14:51)
[2018-05-02] MEDS ORDERED: ACETAMINOPHEN 1,000 MG/100 ML RTUPB IV ONE (14:54)
--- NOTE | 2018-05-02 15:33 | Operative Report ---
Operative Report DATE OF SURGERY: 05/02/18 PREOPERATIVE DIAGNOSIS: Sacral decubitus ulcer POSTOPERATIVE DIAGNOSIS: Stage IV sacral decubitus ulcer OPERATION: Excisional debridement of sacral decubitus ulcer measuring approximately 6 x 4 cm in size. SURGEON: MARY MOY ANESTHESIA: LMAC TISSUE REMOVED OR ALTERED: Sacral decubitus ulcer debrided. Deeper tissue submitted for Gram stain and culture COMPLICATIONS: None ESTIMATED BLOOD LOSS: 20 cc INTRAOPERATIVE FINDINGS: Approximately 6 x 4 cm sacral decubitus ulcer full- thickness with necrotic tissue going into the sacral fascia. PROCEDURE: Informed consent was obtained. Patient was brought to the operating room placed on the operating table on her side. Her sacral region was prepped and draped in usual sterile fashion. The procedure was done under LMAC. Local anesthetic was administered. The sacral ulcer measured around 6 x 4 cm in size and was irregular in shape. Beginning superficially going deeper until I reached viable tissue sharp excisional debridement was performed with a scalpel. Portions of the sacral decubitus ulcer was only partial with viable dermis but the central portion was necrotic down to the sacral fascia. There was some boggy tissue deeper that was excised and submitted for Gram stain and culture. All necrotic tissue was completely excised to oozing viable tissue. Hemostasis was achieved with electrocautery. Hemostasis appeared excellent in preparation for her being back on Eliis tomorrow. The wound was irrigated and packed with gauze. Patient tolerated procedure well with no apparent complications and was taken to the recovery area in stable condition.
[2018-05-02] MEDS: CEFAZOLIN 1 GM/D5W RTU 1 GM/50 ML RTUPB IV SCH ×2 (17:09→23:24)
--- NOTE | 2018-05-02 19:29 | PDOC PROGRESS REPORT ---
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 She was initially started on IV antibiotics and then switched to valacyclovir per ID recommendation. She also underwent debridement of her sacral ulcer by surgery. 04/30: Her right arm lesions continue to resolve. The vesicular lesions on he right arm have resolved and continue to show healing. The erythema also continue to improve. She is aO x 3 this morning. Patient also has been reported to have blurry vision for several days and had some reported BOV prior to admission. On assessment today, on repeated testing, it appears she is not able to see and was not also not able to determine if the lights in her room were on or off. Her MRI done a few days ago did show some T2 intensity changes on the occipital parietal lobes. 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 Will have ophthalmology evaluate her further. 05/01: No acute event overnight. 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 Will proceed with MRI with contrast to kathryn dick evaluate changes on the occipital parietal areas. Evaluated sacral wound today which has some lopez tissues with minimal foul smelling discharge. Will have surgery reassess sacral wound. Reviewed records from [facility] where she was recently admitted. Appears she likely had PRES there. Patient's says she started having vision problems at [facility] on her recent admission. There is a possibility that her cortical blindness may be related to her recent PRES. Will try to discuss case with [facility] neurology. 05/02: No acute event overnight. No fever or chills. She is going for repeat debridement of her sacral ulcer today. Discussed case with [facility] neurology, Dr. Rodriguez. Reason For Visit: COMPLICATED UTI, RIGHT ARM CELLULITIS Physical Exam Vital Signs: Temp Pulse Resp BP Pulse Ox 97.8 F 93 20 133/47 H 95 05/02/18 16:12 05/02/18 19:00 05/02/18 16:12 05/02/18 16:12 05/02/18 16:12 Intake & Output 05/01/18 05/02/18 05/03/18 06:59 06:59 06:59 Intake Total 1758 1145 1000 Output Total 2750 2225 800 Balance -992 -1080 200 Weight 190 lb 4.143 oz 180 lb 8.937 oz General appearance: PRESENT: no acute distress, well-developed, well-nourished Head exam: PRESENT: atraumatic, normocephalic Eye exam: PRESENT: conjunctiva pink, EOMI, PERRLA. ABSENT: scleral icterus Ear exam: PRESENT: normal external ear exam Mouth exam: PRESENT: moist, tongue midline Neck exam: ABSENT: carotid bruit, JVD, lymphadenopathy, thyromegaly Respiratory exam: PRESENT: clear to auscultation carmen. ABSENT: rales, rhonchi, wheezes Cardiovascular exam: PRESENT: RRR. ABSENT: diastolic murmur, rubs, systolic murmur Pulses: PRESENT: normal dorsalis pedis pul GI/Abdominal exam: PRESENT: normal bowel sounds, soft. ABSENT: distended, guarding, mass, organolmegaly, rebound, tenderness Rectal exam: PRESENT: deferred Neurological exam: PRESENT: alert, awake, motor sensory deficit - +right arm weakness 1/5. ABSENT: CN II-XII grossly intact - +blindness Results Laboratory Results: 04/29/18 04:42 04/29/18 04:42 Impressions: Chest X-Ray 04/22/18 12:46 IMPRESSION: NO ACUTE RADIOGRAPHIC FINDING IN THE CHEST. Forearm X-Ray 04/22/18 13:18 IMPRESSION: No fracture or dislocation of the right forearm. Diffuse soft tissue swelling about the right forearm. No radiopaque foreign body. Humerus X-Ray 04/22/18 13:18 IMPRESSION: No definite acute bony abnormality. Extensive degenerative changes about the glenohumeral and acromioclavicular joint, similar to priors. Upper Extremity CT 04/23/18 00:00 IMPRESSION: Extremely limited study. No occult fracture. Venous Doppler Study 04/23/18 00:00 IMPRESSION: NO EVIDENCE DVT OR SVT IN THE RIGHT ARM. Head MRI 04/27/18 08:00 IMPRESSION: No evidence for acute or sub-acute infarction.High T2 signal intensity changes in the posterior white matter on FLAIR imaging in the occipital parietal lobes. Significant motion artifact. EVIDENCE OF ACUTE STROKE: NO. Assessment and Plan - Diagnosis (1) Right arm cellulitis Is this a current diagnosis for this admission?: Yes Plan: Improving. She was treated with Rocephin and Levaquin initially, subsequently switched to valacyclovir per ID recommendation. (2) Cortical blindness Is this a current diagnosis for this admission?: Yes Plan: 04/30: Patient also has been reported to have blurry vision for several days and had some reported BOV prior to admission. On assessment today, on repeated testi ng, it appears she is not able to see and was not also not able to determine if the lights in her room were on or off. Her MRI done a few days ago did show some T2 intensity changes on the occipital parietal lobes. 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 Will have ophthalmology evaluate her further. 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 Will proceed with MRI with contrast to further evaluate changes on the occipital parietal areas. Reviewed records from [facility] where she was recently admitted. Appears she likely had PRES there. Patient's says she started having vision problems at [facility] on her recent admission. There is a possibility that her cortical blindness may be related to her recent PRES. Will try to discuss case with [facility] neurology. 05/02: Discussed case with Dr. Rodriguez, [facility] neurology who recommended doing an EEG. (3) Sacral decubitus ulcer, stage III Is this a current diagnosis for this admission?: Yes Plan: S/P debridement by surgery. 05/01: Evaluated sacral wound today which has some lopez tissues with minimal foul smelling discharge. Will have surgery reassess sacral wound. 05/02: Patient is going for repeat debridement by surgery today. - Time Time Spent with patient: 25-34 minutes
[2018-05-02] MEDS: ATORVASTATIN CALCIUM 40 MG TABLET PO SCH (21:27)
[2018-05-03] MEDS: IPRATROPIUM/ALBUTEROL 0.5-2.5 MG/3 ML AMPUL NEB SCH ×4 (02:19→20:27)
[2018-05-03] MEDS: CEFAZOLIN 1 GM/D5W RTU 1 GM/50 ML RTUPB IV SCH (05:18)
[2018-05-03] MEDS: HYDRALAZINE HCL 25 MG TABLET PO SCH ×3 (05:20→21:58)
[2018-05-03] MEDS: GABAPENTIN 300 MG CAPSULE PO SCH ×3 (05:20→21:58)
[2018-05-03] MEDS: VALACYCLOVIR HCL 500 MG TABLET PO SCH ×2 (05:20→15:03)
[2018-05-03] MEDS: APIXABAN 5 MG TABLET PO SCH ×2 (05:21→17:44)
[2018-05-03] MEDS: LEVOTHYROXINE SODIUM 0.05 MG TABLET PO SCH (05:21)
[2018-05-03] MEDS: HYDROMORPHONE HCL INJ/PF 2 MG/ML AMPULE IV PRN ×2 (07:33→10:10)
[2018-05-03] MEDS: DIGOXIN 0.125 MG TABLET PO SCH (09:45)
[2018-05-03] MEDS: FLUTICASONE/VILANTEROL 200-25 MCG/DOSE IH SCH (09:46)
[2018-05-03] MEDS: CHOLECALCIFEROL (D3) 1,000 UNIT TABLET PO SCH (09:46)
[2018-05-03] MEDS: CARVEDILOL 12.5 MG TABLET PO SCH ×2 (09:46→21:58)
[2018-05-03] MEDS: MULTIVITAMIN TABLET PO SCH (09:46)
[2018-05-03] MEDS: ASPIRIN 81 MG TABLET, ENT COATED PO SCH (09:46)
[2018-05-03] MEDS: MONTELUKAST SODIUM 10 MG TABLET PO SCH (09:46)
[2018-05-03] MEDS: FOLIC ACID 1 MG TABLET PO SCH (09:46)
[2018-05-03] MEDS: LAMOTRIGINE 100 MG TABLET PO SCH (09:46)
[2018-05-03] MEDS: HYDROCORTISONE 1% CREAM 28.35 GM TP SCH ×2 (09:47→17:44)
--- NOTE | 2018-05-03 10:54 | PDOC PROGRESS REPORT ---
Subjective Progress Note for:: 05/03/18 Subjective:: APPEARS COMFORTABLE Reason For Visit: DECUBUTI Physical Exam Vital Signs: Temp Pulse Resp BP Pulse Ox 97.9 F 80 10 L 121/40 L 96 05/03/18 07:48 05/03/18 07:48 05/03/18 07:48 05/03/18 07:48 05/03/18 07:48 Intake & Output 05/02/18 05/03/18 05/04/18 06:59 06:59 06:59 Intake Total 1145 2548 Output Total 2225 1275 Balance -1080 1273 Weight 81.9 kg 83.3 kg General appearance: PRESENT: no acute distress, mild distress Head exam: PRESENT: normocephalic Eye exam: PRESENT: conjunctiva pink Mouth exam: PRESENT: dry mucosa Neck exam: PRESENT: full ROM Respiratory exam: PRESENT: clear to auscultation carmen Cardiovascular exam: PRESENT: RRR GI/Abdominal exam: PRESENT: soft Rectal exam: PRESENT: other - SACRAL DECUBUTI DEBRIDED YESTEDAY STILL WITH SMALL AREAS OF NECROSIS NO PUS. Results Laboratory Results: 04/29/18 04:42 04/29/18 04:42 Impressions: Chest X-Ray 04/22/18 12:46 IMPRESSION: NO ACUTE RADIOGRAPHIC FINDING IN THE CHEST. Forearm X-Ray 04/22/18 13:18 IMPRESSION: No fracture or dislocation of the right forearm. Diffuse soft tissue swelling about the right forearm. No radiopaque foreign body. Humerus X-Ray 04/22/18 13:18 IMPRESSION: No definite acute bony abnormality. Extensive degenerative changes about the glenohumeral and acromioclavicular joint, similar to priors. Upper Extremity CT 04/23/18 00:00 IMPRESSION: Extremely limited study. No occult fracture. Venous Doppler Study 04/23/18 00:00 IMPRESSION: NO EVIDENCE DVT OR SVT IN THE RIGHT ARM. Head MRI 04/27/18 08:00 IMPRESSION: No evidence for acute or sub-acute infarction.High T2 signal intensity changes in the posterior white matter on FLAIR imaging in the occipital parietal lobes. Significant motion artifact. EVIDENCE OF ACUTE STROKE: NO. Assessment & Plan - Plan Summary Plan Summary: S/P DEBRIDEMENT YESTERDAY OF SACRAL DECUBUTI WOUND STILL WITH SOME MIN NECROSIS NO JEREL PUS CULTS + FOR GRAM NEG RODS AND GRAM + COCCI CURRENTLY ON ANCEF WILL BROADEN COVERAGE WITH UNISYN TILL SENSITIVITIES START DRESSING CHANGES WITH SANTIL
[2018-05-03 12:13] LABS: ABSOLUTE BASOPHILS # (AUTO) 0.1 10^3/uL (0.0-0.2); ABSOLUTE LYMPHOCYTES (AUTO) 1.5 10^3/uL (0.5-4.7); ABSOLUTE MONOCYTES (AUTO) 0.8 10^3/uL (0.1-1.4); ABSOLUTE NEUT (AUTO) 8.5 10^3/uL (1.7-8.2); BASOPHILS % (AUTO) 0.5 % (0-2); HEMATOCRIT 25.4 % (36.0-47.0); HEMOGLOBIN 8.4 g/dL (12.0-15.5); LYMPHOCYTES % (AUTO) 13.4 % (13-45); MEAN CORPUSCULAR HEMOGLOBIN 27.8 pg (27.0-33.4); MEAN CORPUSCULAR HGB CONC 33.2 g/dL (32.0-36.0); MEAN CORPUSCULAR VOLUME 84 fl (80-97); MONOCYTES % (AUTO) 7.6 % (3-13); PLATELET COUNT 390 10^3/uL (150-450); RED BLOOD COUNT 3.03 10^6/uL (3.72-5.28); RED CELL DISTRIBUTION WIDTH 16.8 % (11.5-14.0); SEGMENTED NEUTROPHILS % (AUTO) 78.5 % (42-78); TOTAL CELLS COUNTED % (AUTO) 100 %; WHITE BLOOD COUNT 10.8 10^3/uL (4.0-10.5)
[2018-05-03 12:36] LABS: ANION GAP 9 (5-19); BLOOD UREA NITROGEN 43 mg/dL (7-20); CALCIUM 9.9 mg/dL (8.4-10.2); CARBON DIOXIDE 27 mmol/L (22-30); CHLORIDE 96 mmol/L (98-107); GLUCOSE 187 mg/dL (75-110); POTASSIUM 5.1 mmol/L (3.6-5.0); SODIUM 131.7 mmol/L (137-145)
[2018-05-03] MEDS: HYDROCODONE/ACETAMINOPHEN 7.5-325 MG TABLET PO PRN (14:29)
[2018-05-03] MEDS: AMPICILLIN SODIUM/SULBACTAM NA 3 GM in NORMAL SALINE 100 ML IV SCH ×2 (14:30→21:57)
--- NOTE | 2018-05-03 15:27 | PDOC PROGRESS REPORT ---
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 She was initially started on IV antibiotics and then switched to valacyclovir per ID recommendation. She also underwent debridement of her sacral ulcer by surgery. 04/30: Her right arm lesions continue to resolve. The vesicular lesions on he right arm have resolved and continue to show healing. The erythema also continue to improve. She is aO x 3 this morning. Patient also has been reported to have blurry vision for several days and had some reported BOV prior to admission. On assessment today, on repeated testing, it appears she is not able to see and was not also not able to determine if the lights in her room were on or off. Her MRI done a few days ago did show some T2 intensity changes on the occipital parietal lobes. 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 Will have ophthalmology evaluate her further. 05/01: No acute event overnight. 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 Will proceed with MRI with contrast to kathryn dick evaluate changes on the occipital parietal areas. Evaluated sacral wound today which has some lopez tissues with minimal foul smelling discharge. Will have surgery reassess sacral wound. Reviewed records from [facility] where she was recently admitted. Appears she likely had PRES there. Patient's says she started having vision problems at [facility] on her recent admission. There is a possibility that her cortical blindness may be related to her recent PRES. [facility] 05/02: No fever or chills. She is going for repeat debridement of her sacral ulcer today. Discussed case with [facility] neurology, Dr. Rodriguez. 05/03: No acute event overnight. She underwent repeat debridement yesterday. She continues to have cortical blindness and right arm weakness, both appear to have been present when she was admitted for PRES at [facility]. 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 Reason For Visit: COMPLICATED UTI, RIGHT ARM CELLULITIS Physical Exam Vital Signs: Temp Pulse Resp BP Pulse Ox 97.4 F 89 16 114/30 L 94 05/03/18 12:17 05/03/18 14:09 05/03/18 14:09 05/03/18 12:17 05/03/18 14:09 Intake & Output 05/02/18 05/03/18 05/04/18 06:59 06:59 06:59 Intake Total 1145 2548 655 Output Total 2227 1275 500 Balance -1080 1273 155 Weight 180 lb 8.937 oz 183 lb 10.321 oz General appearance: PRESENT: no acute distress, well-developed, well-nourished Head exam: PRESENT: atraumatic, normocephalic Eye exam: PRESENT: conjunctiva pink, EOMI, PERRLA. ABSENT: scleral icterus Ear exam: PRESENT: normal external ear exam Mouth exam: PRESENT: moist, tongue midline Neck exam: ABSENT: carotid bruit, JVD, lymphadenopathy, thyromegaly Respiratory exam: PRESENT: clear to auscultation carmen. ABSENT: rales, rhonchi, wheezes Pulses: PRESENT: normal dorsalis pedis pul GI/Abdominal exam: PRESENT: normal bowel sounds, soft. ABSENT: distended, guarding, mass, organolmegaly, rebound, tenderness Rectal exam: PRESENT: deferred Neurological exam: PRESENT: alert, awake, oriented to person, oriented to place, oriented to time, oriented to situation. ABSENT: CN II-XII grossly intact - +blindness, motor sensory deficit - right arm weakness 1/5 Results Laboratory Results: 05/03/18 11:56 05/03/18 11:56 05/03/18 05/03/18 11:56 11:56 WBC 10.8 H RBC 3.03 L Hgb 8.4 L Hct 25.4 L MCV 84 MCH 27.8 MCHC 33.2 RDW 16.8 H Plt Count 390 Seg Neutrophils % 78.5 H Lymphocytes % 13.4 Monocytes % 7.6 Eosinophils % 0.0 Basophils % 0.5 Absolute Neutrophils 8.5 H Absolute Lymphocytes 1.5 Absolute Monocytes 0.8 Absolute Eosinophils 0.0 Absolute Basophils 0.1 Sodium 131.7 L Potassium 5.1 H Chloride 96 L Carbon Dioxide 27 Anion Gap 9 BUN 43 H Creatinine 0.55 Est GFR ( Amer) > 60 Est GFR (Non-Af Amer) > 60 Glucose 187 H Calcium 9.9 Impressions: Chest X-Ray 04/22/18 12:46 IMPRESSION: NO ACUTE RADIOGRAPHIC FINDING IN THE CHEST. Forearm X-Ray 04/22/18 13:18 IMPRESSION: No fracture or dislocation of the right forearm. Diffuse soft tissue swelling about the right forearm. No radiopaque foreign body. Humerus X-Ray 04/22/18 13:18 IMPRESSION: No definite acute bony abnormality. Extensive degenerative changes about the glenohumeral and acromioclavicular joint, similar to priors. Upper Extremity CT 04/23/18 00:00 IMPRESSION: Extremely limited study. No occult fracture. Venous Doppler Study 04/23/18 00:00 IMPRESSION: NO EVIDENCE DVT OR SVT IN THE RIGHT ARM. Head MRI 04/27/18 08:00 IMPRESSION: No evidence for acute or sub-acute infarction.High T2 signal intensity changes in the posterior white matter on FLAIR imaging in the occipital parietal lobes. Significant motion artifact. EVIDENCE OF ACUTE STROKE: NO. Assessment and Plan - Diagnosis (1) Right arm cellulitis Is this a current diagnosis for this admission?: Yes Plan: Improving. She was treated with Rocephin and Levaquin initially, subsequently switched to valacyclovir per ID recommendation. 05/03: Resolved. Discontinue valtrex. (2) Cortical blindness Is this a current diagnosis for this admission?: Yes Plan: 04/30: Patient also has been reported to have blurry vision for several days and had some reported BOV prior to admission. On assessment today, on repeated testing, it appears she is not able to see and was not also not able to determine if the lights in her room were on or off. Her MRI done a few days ago did show some T2 intensity changes on the occipital parietal lobes. 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 Will have ophthalmology evaluate her further. 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 Will proceed with MRI with contrast to further evaluate changes on the occipital parietal areas. Reviewed records from [facility] where she was recently admitted. Appears she likely had PRES there. Patient's says she started having vision problems at [facility] on her recent admission. There is a possibility that her cortical blindness may be related to her recent PRES. Will try to discuss case with [facility] neurology. 05/02: Discussed case with Dr. Rodriguez, [facility] neurology who recommended doing an EEG. 05/03: She continues to have cortical blindness and right arm weakness, both appear to have been present when she was admitted for PRES at [facility]. 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 (3) Sacral decubitus ulcer, stage III Is this a current diagnosis for this admission?: Yes Plan: S/P debridement by surgery. 05/01: Evaluated sacral wound today which has some lopez tissues with minimal foul smelling discharge. Will have surgery reassess sacral wound. 05/02: Patient is going for repeat debridement by surgery today. 05/03: S/P debridement yesterday. Wound cultures growing gram negative rods and gram positive cocci. Unasyn started per surgery. Will narrow antibiotics pending final culture report. - Time Time Spent with patient: 25-34 minutes
--- NOTE | 2018-05-03 16:35 | NEURO WORKBENCH EEG REPORT ---
EEG Report Patient: Jade Woo ID:[id number] Referring Doctor: Ventura Griffith Date of Study: 05/03/2018 Medications: Tylenol, DuoNeb, apixaban, aspirin, Lipitor, Coreg, vitamin d3, Lanoxin, diltiazem, Benadryl, fluticasone, vilanterol, folvite, gabapentin, Lamictal, Synthroid, singulair, Zofran, multivitamins, Valtrex, apresoline, hydrocortisone, hydromorphone History This is a 72 year old right handed woman with a history of bipolar disorder, thyroid disease, hypercholesterolemia, atrial fibrillation, COPD, asthma, GERD, cholecystectomy, breast cancer, chronic pain, depression, hypothyroidism, tobacco use, chronic UTI. This EEG was requested for encephalopathy. EEG Interpretation This EEG was recorded in the awake and minimal drowsy states. The awake EEG is characterized by a poorly organized background without a well developed posterior dominant rhythm that was briefly noted up to 6Hz. There was no apparent reactivity to eye opening and closing. There was significant artifact throughout the study, maximally on the right (O2, T4, T6 channels) impeding interpretation. The remainder of the background consisted of a mix of theta and delta waves. There was frontal intermittent rhythmic delta activity (FIRDA). Mild drowsiness is characterized by mild slowing of the background rhythms. There was rhythmic temporal theta of drowsiness (AKA psychomotor variant) noted on the left (this is a benign finding). Photic stimulation resulted in no significant changes. There were no epileptiform abnormalities. There were mouth movements noted on video without an EEG correlate. The EKG showed a reg rhythm. EEG Classification Generalized background slowing (GBS) FIRDA Significant artifact EEG Impression This EEG is abnormal in the awake and minimal drowsy states. It is consistent with diffuse cerebral dysfunction. There were no epileptiform abnormalities noted. There was significant artifact impairing interpretation. INTERPRETING NEUROLOGIST: Margarita Griffin MD, [facility]
[2018-05-03] MEDS: KETOROLAC TROMETHAMINE INJ/PF 30 MG/1 ML SDV IV PRN (18:10)
[2018-05-03] MEDS: MORPHINE SULFATE 10 MG/ML INJ IV PRN ×2 (19:59→23:01)
[2018-05-03] MEDS: COLLAGENASE CLOSTRIDIUM HIST. OINT 30 GM TOP SCH (21:57)
[2018-05-03] MEDS: ATORVASTATIN CALCIUM 40 MG TABLET PO SCH (21:58)
[2018-05-04] MEDS: IPRATROPIUM/ALBUTEROL 0.5-2.5 MG/3 ML AMPUL NEB SCH ×4 (01:50→20:12)
[2018-05-04] MEDS: HYDRALAZINE HCL 25 MG TABLET PO SCH ×3 (05:57→21:44)
[2018-05-04] MEDS: AMPICILLIN SODIUM/SULBACTAM NA 3 GM in NORMAL SALINE 100 ML IV SCH ×3 (05:57→22:47)
[2018-05-04] MEDS: APIXABAN 5 MG TABLET PO SCH ×2 (05:57→17:32)
[2018-05-04] MEDS: GABAPENTIN 300 MG CAPSULE PO SCH ×3 (05:57→21:42)
[2018-05-04] MEDS: LEVOTHYROXINE SODIUM 0.05 MG TABLET PO SCH (05:57)
[2018-05-04] MEDS: LAMOTRIGINE 100 MG TABLET PO SCH (09:28)
[2018-05-04] MEDS: ASPIRIN 81 MG TABLET, ENT COATED PO SCH (09:28)
[2018-05-04] MEDS: FLUTICASONE/VILANTEROL 200-25 MCG/DOSE IH SCH (09:28)
[2018-05-04] MEDS: FOLIC ACID 1 MG TABLET PO SCH (09:28)
[2018-05-04] MEDS: MONTELUKAST SODIUM 10 MG TABLET PO SCH (09:28)
[2018-05-04] MEDS: MULTIVITAMIN TABLET PO SCH (09:29)
[2018-05-04] MEDS: CHOLECALCIFEROL (D3) 1,000 UNIT TABLET PO SCH (09:29)
[2018-05-04] MEDS: DIGOXIN 0.125 MG TABLET PO SCH (09:29)
[2018-05-04] MEDS: CARVEDILOL 12.5 MG TABLET PO SCH ×2 (09:29→21:44)
[2018-05-04] MEDS: HYDROCORTISONE 1% CREAM 28.35 GM TP SCH ×2 (09:31→17:33)
[2018-05-04] MEDS: KETOROLAC TROMETHAMINE INJ/PF 30 MG/1 ML SDV IV PRN ×2 (10:34→17:32)
--- NOTE | 2018-05-04 11:22 | PDOC PROGRESS REPORT ---
Subjective Progress Note for:: 05/04/18 Reason For Visit: COMPLICATED UTI, RIGHT ARM CELLULITIS Physical Exam Vital Signs: Temp Pulse Resp BP Pulse Ox 98.2 F 76 16 101/54 L 96 05/04/18 08:01 05/04/18 08:40 05/04/18 08:40 05/04/18 08:01 05/04/18 08:40 Intake & Output 05/03/18 05/04/18 05/05/18 06:59 06:59 06:59 Intake Total 2548 2784 100 Output Total 1275 1950 Balance 1273 834 100 Weight 83.3 kg 87.5 kg Results Laboratory Results: 05/03/18 11:56 05/03/18 11:56 05/03/18 05/03/18 11:56 11:56 WBC 10.8 H RBC 3.03 L Hgb 8.4 L Hct 25.4 L MCV 84 MCH 27.8 MCHC 33.2 RDW 16.8 H Plt Count 390 Seg Neutrophils % 78.5 H Lymphocytes % 13.4 Monocytes % 7.6 Eosinophils % 0.0 Basophils % 0.5 Absolute Neutrophils 8.5 H Absolute Lymphocytes 1.5 Absolute Monocytes 0.8 Absolute Eosinophils 0.0 Absolute Basophils 0.1 Sodium 131.7 L Potassium 5.1 H Chloride 96 L Carbon Dioxide 27 Anion Gap 9 BUN 43 H Creatinine 0.55 Est GFR ( Amer) > 60 Est GFR (Non-Af Amer) > 60 Glucose 187 H Calcium 9.9 Impressions: Chest X-Ray 04/22/18 12:46 IMPRESSION: NO ACUTE RADIOGRAPHIC FINDING IN THE CHEST. Forearm X-Ray 04/22/18 13:18 IMPRESSION: No fracture or dislocation of the right forearm. Diffuse soft tissue swelling about the right forearm. No radiopaque foreign body. Humerus X-Ray 04/22/18 13:18 IMPRESSION: No definite acute bony abnormality. Extensive degenerative changes about the glenohumeral and acromioclavicular joint, similar to priors. Upper Extremity CT 04/23/18 00:00 IMPRESSION: Extremely limited study. No occult fracture. Venous Doppler Study 04/23/18 00:00 IMPRESSION: NO EVIDENCE DVT OR SVT IN THE RIGHT ARM. Head MRI 04/27/18 08:00 IMPRESSION: No evidence for acute or sub-acute infarction.High T2 signal intensity changes in the posterior white matter on FLAIR imaging in the occipital parietal lobes. Significant motion artifact. EVIDENCE OF ACUTE STROKE: NO. Assessment & Plan - Diagnosis (1) Stage IV pressure ulcer of sacral region Is this a current diagnosis for this admission?: Yes - Plan Summary Plan Summary: This is a 73-year-old female status post debridement of a stage IV decubitus ul cer. There is no obvious necrosis of the wound today. Continue with Santyl dressing changes. Continue aggressive turning regimen and nutritional supplements.
[2018-05-04] MEDS: MORPHINE SULFATE 10 MG/ML INJ IV PRN ×2 (14:27→19:40)
[2018-05-04] MEDS: COLLAGENASE CLOSTRIDIUM HIST. OINT 30 GM TOP SCH (14:28)
[2018-05-04] MEDS: HYDROCODONE/ACETAMINOPHEN 7.5-325 MG TABLET PO PRN (15:32)
--- NOTE | 2018-05-04 16:54 | PDOC PROGRESS REPORT ---
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 She was initially started on IV antibiotics and then switched to valacyclovir per ID recommendation. She also underwent debridement of her sacral ulcer by surgery. 04/30: Her right arm lesions continue to resolve. The vesicular lesions on he right arm have resolved and continue to show healing. The erythema also continue to improve. She is aO x 3 this morning. Patient also has been reported to have blurry vision for several days and had some reported BOV prior to admission. On assessment today, on repeated testing, it appears she is not able to see and was not also not able to determine if the lights in her room were on or off. Her MRI done a few days ago did show some T2 intensity changes on the occipital parietal lobes. 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 Will have ophthalmology evaluate her further. 05/01: No acute event overnight. 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 Will proceed with MRI with contrast to kathryn dick evaluate changes on the occipital parietal areas. Evaluated sacral wound today which has some lopez tissues with minimal foul smelling discharge. Will have surgery reassess sacral wound. Reviewed records from [facility] where she was recently admitted. Appears she likely had PRES there. Patient's says she started having vision problems at [facility] on her recent admission. There is a possibility that her cortical blindness may be related to her recent PRES. [facility] 05/02: No fever or chills. She is going for repeat debridement of her sacral ulcer today. Discussed case with [facility] neurology, Dr. Rodriguez. 05/03: She underwent repeat debridement yesterday. She continues to have cortical blindness and right arm weakness, both appear to have been present when she was admitted for PRES at [facility]. 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 05/04: No acute event overnight. No fever or chills. Her sacral wound was re- evaluated by surgery this morning. No active drainage. Anticipating medical clearance for discharge in the next 24-48 hrs. Reason For Visit: COMPLICATED UTI, RIGHT ARM CELLULITIS Physical Exam Vital Signs: Temp Pulse Resp BP Pulse Ox 98.6 F 74 18 110/33 L 98 05/04/18 11:55 05/04/18 14:01 05/04/18 14:01 05/04/18 11:55 05/04/18 14:01 Intake & Output 05/03/18 05/04/18 05/05/18 06:59 06:59 06:59 Intake Total 2548 2784 1246 Output Total 1275 1950 925 Balance 1273 834 321 Weight 183 lb 10.321 oz 192 lb 14.472 oz General appearance: PRESENT: no acute distress, well-developed, well-nourished Head exam: PRESENT: atraumatic, normocephalic Eye exam: PRESENT: conjunctiva pink, EOMI, PERRLA. ABSENT: scleral icterus Ear exam: PRESENT: normal external ear exam Mouth exam: PRESENT: moist, tongue midline Neck exam: ABSENT: carotid bruit, JVD, lymphadenopathy, thyromegaly Respiratory exam: PRESENT: clear to auscultation carmen. ABSENT: rales, rhonchi, wheezes Cardiovascular exam: PRESENT: RRR. ABSENT: diastolic murmur, rubs, systolic murmur Pulses: PRESENT: normal dorsalis pedis pul GI/Abdominal exam: PRESENT: normal bowel sounds, soft. ABSENT: distended, guarding, mass, organolmegaly, rebound, tenderness Rectal exam: PRESENT: deferred Neurological exam: PRESENT: alert, awake, oriented to person, motor sensory deficit - +right arm weakness. ABSENT: CN II-XII grossly intact - +blindness Results Laboratory Results: 05/03/18 11:56 05/03/18 11:56 Impressions: Chest X-Ray 04/22/18 12:46 IMPRESSION: NO ACUTE RADIOGRAPHIC FINDING IN THE CHEST. Forearm X-Ray 04/22/18 13:18 IMPRESSION: No fracture or dislocation of the right forearm. Diffuse soft t issue swelling about the right forearm. No radiopaque foreign body. Humerus X-Ray 04/22/18 13:18 IMPRESSION: No definite acute bony abnormality. Extensive degenerative changes about the glenohumeral and acromioclavicular joint, similar to priors. Upper Extremity CT 04/23/18 00:00 IMPRESSION: Extremely limited study. No occult fracture. Venous Doppler Study 04/23/18 00:00 IMPRESSION: NO EVIDENCE DVT OR SVT IN THE RIGHT ARM. Head MRI 04/27/18 08:00 IMPRESSION: No evidence for acute or sub-acute infarction.High T2 signal intensity changes in the posterior white matter on FLAIR imaging in the occipital parietal lobes. Significant motion artifact. EVIDENCE OF ACUTE STROKE: NO. Assessment and Plan - Diagnosis (1) Right arm cellulitis Is this a current diagnosis for this admission?: Yes Plan: Improving. She was treated with Rocephin and Levaquin initially, subsequently switched to valacyclovir per ID recommendation. 05/03: Resolved. Discontinue valtrex. (2) Cortical blindness Is this a current diagnosis for this admission?: Yes Plan: 04/30: Patient also has been reported to have blurry vision for several days and had some reported BOV prior to admission. On assessment today, on repeated testing, it appears she is not able to see and was not also not able to determine if the lights in her room were on or off. Her MRI done a few days ago did show some T2 intensity changes on the occipital parietal lobes. 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 Will have ophthalmology evaluate her further. 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 Will proceed with MRI with contrast to further evaluate changes on the occipital parietal areas. Reviewed records from [facility] where she was recently admitted. Appears she likely had PRES there. Patient's says she started having vision problems at [facility] on her recent admission. There is a possibility that her cortical blindness may be related to her recent PRES. Will try to discuss case with [facility] neurology. 05/02: Discussed case with Dr. Rodriguez, [facility] neurology who recommended doing an EEG. 05/03: She continues to have cortical blindness and right arm weakness, both appear to have been present when she was admitted for PRES at [facility]. 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 (3) Sacral decubitus ulcer, stage III Is this a current diagnosis for this admission?: Yes Plan: S/P debridement by surgery. 05/01: Evaluated sacral wound today which has some lopez tissues with minimal foul smelling discharge. Will have surgery reassess sacral wound. 05/02: Patient is going for repeat debridement by surgery today. 05/03: S/P debridement yesterday. Wound cultures growing gram negative rods and gram positive cocci. Unasyn started per surgery. Will narrow antibiotics pending final culture report. 05/04: Her sacral wound was re-evaluated by surgery this morning. No active drainage. Anticipating medical clearance for discharge in the next 24-48 hrs. - Time Time Spent with patient: 15-24 minutes
[2018-05-04] MEDS: ATORVASTATIN CALCIUM 40 MG TABLET PO SCH (21:42)
[2018-05-04] MEDS ORDERED: AMPICILLIN SOD/SULBACTAM 3 GM VIAL ONE (22:21)
[2018-05-05] MEDS: COLLAGENASE CLOSTRIDIUM HIST. OINT 30 GM TOP SCH ×3 (00:12→22:33)
[2018-05-05] MEDS: MORPHINE SULFATE 10 MG/ML INJ IV PRN ×4 (00:13→16:58)
[2018-05-05] MEDS: KETOROLAC TROMETHAMINE INJ/PF 30 MG/1 ML SDV IV PRN ×2 (01:39→22:30)
[2018-05-05] MEDS: IPRATROPIUM/ALBUTEROL 0.5-2.5 MG/3 ML AMPUL NEB SCH ×4 (02:22→20:46)
[2018-05-05] MEDS: HYDROCODONE/ACETAMINOPHEN 7.5-325 MG TABLET PO PRN ×3 (02:45→22:32)
[2018-05-05] MEDS: AMPICILLIN SODIUM/SULBACTAM NA 3 GM in NORMAL SALINE 100 ML IV SCH (06:06)
[2018-05-05] MEDS: HYDRALAZINE HCL 25 MG TABLET PO SCH ×3 (06:42→22:31)
[2018-05-05] MEDS: LEVOTHYROXINE SODIUM 0.05 MG TABLET PO SCH (06:42)
[2018-05-05] MEDS: GABAPENTIN 300 MG CAPSULE PO SCH ×3 (06:42→22:31)
[2018-05-05] MEDS: APIXABAN 5 MG TABLET PO SCH ×2 (06:42→17:46)
[2018-05-05] MEDS: FOLIC ACID 1 MG TABLET PO SCH (08:33)
[2018-05-05] MEDS: MONTELUKAST SODIUM 10 MG TABLET PO SCH (08:34)
[2018-05-05] MEDS: ASPIRIN 81 MG TABLET, ENT COATED PO SCH (08:34)
[2018-05-05] MEDS: LAMOTRIGINE 100 MG TABLET PO SCH (08:37)
[2018-05-05] MEDS: MULTIVITAMIN TABLET PO SCH (10:49)
[2018-05-05] MEDS: CHOLECALCIFEROL (D3) 1,000 UNIT TABLET PO SCH (10:50)
[2018-05-05] MEDS: DIGOXIN 0.125 MG TABLET PO SCH (10:51)
[2018-05-05] MEDS: CARVEDILOL 12.5 MG TABLET PO SCH ×2 (10:52→22:32)
[2018-05-05] MEDS: HYDROCORTISONE 1% CREAM 28.35 GM TP SCH ×2 (10:53→17:46)
[2018-05-05] MEDS: FLUTICASONE/VILANTEROL 200-25 MCG/DOSE IH SCH (10:53)
--- NOTE | 2018-05-05 11:45 | PDOC PROGRESS REPORT ---
Subjective Reason For Visit: COMPLICATED UTI, RIGHT ARM CELLULITIS Physical Exam Vital Signs: Temp Pulse Resp BP Pulse Ox 97.4 F 83 18 143/52 H 90 L 05/05/18 07:42 05/05/18 08:51 05/05/18 08:51 05/05/18 07:42 05/05/18 08:51 Intake & Output 05/04/18 05/05/18 05/06/18 06:59 06:59 06:59 Intake Total 2784 2992 100 Output Total 1950 2825 Balance 834 167 100 Weight 87.5 kg 85.7 kg Results Laboratory Results: 05/03/18 11:56 05/03/18 11:56 Impressions: Chest X-Ray 04/22/18 12:46 IMPRESSION: NO ACUTE RADIOGRAPHIC FINDING IN THE CHEST. Forearm X-Ray 04/22/18 13:18 IMPRESSION: No fracture or dislocation of the right forearm. Diffuse soft tissue swelling about the right forearm. No radiopaque foreign body. Humerus X-Ray 04/22/18 13:18 IMPRESSION: No definite acute bony abnormality. Extensive degenerative changes about the glenohumeral and acromioclavicular joint, similar to priors. Upper Extremity CT 04/23/18 00:00 IMPRESSION: Extremely limited study. No occult fracture. Venous Doppler Study 04/23/18 00:00 IMPRESSION: NO EVIDENCE DVT OR SVT IN THE RIGHT ARM. Head MRI 04/27/18 08:00 IMPRESSION: No evidence for acute or sub-acute infarction.High T2 signal intensity changes in the posterior white matter on FLAIR imaging in the occipital parietal lobes. Significant motion artifact. EVIDENCE OF ACUTE STROKE: NO. Assessment & Plan - Diagnosis (1) Stage IV pressure ulcer of sacral region Is this a current diagnosis for this admission?: Yes - Plan Summary Plan Summary: This is a 73-year-old female status post debridement of a sacral decubitus ulcer. There is no necrotic tissue in the wound today. There is no purulence apparent. Continue with aggressive turning regimen and nutritional supplementation. No further debridement is required at this time. Surgery will sign off. Please renotify with any questions or concerns.
--- NOTE | 2018-05-05 14:01 | PDOC PROGRESS REPORT ---
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 She was initially started on IV antibiotics and then switched to valacyclovir per ID recommendation. She also underwent debridement of her sacral ulcer by surgery. 04/30: Her right arm lesions continue to resolve. The vesicular lesions on he right arm have resolved and continue to show healing. The erythema also continue to improve. She is aO x 3 this morning. Patient also has been reported to have blurry vision for several days and had some reported BOV prior to admission. On assessment today, on repeated testing, it appears she is not able to see and was not also not able to determine if the lights in her room were on or off. Her MRI done a few days ago did show some T2 intensity changes on the occipital parietal lobes. 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 Will have ophthalmology evaluate her further. 05/01: No acute event overnight. 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 Will proceed with MRI with contrast to kathryn dick evaluate changes on the occipital parietal areas. Evaluated sacral wound today which has some lopez tissues with minimal foul smelling discharge. Will have surgery reassess sacral wound. Reviewed records from [facility] where she was recently admitted. Appears she likely had PRES there. Patient's says she started having vision problems at [facility] on her recent admission. There is a possibility that her cortical blindness may be related to her recent PRES. Will try to discuss case with [facility]. 05/02: No fever or chills. She is going for repeat debridement of her sacral ulcer today. Discussed case with [facility] neurology, Dr. Rodriguez. 05/03: She underwent repeat debridement yesterday. She continues to have cortical blindness and right arm weakness, both appear to have been present when she was admitted for PRES at [facility]. [facility] deems both deficits are and will likely be chronic sequelae from her PRES. 05/04: No fever or chills. Her sacral wound was re-evaluated by surgery this morning. No active drainage. Anticipating medical clearance for discharge in the next 24-48 hrs. 05/05: No acute event overnight. No active drainage on post debrided wound. She is medically cleared to be discharged back to [facility] but is awaiting renewal/approval of her PASSAR. Wound cultures results. Will de-escalate antibiotics. Reason For Visit: COMPLICATED UTI, RIGHT ARM CELLULITIS Physical Exam Vital Signs: Temp Pulse Resp BP Pulse Ox 97.4 F 83 18 143/52 H 90 L 05/05/18 07:42 05/05/18 08:51 05/05/18 08:51 05/05/18 07:42 05/05/18 08:51 Intake & Output 05/04/18 05/05/18 05/06/18 06:59 06:59 06:59 Intake Total 2784 2992 100 Output Total 1950 2825 Balance 834 167 100 Weight 192 lb 14.472 oz 188 lb 14.978 oz General appearance: PRESENT: no acute distress, well-developed, well-nourished Head exam: PRESENT: atraumatic, normocephalic Eye exam: PRESENT: conjunctiva pink, EOMI, PERRLA. ABSENT: scleral icterus Ear exam: PRESENT: normal external ear exam Mouth exam: PRESENT: moist, tongue midline Neck exam: ABSENT: carotid bruit, JVD, lymphadenopathy, thyromegaly Respiratory exam: PRESENT: clear to auscultation carmen. ABSENT: rales, rhonchi, wheezes Cardiovascular exam: PRESENT: RRR. ABSENT: diastolic murmur, rubs, systolic m urmur GI/Abdominal exam: PRESENT: normal bowel sounds, soft. ABSENT: distended, guarding, mass, organolmegaly, rebound, tenderness Rectal exam: PRESENT: deferred Neurological exam: PRESENT: alert, awake, oriented to person, oriented to place, oriented to time, oriented to situation, CN II-XII grossly intact - +blindness, motor sensory deficit - +right arm weakness Results Laboratory Results: 05/03/18 11:56 05/03/18 11:56 Impressions: Chest X-Ray 04/22/18 12:46 IMPRESSION: NO ACUTE RADIOGRAPHIC FINDING IN THE CHEST. Forearm X-Ray 04/22/18 13:18 IMPRESSION: No fracture or dislocation of the right forearm. Diffuse soft tissue swelling about the right forearm. No radiopaque foreign body. Humerus X-Ray 04/22/18 13:18 IMPRESSION: No definite acute bony abnormality. Extensive degenerative changes about the glenohumeral and acromioclavicular joint, similar to priors. Upper Extremity CT 04/23/18 00:00 IMPRESSION: Extremely limited study. No occult fracture. Venous Doppler Study 04/23/18 00:00 IMPRESSION: NO EVIDENCE DVT OR SVT IN THE RIGHT ARM. Head MRI 04/27/18 08:00 IMPRESSION: No evidence for acute or sub-acute infarction.High T2 signal intensity changes in the posterior white matter on FLAIR imaging in the occipital parietal lobes. Significant motion artifact. EVIDENCE OF ACUTE STROKE: NO. Assessment and Plan - Diagnosis (1) Right arm cellulitis Is this a current diagnosis for this admission?: Yes Plan: Improving. She was treated with Rocephin and Levaquin initially, subsequently switched to valacyclovir per ID recommendation. 05/03: Resolved. Discontinue valtrex. (2) Cortical blindness Is this a current diagnosis for this admission?: Yes Plan: 04/30: Patient also has been reported to have blurry vision for several days and had some reported BOV prior to admission. On assessment today, on repeated testing, it appears she is not able to see and was not also not able to determine if the lights in her room were on or off. Her MRI done a few days ago did show some T2 intensity changes on the occipital parietal lobes. 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 Will have ophthalmology evaluate her further. 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 Will proceed with MRI with contrast to further evaluate changes on the occipital parietal areas. Reviewed records from [facility] where she was recently admitted. Appears she likely had PRES there. Patient's says she started having vision problems at [facility] on her recent admission. There is a possibility that her cortical blindness may be related to her recent PRES. Will try to discuss case with [facility] neurology. 05/02: Discussed case with Dr. Rodriguez, [facility] neurology who recommended doing an EEG. 05/03: She continues to have cortical blindness and right arm weakness, both appear to have been present when she was admitted for PRES at [facility]. [facility]rology deems both deficits are and will likely be chronic sequelae from her PRES. (3) Sacral decubitus ulcer, stage III Is this a current diagnosis for this admission?: Yes Plan: S/P debridement by surgery. 05/01: Evaluated sacral wound today which has some lopez tissues with minimal foul smelling discharge. Will have surgery reassess sacral wound. 05/02: Patient is going for repeat debridement by surgery today. 05/03: S/P debridement yesterday. Wound cultures growing gram negative rods and gram positive cocci. Unasyn started per surgery. Will narrow antibiotics pending final culture report. 05/04: Her sacral wound was re-evaluated by surgery this morning. No active drainage. Anticipating medical clearance for discharge in the next 24-48 hrs. 05/05: No active drainage on post debrided wound. She is medically cleared to be discharged back to [facility] but is awaiting renewal/approval of her PASSAR. Wound cultures results. Will de-escalate antibiotics. Switch Unasyn to Augmentin. - Time Time Spent with patient: 15-24 minutes
[2018-05-05] MEDS: AMOXICILLIN TR/POT CLAVULANATE 500-125 MG TAB PO SCH ×2 (15:59→22:32)
[2018-05-05] MEDS: POLYETHYLENE GLYCOL 3350 POWDER 17 GM/1 PACKET PO PRN (16:00)
[2018-05-05] MEDS: ATORVASTATIN CALCIUM 40 MG TABLET PO SCH (22:32)
[2018-05-05] MEDS: DIPHENHYDRAMINE HCL 50 MG/ML VIAL IV PRN (22:32)
[2018-05-06] MEDS: IPRATROPIUM/ALBUTEROL 0.5-2.5 MG/3 ML AMPUL NEB SCH ×4 (03:11→19:43)
[2018-05-06] MEDS: HYDRALAZINE HCL 25 MG TABLET PO SCH ×3 (06:13→21:18)
[2018-05-06] MEDS: HYDROCODONE/ACETAMINOPHEN 7.5-325 MG TABLET PO PRN ×3 (06:13→17:25)
[2018-05-06] MEDS: LEVOTHYROXINE SODIUM 0.05 MG TABLET PO SCH (06:13)
[2018-05-06] MEDS: APIXABAN 5 MG TABLET PO SCH ×2 (06:13→17:10)
[2018-05-06] MEDS: AMOXICILLIN TR/POT CLAVULANATE 500-125 MG TAB PO SCH ×3 (06:13→21:19)
[2018-05-06] MEDS: GABAPENTIN 300 MG CAPSULE PO SCH ×3 (06:13→21:18)
[2018-05-06] MEDS: KETOROLAC TROMETHAMINE INJ/PF 30 MG/1 ML SDV IV PRN ×3 (08:15→23:13)
[2018-05-06] MEDS: ASPIRIN 81 MG TABLET, ENT COATED PO SCH (08:15)
[2018-05-06] MEDS: MONTELUKAST SODIUM 10 MG TABLET PO SCH (08:15)
[2018-05-06] MEDS: FOLIC ACID 1 MG TABLET PO SCH (08:15)
[2018-05-06] MEDS: LAMOTRIGINE 100 MG TABLET PO SCH (08:17)
[2018-05-06] MEDS: DIGOXIN 0.125 MG TABLET PO SCH (09:50)
[2018-05-06] MEDS: CARVEDILOL 12.5 MG TABLET PO SCH ×2 (09:50→21:17)
[2018-05-06] MEDS: CHOLECALCIFEROL (D3) 1,000 UNIT TABLET PO SCH (09:50)
[2018-05-06] MEDS: COLLAGENASE CLOSTRIDIUM HIST. OINT 30 GM TOP SCH ×2 (09:51→21:25)
[2018-05-06] MEDS: MULTIVITAMIN TABLET PO SCH (09:51)
[2018-05-06] MEDS: HYDROCORTISONE 1% CREAM 28.35 GM TP SCH ×2 (09:51→17:10)
[2018-05-06] MEDS: FLUTICASONE/VILANTEROL 200-25 MCG/DOSE IH SCH (10:55)
--- NOTE | 2018-05-06 18:08 | PDOC PROGRESS REPORT ---
Subjective Progress Note for:: 05/06/18 Subjective:: No adverse events overnight. No new complaints. Patient was sleeping whenever came into the room. We will currently awaiting a PASSR number so she can go back to long-term care. Reason For Visit: COMPLICATED UTI, RIGHT ARM CELLULITIS Physical Exam Vital Signs: Temp Pulse Resp BP Pulse Ox 98.2 F 80 18 132/66 H 98 05/06/18 16:00 05/06/18 16:00 05/06/18 16:00 05/06/18 16:00 05/06/18 16:00 Intake & Output 05/05/18 05/06/18 05/07/18 06:59 06:59 06:59 Intake Total 2992 1846 Output Total 2825 1450 Balance 167 396 Weight 85.7 kg 98.3 kg General appearance: PRESENT: no acute distress, well-developed, well-nourished Respiratory exam: PRESENT: clear to auscultation carmen. ABSENT: rales, rhonchi, wheezes Cardiovascular exam: PRESENT: RRR. ABSENT: diastolic murmur, rubs, systolic murmur GI/Abdominal exam: PRESENT: normal bowel sounds, soft. ABSENT: distended, guarding, mass, organolmegaly, rebound, tenderness Neurological exam: PRESENT: alert, awake, oriented to person, oriented to place, oriented to time, oriented to situation, CN II-XII grossly intact - +blindness, motor sensory deficit - +right arm weakness Results Laboratory Results: 05/03/18 11:56 05/03/18 11:56 Impressions: Chest X-Ray 04/22/18 12:46 IMPRESSION: NO ACUTE RADIOGRAPHIC FINDING IN THE CHEST. Forearm X-Ray 04/22/18 13:18 IMPRESSION: No fracture or dislocation of the right forearm. Diffuse soft tissue swelling about the right forearm. No radiopaque foreign body. Humerus X-Ray 04/22/18 13:18 IMPRESSION: No definite acute bony abnormality. Extensive degenerative changes about the glenohumeral and acromioclavicular joint, similar to priors. Upper Extremity CT 04/23/18 00:00 IMPRESSION: Extremely limited study. No occult fracture. Venous Doppler Study 04/23/18 00:00 IMPRESSION: NO EVIDENCE DVT OR SVT IN THE RIGHT ARM. Head MRI 04/27/18 08:00 IMPRESSION: No evidence for acute or sub-acute infarction.High T2 signal intensity changes in the posterior white matter on FLAIR imaging in the occipital parietal lobes. Significant motion artifact. EVIDENCE OF ACUTE STROKE: NO. 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 (2) Right arm cellulitis Is this a current diagnosis for this admission?: Yes Plan: Resolved. Discontinued valtrex. (3) Sacral decubitus ulcer, stage III Is this a current diagnosis for this admission?: No Plan: patient has stage IV sacral decubitus status post debridement. Needs to co ntinue the present management , to change the body position every 2 hours. - Time Time Spent with patient: 25-34 minutes - Plan Summary Plan Summary: DC back to long-term care once her PASSR number is approved
[2018-05-06] MEDS: ATORVASTATIN CALCIUM 40 MG TABLET PO SCH (21:18)
[2018-05-06] MEDS: MORPHINE SULFATE 10 MG/ML INJ IV PRN (22:37)
[2018-05-07] MEDS: IPRATROPIUM/ALBUTEROL 0.5-2.5 MG/3 ML AMPUL NEB SCH ×4 (02:52→20:27)
[2018-05-07] MEDS: KETOROLAC TROMETHAMINE INJ/PF 30 MG/1 ML SDV IV PRN ×3 (05:38→21:59)
[2018-05-07] MEDS: APIXABAN 5 MG TABLET PO SCH ×2 (05:40→17:18)
[2018-05-07] MEDS: GABAPENTIN 300 MG CAPSULE PO SCH ×3 (05:40→22:00)
[2018-05-07] MEDS: AMOXICILLIN TR/POT CLAVULANATE 500-125 MG TAB PO SCH ×3 (05:40→22:00)
[2018-05-07] MEDS: HYDRALAZINE HCL 25 MG TABLET PO SCH ×3 (05:40→22:01)
[2018-05-07] MEDS: LEVOTHYROXINE SODIUM 0.05 MG TABLET PO SCH (06:11)
[2018-05-07] MEDS: POLYETHYLENE GLYCOL 3350 POWDER 17 GM/1 PACKET PO PRN (07:19)
[2018-05-07] MEDS: MONTELUKAST SODIUM 10 MG TABLET PO SCH (07:19)
[2018-05-07] MEDS: FOLIC ACID 1 MG TABLET PO SCH (07:19)
[2018-05-07] MEDS: LAMOTRIGINE 100 MG TABLET PO SCH (07:19)
[2018-05-07] MEDS: HYDROCODONE/ACETAMINOPHEN 7.5-325 MG TABLET PO PRN ×3 (07:19→17:14)
[2018-05-07] MEDS: ASPIRIN 81 MG TABLET, ENT COATED PO SCH (07:19)
[2018-05-07] MEDS: MULTIVITAMIN TABLET PO SCH (09:21)
[2018-05-07] MEDS: CHOLECALCIFEROL (D3) 1,000 UNIT TABLET PO SCH (09:21)
[2018-05-07] MEDS: CARVEDILOL 12.5 MG TABLET PO SCH ×2 (09:21→22:00)
[2018-05-07] MEDS: DIGOXIN 0.125 MG TABLET PO SCH (09:21)
[2018-05-07] MEDS: FLUTICASONE/VILANTEROL 200-25 MCG/DOSE IH SCH (09:21)
[2018-05-07] MEDS: COLLAGENASE CLOSTRIDIUM HIST. OINT 30 GM TOP SCH ×2 (09:22→22:02)
[2018-05-07] MEDS: HYDROCORTISONE 1% CREAM 28.35 GM TP SCH ×2 (09:22→17:19)
[2018-05-07 13:12] LABS: ANION GAP 7 (5-19); BLOOD UREA NITROGEN 50 mg/dL (7-20); CALCIUM 9.9 mg/dL (8.4-10.2); CARBON DIOXIDE 29 mmol/L (22-30); CHLORIDE 99 mmol/L (98-107); GLUCOSE 123 mg/dL (75-110); POTASSIUM 5.3 mmol/L (3.6-5.0); SODIUM 134.6 mmol/L (137-145)
[2018-05-07] MEDS: ATORVASTATIN CALCIUM 40 MG TABLET PO SCH (22:00)
[2018-05-08] MEDS: IPRATROPIUM/ALBUTEROL 0.5-2.5 MG/3 ML AMPUL NEB SCH ×3 (03:12→13:46)
[2018-05-08] MEDS ORDERED: LACTULOSE SYRUP 20 GM/30 ML UDCUP PR ONE (04:15)
[2018-05-08] MEDS: AMOXICILLIN TR/POT CLAVULANATE 500-125 MG TAB PO SCH ×2 (06:27→13:39)
[2018-05-08] MEDS: APIXABAN 5 MG TABLET PO SCH (06:27)
[2018-05-08] MEDS: LEVOTHYROXINE SODIUM 0.05 MG TABLET PO SCH (06:28)
[2018-05-08] MEDS: HYDRALAZINE HCL 25 MG TABLET PO SCH ×2 (06:28→13:39)
[2018-05-08] MEDS: GABAPENTIN 300 MG CAPSULE PO SCH ×2 (06:28→13:39)
[2018-05-08] MEDS: ASPIRIN 81 MG TABLET, ENT COATED PO SCH (07:19)
[2018-05-08] MEDS: FOLIC ACID 1 MG TABLET PO SCH (07:19)
[2018-05-08] MEDS: HYDROCODONE/ACETAMINOPHEN 7.5-325 MG TABLET PO PRN ×2 (07:19→13:39)
[2018-05-08] MEDS: LAMOTRIGINE 100 MG TABLET PO SCH (07:19)
[2018-05-08] MEDS: MONTELUKAST SODIUM 10 MG TABLET PO SCH (07:19)
[2018-05-08] MEDS: FLUTICASONE/VILANTEROL 200-25 MCG/DOSE IH SCH (10:37)
[2018-05-08] MEDS: DIGOXIN 0.125 MG TABLET PO SCH (10:37)
[2018-05-08] MEDS: MULTIVITAMIN TABLET PO SCH (10:37)
[2018-05-08] MEDS: KETOROLAC TROMETHAMINE INJ/PF 30 MG/1 ML SDV IV PRN (10:37)
[2018-05-08] MEDS: CHOLECALCIFEROL (D3) 1,000 UNIT TABLET PO SCH (10:37)
[2018-05-08] MEDS: CARVEDILOL 12.5 MG TABLET PO SCH (10:37)
[2018-05-08] MEDS: COLLAGENASE CLOSTRIDIUM HIST. OINT 30 GM TOP SCH (10:39)
[2018-05-08 11:35] VITALS: BP 126/46
[2018-05-08] MEDS: HYDROCORTISONE 1% CREAM 28.35 GM TP SCH (13:36)
--- NOTE | 2018-05-08 14:12 | PDOC TRANSFER SUMMARY ---
General - Admit/Disc Date/PCP Admission Date/Primary Care Provider: 04/22/18 17:38 JOEL ESPINOZA MD Discharge Date: 05/08/18 - Discharge Diagnosis (1) Stage IV pressure ulcer of sacral region Is this a current diagnosis for this admission?: Yes Summary: The patient had several debridements. The most aggressive occurred in the operating room. Initial culture grew multiple organisms which is not surprising for a decubitus ulcer. The patient should finish several more days of Augmentin therapy. Current dressing is Santyl changed twice daily. Strict change position every 2 hours to offload the area is necessary. Also would have dietary assess the patient for protein supplements and vitamins to help with wound healing. (2) Complicated UTI (urinary tract infection) Is this a current diagnosis for this admission?: Yes Summary: The patient was diagnosed with Enterobacter on April 22. This is treated and resolved. (3) Right arm cellulitis Is this a current diagnosis for this admission?: Yes Summary: The infection in the right arm was felt to be shingles. The patient completed a course of Valtrex. There are no open lesions. She still has some right arm swelling but this should improve with increased used of the arm. She does still have some discomfort in the arm. She is on Neurontin as well as analgesia. (4) Atrial fibrillation Is this a current diagnosis for this admission?: Yes Summary: Chronic atrial fibrillation. Stable on current regimen. Continue same. She is also back on her chronic anticoagulation. (5) COPD (chronic obstructive pulmonary disease) Is this a current diagnosis for this admission?: Yes Summary: Continue current treatment regimen. The patient has been stable. Oxygen saturation greater than 90% on room air. (6) Hyperlipidemia Is this a current diagnosis for this admission?: Yes Summary: Continue atorvastatin. (7) Hypertension Is this a current diagnosis for this admission?: Yes (8) Obesity (BMI 30-39.9) Is this a current diagnosis for this admission?: Yes Summary: Encourage diet. - Additional Information Resuscitation Status: Do Not Resuscitate Prescriptions: Hydrocodone/Acetaminophen [Lindsay 7.5-325 mg Tablet] 1 tab PO Q4HP PRN 4 Days #12 tablet PRN Reason: Home Medications: Acetaminophen [Tylenol Susp 160 mg/5 mL Oral Syring] 650 mg PO Q4HP PRN 04/22/18 Apixaban [Eliquis 5 mg Tablet] 5 mg PO Q12 04/22/18 Aspirin [Adult Low Dose Aspirin EC] 81 mg PO QAM 04/22/18 Atorvastatin Calcium [Lipitor 40 mg Tablet] 40 mg PO QHS 04/22/18 Carvedilol [Coreg 12.5 mg Tablet] 12.5 mg PO Q12 04/22/18 Cholecalciferol (Vitamin D3) [Vitamin D3 400 Unit/1 ml Drops 50 ml] 400 unit PO QAM 04/22/18 Clonidine HCl [Catapres 0.1 mg Tablet] 0.1 mg PO Q8 04/22/18 Clotrimazole [Lotrimin AF] 1 applic TP BID 04/22/18 Digoxin [Lanoxin] 125 mcg PO DAILY 04/22/18 Famotidine [Pepcid 20 mg Tablet] 20 mg PO BID 04/22/18 Fluticasone/Salmeterol [Advair 500-50 Diskus 14 Dose/Diskus] 1 puff IH Q12 04/22/18 Folic Acid [Folvite 1 mg Tablet] 1 mg PO QAM 04/22/18 Gabapentin [Neurontin 100 mg Capsule] 100 mg PO QHS 04/22/18 Hydralazine HCl [Apresoline 25 mg Tablet] 75 mg PO Q8 04/22/18 Hydrocortisone/Oatmeal/Aloe/E [Hydrocortisone 1% Cream] 1 applic TP BID 04/22/18 Lamotrigine [Lamictal] 100 mg PO QAM 04/22/18 Levetiracetam [Keppra 500 mg Tablet] 500 mg PO Q12 04/22/18 Levothyroxine Sodium [Synthroid 0.05 mg Tablet] 50 mcg PO Q6AM 04/22/18 Montelukast Sodium [Singulair 10 mg Tablet] 10 mg PO QAM 04/22/18 Multivitamin [Multiple Vitamin Liquid 60 ml] 15 mg PO DAILY 04/22/18 Amox Tr/Potassium Clavulanate [Augmentin "500" Tablet] 1 tab PO Q8 tablet 05/08/18 Apixaban [Eliquis 5 mg Tablet] 5 mg PO Q12A tablet 05/08/18 Collagenase Clostridium Hist. [Santyl Ointment 30 gm] 1 applic TOP Q12 tube 05/08/18 Hydrocodone/Acetaminophen [Lindsay 7.5-325 mg Tablet] 1 tab PO Q4HP PRN 4 Days #12 tablet 05/08/18 Hydrocortisone [Hydrocortisone 1% Cream 28.35 gm] 1 applic TP BID tube 05/08/18 Ipratropium/Albuterol Sulfate [Duoneb 3 ml Ampul] 3 ml NEB RTQ6 vial.neb 05/08 Multivitamin [Tab-A-Jesse (Multiple Vitamin) Tablet] 1 tab PO DAILY tablet 05/08/18 Polyethylene Glycol 3350 [Miralax Powder 17 gm/Packet] 17 gm PO DAILYP PRN powd.pack 05/08/18 History of Present Illness Admission Date/PCP: 04/22/18 17:38 JOEL ESPINOZA MD Patient complains of: The patient transferred from [facility] on May 05 with fever. She does have history of a stroke in March. She was admitted to [facility] at that time. History of Present Illness: SHANTHI BRIGGS is a 73 year old female with a complex past medical history. After experiencing a stroke and being hospitalized at [facility] the patient has been at [facility]. She has right-sided weakness. On April 22 she presented to the [facility] emergency department for fever as well as a rash/infection in the left arm. Her urinalysis showed infection and she was found to have a decubitus ulcer requiring debridement. The patient was referred to the hospitalist service for admission. Hospital Course Hospital Course: The patient's hospital course consisted of treatment for the left arm cellulitis was sure was felt to be zoster. She completed a course of Valtrex. She had several surgical debridements, the most aggressive in the operating room, and her surgeries note the wound base is clean. Multiple organisms were identified on culture. The patient should complete several more days of Augmentin therapy and then discontinue. They have been applying Santyl twice daily and the patient has strict orders for offloading by repositioning every 2 hours. She is on a pressure reducing mattress. Her anticoagulation was resumed after surgery. She still has pain and has narcotic analgesia available as needed. She also is on gabapentin for postherpetic neuralgia in the arm. Underlying bipolar disorder has been stable. Her atrial fibrillation and COPD have been stable as well. She will transfer back to [facility]. Physical Exam Vital Signs: Temp Pulse Resp BP Pulse Ox 98.9 F 78 14 126/46 H 95 05/08/18 11:34 05/08/18 11:34 05/08/18 11:34 05/08/18 11:34 05/08/18 11:34 Intake & Output 05/07/18 05/08/18 05/09/18 06:59 06:59 06:59 Intake Total 2110 1880 Output Total 2550 2225 Balance -440 -345 Weight 103.8 kg 105.8 kg General appearance: PRESENT: no acute distress, cooperative, morbidly obese Head exam: PRESENT: normocephalic Ear exam: PRESENT: normal external ear exam Mouth exam: PRESENT: moist Neck exam: ABSENT: carotid bruit, lymphadenopathy Respiratory exam: PRESENT: clear to auscultation carmen, symmetrical, unlabored. ABSENT: rales, rhonchi, wheezes Cardiovascular exam: PRESENT: RRR, +S1, +S2 GI/Abdominal exam: PRESENT: normal bowel sounds, soft. ABSENT: distended, tenderness Rectal exam: PRESENT: deferred Extremities exam: ABSENT: pedal edema Musculoskeletal exam: PRESENT: other - Right arm still with weakness. There is some swelling. Neurological exam: PRESENT: alert, awake, oriented to person, oriented to place Psychiatric exam: PRESENT: appropriate affect. ABSENT: agitated, anxious Focused psych exam: ABSENT: delusional, restlessness Skin exam: ABSENT: vesicles Results Laboratory Results: 05/03/18 11:56 05/07/18 12:20 05/07/18 12:20 Sodium 134.6 L Potassium 5.3 H Chloride 99 Carbon Dioxide 29 Anion Gap 7 BUN 50 H Creatinine 0.74 Est GFR ( Amer) > 60 Est GFR (Non-Af Amer) > 60 Glucose 123 H Calcium 9.9 05/02/18 14:54 Decubitis Ulcer - Sacral Gram Stain - Final 05/02/18 14:54 Decubitis Ulcer - Sacral Wound Culture - Final Proteus Mirabilis Enterococcus Faecalis(Group D) Clostridium Sp.not Perfringens Bacteroides Species Prevotella Species Impressions: Chest X-Ray 04/22/18 12:46 IMPRESSION: NO ACUTE RADIOGRAPHIC FINDING IN THE CHEST. Forearm X-Ray 04/22/18 13:18 IMPRESSION: No fracture or dislocation of the right forearm. Diffuse soft tissue swelling about the right forearm. No radiopaque foreign body. Humerus X-Ray 04/22/18 13:18 IMPRESSION: No definite acute bony abnormality. Extensive degenerative changes about the glenohumeral and acromioclavicular joint, similar to priors. Upper Extremity CT 04/23/18 00:00 IMPRESSION: Extremely limited study. No occult fracture. Venous Doppler Study 04/23/18 00:00 IMPRESSION: NO EVIDENCE DVT OR SVT IN THE RIGHT ARM. Head MRI 04/27/18 08:00 IMPRESSION: No evidence for acute or sub-acute infarction.High T2 signal intensity changes in the posterior white matter on FLAIR imaging in the occipital parietal lobes. Significant motion artifact. EVIDENCE OF ACUTE STROKE: NO. Transfer Plan - Disposition Transfer Plan: Return to [facility]. - Time Spent with Patient Time spent with patient: Greater than 30 Minutes Qualifiers - * PATIENT BEING DISCHARGED WITH ANY OF THE FOLLOWING DIAGNOSIS: No Plan Discharge Plan: Transferred to [facility]. Time Spent: Greater than 30 Minutes
--- NOTE | 2018-05-08 17:21 | PDOC PROGRESS REPORT ---
Subjective Progress Note for:: 05/07/18 Subjective:: Resting in bed. Moving the right arm is uncomfortable for the patient. Abdomen is slightly distended. Reason For Visit: COMPLICATED UTI, RIGHT ARM CELLULITIS Physical Exam Vital Signs: Temp Pulse Resp BP Pulse Ox 97.5 F 80 14 165/50 H 93 05/07/18 08:00 05/07/18 08:40 05/07/18 08:40 05/07/18 08:00 05/07/18 08:40 Intake & Output 05/06/18 05/07/18 05/08/18 06:59 06:59 06:59 Intake Total 1846 2110 Output Total 1450 2550 Balance 396 -440 Weight 98.3 kg 103.8 kg General appearance: PRESENT: cooperative, mild distress, obese, well-developed Head exam: PRESENT: normocephalic Ear exam: PRESENT: normal external ear exam Mouth exam: PRESENT: dry mucosa, tongue midline Respiratory exam: PRESENT: clear to auscultation carmen, symmetrical, unlabored. ABSENT: rales, rhonchi Cardiovascular exam: PRESENT: RRR, +S1, +S2, systolic murmur - 2/6 GI/Abdominal exam: PRESENT: distended, normal bowel sounds, soft. ABSENT: tenderness Rectal exam: PRESENT: deferred Gentrourinary exam: PRESENT: indwelling catheter Extremities exam: PRESENT: pedal edema Neurological exam: PRESENT: alert, awake, oriented to person, oriented to place Psychiatric exam: PRESENT: flat affect. ABSENT: agitated, anxious Results Laboratory Results: 05/03/18 11:56 05/03/18 11:56 Impressions: Chest X-Ray 04/22/18 12:46 IMPRESSION: NO ACUTE RADIOGRAPHIC FINDING IN THE CHEST. Forearm X-Ray 04/22/18 13:18 IMPRESSION: No fracture or dislocation of the right forearm. Diffuse soft tissue swelling about the right forearm. No radiopaque foreign body. Humerus X-Ray 04/22/18 13:18 IMPRESSION: No definite acute bony abnormality. Extensive degenerative changes about the glenohumeral and acromioclavicular joint, similar to priors. Upper Extremity CT 04/23/18 00:00 IMPRESSION: Extremely limited study. No occult fracture. Venous Doppler Study 04/23/18 00:00 IMPRESSION: NO EVIDENCE DVT OR SVT IN THE RIGHT ARM. Head MRI 04/27/18 08:00 IMPRESSION: No evidence for acute or sub-acute infarction.High T2 signal intensity changes in the posterior white matter on FLAIR imaging in the occipital parietal lobes. Significant motion artifact. EVIDENCE OF ACUTE STROKE: NO. Assessment and Plan - Diagnosis (1) Right arm cellulitis Is this a current diagnosis for this admission?: Yes Plan: Zoster. Patient completed a course of valtrex. Her arm is still sore. She is on gabapentin for possible postherpetic neuralgia. (2) Stage IV pressure ulcer of sacral region Is this a current diagnosis for this admission?: Yes Plan: The patient had several debridements including one in the operating room. All of the necrotic tissue has been debrided according to the surgical notes. We will continue the Santyl twice daily for the time being with aggressive offloading. The patient has several more days of Augmentin therapy to complete as well. The dietitian should also see the patient and set a goal for protein and calorie needs for optimum healing. (3) Cortical blindness Qualifiers: Laterality: unspecified laterality Qualified Code(s): H47.619 - Cortical blindness, unspecified side of brain Is this a current diagnosis for this admission?: Yes Plan: Per previous notes the patient was diagnosed with posterior reversible encephalopathy syndrome. This is causing impairment of vision. The patient seems to be slowly improving but there will likely be a chronic element of loss of vision. (4) Complicated UTI (urinary tract infection) Is this a current diagnosis for this admission?: Yes Plan: Enterobacter isolated. Patient received antibiotic therapy. Cystitis resolved. (5) Atrial fibrillation Qualifiers: Atrial fibrillation type: chronic Qualified Code(s): I48.2 - Chronic atrial fibrillation Is this a current diagnosis for this admission?: Yes Plan: The patient will continue on her current regimen. She has been restarted on her anticoagulation therapy after surgery. Cardiac status is stable. - Time Time Spent with patient: 15-24 minutes Medications reviewed and adjusted accordingly: Yes Anticipated discharge: SNF - Plan Summary Plan Summary: Right arm still hurts. Check potassium. Antibiotic sensitivities.
== END 2018-05-08 15:09 | DRG 570 ==
LOC: ER 12:30 → EH 17:38 → 3W 04-23 00:39 → 4N 05-05 19:50
PROVIDERS: ADMIT Internal Medicine; ATTEND Internal Medicine
PROC: 30233N1 Transfusion of Nonautologous Red Blood Cells into Peripheral Vein, Percutaneous Approach (ICD-10-PCS; 2018-04-24)
PROC: 0HB6XZZ Excision of Back Skin, External Approach (ICD-10-PCS; 2018-04-25)
PROC: 0JB70ZZ Excision of Back Subcutaneous Tissue and Fascia, Open Approach (ICD-10-PCS; principal; 2018-05-02 13:15)
DX: L03.113 Cellulitis of right upper limb (principal); L89.153 Pressure ulcer of sacral region, stage 3; L89.154 Pressure ulcer of sacral region, stage 4; N39.0 Urinary tract infection, site not specified; E87.1 Hypo-osmolality and hyponatremia; I69.351 Hemiplegia and hemiparesis following cerebral infarction affecting right dominant side; B02.29 Other postherpetic nervous system involvement; Z66 Do not resuscitate; B02.9 Zoster without complications; J44.9 Chronic obstructive pulmonary disease, unspecified; I10 Essential (primary) hypertension; I48.2 Chronic atrial fibrillation; E03.9 Hypothyroidism, unspecified; K21.9 Gastro-esophageal reflux disease without esophagitis; B96.4 Proteus (mirabilis) (morganii) as the cause of diseases classified elsewhere; B95.2 Enterococcus as the cause of diseases classified elsewhere; B96.89 Other specified bacterial agents as the cause of diseases classified elsewhere; E86.0 Dehydration; F31.9 Bipolar disorder, unspecified; H47.619 Cortical blindness, unspecified side of brain; R52 Pain, unspecified; Z79.01 Long term (current) use of anticoagulants; Z79.82 Long term (current) use of aspirin; Z79.51 Long term (current) use of inhaled steroids; Z79.899 Other long term (current) drug therapy; Z74.01 Bed confinement status; Z85.3 Personal history of malignant neoplasm of breast
CPT/HCPCS: 00300; 36415; 36430; 51702; 70551; 71045; 80048; 80053; 81001; 82803; 82962; 83605; 83735; 85025; 85027; 85610; 86850; 86900; 86901; 86920; 87040; 87070; 87075; 87077; 87086; 87088; 87186; 87205; 87250; 93005; 93010; 93971; 95819; 96361; 96365; 99285; J0131; J0295; J0690; J0696; J1100; J1170; J1200; J1650; J1885; J2060; J2250; J2270; J2370; J2405; J2704; J2765; J3010; J3490; J7120; J7512; J7620; P9016; P9047

== ENCOUNTER 2018-05-15 13:11 | Emergency (ER) | payer MEDICARE, OTHER ==
[2018-05-15 14:19] LABS: ABSOLUTE LYMPHOCYTES (AUTO) 1.1 10^3/uL (0.5-4.7); ABSOLUTE MONOCYTES (AUTO) 0.6 10^3/uL (0.1-1.4); ABSOLUTE NEUT (AUTO) 4.1 10^3/uL (1.7-8.2); BASOPHILS % (AUTO) 0.5 % (0-2); EOSINOPHILS % (AUTO) 0.2 % (0-6); HEMATOCRIT 24.5 % (36.0-47.0); LYMPHOCYTES % (AUTO) 18.2 % (13-45); MEAN CORPUSCULAR HEMOGLOBIN 28.2 pg (27.0-33.4); MEAN CORPUSCULAR HGB CONC 32.1 g/dL (32.0-36.0); MEAN CORPUSCULAR VOLUME 88 fl (80-97); MONOCYTES % (AUTO) 10.4 % (3-13); PLATELET COUNT 342 10^3/uL (150-450); RED BLOOD COUNT 2.79 10^6/uL (3.72-5.28); RED CELL DISTRIBUTION WIDTH 19.8 % (11.5-14.0); SEGMENTED NEUTROPHILS % (AUTO) 70.7 % (42-78); TOTAL CELLS COUNTED % (AUTO) 100 %; WHITE BLOOD COUNT 5.8 10^3/uL (4.0-10.5)
[2018-05-15 14:23] LABS: HEMOGLOBIN 7.9 g/dL (12.0-15.5)
[2018-05-15 14:25] LABS: INTERNATIONAL RATION (INR) 1.11; PROTHROMBIN TIME 14.9 SEC (11.4-15.4)
[2018-05-15 14:26] LABS: PARTIAL THROMBOPLASTIN TIME 42.9 SEC (23.5-35.8)
[2018-05-15 14:35] LABS: BLOOD UREA NITROGEN 20 mg/dL (7-20); GLUCOSE 102 mg/dL (75-110)
[2018-05-15 14:40] LABS: CARBON DIOXIDE 28 mmol/L (22-30); CHLORIDE 109 mmol/L (98-107)
[2018-05-15 14:43] LABS: ANION GAP 4 (5-19)
[2018-05-15] MEDS ORDERED: FUROSEMIDE INJ/PF 20 MG/2 ML SDV IV PRN (14:52)
[2018-05-15] MEDS ORDERED: DIPHENHYDRAMINE HCL 25 MG CAPSULE PO PRN (14:52)
[2018-05-15] MEDS ORDERED: NORMAL SALINE 250 ML IV PRN ×2 (14:52)
[2018-05-15] MEDS ORDERED: ACETAMINOPHEN 325 MG TABLET PO PRN (14:52)
--- NOTE | 2018-05-15 14:54 | ER Document Report ---
ED General - General Chief Complaint: Anemia Stated Complaint: GENERAL WEAKNESS Time Seen by Provider: 05/15/18 14:10 Primary Care Provider: JOEL ESPINOZA MD [Primary Care Provider] - Follow up as needed Mode of Arrival: Stretcher Information source: Patient, Emergency Med Personnel, Dr. Antonio, [facility] Records Notes: 73-year-old female presents via EMS from her primary care physician's office Dr. Espinoza for blood transfusion after blood work showed a hemoglobin of 7.2. Patient denies any black or bloody stools, hematemesis. States that she has had transfusions in the past. She does present with orders for transfusion of 2 units of PRBCs. Patient denies any headache, nausea, vomiting, chest pain, shortness of breath, abdominal pain. TRAVEL OUTSIDE OF THE [place] IN LAST 30 DAYS: No - HPI Onset: Other Quality of pain: No pain Severity: None Pain Level: Denies Associated symptoms: None Exacerbated by: Denies Relieved by: Denies Similar symptoms previously: Yes Recently seen / treated by doctor: Yes - Related Data Allergies/Adverse Reactions: cyclobenzaprine HCl [From Flexeril] Allergy (Unknown, Verified 12/07/17 10:30) Past Medical History - General Information source: Patient, Emergency Med Personnel, Dr. Antonio, [facility] Records - Social History Smoking Status: Unknown if Ever Smoked Frequency of alcohol use: None Drug Abuse: None Lives with: [facility] Family History: Reviewed & Not Pertinent Patient has suicidal ideation: No Patient has homicidal ideation: No - Past Medical History Cardiac Medical History: Reports: Hx Atrial Fibrillation, Hx Hypercholesterolemia, Hx Hypertension Pulmonary Medical History: Reports: Hx Asthma, Hx COPD Neurological Medical History: Endocrine Medical History: Reports: Hx Hypothyroidism Renal/ Medical History: Denies: Hx Peritoneal Dialysis Malignancy Medical History: Reports: Hx Breast Cancer GI Medical History: Reports: Hx Gastroesophageal Reflux Disease Musculoskeletal Medical History: Reports Hx Arthritis Psychiatric Medical History: Reports: Hx Bipolar Disorder, Hx Depression Past Surgical History: Reports: Hx Breast Surgery, Hx Cholecystectomy, Hx Hysterectomy, Hx Tonsillectomy - Immunizations Hx Diphtheria, Pertussis, Tetanus Vaccination: Yes Review of Systems - Review of Systems Notes: REVIEW OF SYSTEMS: CONSTITUTIONAL : Denies fever, chills, or sweats. Denies recent illness. Denies weight loss, recent hospitalizations. EENT: Denies visual changes, eye pain. Denies sore throat, oral lesions, difficulty swallowing. CARDIOVASCULAR: Denies chest pain. Denies palpitations. Denies lower extremity edema. RESPIRATORY: Denies cough. Denies shortness of breath, wheezing. GASTROINTESTINAL: Denies abdominal pain or distention. Denies nausea, vomiting, or diarrhea. Denies blood in vomitus, stools, or per rectum. Denies black, tarry stools. Denies constipation. GENITOURINARY: Denies difficulty urinating, painful urination, frequency, blood in urine, or vaginal discharge. MUSCULOSKELETAL: Denies back or neck pain or stiffness. Denies joint pain or swelling. SKIN: Denies rash, lesions or sores. HEMATOLOGIC : Denies easy bruising or bleeding. LYMPHATIC: Denies swollen glands. NEUROLOGICAL: Denies confusion or altered mental status. Denies loss of c onsciousness. Denies dizziness or lightheadedness. Denies headache. Denies weakness or paralysis. Denies problems difficulty with ambulation, slurred speech. Denies sensory loss, numbness, or tingling. Denies seizures. PSYCHIATRIC: Denies anxiety or stress. Denies depression, suicidal ideation, or homicidal ideation. Denies visual or auditory hallucinations. Physical Exam - Vital signs Vitals: Resp Pulse Ox 16 95 05/15/18 14:07 05/15/18 14:07 - Notes Notes: PHYSICAL EXAMINATION: GENERAL: Well-appearing, well-nourished and in no acute distress. HEAD: Atraumatic, normocephalic. EYES: Pupils equal round and reactive to light, extraocular movements intact, conjunctiva are normal. ENT: Nares patent, oropharynx clear without exudates. Moist mucous membranes. NECK: Normal range of motion, supple without lymphadenopathy LUNGS: Breath sounds clear to auscultation bilaterally and equal. No wheezes rales or rhonchi. HEART: Regular rate and rhythm without murmurs ABDOMEN: Soft, nontender, nondistended abdomen. No guarding, no rebound. No masses appreciated. Female : Brown stool Musculoskeletal: Normal range of motion, no pitting or edema. No cyanosis. NEUROLOGICAL: Cranial nerves grossly intact. Normal speech, normal gait. Normal sensory, motor exams PSYCH: Normal mood, normal affect. SKIN: Warm, Dry, normal turgor, no rashes or lesions noted. Course - Re-evaluation Re-evalutation: 05/17/18 21:40 73-year-old female with chronic anemia presents with outpatient orders for blood transfusion written by her primary care physician. These orders were followed. Patient was transfused 2 units of PRBCs. Patient was evaluated multiple times without evidence of fever, allergic reaction, pulmonary edema. Patient was discharged home in stable condition after receiving her transfusion. - Vital Signs Vital signs: Temp Pulse Resp BP Pulse Ox 98.9 F 79 19 188/89 H 97 05/15/18 23:44 05/15/18 23:44 05/15/18 23:44 05/15/18 23:44 05/15/18 23:44 - Laboratory Result Diagrams: 05/15/18 13:55 05/15/18 13:55 Laboratory results interpreted by me: 05/15/18 05/15/18 05/15/18 13:55 13:55 13:55 RBC 2.79 L Hgb 7.9 L Hct 24.5 L RDW 19.8 H APTT 42.9 H Chloride 109 H Anion Gap 4 L Crossmatch 05/15/18 15:30 RBC Hgb Hct RDW APTT Chloride Anion Gap Crossmatch See Detail Discharge - Discharge Clinical Impression: Anemia Qualifiers: Anemia type: unspecified type Qualified Code(s): D64.9 - Anemia, unspecified Hypertension Qualifiers: Hypertension type: unspecified Qualified Code(s): I10 - Essential (primary) hypertension Condition: Good Disposition: HOME, SELF-CARE Instructions: Anemia ([facility]) Referrals: JOEL ESPINOZA MD [Primary Care Provider] - Follow up as needed
[2018-05-15 23:45] VITALS: BP 188/89
== END 2018-05-15 23:35 | disposition home or self-care (01) ==
LOC: ER 13:11
DX: D64.9 Anemia, unspecified (principal); I10 Essential (primary) hypertension; J44.9 Chronic obstructive pulmonary disease, unspecified; Z85.3 Personal history of malignant neoplasm of breast; Z88.8 Allergy status to other drugs, medicaments and biological substances
CPT/HCPCS: 99284; 96374; 86900; 86901; 36415; 36430; 86850; 85025; 85610; 85730; 80048; 86920; P9016; A9270 ×2; J1940; 80162

== ENCOUNTER 2018-06-21 17:23 | Emergency (ER) | payer MEDICARE, OTHER ==
--- NOTE | 2018-06-21 19:23 | RADIOLOGY REPORT (SQ) ---
EXAM DESCRIPTION: CT HEAD WITHOUT COMPLETED DATE/TIME: 06/21/2018 6:58 pm REASON FOR STUDY: elderly fall COMPARISON: 06/02/2018 TECHNIQUE: Axial images acquired through the brain without intravenous contrast. Images reviewed wi th bone, brain and subdural windows. Additional sagittal and coronal reconstructions were generated. Images stored on PACS. All CT scanners at this facility use dose modulation, iterative reconstruction, and/or weight based d osing when appropriate to reduce radiation dose to as low as reasonably achievable (ALARA). [facility]: Dose Right [facility]: CareDose [facility]: Dose Right [facility]: Teradose 4D [facility]: Smart Technologies RADIATION DOSE: CT Rad equipment meets quality standard of care and radiation dose reduction techniq ues were employed. CTDIvol: 53.2 mGy. DLP: 991 mGy-cm.mGy. LIMITATIONS: None. FINDINGS: VENTRICLES: Prominent. CEREBRUM: No masses. No hemorrhage. No midline shift. Areas of low density in the white matter mos t likely due to chronic micro-vascular ischemic change. Re- demonstration of left greater than right occipital encephalomalacia. No evidence for acute infarction. CEREBELLUM: No masses. No hemorrhage. No alteration of density. No evidence for acute infarction. EXTRAAXIAL SPACES: Age-related involutional change. No fluid collections. No masses. ORBITS AND GLOBE: No intra- or extraconal masses. Normal contour of globe without masses. CALVARIUM: No fracture. PARANASAL SINUSES: No fluid or mucosal thickening. SOFT TISSUES: No mass or hematoma. OTHER: No other significant finding. IMPRESSION: No evidence of calvarial injury or intracranial hemorrhage. Stable CT appearance of the brain demonstrating bilateral occipital encephalomalacia, chronic microvascular injuries and age-rel ated involutional changes. EVIDENCE OF ACUTE STROKE: NO. TECHNICAL DOCUMENTATION: JOB ID: [id number] Quality ID # [id number]: Final reports with documentation of one or more dose reduction techniques (e.g., Au tomated exposure control, adjustment of the mA and/or kV according to patient size, use of iterative reconstruction technique) 2010 [employer]- All Rights Reserved Reading location - IP/workstation name: [email or web address]
--- NOTE | 2018-06-21 19:29 | RADIOLOGY REPORT (SQ) ---
EXAM DESCRIPTION: CT CERVICAL SPINE WITHOUT COMPLETED DATE/TIME: 06/21/2018 6:58 pm REASON FOR STUDY: elderly fall COMPARISON: None. TECHNIQUE: Axial images acquired through the cervical spine without intravenous contrast. Images re viewed with lung, soft tissue and bone windows. Reconstructed coronal and sagittal MPR images review ed. Images stored on PACS. All CT scanners at this facility use dose modulation, iterative reconstruction, and/or weight based d osing when appropriate to reduce radiation dose to as low as reasonably achievable (ALARA). [facility]: Dose Right [facility]: CareDose [facility]: Dose Right [facility]: Teradose 4D [facility]: [employer] RADIATION DOSE: CT Rad equipment meets quality standard of care and radiation dose reduction techniq ues were employed. CTDIvol: 19.2 mGy. DLP: 355 mGy-cm. mGy. LIMITATIONS: None. FINDINGS: ALIGNMENT: Anatomic. MINERALIZATION: Normal. VERTEBRAL BODIES: No fractures or dislocation. DISCS: Multilevel disc space narrowing with osteophytes. FACETS, LATERAL MASSES, POSTERIOR ELEMENTS: Facet arthropathy. No fractures. No dislocation. No ac [place]qs[place] findings. HARDWARE: None in the spine. VISUALIZED RIBS: No fractures. LUNG APICES AND SOFT TISSUES: Multinodular thyroid lobe. No lymphadenopathy. OTHER: No other significant finding. IMPRESSION: No evidence of acute osseous injury. Background of multilevel spondylotic changes. TECHNICAL DOCUMENTATION: JOB ID: [id number] Quality ID # [id number]: Final reports with documentation of one or more dose reduction techniques (e.g., Au tomated exposure control, adjustment of the mA and/or kV according to patient size, use of iterative reconstruction technique) 2010 [employer]- All Rights Reserved Reading location - IP/workstation name: [email or web address]
--- NOTE | 2018-06-21 19:43 | ER Document Report ---
ED General - General Chief Complaint: Fall Stated Complaint: POSSIBLE FALL Time Seen by Provider: 06/21/18 18:35 Primary Care Provider: JOEL PINEDA MD [Primary Care Provider] - Follow up as needed Cannot obtain history due to: Dementia Notes: Patient is a 73-year-old with history of hypertension, cognitive impairment, presents after being found lying nursing home out of her bed. Apparently her legs and feet were still in bed but her upper body and head were on the ground. EMS was contacted and patient was transported to the emergency department. Secondary to cognitive impairment the patient is unable to provide meaningful history. She denies complaints of pain to any location. This was an unwitnessed fall. She does not take any form of anticoagulation. TRAVEL OUTSIDE OF THE [place] IN LAST 30 DAYS: No - Related Data Allergies/Adverse Reactions: cyclobenzaprine HCl [From Flexeril] Allergy (Unknown, Verified 12/07/17 10:30) Past Medical History - General Information source: Relative, Emergency Med Personnel Cannot obtain history due to: Dementia - Social History Smoking Status: Never Smoker Frequency of alcohol use: None Drug Abuse: None Lives with: [facility] Family History: Reviewed & Not Pertinent Patient has suicidal ideation: No Patient has homicidal ideation: No - Past Medical History Cardiac Medical History: Reports: Hx Atrial Fibrillation, Hx Hypercholesterolemia, Hx Hypertension Pulmonary Medical History: Reports: Hx Asthma, Hx COPD Neurological Medical History: Endocrine Medical History: Reports: Hx Hypothyroidism Renal/ Medical History: Denies: Hx Peritoneal Dialysis Malignancy Medical History: Reports: Hx Breast Cancer GI Medical History: Reports: Hx Gastroesophageal Reflux Disease Musculoskeletal Medical History: Reports Hx Arthritis Psychiatric Medical History: Reports: Hx Bipolar Disorder, Hx Depression Past Surgical History: Reports: Hx Breast Surgery, Hx Cholecystectomy, Hx Hysterectomy, Hx Tonsillectomy - Immunizations Hx Diphtheria, Pertussis, Tetanus Vaccination: Yes Review of Systems - Review of Systems -: Yes ROS unobtainable due to patient's medical condition Physical Exam - Vital signs Vitals: Temp Pulse BP Pulse Ox 99.1 F 79 138/63 H 94 06/21/18 17:28 06/21/18 17:28 06/21/18 17:28 06/21/18 17:28 Interpretation: Normal Notes: PHYSICAL EXAMINATION: GENERAL: Elderly female in no acute distress HEAD: Atraumatic, normocephalic. EYES: Pupils equal round and reactive to light, extraocular movements intact, sclera anicteric, conjunctiva are normal. ENT: nares patent, no oral pharyngeal trauma. No hemotympanum, no Cowan's sign, no raccoon eyes. NECK: No midline cervical spine tenderness. Patient able to move their head to 45 bilaterally without any discomfort. LUNGS: Breath sounds clear to auscultation bilaterally and equal. No wheezes rales or rhonchi. HEART: Regular rate and rhythm without murmurs. CHEST WALL: No ecchymosis over the chest wall. ABDOMEN: Soft, nontender, normoactive bowel sounds. No guarding, no rebound. No abdominal bruising. EXTREMITIES: Normal range of motion, no pitting or edema. No long bone deformities. BACK: No midline spinal tenderness, step-offs, or deformities. NEUROLOGICAL: Face symmetric. Tongue protrudes midline. Extraocular motions intact. Pupils are 2 mm and equally reactive. Normal speech, 5 out of 5 strength in both the distal and proximal upper and lower extremities bilaterally. Sensation is grossly intact throughout. PSYCH: Normal mood, normal affect. SKIN: Warm, Dry, normal turgor, rash over the central forehead that is a scaling type rash Course - Re-evaluation Re-evalutation: 06/21/18 19:42 Presentation of a well appearing elderly patient in no acute distress, vitals within normal limits after falling out of bed. This was an unwitnessed fall and the patient was found hanging out of the bed with her feet still in the bed but her head and upper back on the ground. No focal neurologic deficits on exam, no evidence of basilar skull fracture on exam without evidence of hemotympanum, raccoon eyes, or periauricular hematoma. No papilledema. Patient is not on anticoagulation. Mental status at baseline. No loss of consciousness. No episodes of vomiting. However, based on patient's age a CT of the head has been obtained which is negative for any acute intracranial bleed. Likewise, patient was unable to be clinically cleared due to age by [place] cervical spine criteria. A CT of the cervical spine was also obtained and likewise is negative for any acute fracture. No indication for further imaging of the cervical spine. Patient has no focal deformities or limited range of motion in any joint space. Chest and abdominal exam are benign without any focal tenderness, shortness of breath, or bruising over the chest or abdominal wall. Patient has no flank tenderness. There is no obvious findings on trauma exam today and therefore no further imaging or evaluation will be obtained at this time. At this time will discharge with return precautions and follow-up recommendations. Verbal discharge instructions given a the bedside and opportunity for questions given. Medication warnings reviewed. is in agreement with this plan and has verbalized understanding of return precautions and the need for primary care follow-up in the next 24-72 hours. - Vital Signs Vital signs: Temp Pulse Resp BP Pulse Ox 97.6 F 98 18 132/60 H 98 06/21/18 22:49 06/21/18 22:49 06/21/18 22:49 06/21/18 22:49 06/21/18 22:49 - Diagnostic Test Radiology reviewed: Image reviewed, Reports reviewed Radiology results interpreted by me: 06/21/18 19:43 CT head: No acute intracranial bleed or mass Discharge - Discharge Clinical Impression: Fall Qualifiers: Encounter type: initial encounter Qualified Code(s): W19.XXXA - Unspecified fall, initial encounter Head trauma Qualifiers: Encounter type: initial encounter Qualified Code(s): S09.90XA - Unspecified injury of head, initial encounter Condition: Fair Disposition: HOME-SNF (ED ONLY) Additional Instructions: You have been seen in the Emergency Department (ED) today following a fall. Your workup today did not reveal any injuries that require you to stay in the hospital. You can expect, though, to be stiff and sore for the next several days. You can take Tylenol 1000 mg every 6 hours as needed for pain. You can apply a hot pack or electric heating pad to the sore areas. You can also use topical "Aspercreme with lidocaine" to sore areas as needed. Please follow up with your primary care doctor as soon as possible regarding today's ED visit and your recent fall. Call your doctor or return to the ED if you develop a sudden or severe headache, confusion, slurred speech, facial droop, weakness or numbness in any arm or leg, extreme fatigue, vomiting more than two times, severe abdominal pain, or other symptoms that concern you. Referrals: JOEL PINEDA MD [Primary Care Provider] - Follow up as needed
[2018-06-21 22:50] VITALS: BP 132/60
== END 2018-06-21 22:50 ==
LOC: ER 17:23
DX: S09.90XA Unspecified injury of head, initial encounter (principal); W06.XXXA Fall from bed, initial encounter; I48.91 Unspecified atrial fibrillation; E78.00 Pure hypercholesterolemia, unspecified; I10 Essential (primary) hypertension; J44.9 Chronic obstructive pulmonary disease, unspecified; E03.9 Hypothyroidism, unspecified; Z85.3 Personal history of malignant neoplasm of breast; Z90.49 Acquired absence of other specified parts of digestive tract; Z90.710 Acquired absence of both cervix and uterus
CPT/HCPCS: 70450; 72125; 99284

== ENCOUNTER → 2018-08-05 | Outpatient (CLI) | payer MEDICARE, OTHER ==
--- NOTE | 2018-08-05 11:29 | RADIOLOGY REPORT (SQ) ---
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 NUMBER OF VIEWS: Three views. TECHNIQUE: AP, lateral, and tilt views of the sacrum and coccyx. LIMITATIONS: None. FINDINGS: MINERALIZATION: Normal. BONES: No acute fracture or dislocation. No worrisome bone lesions. SOFT TISSUES: No soft tissue swelling. No foreign body. OTHER: No other significant finding. IMPRESSION: NEGATIVE STUDY OF THE SACRUM AND COCCYX. TECHNICAL DOCUMENTATION: JOB ID: [id number] [employer]- All Rights Reserved Reading location - IP/workstation name: [email or web address]
[2018-08-05 11:33] LABS: ABSOLUTE NEUT (AUTO) 6.3 10^3/uL (1.7-8.2); BASOPHILS % (AUTO) 0.5 % (0-2); EOSINOPHILS % (AUTO) 0.1 % (0-6); HEMATOCRIT 28.9 % (36.0-47.0); HEMOGLOBIN 9.3 g/dL (12.0-15.5); MEAN CORPUSCULAR HEMOGLOBIN 27.9 pg (27.0-33.4); MEAN CORPUSCULAR HGB CONC 32.3 g/dL (32.0-36.0); MEAN CORPUSCULAR VOLUME 86 fl (80-97); MONOCYTES % (AUTO) 12.2 % (3-13); PLATELET COUNT 269 10^3/uL (150-450); RED BLOOD COUNT 3.35 10^6/uL (3.72-5.28); RED CELL DISTRIBUTION WIDTH 16.8 % (11.5-14.0); SEGMENTED NEUTROPHILS % (AUTO) 75.2 % (42-78); TOTAL CELLS COUNTED % (AUTO) 100 %; WHITE BLOOD COUNT 8.4 10^3/uL (4.0-10.5)
[2018-08-05 12:04] LABS: BLOOD UREA NITROGEN 31 mg/dL (7-20); CALCIUM 9.9 mg/dL (8.4-10.2); GLUCOSE 129 mg/dL (75-110)
[2018-08-05 12:05] LABS: ALANINE AMINOTRANSFERASE 15 U/L (9-52); ALBUMIN 3.3 g/dL (3.5-5.0); ALKALINE PHOSPHATASE 77 U/L (38-126); ANION GAP 6 (5-19); ASPARTATE AMINO TRANSFERASE 12 U/L (14-36); BILIRUBIN,DIRECT 0.2 mg/dL (0.0-0.4); BILIRUBIN,TOTAL 0.2 mg/dL (0.2-1.3); C-REACTIVE PROTEIN 21.9 mg/L (<10.0); CARBON DIOXIDE 31 mmol/L (22-30); CHLORIDE 104 mmol/L (98-107); POTASSIUM 4.8 mmol/L (3.6-5.0); SODIUM 141.1 mmol/L (137-145); TOTAL PROTEIN 6.5 g/dL (6.3-8.2)
[2018-08-05 12:24] LABS: ERYTHROCYTE SEDIMENTATION RATE 105 mm/hr (0-30)
== END ==
LOC: RAD 10:23
PROVIDERS: ATTEND Nurse Practitioner Family
DX: L89.154 Pressure ulcer of sacral region, stage 4 (principal); E11.621 Type 2 diabetes mellitus with foot ulcer
CPT/HCPCS: 36415; 72220; 80053; 83036; 85025; 85652; 86140

== ENCOUNTER 2018-08-29 17:45 | Emergency (ER) | payer MEDICARE ==
[2018-08-29 18:20] LABS: ABSOLUTE MONOCYTES (AUTO) 0.9 10^3/uL (0.1-1.4); EOSINOPHILS % (AUTO) 0.2 % (0-6); PLATELET COUNT 331 10^3/uL (150-450); TOTAL CELLS COUNTED % (AUTO) 100 %
--- NOTE | 2018-08-29 18:23 | ER Document Report ---
ED General - General Chief Complaint: Fall Stated Complaint: FALL/FACE PAIN Time Seen by Provider: 08/29/18 18:08 Primary Care Provider: JOEL PINEDA MD [Primary Care Provider] - Follow up as needed Mode of Arrival: Medic Information source: Patient, Emergency Med Personnel, OM Records, Outside F acility Records Notes: 73-year-old female with hyperlipidemia, atrial fibrillation ( on Eliquis), COPD, bipolar disorder, hypertension, hypothyroidism, anemia, arthritis presents via EMS from [facility] after she rolled out of bed and struck her face on the floor. Patient is alert, awake and states that she was reaching for a magazine when she fell off the bed. She denies loss of consciousness. States that she remembers the entire event. Denies any preceding chest pain, shortness of breath, dizziness, recent illness. Patient denies headache, visual changes, nausea, vomiting. TRAVEL OUTSIDE OF THE [place] IN LAST 30 DAYS: No - HPI Onset: Just prior to arrival Onset/Duration: Sudden Quality of pain: No pain Severity: None Pain Level: Denies Associated symptoms: None. denies: Chest pain, Fever, Nausea, Vomiting, Shortness of breath Exacerbated by: Denies Relieved by: Denies Similar symptoms previously: No Recently seen / treated by doctor: No - Related Data Allergies/Adverse Reactions: cyclobenzaprine HCl [From Flexeril] Allergy (Unknown, Verified 12/07/17 10:30) Past Medical History - General Information source: Patient, Emergency Med Personnel, OM Records, Outside Facility Records - Social History Smoking Status: Never Smoker Frequency of alcohol use: None Drug Abuse: None Lives with: [facility] Family History: Reviewed & Not Pertinent Patient has suicidal ideation: No Patient has homicidal ideation: No - Past Medical History Cardiac Medical History: Reports: Hx Atrial Fibrillation, Hx Hypercholeste rolemia, Hx Hypertension Pulmonary Medical History: Reports: Hx Asthma, Hx COPD Neurological Medical History: Endocrine Medical History: Reports: Hx Hypothyroidism Renal/ Medical History: Denies: Hx Peritoneal Dialysis Malignancy Medical History: Reports: Hx Breast Cancer GI Medical History: Reports: Hx Gastroesophageal Reflux Disease Musculoskeletal Medical History: Reports Hx Arthritis Psychiatric Medical History: Reports: Hx Bipolar Disorder, Hx Depression Past Surgical History: Reports: Hx Breast Surgery, Hx Cholecystectomy, Hx Hysterectomy, Hx Tonsillectomy - Immunizations Hx Diphtheria, Pertussis, Tetanus Vaccination: Yes Review of Systems - Review of Systems Constitutional: denies: Fever, Recent illness EENT: denies: Blurred vision, Difficulty swallowing, Mouth pain Cardiovascular: denies: Chest pain, Palpitations, Syncope, Dizziness Respiratory: denies: Cough, Short of breath Gastrointestinal: denies: Abdominal pain, Nausea, Vomiting Genitourinary: denies: Dysuria, Flank pain Female Genitourinary: No symptoms reported Musculoskeletal: denies: Back pain, Muscle pain, Neck pain Skin: Lesions Hematologic/Lymphatic: Anemia Neurological/Psychological: denies: Lost consciousness, Headaches -: Yes All other systems reviewed and negative Physical Exam - Vital signs Vitals: Temp Pulse Resp 98.5 F 71 13 08/29/18 18:10 08/29/18 18:10 08/29/18 18:10 - Notes Notes: PHYSICAL EXAMINATION: GENERAL: Well-appearing, well-nourished and in no acute distress. C collar in place. GCS 15 HEAD: Large cephalohematoma of the forehead right sided. EYES: Pupils equal round and reactive to light, extraocular movements intact, sclera anicteric, conjunctiva are normal. Right-sided periorbital ecchymosis. ENT: Nares patent, oropharynx clear without exudates. Moist mucous membranes. No hemanotympanum . No blood in nares. No dental fracture NECK: Normal range of motion, supple without lymphadenopathy. Trachea midline LUNGS: Breath sounds clear to auscultation bilaterally and equal. No wheezes rales or rhonchi. HEART: Regular rate and rhythm without murmurs. Pulses intact all throughout. ABDOMEN: Soft, nontender, nondistended abdomen. No guarding, no rebound. No masses appreciated. Musculoskeletal: Normal range of motion, no pitting or edema. No cyanosis. Hip non tender, stable. NEUROLOGICAL: Cranial nerves grossly intact. Normal speech, normal gait. Normal sensory, motor, and reflex exams. PSYCH: Normal mood, normal affect. SKIN: small skin tear of the right antecubital fossa, no active bleeding Course - Re-evaluation Re-evalutation: 08/29/18 20:41 Laboratory 08/29/18 08/29/18 08/29/18 18:00 18:00 18:00 WBC 7.4 RBC 3.50 L Hgb 9.7 L Hct 30.2 L MCV 86 MCH 27.7 MCHC 32.1 RDW 17.1 H Plt Count 331 Seg Neutrophils % 71.4 Lymphocytes % 15.3 Monocytes % 12.6 Eosinophils % 0.2 Basophils % 0.5 Absolute Neutrophils 5.3 Absolute Lymphocytes 1.1 Absolute Monocytes 0.9 Absolute Eosinophils 0.0 Absolute Basophils 0.0 PT 15.1 INR 1.19 APTT 41.5 H Sodium 139.5 Potassium 5.2 H Chloride 104 Carbon Dioxide 31 H Anion Gap 5 BUN 36 H Creatinine 0.95 Est GFR ( Amer) > 60 Est GFR (Non-Af Amer) 58 L Glucose 114 H Calcium 10.1 Total Bilirubin 0.4 Direct Bilirubin 0.3 Neonat Total Bilirubin Not Reportable Neonat Direct Bilirubin Not Reportable Neonat Indirect Bili Not Reportable AST 22 ALT 10 Alkaline Phosphatase 81 Total Protein 7.8 Albumin [address] 08/29/18 00:00 IMPRESSION: Mild degenerative disc disease. Spondylosis. No acute finding. Head CT 08/29/18 00:00 IMPRESSION: Chronic microvascular ischemia. 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 No acute intracranial imaging finding. EVIDENCE OF ACUTE STROKE: NO. Temp Pulse Resp BP Pulse Ox 98.5 F 71 13 08/29/18 18:10 08/29/18 18:10 08/29/18 18:10 73-year-old female presented via EMS from [facility] after falling out of bed. 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 Vital signs reviewed and within normal limits. Previous medical records and nursing notes reviewed. arrived shortly after patient's arrival and provides some history. Patient has remained alert, awake and without any complaints. CT of the head shows no acute intracranial findings but does show an old left occipital infarction and chronic microvascular ischemia. CT of the neck showed no acute process. CBC shows no leukocytosis but does show a stable anemia. CMP unremarkable. Patient's wounds were cleaned and dressed. Patient will be discharged home back to the nursing facility. Patient is a DNR. Presentation of a well appearing elderly patient in no acute distress, vitals within normal limits after an accidental fall. Patient denies a syncopal episode as the cause for today's fall. No focal neurologic deficits on exam, no evidence of basilar skull fracture on exam without evidence of hemotympanum, raccoon eyes, or periauricular hematoma. No papilledema. Patient is on anticoagulation. GCS is 15. No loss of consciousness. No episodes of vomiting. However, based on patient's age a CT of the head has been obtained which is negative for any acute intracranial bleed. Likewise, patient was unable to be clinically cleared due to age by [place] cervical spine criteria. A CT of the cervical spine was also obtained and likewise is negative for any acute fracture. No indication for further im aging of the cervical spine. Patient has no focal deformities or limited range of motion in any joint space. Chest and abdominal exam are benign without any focal tenderness, shortness of breath, or bruising over the chest or abdominal wall. Patient has no flank tenderness. There is no obvious findings on trauma exam today and therefore no further imaging or evaluation will be obtained at this time. At this time will discharge with return precautions and follow-up recommendations. Verbal discharge instructions given a the bedside and opportunity for questions given. Medication warnings reviewed. Patient is in agreement with this plan and has verbalized understanding of return precautions and the need for primary care follow-up in the next 24-72 hours. Patient was evaluated and treated as appropriate for the patient's presenting symptoms and complaint, with consideration of any critical or life threatening conditions that may be associated with their obtained history and exam as noted above. All results were discussed with patient and her who is at the bedside. Patient provided the opportunity to ask questions, and express concerns. Patient was educated on treatments based on their presumed diagnosis as noted above. At this time we will discharge the patient with return precautions and follow-up recommendations. Verbal discharge instructions given a the bedside. Medication warnings reviewed. Patient is in agreement with this plan and has verbalized understanding of return precautions. After careful consideration I feel that that patient can be safely discharged from the emergency department, they were advised to followup with a primary care physician in 2-3 days. Dictation on this chart was performed using voice recognition software and may result in unintended grammatical, spelling, syntax or errors. 08/29/18 20:46 - Vital Signs Vital signs: Temp Pulse Resp BP Pulse Ox 98.5 F 71 13 08/29/18 18:10 08/29/18 18:10 08/29/18 18:10 - Laboratory Result Diagrams: 08/29/18 18:00 08/29/18 18:00 Laboratory results interpreted by me: 08/29/18 08/29/18 08/29/18 18:00 18:00 18:00 RBC 3.50 L Hgb 9.7 L Hct 30.2 L RDW 17.1 H APTT 41.5 H Potassium 5.2 H Carbon Dioxide 31 H BUN 36 H Est GFR (Non-Af Amer) 58 L Glucose 114 H - Diagnostic Test Radiology reviewed: Image reviewed, Reports reviewed Discharge - Discharge Clinical Impression: History of CVA (cerebrovascular accident) Traumatic hematoma of forehead Qualifiers: Encounter type: initial encounter Qualified Code(s): S00.83XA - Contusion of other part of head, initial encounter Periorbital ecchymosis of right eye Qualifiers: Encounter type: initial encounter Qualified Code(s): S00.11XA - Contusion of right eyelid and periocular area, initial encounter Atrial fibrillation Qualifiers: Atrial fibrillation type: chronic Qualified Code(s): I48.2 - Chronic atrial fibrillation Contusion of left wrist Qualifiers: Encounter type: initial encounter Qualified Code(s): S60.212A - Contusion of left wrist, initial encounter Condition: Fair Disposition: SNF-Other Instructions: Contusion ([facility]), Head Injury Precautions ([facility]) Additional Instructions: You have sustained a contusion (bruise) to your head. If you had a CT scan done, it did not show any evidence of serious injury or bleeding. Symptoms to expect from a concussion include nausea, mild to moderate headache, difficulty concentrating or sleeping, and mild lightheadedness. These symptoms should improve over the next few days to weeks. Return to the emergency department or follow-up with your primary care doctor if your symptoms are not improving over this time. Signs of a more serious head injury include vomiting, severe headache, excessive sleepiness or confusion, and weakness or numbness in your face, arms or legs. Return immediately to the Emergency Department if you experience any of these more concerning symptoms. Rest, avoid strenuous physical or mental activity, and avoid activities that could potentially result in another head injury until all your symptoms from this head injury are completely resolved for at least 2-3 weeks. If you participate in sports, get cleared by your doctor or graduate assistant athletic trainer before returning to play. You may take ibuprofen or acetaminophen over the counter according to label instructions for mild headache or scalp soreness. Referrals: JOEL PINEDA MD [Primary Care Provider] - Follow up as needed
[2018-08-29 18:25] LABS: ABSOLUTE LYMPHOCYTES (AUTO) 1.1 10^3/uL (0.5-4.7); ABSOLUTE NEUT (AUTO) 5.3 10^3/uL (1.7-8.2); BASOPHILS % (AUTO) 0.5 % (0-2); HEMATOCRIT 30.2 % (36.0-47.0); HEMOGLOBIN 9.7 g/dL (12.0-15.5); INTERNATIONAL RATION (INR) 1.19; LYMPHOCYTES % (AUTO) 15.3 % (13-45); MEAN CORPUSCULAR HEMOGLOBIN 27.7 pg (27.0-33.4); MEAN CORPUSCULAR HGB CONC 32.1 g/dL (32.0-36.0); MEAN CORPUSCULAR VOLUME 86 fl (80-97); MONOCYTES % (AUTO) 12.6 % (3-13); PROTHROMBIN TIME 15.1 SEC (11.4-15.4); RED CELL DISTRIBUTION WIDTH 17.1 % (11.5-14.0); SEGMENTED NEUTROPHILS % (AUTO) 71.4 % (42-78); WHITE BLOOD COUNT 7.4 10^3/uL (4.0-10.5)
[2018-08-29 18:26] LABS: PARTIAL THROMBOPLASTIN TIME 41.5 SEC (23.5-35.8)
--- NOTE | 2018-08-29 18:27 | RADIOLOGY REPORT (SQ) ---
EXAM DESCRIPTION: CT HEAD WITHOUT COMPLETED DATE/TIME: 08/29/2018 6:16 pm REASON FOR STUDY: fall with swelling and on blood thinners COMPARISON: None. TECHNIQUE: Axial images acquired through the brain without intravenous contrast. Images reviewed wi th bone, brain and subdural windows. Additional sagittal and coronal reconstructions were generated. Images stored on PACS. All CT scanners at this facility use dose modulation, iterative reconstruction, and/or weight based d osing when appropriate to reduce radiation dose to as low as reasonably achievable (ALARA). [facility]: Dose Right [facility]: CareDose [facility]: Dose Right [facility]: Teradose 4D [facility]: Smart Technologies RADIATION DOSE: CT Rad equipment meets quality standard of care and radiation dose reduction techniq ues were employed. CTDIvol: 53.2 mGy. DLP: 1070 mGy-cm. mGy. LIMITATIONS: None. FINDINGS: VENTRICLES: Normal size and contour. CEREBRUM: A there is an old left occipital infarction. No acute hemorrhage. No midline shift or mas s. Areas of low density in the white matter most likely chronic small vessel ischemic changes. CEREBELLUM: No masses. No hemorrhage. No alteration of density. No evidence for acute infarction. EXTRAAXIAL SPACES: No fluid collections. No masses. ORBITS AND GLOBE: No intra- or extraconal masses. Normal contour of globe without masses. CALVARIUM: No fracture. PARANASAL SINUSES: No fluid or mucosal thickening. SOFT TISSUES: No mass or hematoma. OTHER: No other significant finding. IMPRESSION: Chronic microvascular ischemia. 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 No acute intracranial i maging finding. EVIDENCE OF ACUTE STROKE: NO. COMMENT: Quality ID # [id number]: Final reports with documentation of one or more dose reduction techniques (e.g., Automated exposure control, adjustment of the mA and/or kV according to patient size, use of iterative reconstruction technique) TECHNICAL DOCUMENTATION: JOB ID: [id number] [employer]- All Rights Reserved Reading location - IP/workstation name: [email or web address]
--- NOTE | 2018-08-29 18:31 | RADIOLOGY REPORT (SQ) ---
EXAM DESCRIPTION: CT CERVICAL SPINE WITHOUT COMPLETED DATE/TIME: 08/29/2018 6:16 pm REASON FOR STUDY: fall with swelling and on blood thinners COMPARISON: None. TECHNIQUE: Axial images acquired through the cervical spine without intravenous contrast. Images re viewed with lung, soft tissue and bone windows. Reconstructed coronal and sagittal MPR images review ed. Images stored on PACS. All CT scanners at this facility use dose modulation, iterative reconstruction, and/or weight based d osing when appropriate to reduce radiation dose to as low as reasonably achievable (ALARA). [facility]: Dose Right [facility]: CareDose [facility]: Dose Right [facility]: Teradose 4D [facility]: Smart [employer] RADIATION DOSE: CT Rad equipment meets quality standard of care and radiation dose reduction techniq ues were employed. CTDIvol: 17.2 mGy. DLP: 278 mGy-cm. mGy. LIMITATIONS: None. FINDINGS: ALIGNMENT: Anatomic. MINERALIZATION: Normal. VERTEBRAL BODIES: No fractures or dislocation. DISCS: Is mild disc narrowing at multiple levels. There are large FACETS, LATERAL MASSES, POSTERIOR ELEMENTS: No fractures. No dislocation. No acute findings. HARDWARE: None in the spine. VISUALIZED RIBS: No fractures. LUNG APICES AND SOFT TISSUES: No significant or acute findings. OTHER: No other significant finding. IMPRESSION: Mild degenerative disc disease. Spondylosis. No acute finding. TECHNICAL DOCUMENTATION: JOB ID: [id number] Quality ID # [id number]: Final reports with documentation of one or more dose reduction techniques (e.g., Au tomated exposure control, adjustment of the mA and/or kV according to patient size, use of iterative reconstruction technique) 2010 [employer]- All Rights Reserved Reading location - IP/workstation name: [email or web address]
[2018-08-29 18:33] LABS: ALANINE AMINOTRANSFERASE 10 U/L (9-52); ALBUMIN 3.8 g/dL (3.5-5.0); ALKALINE PHOSPHATASE 81 U/L (38-126); ANION GAP 5 (5-19); ASPARTATE AMINO TRANSFERASE 22 U/L (14-36); BILIRUBIN,DIRECT 0.3 mg/dL (0.0-0.4); BILIRUBIN,TOTAL 0.4 mg/dL (0.2-1.3); BLOOD UREA NITROGEN 36 mg/dL (7-20); CALCIUM 10.1 mg/dL (8.4-10.2); CARBON DIOXIDE 31 mmol/L (22-30); CHLORIDE 104 mmol/L (98-107); GLUCOSE 114 mg/dL (75-110); POTASSIUM 5.2 mmol/L (3.6-5.0); TOTAL PROTEIN 7.8 g/dL (6.3-8.2)
[2018-08-29] MEDS ORDERED: ACETAMINOPHEN 325 MG TABLET PO ONE (19:15)
== END 2018-08-29 22:05 ==
LOC: ER 17:45
DX: S00.83XA Contusion of other part of head, initial encounter (principal); S00.11XA Contusion of right eyelid and periocular area, initial encounter; S60.212A Contusion of left wrist, initial encounter; R51 Headache; W06.XXXA Fall from bed, initial encounter; Y92.129 Unspecified place in nursing home as the place of occurrence of the external cause; I48.2 Chronic atrial fibrillation; E78.5 Hyperlipidemia, unspecified; J44.9 Chronic obstructive pulmonary disease, unspecified; I10 Essential (primary) hypertension; E03.9 Hypothyroidism, unspecified; Z79.02 Long term (current) use of antithrombotics/antiplatelets; Z90.710 Acquired absence of both cervix and uterus; Z90.49 Acquired absence of other specified parts of digestive tract; Z86.73 Personal history of transient ischemic attack (TIA), and cerebral infarction without residual deficits
CPT/HCPCS: 99285; 36415; 85025; 85610; 85730; 80053; 70450; 72125; A9270

== ENCOUNTER 2018-11-13 10:57 | Emergency (ER) | payer MEDICARE, OTHER ==
[2018-11-13 11:32] LABS: ABSOLUTE BASOPHILS # (AUTO) 0.1 10^3/uL (0.0-0.2); ABSOLUTE LYMPHOCYTES (AUTO) 0.8 10^3/uL (0.5-4.7); ABSOLUTE NEUT (AUTO) 8.9 10^3/uL (1.7-8.2); BASOPHILS % (AUTO) 0.5 % (0-2); EOSINOPHILS % (AUTO) 0.1 % (0-6); HEMATOCRIT 31.9 % (36.0-47.0); HEMOGLOBIN 10.2 g/dL (12.0-15.5); LYMPHOCYTES % (AUTO) 7.3 % (13-45); MEAN CORPUSCULAR HEMOGLOBIN 26.2 pg (27.0-33.4); MEAN CORPUSCULAR HGB CONC 31.9 g/dL (32.0-36.0); MEAN CORPUSCULAR VOLUME 82 fl (80-97); MONOCYTES % (AUTO) 9.1 % (3-13); PLATELET COUNT 410 10^3/uL (150-450); RED BLOOD COUNT 3.89 10^6/uL (3.72-5.28); RED CELL DISTRIBUTION WIDTH 16.7 % (11.5-14.0); TOTAL CELLS COUNTED % (AUTO) 100 %; WHITE BLOOD COUNT 10.7 10^3/uL (4.0-10.5)
[2018-11-13 11:34] LABS: VENOUS BLOOD HCO3 26.8 mmol/L (20-32); VENOUS BLOOD PCO2 52.7 mmHg (35-63); VENOUS BLOOD PH 7.32 (7.30-7.42)
[2018-11-13 11:38] LABS: INTERNATIONAL RATION (INR) 1.33; PROTHROMBIN TIME 16.6 SEC (11.4-15.4)
[2018-11-13 11:52] LABS: ALBUMIN 3.6 g/dL (3.5-5.0); ALKALINE PHOSPHATASE 113 U/L (38-126); ANION GAP 8 (5-19); ASPARTATE AMINO TRANSFERASE 30 U/L (14-36); BILIRUBIN,DIRECT 0.2 mg/dL (0.0-0.4); BILIRUBIN,TOTAL 0.2 mg/dL (0.2-1.3); BLOOD UREA NITROGEN 35 mg/dL (7-20); CALCIUM 11.1 mg/dL (8.4-10.2); CARBON DIOXIDE 28 mmol/L (22-30); CHLORIDE 104 mmol/L (98-107); GLUCOSE 151 mg/dL (75-110); POTASSIUM 4.2 mmol/L (3.6-5.0); TOTAL PROTEIN 7.6 g/dL (6.3-8.2)
[2018-11-13 12:08] LABS: APPEARANCE,URINE CLOUDY; BILIRUBIN,URINE NEGATIVE (NEGATIVE); GLUCOSE, URINE NEGATIVE (NEGATIVE); KETONES,URINE NEGATIVE (NEGATIVE); PROTEIN,URINE 30 mg/dL (NEGATIVE); URINE SPECIFIC GRAVITY 1.016; UROBILINOGEN,URINE NEGATIVE mg/dL (<2.0)
[2018-11-13 12:09] LABS: COLOR,URINE YELLOW
--- NOTE | 2018-11-13 13:09 | EKG REPORT ---
SEVERITY:- ABNORMAL ECG - SINUS RHYTHM CONSIDER LEFT VENTRICULAR HYPERTROPHY : Confirmed by: Pérez Brown MD 13-Nov-2018 13:09:05
[2018-11-13] MEDS ORDERED: LEVOFLOXACIN 750 MG/D5W RTU 750 MG/150 ML RTUPB IV ONE (13:25)
--- NOTE | 2018-11-13 13:26 | ER Document Report ---
Entered by SRIDEVI COBIAN SCRIBE 11/13/18 1143 Acting as scribe for:GOSIA BENDER MD ED General - General Chief Complaint: Urinary Problem Stated Complaint: URINARY PROBLEM Time Seen by Provider: 11/13/18 11:08 Primary Care Provider: JOEL ESPINOZA MD [Primary Care Provider] - Follow up as needed Information source: [facility] Records, Outside Facility Records Cannot obtain history due to: Dementia Notes: Patient is a 73-year-old female from [facility] that was sent in "to be evaluated". Nursing staff at [facility] thinks the patient may have a UTI but does not say why. Patient states she feels "terrible and hurts all over". Patient does specifically mention that she has new left leg pain that began today. Patient denies chest pain or abdominal pain. Patient is demented at baseline so it is somewhat difficult to obtain history from her. TRAVEL OUTSIDE OF THE [place] IN LAST 30 DAYS: No - Related Data Allergies/Adverse Reactions: cyclobenzaprine HCl [From FlexeriElite Daily] Allergy (Unknown, Verified 12/07/17 10:30) Past Medical History - General Information source: [facility] Records, Outside Facility Records Cannot obtain history due to: Dementia - Social History Smoking Status: Unknown if Ever Smoked Cigarette use (# per day): No Chew tobacco use (# tins/day): No Smoking Education Provided: No Frequency of alcohol use: None Drug Abuse: None Lives with: [facility]ial [facility] Family History: Reviewed & Not Pertinent Patient has suicidal ideation: No Patient has homicidal ideation: No - Past Medical History Cardiac Medical History: Reports: Hx Atrial Fibrillation, Hx Hypercholesterolemia, Hx Hypertension Pulmonary Medical History: Reports: Hx Asthma, Hx COPD Neurological Medical History: Endocrine Medical History: Reports: Hx Hypothyroidism Malignancy Medical History: Reports: Hx Breast Cancer GI Medical History: Reports: Hx Gastroesophageal Reflux Disease Musculoskeletal Medical History: Reports Hx Arthritis Psychiatric Medical History: Reports: Hx Bipolar Disorder, Hx Depression Past Surgical History: Reports: Hx Breast Surgery, Hx Cholecystectomy, Hx Hysterectomy, Hx Tonsillectomy - Immunizations Hx Diphtheria, Pertussis, Tetanus Vaccination: Yes Review of Systems - Review of Systems Constitutional: See HPI, Other - "pain all over" EENT: No symptoms reported Cardiovascular: denies: Chest pain Respiratory: No symptoms reported Gastrointestinal: denies: Abdominal pain Genitourinary: No symptoms reported Female Genitourinary: No symptoms reported Musculoskeletal: See HPI, Other - left leg pain Skin: No symptoms reported Hematologic/Lymphatic: No symptoms reported Neurological/Psychological: No symptoms reported -: Yes All other systems reviewed and negative Physical Exam - Vital signs Vitals: Temp Pulse Ox 99.2 F 96 11/13/18 11:00 11/13/18 11:00 - Notes Notes: Physical Exam: General: Alert, complains of pain all over. HEENT: Normocephalic. Atraumatic. PERRL. Extraocular movements intact. Oropharynx clear. Dry mucous memories. Neck: Supple. Respiratory: No respiratory distress. Clear and equal breath sounds bilaterally. Cardiovascular: Regular rate and rhythm. Abdominal: Normal Inspection. Non-tender. No distension. Normal Bowel Sounds. Female genitourinary: Fishman catheter in place Back: No gross abnormalities. Extremities: Moves all four extremities. Upper extremities: Normal inspection. Normal ROM. Lower extremities: Pads on bilateral ankles and feet to prevent ulcers. Holds lower extremities in flexion bilaterally with the right extremity resting on top of the left leg. complains of pain when the right lower extremity is abducted to look at the left leg. Patient states the pain is in her hip when the right leg is abducted. Neurological: AAOx2 which is baseline, somewhat demented. Answers most qu estions appropriately. Psychological: Normal affect. Normal Mood. Skin: Wound VAC on sacral decubitus ulcer Course - Re-evaluation Re-evalutation: 11/13/18 14:08 I did have the PCT change the patient's Fishman catheter and submit a new urine to be sure that this is a urinary tract infection and not a Fishman colonization. - Vital Signs Vital signs: Temp Pulse Resp BP Pulse Ox 99.2 F 18 162/62 H 96 11/13/18 11:00 11/13/18 11:17 11/13/18 11:17 11/13/18 11:17 - Laboratory Result Diagrams: 11/13/18 11:11 11/13/18 11:11 Laboratory results interpreted by me: 11/13/18 11/13/18 11/13/18 11:11 11:11 11:11 WBC 10.7 H Hgb 10.2 L Hct 31.9 L MCH 26.2 L MCHC 31.9 L RDW 16.7 H Lymph % (Auto) 7.3 L Absolute Neuts (auto) 8.9 H Seg Neutrophils % 83.0 H PT 16.6 H BUN 35 H Est GFR (MDRD) Non-Af 55 L Glucose 151 H Calcium 11.1 H Urine Protein Urine Blood Urine Nitrite (Reflex) Leukocyte Esterase Rfl Urine Ascorbic Acid 11/13/18 11/13/18 11:11 14:00 WBC Hgb Hct MCH MCHC RDW Lymph % (Auto) Absolute Neuts (auto) Seg Neutrophils % PT BUN Est GFR (MDRD) Non-Af Glucose Calcium Urine Protein 30 H Urine Blood SMALL H LARGE H Urine Nitrite (Reflex) POSITIVE H Leukocyte Esterase Rfl LARGE H LARGE H Urine Ascorbic Acid 40 H 20 H - EKG Interpretation by Me EKG shows normal: Sinus rhythm, [place], Intervals, QRS Complexes, ST-T Waves Rate: Normal - 97 Rhythm: NSR Voltage: Consistant with LVH Discharge - Discharge Clinical Impression: UTI (urinary tract infection) due to urinary indwelling Fishman catheter Qualifiers: Indwelling urinary catheter type: indwelling urethral catheter Encounter type: initial encounter Qualified Code(s): T83.511A - Infection and inflammatory reaction due to indwelling urethral catheter, initial encounter; N39.0 - Urinary tract infection, site not specified Condition: Stable Disposition: HOME-SNF (ED ONLY) Additional Instructions: Urinary Tract Infection Your evaluation indicates that you have a urinary tract infection. This is due to germs growing in the bladder. This is a common problem. This infection usually responds quickly to antibiotics. Your antibiotic should be taken exactly as prescribed. Drink plenty of fluids -- three to four quarts a day. Occasionally, a bladder anesthetic will be prescribed to help stop the feeling of urgency until the antibiotic has a chance to clear the infection. This may cause your urine to be dark orange. Certain urine infections require a culture. If the doctor obtained a c ulture, the results will be back in two days. You should call to see if a change in treatment is needed. A repeat urinalysis after you finish treatment is often recommended. The physician will let you know if further testing is required. Call the doctor if you develop fever, chills, flank pain, inability to urinate, or blood in the urine. Start taking the Levaquin tomorrow. Follow-up with your primary care provider to check on the urine culture results. RETURN TO THE EMERGENCY ROOM IF ANY NEW OR WORSENING SYMPTOMS. Prescriptions: Levofloxacin [Levaquin 500 mg Tablet] 500 mg PO DAILY #5 tablet Referrals: JOEL ESPINOZA MD [Primary Care Provider] - Follow up as needed Scribe Attestation: 11/13/18 13:10 I personally performed the services described in the documentation, reviewed and edited the documentation which was dictated to the scribe in my presence, and it accurately records my words and actions. I personally performed the services described in the documentation, reviewed and edited the documentation which was dictated to the scribe in my presence, and it accurately records my words and actions.
[2018-11-13 14:20] LABS: APPEARANCE,URINE CLOUDY; BILIRUBIN,URINE NEGATIVE (NEGATIVE); COLOR,URINE YELLOW; GLUCOSE, URINE NEGATIVE (NEGATIVE); KETONES,URINE NEGATIVE (NEGATIVE); PROTEIN,URINE NEGATIVE (NEGATIVE); URINE SPECIFIC GRAVITY 1.008; UROBILINOGEN,URINE NEGATIVE mg/dL (<2.0)
[2018-11-13 21:07] VITALS: BP 186/72
== END 2018-11-13 20:57 ==
LOC: ER 10:57
DX: T83.511A Infection and inflammatory reaction due to indwelling urethral catheter, initial encounter (principal); N39.0 Urinary tract infection, site not specified; X58.XXXA Exposure to other specified factors, initial encounter; M79.605 Pain in left leg; F03.90 Unspecified dementia, unspecified severity, without behavioral disturbance, psychotic disturbance, mood disturbance, and anxiety; I48.91 Unspecified atrial fibrillation; E78.00 Pure hypercholesterolemia, unspecified; I10 Essential (primary) hypertension; J44.9 Chronic obstructive pulmonary disease, unspecified; Z90.49 Acquired absence of other specified parts of digestive tract; Z90.710 Acquired absence of both cervix and uterus
CPT/HCPCS: 93005; 99284; 51702; 36415; 87040; 87086; 85025; 85610; 87088; 80053; 81001; 82803; 83605; 93010; J1956; 87077

== ENCOUNTER → 2018-12-03 | Outpatient (CLI) | payer MEDICARE, OTHER ==
--- NOTE | 2018-12-03 14:02 | RADIOLOGY REPORT (SQ) ---
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 NUMBER OF VIEWS: One view TECHNIQUE: AP Pelvis LIMITATIONS: None. FINDINGS: MINERALIZATION: Normal. HIPS: No acute fracture or dislocation. No worrisome bone lesions. PELVIS AND SACRUM: No acute fracture or dislocation. No worrisome bone lesions. PUBIS AND ISCHIUM: No acute fracture. LOWER LUMBAR SPINE: No significant findings as visualized. SOFT TISSUES: No findings. OTHER: No other significant finding. IMPRESSION: NEGATIVE STUDY OF THE PELVIS. COMMENT: Pelvic fractures are often occult on plain radiographs. If strong clinical suspicion for f racture, recommend CT or MR. TECHNICAL DOCUMENTATION: JOB ID: [id number] [employer]- All Rights Reserved Reading location - IP/workstation name: [email or web address]
== END ==
LOC: RAD 13:24
PROVIDERS: ATTEND Nurse Practitioner Family
DX: L89.154 Pressure ulcer of sacral region, stage 4 (principal)
CPT/HCPCS: 72170

== ENCOUNTER → 2018-12-16 | Outpatient (CLI) | payer MEDICARE, OTHER ==
--- NOTE | 2018-12-17 09:22 | RADIOLOGY REPORT (SQ) ---
EXAM DESCRIPTION: MRI PELVIS COMBO COMPLETED DATE/TIME: 12/16/2018 6:00 pm REASON FOR STUDY: L89.154 PRESSURE [facility]LCER OF [place] [facility], STAGE 4 L89.154 PRESSURE [facility]LCER OF [place], STAGE 4 COMPARISON: Recent radiographs. TECHNIQUE: Multiplanar imaging of the pelvis to include T1-weighted, postcontrast T1-weighted, and T 2-weighted images. CONTRAST TYPE AND DOSE: 15 mL Dotarem. RENAL FUNCTION: Not indicated. ACR Type II contrast agent associated with few, if any, unconfounded cases of NSF LIMITATIONS: The study is limited by motion artifact. FINDINGS: BONE MARROW: No marrow signal alteration. Specifically no marrow replacement or marrow ed [place]. No evidence for osteomyelitis. No cortical break through. SOFT TISSUES: Dorsal midline scar and extends down to the surface of the sacrum. No drainable fluid collections here. Mild nonspecific muscle edema in both proximal thighs. Probably neurogenic. Hete rogeneous tissue likely reflecting heterotopic calcification between the left ischium and left proxim al femur. Fishman catheter decompresses the bladder. Cysts in the abdomen, incompletely assessed. Pr obably related to the kidneys. OTHER: No other significant finding. IMPRESSION: 1. No evidence for osteomyelitis. TECHNICAL DOCUMENTATION: JOB ID: [id number] [employer]- All Rights Reserved Reading location - IP/workstation name: [email or web address]
== END ==
LOC: RAD 16:07
PROVIDERS: ATTEND Nurse Practitioner Family
DX: L89.154 Pressure ulcer of sacral region, stage 4 (principal)
CPT/HCPCS: 72197; A9576

== ENCOUNTER 2019-09-12 21:27 | Emergency (ER) | payer MEDICARE ==
--- NOTE | 2019-09-12 22:48 | ER Document Report ---
ED Fall - General Chief Complaint: Fall Stated Complaint: FALL Time Seen by Provider: 09/12/19 22:33 Primary Care Provider: MARK ARDON MD [Primary Care Provider] - Follow up as needed Notes: Patient is a 74-year-old female that comes by EMS for chief complaint of a mechanical fall. Patient comes from [facility], reportedly patient rolled out of her bed onto the floor just prior to arrival. Patient was not witnessed to have fallen but reportedly was not on the ground for an extended period of time. Patient has a history of dementia and is nonverbal at baseline. Patient does not have any complaints. Patient with no signs of trauma per facility and EMS. Patient is on Eliquis. Patient is a DNR. TRAVEL OUTSIDE OF THE [place] IN LAST 30 DAYS: No - Related data Allergies/Adverse Reactions: cyclobenzaprine HCl [From Flexeril] Allergy (Unknown, Verified 12/07/17 10:30) diphenhydramine [From Benadryl] Allergy (Verified 09/12/19 21:42) Past Medical History - General Information source: Emergency Med Personnel - Social History Smoking Status: Never Smoker Frequency of alcohol use: None Drug Abuse: None Lives with: [employer] Family History: None, Other - No family history available - Past Medical History Cardiac Medical History: Reports: Hx Atrial Fibrillation - Paroxysmal, Hx Hypercholesterolemia, Hx Hypertension Pulmonary Medical History: Reports: Hx Asthma, Hx COPD Neurological Medical History: Endocrine Medical History: Reports: Hx Hypothyroidism. Denies: Hx Diabetes Mellitus Type 2, Hx Hyperthyroidism Renal/ Medical History: Denies: Hx Peritoneal Dialysis Malignancy Medical History: Reports: Hx Breast Cancer GI Medical History: Reports: Hx Gastroesophageal Reflux Disease. Denies: Hx Cirrhosis, Hx Hepatitis Musculoskeletal Medical History: Reports Hx Arthritis, Denies Hx Gout Skin Medical History: Denies Hx Eczema, Denies Hx Psoriasis Psychiatric Medical History: Reports: Hx Bipolar Disorder, Hx Depression Infectious Medical History: Denies: Hx Hepatitis Past Surgical History: Reports: Hx Breast Surgery, Hx Cholecystectomy, Hx Hysterectomy, Hx Tonsillectomy - Immunizations Hx Diphtheria, Pertussis, Tetanus Vaccination: Yes Review of Systems - Review of Systems Constitutional: No symptoms reported EENT: No symptoms reported Cardiovascular: No symptoms reported Respiratory: No symptoms reported Gastrointestinal: No symptoms reported Genitourinary: No symptoms reported Female Genitourinary: No symptoms reported Musculoskeletal: See HPI Skin: No symptoms reported Hematologic/Lymphatic: No symptoms reported Neurological/Psychological: See HPI Physical Exam - Vital signs Vitals: Temp Pulse Resp BP Pulse Ox 98.3 F 78 18 168/54 H 97 09/12/19 21:27 09/12/19 21:27 09/12/19 21:27 09/12/19 21:27 09/12/19 21:27 - Notes Notes: GENERAL: Alert and responds to my presence but with no meaningful interaction HEAD: Normocephalic, atraumatic. EYES: Pupils equal, round, and reactive to light. Extraocular movements intact. ENT: Oral mucosa moist, tongue midline. Oropharynx unremarkable. Airway patent. Nares patent, sinuses non-tender NECK: Full range of motion. Supple. Trachea midline. No lymphadenopathy. LUNGS: Clear to auscultation bilaterally, no wheezes, rales, or rhonchi. No respiratory distress. Non-tender chest wall. No signs of trauma. HEART: Regular rate and rhythm. No murmur ABDOMEN: Soft, non-tender. Non-distended. No signs of trauma. EXTREMITIES: Both feet are in padding and patient is not ambulatory. Patient winces with palpation of the right hip, otherwise unremarkable, no signs of trauma. Normal distal neurovascular exam. BACK: Patient winces slightly with palpation over the general cervical area, thoracic and lumbar areas unremarkable. No saddle anesthesia, normal distal neurovascular exam. NEUROLOGICAL: Awake and alert, completely demented, does not cooperate with neurological exam PSYCH: No signs of distress or agitation SKIN: Warm, dry, normal turgor. No rashes or lesions noted. Course - Re-evaluation Re-evalutation: Patient simply staring and occasionally makes groaning sounds when I interact with her. She winces slightly with palpation over the right hip, also possibly of the neck but this is not severe. No signs of trauma on physical exam. Because patient is on Eliquis and has neck and hip pain patient also had a CT of the head along with CT of the cervical spine and x-rays of the hips/pelvis. Imaging unremarkable, patient unchanged on reevaluation, patient will be di scharged back with details and return precautions. - Vital Signs Vital signs: Temp Pulse Resp BP Pulse Ox 97.7 F 76 19 168/58 H 100 09/13/19 00:47 09/13/19 00:47 09/13/19 00:47 09/13/19 00:47 09/13/19 00:47 Discharge - Discharge Clinical Impression: Fall Qualifiers: Encounter type: initial encounter Qualified Code(s): W19.XXXA - Unspecified fall, initial encounter Condition: Stable Disposition: HOME, SELF-CARE Additional Instructions: Her evaluation and imaging does not show any concerning findings from her fall tonight. There is a thyroid nodule seen on the imaging, follow-up with primary care for additional management of this. Give Tylenol if needed for pain. Return for any concerning symptoms including vomiting, change in mental status, passing out, or any other concerning symptoms. Referrals: MARK ARDON MD [Primary Care Provider] - Follow up as needed
--- NOTE | 2019-09-13 00:06 | RADIOLOGY REPORT (SQ) ---
EXAM DESCRIPTION: CT HEAD WITHOUT IV CONTRAST COMPLETED DATE/TME: 09/12/2019 22:45 CLINICAL HISTORY: 74 years, Female, fall, pain, on eliquis COMPARISON: 08/29/2018 TECHNIQUE: Axial CT images of the brain were obtained without contrast. Sagittal and coronal reformats were performed. DLP 765 Images stored on PACS. All CT scanners at this facility use dose modulation, iterative reconstruction, and/or weight based dosing when appropriate to reduce radiation dose to as low as reasonably achievable (ALARA). [facility]: Dose Right [facility]: CareDose [facility]: Dose Right [facility]: Teradose 4D [facility]: [employer] LIMITATIONS: None. 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 There is diffuse cerebral atrophy with periventricular and deep white matter chronic microvascular changes. There is no acute cortical infarct, hemorrhage, mass, edema, midline shift, or extra-axial fluid collection. The paranasal sinuses and mastoid air cells are clear. There is no acute fracture. No large soft tissue swelling. IMPRESSION: No acute intracranial abnormality. No significant change compared to the prior exam. TECHNICAL DOCUMENTATION: Quality ID # [id number]: Final reports with documentation of one or more dose reduction techniques (e.g., Automated exposure control, adjustment of the mA and/or kV according to patient size, use of iterative reconstruction technique) copyright 2011 [employer]- All Rights Reserved
--- NOTE | 2019-09-13 00:07 | RADIOLOGY REPORT (SQ) ---
EXAM DESCRIPTION: X-ray, single view of the pelvis and single view of each hip. CLINICAL HISTORY: 74 years Female, fall, pain COMPARISON: Radiograph of the pelvis December 03, 2018 FINDINGS: The hips are located bilaterally. There is adjacent heterotopic ossification in the soft tissues more on the left than the right. Bone mineralization is diminished. The pelvic ring is intact. The sacrum is obscured by air and stool in the colon. There is moderate stool in the rectal vault. Right colon axial joint space narrowing is identified and there is osteophyte formation of the acetabulum. No obvious fracture. Left: Extensive heterotopic ossification is seen and there is a large ring osteophyte involving the femoral head. No obvious fracture. There is axial joint space narrowing. IMPRESSION: Osteopenia with heterotopic ossification adjacent to the hips bilaterally left greater than right. No obvious fracture.
--- NOTE | 2019-09-13 00:15 | RADIOLOGY REPORT (SQ) ---
EXAM DESCRIPTION: Unenhanced CT scan of the cervical spine. CLINICAL HISTORY: 74 years Female; fall, pain TECHNIQUE: Noncontrast cervical spine CT with sagittal and coronal reconstructions. All CT scans at this facility use dose modulation, iterative reconstruction, and/or weight based dosing when appropriate to reduce radiation dose to as low as reasonably achievable. COMPARISON: Unenhanced scan of the cervical spine August 29, 2018 FINDINGS: General: Cervical spine is visualized from the skull base through T1 . Alignment of spine is anatomic. There is mild disc height narrowing throughout. There is extensive anterior endplate spondylosis beginning at C3 and extending through C6. No acute fractures seen. Overall appearance of the spine is stable. The skull base is intact. The airway is patent. Mild vascular calcifications are noted at the carotid bulb. The thyroid gland is heterogeneous and a 6 mm nodules present in the left thyroid gland. The lung apices are clear. No definitive foraminal narrowing or spinal stenosis. IMPRESSION: 1. No fracture. 2. Multilevel anterior endplate spondylosis which is stable. 3. Subcentimeter incidental thyroid nodule. No follow-up imaging is recommended. Reference: J Am Kameron Radiol. 2015 Feb;12(2): 143-50
[2019-09-13 00:49] VITALS: BP 168/58
== END 2019-09-13 01:37 | disposition home or self-care (01) ==
LOC: ER 21:27
DX: F03.90 Unspecified dementia, unspecified severity, without behavioral disturbance, psychotic disturbance, mood disturbance, and anxiety (principal); W06.XXXA Fall from bed, initial encounter; Y92.129 Unspecified place in nursing home as the place of occurrence of the external cause; I48.91 Unspecified atrial fibrillation; E78.00 Pure hypercholesterolemia, unspecified; I10 Essential (primary) hypertension; J44.9 Chronic obstructive pulmonary disease, unspecified; Z85.3 Personal history of malignant neoplasm of breast; Z90.49 Acquired absence of other specified parts of digestive tract; Z90.710 Acquired absence of both cervix and uterus
CPT/HCPCS: 70450; 72125; 73522; 99285